=== PATIENT | male | born 1960 | race Caucasian/White ===

== ENCOUNTER 2021-03-31 16:22 | Emergency (ER) | payer BC ==
[2021-03-31 16:35] VITALS: RESP 18
[2021-03-31 16:47] LABS: Glucose,Whole Blood 98 mg/dL (75-99)
--- NOTE | 2021-03-31 16:57 | ED ---
General Adult HPI - General Chief complaint: Dizziness Stated complaint: syncope Time Seen by Provider: 03/31/21 16:55 Source: patient, EMS Mode of arrival: EMS Limitations: no limitations - History of Present Illness Initial comments: Patient presents to the ED by ambulance for evaluation with his and friend at bedside. Patient states that he became lightheaded and felt like he was going to pass out while sitting down just prior to calling for an ambulance today. Patient states that he has been outside in the heat all day today. Patient also states that he smoked marijuana just prior to the onset of his symptoms today. Patient states that his symptoms have now completely resolved. Patient denies alcohol use or any other illicit drug use. Patient denies having any pain, fever or chills, headache, focal numbness/weakness/neuro deficit, visual changes, speech difficulty, chest pain or pressure, dyspnea, cough or cold symptoms, palpitations, syncope, abdominal pain, nausea/vomiting/diarrhea, bloody or melanotic stool, dysuria or urinary symptoms, or any other symptoms or complaints. - Related Data Home Medications Medication Instructions Recorded Confirmed Aspirin 81 mg PO DAILY 10/06/14 03/31/21 Diltiazem Cd [Cardizem Cd] 180 mg PO DAILY 10/06/14 03/31/21 Losartan [Cozaar] 50 mg PO DAILY 10/06/14 03/31/21 Tiotropium 18 Mcg/Puff [Spiriva] 1 cap INHALATION RT-DAILY 10/06/14 03/31/21 hydroCHLOROthiazide 25 mg PO DAILY 10/06/14 03/31/21 Atorvastatin Calcium [Lipitor] 40 mg PO DAILY 03/31/21 03/31/21 Allergies Allergy/AdvReac Type Severity Reaction Status Date / Time No Known Allergies Allergy Verified 03/31/21 17:16 Review of Systems ROS Statement: Those systems with pertinent positive or pertinent negative responses have been documented in the HPI. ROS Other: All systems not noted in ROS Statement are negative. Past Medical History Past Medical History: Atrial Fibrillation, COPD, Hypertension History of Any Multi-Drug Resistant Organisms: None Reported Additional Past Surgical History / Comment(s): REPAIR TENDON OF LEFT HAND (CHILDHOOD), sinus surgery Past Anesthesia/Blood Transfusion Reactions: No Reported Reaction Past Psychological History: No Psychological Hx Reported Smoking Status: Current every day smoker Past Alcohol Use History: Occasional Past Drug Use History: Marijuana General Exam Limitations: no limitations General appearance: alert, in no apparent distress Head exam: Present: atraumatic, normocephalic Eye exam: Present: normal appearance, PERRL, EOMI ENT exam: Present: mucous membranes moist Neck exam: Present: other (Trachea is in midline) Respiratory exam: Present: normal lung sounds bilaterally. Absent: respiratory distress, wheezes, rales, rhonchi, stridor Cardiovascular Exam: Present: regular rate, normal rhythm, normal heart sounds, other (Normal radial pulses bilaterally) GI/Abdominal exam: Present: soft. Absent: distended, tenderness, guarding Extremities exam: Absent: tenderness, pedal edema, calf tenderness Neurological exam: Present: alert, oriented X3, CN II-XII intact. Absent: motor sensory deficit Psychiatric exam: Present: normal affect, normal mood Skin exam: Present: warm, dry, intact, normal color Course Vital Signs 03/31/21 03/31/21 03/31/21 16:28 17:19 18:54 Temperature 99.7 F H 97.0 F L Pulse Rate 65 60 58 L Respiratory 18 18 18 Rate Blood Pressure 107/73 115/78 128/85 O2 Sat by Pulse 97 97 98 Oximetry - Reevaluation(s) Reevaluation #1: 03/31/21 19:06 Patient continues to deny having any lightheadedness or symptoms while in the ED. Patient's vital signs remain reassuring. Patient remains alert and breathing comfortably with a normal room air oxygen saturation. Patient and /friend are aware of the patient's test results, and they all feel comfortable with the patient going home at this time. Patient was counseled a bout lightheadedness and cannabis abuse. Patient was clearly explained return and follow-up instructions, and he feels comfortable with this plan. Patient was instructed to follow up closely with his primary care provider. Patient was also instructed to have a low threshold for return to the ED should his symptoms worsen. EKG Findings - EKG Comments: EKG Findings:: Normal sinus rhythm, ventricular rate of 68 bpm, normal MA and QRS intervals, normal QT interval, normal axis, no ST or T-wave abnormality Medical Decision Making - Medical Decision Making I suspect that the patient's lightheadedness episode likely stemmed from his marijuana abuse and being out in the heat today. Patient's EKG and labs are fairly unremarkable. Patient's vital signs are reassuring. Patient and family are aware patient's test results, and patient wishes to go home with his family at this time. Will discharge patient home with his family at this time. - Lab Data Result diagrams: 03/31/21 17:12 03/31/21 17:12 Lab Results 03/31/21 03/31/21 03/31/21 Range/Units 16:45 17:12 17:12 WBC 10.0 (3.8-10.6) k/uL RBC 4.76 (4.30-5.90) m/uL Hgb 14.0 (13.0-17.5) gm/dL Hct 42.9 (39.0-53.0) % MCV 90.3 (80.0-100.0) fL MCH 29.4 (25.0-35.0) pg MCHC 32.5 (31.0-37.0) g/dL RDW 13.8 (11.5-15.5) % Plt Count 233 (150-450) k/uL MPV 7.4 Neutrophils % 52 % Lymphocytes % 33 % Monocytes % 8 % Eosinophils % 3 % Basophils % 1 % Neutrophils # 5.2 (1.3-7.7) k/uL Lymphocytes # 3.3 (1.0-4.8) k/uL Monocytes # 0.8 (0-1.0) k/uL Eosinophils # 0.3 (0-0.7) k/uL Basophils # 0.1 (0-0.2) k/uL Sodium 137 (137-145) mmol/L Potassium 3.8 (3.5-5.1) mmol/L Chloride 106 (98-107) mmol/L Carbon Dioxide 22 (22-30) mmol/L Anion Gap 9 mmol/L BUN 18 (9-20) mg/dL Creatinine 0.86 (0.66-1.25) mg/dL Est GFR (CKD-EPI)AfAm >90 (>60 ml/min/1.73 sqM) Est GFR (CKD-EPI)NonAf >90 (>60 ml/min/1.73 sqM) Glucose 98 (74-99) mg/dL POC Glucose (mg/dL) 98 (75-99) mg/dL POC Glu [employer] Controller ID Esparza, Austen Calcium 8.9 (8.4-10.2) mg/dL Total Bilirubin 0.3 (0.2-1.3) mg/dL AST 25 (17-59) U/L ALT 26 (4-49) U/L Alkaline Phosphatase 72 (38-126) U/L Troponin I (0.000-0.034) ng/mL Total Protein 6.0 L (6.3-8.2) g/dL Albumin 3.5 (3.5-5.0) g/dL 03/31/21 Range/Units 17:12 WBC (3.8-10.6) k/uL RBC (4.30-5.90) m/uL Hgb (13.0-17.5) gm/dL Hct (39.0-53.0) % MCV (80.0-100.0) fL MCH (25.0-35.0) pg MCHC (31.0-37.0) g/dL RDW (11.5-15.5) % Plt Count (150-450) k/uL MPV Neutrophils % % Lymphocytes % % Monocytes % % Eosinophils % % Basophils % % Neutrophils # (1.3-7.7) k/uL Lymphocytes # (1.0-4.8) k/uL Monocytes # (0-1.0) k/uL Eosinophils # (0-0.7) k/uL Basophils # (0-0.2) k/uL Sodium (137-145) mmol/L Potassium (3.5-5.1) mmol/L Chloride (98-107) mmol/L Carbon Dioxide (22-30) mmol/L Anion Gap mmol/L BUN (9-20) mg/dL Creatinine (0.66-1.25) mg/dL Est GFR (CKD-EPI)AfAm (>60 ml/min/1.73 sqM) Est GFR (CKD-EPI)NonAf (>60 ml/min/1.73 sqM) Glucose (74-99) mg/dL POC Glucose (mg/dL) (75-99) mg/dL POC Glu Casino Controller ID Calcium (8.4-10.2) mg/dL Total Bilirubin (0.2-1.3) mg/dL AST (17-59) U/L ALT (4-49) U/L Alkaline Phosphatase (38-126) U/L Troponin I <0.012 (0.000-0.034) ng/mL Total Protein (6.3-8.2) g/dL Albumin (3.5-5.0) g/dL Disposition Clinical Impression: Lightheadedness, Marijuana abuse Disposition: HOME SELF-CARE Condition: Stable Instructions (If sedation given, give patient instructions): Cannabis Abuse (ED), Lightheadedness (ED) Additional Instructions: Return to the ER immediately should you develop new or worsening dizziness, fainting, any significant pain, a fever, chest pain, shortness of breath, or new or worsening symptoms. Follow up closely with your primary care provider. Is patient prescribed a controlled substance at d/c from ED?: No Referrals: Sabrina Clinton DO [Primary Care Provider] - 1-2 days Time of Disposition: 19:08
[2021-03-31] MEDS: SODIUM CHLORIDE 0.9% 1,000 ML IV STA (17:19)
[2021-03-31 17:21] VITALS: TEMP 97
[2021-03-31 17:23] LABS: Basophils # (A) 0.1 k/uL (0-0.2); Basophils % (A) 1 %; Eosinophils # (A) 0.3 k/uL (0-0.7); Eosinophils % (A) 3 %; HCT 42.9 % (39.0-53.0); Lymphocytes # (A) 3.3 k/uL (1.0-4.8); Lymphocytes % (A) 33 %; MCH 29.4 pg (25.0-35.0); MCHC 32.5 g/dL (31.0-37.0); MCV 90.3 fL (80.0-100.0); Mean Platelet Volume 7.4; Monocytes # (A) 0.8 k/uL (0-1.0); Monocytes % (A) 8 %; Neutrophils # (A) 5.2 k/uL (1.3-7.7); Neutrophils % (A) 52 %; Platelet Count 233 k/uL (150-450); RBC 4.76 m/uL (4.30-5.90); RDW 13.8 % (11.5-15.5)
[2021-03-31 17:30] LABS: ALT 26 U/L (4-49); AST 25 U/L (17-59); African American GFR (CKD) >90 (>60 ml/min/1.73 sqM); Albumin 3.5 g/dL (3.5-5.0); Alkaline Phosphatase 72 U/L (38-126); Anion Gap 9 mmol/L; Blood Urea Nitrogen 18 mg/dL (9-20); Calcium 8.9 mg/dL (8.4-10.2); Carbon Dioxide 22 mmol/L (22-30); Chloride 106 mmol/L (98-107); Glucose 98 mg/dL (74-99); Non-African American GFR(CKD) >90 (>60 ml/min/1.73 sqM); Potassium 3.8 mmol/L (3.5-5.1); Sodium 137 mmol/L (137-145); Total Bilirubin 0.3 mg/dL (0.2-1.3)
[2021-03-31 18:55] VITALS: BP 128/85; PULSE 58
== END 2021-03-31 19:20 | disposition home or self-care (01) ==
LOC: EC 16:22
DX: F12.10 Cannabis abuse, uncomplicated (principal); R42 Dizziness and giddiness; R55 Syncope and collapse; J44.9 Chronic obstructive pulmonary disease, unspecified; I10 Essential (primary) hypertension; I48.91 Unspecified atrial fibrillation; F17.200 Nicotine dependence, unspecified, uncomplicated; Z79.51 Long term (current) use of inhaled steroids; Z79.82 Long term (current) use of aspirin; Z79.899 Other long term (current) drug therapy
CPT/HCPCS: 36415; 80053; 84484; 85025; 93005; 96360; 99284

== ENCOUNTER 2021-10-23 07:44 | Day surgery (SDC) | payer BC ==
[2021-10-18 16:36] VITALS: BMI 28.1
[~2021-10-23 07:44] MED LIST: LACTATED RINGERS 1,000 ML IV SCH
[2021-10-23 08:09] VITALS: TEMP 97.8
[2021-10-23] MEDS ORDERED: PROPOFOL 10 MG/ML 20 ML VIAL IV ONE (08:58)
[2021-10-23] MEDS ORDERED: LIDOCAINE 1% INJ 10MG/ML (20 ML MDV) ONE (08:58)
--- NOTE | 2021-10-23 09:21 | P.PCN ---
Date of Procedure: 10/23/21 Procedure(s) Performed: BRIEF HISTORY: Patient is a 61-year-old pleasant male scheduled for an elective colonoscopy as a part of evaluation of prior history of colon polyps. Last colonoscopy was 5 years ago. PROCEDURE PERFORMED: Colonoscopy with snare polypectomy. PREOPERATIVE DIAGNOSIS: History of colon polyps. IV sedation per Anesthesia. PROCEDURE: After informed consent was obtained, the patient, was brought into the endoscopy unit. IV sedation was administered by Anesthesia under continuous monitoring. Digital rectal examination was normal. Initially the Olympus CF-160 flexible video colonoscope was then inserted in the rectum, gradually advanced into the cecum without any difficulty. Careful examination was performed as the scope was gradually being withdrawn. Ileocecal valve and the appendiceal orifice were visualized and appeared normal. Prep was excellent. Mucosa of the cecum, we normal. In the ascending colon there were 5 polyps measuring between 3 mm to 7 mm in size all of which were removed by snare polypectomy. In the hepatic flexure there were 2 polyps measuring 7 mm to 1 cm both of which were broad- based removed by snare polypectomy. In the proximal transverse colon just distal to the hepatic flexure there was a 2 cm broad-based polyp that was removed by piecemeal snare polypectomy and complete polypectomy accomplished. Rest of the ascending colon, transverse colon, descending colon, sigmoid colon, and rectum appeared normal. Retroflexion was performed in the rectum and no lesions were seen. In the proximal rectum there was a 5 mm polyp removed by snare polypectomy The patient tolerated the procedure well. IMPRESSION: 5 small polyps in the ascending colon measuring between 2 mm to 7 mm in size status post polypectomy 7 mm and 1 cm hepatic flexure polyps status post polypectomy 2 cm polyp broad-based proximal transverse colon polyp status post polypectomy 5 mm rectal polyp status post polypectomy RECOMMENDATIONS: Findings of this examination were discussed with the patient as well as his family. He was advised to follow with the biopsy results. If the biopsy results adenoma he can have a repeat colonoscopy in 3 years..
[2021-10-23] MEDS ORDERED: IV FLUID CONTINUATION 500 ML IV ONE (09:23)
[2021-10-23 09:25] VITALS: RESP 16
[2021-10-23 09:44] VITALS: BP 114/72; PULSE 56
== END 2021-10-23 10:05 | disposition home or self-care (01) ==
LOC: ORWHC2ENDO 07:44
PROVIDERS: ATTEND Internal Medicine Gastroenterology
DX: Z12.11 Encounter for screening for malignant neoplasm of colon (principal); D12.2 Benign neoplasm of ascending colon; D12.3 Benign neoplasm of transverse colon; D12.8 Benign neoplasm of rectum; Z86.010 Personal history of colon polyps; Z79.82 Long term (current) use of aspirin; Z79.899 Other long term (current) drug therapy; I48.91 Unspecified atrial fibrillation; I10 Essential (primary) hypertension; E78.5 Hyperlipidemia, unspecified; J44.9 Chronic obstructive pulmonary disease, unspecified; F17.200 Nicotine dependence, unspecified, uncomplicated; Z97.2 Presence of dental prosthetic device (complete) (partial); Z88.8 Allergy status to other drugs, medicaments and biological substances
CPT/HCPCS: 88305; 45385; J2001; J2704

== ENCOUNTER 2023-12-29 08:30 | Inpatient (IN) | payer BC ==
[2023-12-29] MEDS: SODIUM CHLORIDE 0.9% 500 ML 500 ML IV STA (09:08)
[2023-12-29] MEDS: methylPREDNISolone SOD SUCCI 125 MG/2 ML VIAL IV STA (09:10)
--- NOTE | 2023-12-29 09:24 | ED ---
General Adult HPI - General Chief complaint: Shortness of Breath Stated complaint: COPD Time Seen by Provider: 12/29/23 08:42 Source: patient, RN notes reviewed Mode of arrival: ambulatory Limitations: no limitations - History of Present Illness Initial comments: 63-year-old male presents emergency department chief complaint shortness of breath. Patient states that he has COPD states has been having issues on and off since September when he had pneumonia. 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 He states that he used to smoke almost 2 packs a day states is down to 5 cigarettes a day. He states he has been doing his breathing treatments and inhaler with minimal relief. Patient reports no fever. Patient states he has mild swelling in his feet, mild productive cough. Patient states that movement makes his symptoms much worse. - Related Data Home Medications Medication Instructions Recorded Confirmed Diltiazem Cd [Cardizem Cd] 180 mg PO DAILY 10/06/14 12/29/23 Aspirin 325 mg PO DAILY 10/18/21 12/29/23 Multivitamins, Thera [Multivitamin 1 tab PO DAILY 10/23/21 12/29/23 (formulary)] Albuterol Inhaler [Ventolin Hfa 2 puff INHALATION RT-QID PRN 12/29/23 12/29/23 Inhaler] Albuterol Nebulized [Ventolin 2.5 mg INHALATION RT-QID PRN 12/29/23 12/29/23 Nebulized] Fluticasone/Umeclidin/Vilanter 1 puff INHALATION RT-DAILY 12/29/23 12/29/23 [Trelegy Ellipta 100-62.5-25] Ibuprofen [Motrin] 800 mg PO Q8H PRN 12/29/23 12/29/23 Losartan Potassium [Cozaar] 100 mg PO DAILY 12/29/23 12/29/23 Allergies Allergy/AdvReac Type Severity Reaction Status Date / Time lisinopril AdvReac CAUSED Verified 12/29/23 11:02 FATIGUE Review of Systems ROS Statement: Those systems with pertinent positive or pertinent negative responses have been documented in the HPI. ROS Other: All systems not noted in ROS Statement are negative. Past Medical History Past Medical History: Atrial Fibrillation, COPD, Hyperlipidemia, Hypertension History of Any Multi-Drug Resistant Organisms: None Reported Additional Past Surgical History / Comment(s): REPAIR TENDON OF LEFT HAND (CHILDHOOD), sinus surgery , COLONOSCOPY Past Anesthesia/Blood Transfusion Reactions: No Reported Reaction Past Psychological History: No Psychological Hx Reported Smoking Status: Current every day smoker - Past Family History Mother Family Medical History: Cancer General Exam Limitations: no limitations General appearance: alert, in no apparent distress Head exam: Present: atraumatic, normocephalic, normal inspection Eye exam: Present: normal appearance, PERRL, EOMI. Absent: scleral icterus, conjunctival injection, periorbital swelling ENT exam: Present: normal exam, mucous membranes moist Neck exam: Present: normal inspection. Absent: tenderness, meningismus, lymphadenopathy Respiratory exam: Present: wheezes, rhonchi. Absent: normal lung sounds bilaterally, respiratory distress, rales, stridor Cardiovascular Exam: Present: regular rate, normal rhythm, normal heart sounds. Absent: systolic murmur, diastolic murmur, rubs, gallop, clicks GI/Abdominal exam: Present: soft, normal bowel sounds. Absent: distended, tenderness, guarding, rebound, rigid Course Vital Signs 12/29/23 12/29/23 12/29/23 08:33 09:08 09:25 Temperature 97.7 F Pulse Rate 100 71 79 Respiratory 24 23 Rate Blood Pressure 138/87 139/84 O2 Sat by Pulse 94 L 93 L Oximetry 12/29/23 12/29/23 12/29/23 09:30 09:41 10:00 Temperature Pulse Rate 79 85 95 Respiratory 18 19 Rate Blood Pressure 138/89 146/109 O2 Sat by Pulse 100 98 Oximetry 12/29/23 12/29/23 12/29/23 10:30 11:00 11:30 Temperature Pulse Rate 80 94 88 Respiratory 19 20 20 Rate Blood Pressure 141/96 146/98 144/108 O2 Sat by Pulse 99 98 98 Oximetry 12/29/23 12/29/23 12/29/23 12:00 12:30 12:43 Temperature 97.9 F Pulse Rate 96 101 H 89 Respiratory 21 22 Rate Blood Pressure 141/105 136/94 O2 Sat by Pulse 97 96 Oximetry 12/29/23 12/29/23 12/29/23 12:54 15:05 15:14 Temperature Pulse Rate 86 112 H 112 H Respiratory Rate Blood Pressure O2 Sat by Pulse Oximetry 12/29/23 16:00 Temperature Pulse Rate 103 H Respiratory 17 Rate Blood Pressure 141/104 O2 Sat by Pulse 96 Oximetry EKG Findings - EKG Comments: EKG Findings:: EKG performed at 8: 54 A-fib with a rate of 69 QRS 98 QT/QTc 396/416 - EKG Results: EKG: interpreted by HEATHER Medical Decision Making - Medical Decision Making Was pt. sent in by a medical professional or institution (, PA, LOADER MACHINE, urgent care, hospital, or longterm...) When possible be specific @ -No Did you speak to anyone other than the patient for history (EMS, parent, family, police, friend...)? What history was obtained from this source @ -No Did you review nursing and triage notes (agree or disagree)? Why? @ -I reviewed and agree with nursing and triage notes Were old charts reviewed (outside hosp., previous admission, EMS record, old EKG, old radiological studies, urgent care reports/EKG's, longterm records)? Report findings @ -No old charts were reviewed Differential Diagnosis (chest pain, altered mental status, abdominal pain women, abdominal pain men, vaginal bleeding, weakness, fever, dyspnea, syncope, headache, dizziness, GI bleed, back pain, seizure, CVA, palpatations, mental health, musculoskeletal)? @ -Differential Dyspnea: Coronary syndrome, arrhythmia, tamponade, asthma, COPD, pulmonary embolism, pneumonia, pneumothorax, pulmonary effusion, anaphylaxis, diabetic ketoacidosis, flailed chest, pulmonary contusion, diaphragmatic rupture, anemia, neuromuscular, this is not meant to be an all-inclusive list. EKG interpreted by me (3pts min.). @ -As above X-rays interpreted by me (1pt min.). @ -Chest x-ray shows COPD changes CT interpreted by me (1pt min.). @ -None done U/S interpreted by me (1pt. min.). @ -None done What testing was considered but not performed or refused? (CT, X-rays, U/S, labs)? Why? @ -None What meds were considered but not given or refused? Why? @ -None Did you discuss the management of the patient with other professionals (professionals i.e. , PA, LOADER MACHINE, lab, RT, psych nurse, medical social consultant, research & insights executive, teacher, chief media officer, casework manager)? Give summary @ - Sheet for admission secondary to COPD exacerbation and failure of outpatient treatment will require steroids, breathing treatments and pulmonology evaluation Was smoking cessation discussed for >3mins.? @ -No Was critical care preformed (if so, how long)? @ -No Were there social determinants of health that impacted care today? How? (Homelessness, low income, unemployed, alcoholism, drug addiction, transportation, low edu. Level, literacy, decrease access to med. care, correction, rehab)? @ -No Was there de-escalation of care discussed even if they declined (Discuss DNR or withdrawal of care, Hospice)? DNR status @ -No What co-morbidities impacted this encounter? (DM, HTN, Smoking, COPD, CAD, Cancer, CVA, ARF, Chemo, Hep., AIDS, mental health diagnosis, sleep apnea, morbid obesity)? @ -COPD Was patient admitted / discharged? Hospital course, mention meds given and route, prescriptions, significant lab abnormalities, going to OR and other pert inent info. @ -Admitted patient has COPD exacerbation patient had minimal improvement after multiple breathing treatments, steroids. Patient continue on steroids, pulmonology evaluation patient was started on doxycycline. Undiagnosed new problem with uncertain prognosis? @ -No Drug Therapy requiring intensive monitoring for toxicity (Heparin, Nitro, Insulin, Cardizem)? @ -No Were any procedures done? @ -No Diagnosis/symptom? @ -COPD exacerbation Acute, or Chronic, or Acute on Chronic? @ -Acute Uncomplicated (without systemic symptoms) or Complicated (systemic symptoms)? @ -Complicated Side effects of treatment? @ -No Exacerbation, Progression, or Severe Exacerbation? @ -Exacerbation Poses a threat to life or bodily function? How? (Chest pain, [place], [place], pneumonia, PE, COPD, DKA, ARF, appy, cholecystitis, CVA, Diverticulitis, Homicidal, Suicidal, threat to staff... and all critical care pts) @ -[Yes possible respiratory failure from COPD - Lab Data Result diagrams: 12/29/23 09:10 12/29/23 09:59 Lab Results 12/29/23 12/29/23 12/29/23 Range/Units 09:10 09:59 09:59 WBC 8.7 (3.8-10.6) k/uL RBC 5.25 (4.30-5.90) m/uL Hgb 14.8 (13.0-17.5) gm/dL Hct 46.3 (39.0-53.0) % MCV 88.2 (80.0-100.0) fL MCH 28.1 (25.0-35.0) pg MCHC 31.9 (31.0-37.0) g/dL RDW 15.6 H (11.5-15.5) % Plt Count 260 (150-450) k/uL MPV 7.5 Neutrophils % 77 % Lymphocytes % 13 % Monocytes % 6 % Eosinophils % 1 % Basophils % 0 % Neutrophils # 6.7 (1.3-7.7) k/uL Lymphocytes # 1.1 (1.0-4.8) k/uL Monocytes # 0.6 (0-1.0) k/uL Eosinophils # 0.1 (0-0.7) k/uL Basophils # 0.0 (0-0.2) k/uL PT 11.2 (10.0-12.5) sec INR 1.0 (<1.2) APTT 23.6 (22.0-30.0) sec Sodium (137-145) mmol/L Potassium (3.5-5.1) mmol/L Chloride (98-107) mmol/L Carbon Dioxide (22-30) mmol/L Anion Gap mmol/L BUN (9-20) mg/dL Creatinine (0.66-1.25) mg/dL Est GFR (CKD-EPI)AfAm (>60 ml/min/1.73 sqM) Est GFR (CKD-EPI)NonAf (>60 ml/min/1.73 sqM) Glucose (74-99) mg/dL Plasma Lactic Acid Dickson 1.3 (0.7-2.0) mmol/L Calcium (8.4-10.2) mg/dL Total Bilirubin (0.2-1.3) mg/dL AST (17-59) U/L ALT (4-49) U/L Alkaline Phosphatase (38-126) U/L Troponin I (0.000-0.034) ng/mL NT-Pro-B Natriuret Pep pg/mL Total Protein (6.3-8.2) g/dL Albumin (3.5-5.0) g/dL Influenza Type A (PCR) (Not Detectd) Influenza Type B (PCR) (Not Detectd) RSV (PCR) (Not Detectd) SARS-CoV-2 (PCR) (Not Detectd) 12/29/23 12/29/23 12/29/23 Range/Units 09:59 09:59 10:44 WBC (3.8-10.6) k/uL RBC (4.30-5.90) m/uL Hgb (13.0-17.5) gm/dL Hct (39.0-53.0) % MCV (80.0-100.0) fL MCH (25.0-35.0) pg MCHC (31.0-37.0) g/dL RDW (11.5-15.5) % Plt Count (150-450) k/uL MPV Neutrophils % % Lymphocytes % % Monocytes % % Eosinophils % % Basophils % % Neutrophils # (1.3-7.7) k/uL Lymphocytes # (1.0-4.8) k/uL Monocytes # (0-1.0) k/uL Eosinophils # (0-0.7) k/uL Basophils # (0-0.2) k/uL PT (10.0-12.5) sec INR (<1.2) APTT (22.0-30.0) sec Sodium 138 (137-145) mmol/L Potassium 3.6 (3.5-5.1) mmol/L Chloride 107 (98-107) mmol/L Carbon Dioxide 24 (22-30) mmol/L Anion Gap 7 mmol/L BUN 19 (9-20) mg/dL Creatinine 0.60 L (0.66-1.25) mg/dL Est GFR (CKD-EPI)AfAm >90 (>60 ml/min/1.73 sqM) Est GFR (CKD-EPI)NonAf >90 (>60 ml/min/1.73 sqM) Glucose 94 (74-99) mg/dL Plasma Lactic Acid Dickson (0.7-2.0) mmol/L Calcium 8.5 (8.4-10.2) mg/dL Total Bilirubin 0.8 (0.2-1.3) mg/dL AST 37 (17-59) U/L ALT 40 (4-49) U/L Alkaline Phosphatase 96 (38-126) U/L Troponin I <0.012 (0.000-0.034) ng/mL NT-Pro-B Natriuret Pep 1940 pg/mL Total Protein 6.4 (6.3-8.2) g/dL Albumin 3.5 (3.5-5.0) g/dL Influenza Type A (PCR) Not Detected (Not Detectd) Influenza Type B (PCR) Not Detected (Not Detectd) RSV (PCR) Not Detected (Not Detectd) SARS-CoV-2 (PCR) Not Detected (Not Detectd) Disposition Clinical Impression: COPD exacerbation Disposition: ADMITTED IP TO THIS HOSP Condition: Fair Time of Disposition: 11:44
[2023-12-29] MEDS: IPRATROPIUM-ALBUTEROL 3 ML NEB INHALATION STA (09:25)
[2023-12-29 09:29] LABS: Basophils % (A) 0 %; Eosinophils # (A) 0.1 k/uL (0-0.7); Eosinophils % (A) 1 %; HCT 46.3 % (39.0-53.0); HGB 14.8 gm/dL (13.0-17.5); Lymphocytes # (A) 1.1 k/uL (1.0-4.8); Lymphocytes % (A) 13 %; MCH 28.1 pg (25.0-35.0); MCHC 31.9 g/dL (31.0-37.0); MCV 88.2 fL (80.0-100.0); Mean Platelet Volume 7.5; Monocytes # (A) 0.6 k/uL (0-1.0); Monocytes % (A) 6 %; Neutrophils # (A) 6.7 k/uL (1.3-7.7); Neutrophils % (A) 77 %; Platelet Count 260 k/uL (150-450); RBC 5.25 m/uL (4.30-5.90); RDW 15.6 % (11.5-15.5); WBC 8.7 k/uL (3.8-10.6)
--- NOTE | 2023-12-29 09:46 | XR ---
EXAMINATION TYPE: XR chest 2V DATE OF EXAM: 12/29/2023 COMPARISON: 06/04/2010 HISTORY: Shortness of breath TECHNIQUE: Frontal and lateral views of the chest are obtained. FINDINGS: Scattered senescent parenchymal changes noted. Hyperinflation compatible with COPD. Basilar parenchym al scarring and/or atelectasis. Pleural thickening versus small effusions. No evidence for infiltrate. No evidence for atelectasis. Heart size is stable. Mediastinal structures are stable and grossly unremarkable. No evidence for hilar prominence. Degenerative changes dorsal spine. IMPRESSION: 1. Hyperinflation compatible with COPD. Basilar parenchymal scarring and/or atelectasis. Pleural thic kening versus small effusions.
[2023-12-29 10:30] LABS: Partial Thromboplastin Time 23.6 sec (22.0-30.0); Prothrombin Time 11.2 sec (10.0-12.5)
[2023-12-29 10:31] LABS: ALT 40 U/L (4-49); AST 37 U/L (17-59); African American GFR (CKD) >90 (>60 ml/min/1.73 sqM); Albumin 3.5 g/dL (3.5-5.0); Alkaline Phosphatase 96 U/L (38-126); Anion Gap 7 mmol/L; Blood Urea Nitrogen 19 mg/dL (9-20); Calcium 8.5 mg/dL (8.4-10.2); Carbon Dioxide 24 mmol/L (22-30); Chloride 107 mmol/L (98-107); Glucose 94 mg/dL (74-99); Non-African American GFR(CKD) >90 (>60 ml/min/1.73 sqM); Potassium 3.6 mmol/L (3.5-5.1); Sodium 138 mmol/L (137-145); Total Bilirubin 0.8 mg/dL (0.2-1.3); Total Protein 6.4 g/dL (6.3-8.2)
[2023-12-29 10:37] LABS: NT-Pro-B-Type Natriuretic Pept 1940 pg/mL
[2023-12-29] MEDS ORDERED: IPRATROPIUM-ALBUTEROL 3 ML NEB INHALATION PRN (11:43)
[2023-12-29] MEDS ORDERED: ACETAMINOPHEN TAB 325 MG TAB PO PRN (11:43)
[2023-12-29] MEDS ORDERED: NALOXONE 0.4 MG/ML 1 ML VIAL IVP PRN (11:43)
[2023-12-29] MEDS: IPRATROPIUM-ALBUTEROL 3 ML NEB INHALATION SCH (12:40)
[2023-12-29] MEDS ORDERED: IBUPROFEN 800 MG TAB PO PRN (12:47)
[2023-12-29] MEDS: DOXYCYCLINE 100 MG CAP PO SCH (12:57)
[2023-12-29] MEDS ORDERED: DEXTROSE 50% SYRINGE 50 ML IVP PRN ×2 (13:14)
--- NOTE | 2023-12-29 13:15 | P.HPIM ---
History of Present Illness This is a pleasant 63 years old male with past medical history of COPD, nicotine dependence, atrial fibrillation not on anticoagulation, hypertension and hyperlipidemia Presents because of slowly gradual dyspnea over several weeks associated with coughing and little phlegm but no chest pain No change in urine or bowel habits. No fever. Patient is a smoker but cut down from 1.5 down to 5 to 6 cigarettes/day he was counseled to quit but he declines and he denies also alcohol or illicit drugs. He is not on oxygen at home. He is hemodynamically stable He has unremarkable labs including CBC, BMP, liver enzymes, INR Troponin is negative. proBNP 1940. Chest x-ray showing COPD changes with no acute process EKG showing atrial fibrillation with rate controlled at [address]-T changes Influenza A and type B, RSV, SARS (coronavirus) are and detected\\patient started on IV Solu-Medrol Review of Systems Review of systems CONSTITUTIONAL: No fever, no malaise, no fatigue. HEENT: No recent visual problems or hearing problems. Denied any sore throat. CARDIOVASCULAR: No orthopnea, PND, no palpitations, no syncope. -PULMONARY: No s chest wall tenderness, no hemoptysis. GASTROINTESTINAL: No diarrhea, no nausea, no vomiting, no abdominal pain. Normoactive bowel sounds. NEUROLOGICAL: No headaches, no weakness, no numbness. HEMATOLOGICAL: Denies any bleeding or petechiae. GENITOURINARY: Denies any burning micturition, frequency, or urgency. MUSCULOSKELETAL/RHEUMATOLOGICAL: Denies any joint pain, swelling, or any muscle pain. ENDOCRINE: Denies any polyuria or polydipsia. Past Medical History Past Medical History: Atrial Fibrillation, COPD, Hyperlipidemia, Hypertension History of Any Multi-Drug Resistant Organisms: None Reported Additional Past Surgical History / Comment(s): REPAIR TENDON OF LEFT HAND (CHILDHOOD), sinus surgery , COLONOSCOPY Past Anesthesia/Blood Transfusion Reactions: No Reported Reaction Past Psychological History: No Psychological Hx Reported Smoking Status: Current every day smoker - Past Family History Mother Family Medical History: Cancer Medications and Allergies Home Medications Medication Instructions Recorded Confirmed Type Diltiazem Cd [Cardizem Cd] 180 mg PO DAILY 10/06/14 12/29/23 History Aspirin 325 mg PO DAILY 10/18/21 12/29/23 History Multivitamins, Thera [Multivitamin 1 tab PO DAILY 10/23/21 12/29/23 History (formulary)] Albuterol Inhaler [Ventolin Hfa 2 puff INHALATION RT-QID PRN 12/29/23 12/29/23 History Inhaler] Albuterol Nebulized [Ventolin 2.5 mg INHALATION RT-QID PRN 12/29/23 12/29/23 History Nebulized] Fluticasone/Umeclidin/Vilanter 1 puff INHALATION RT-DAILY 12/29/23 12/29/23 History [Trelegy Ellipta 100-62.5-25] Ibuprofen [Motrin] 800 mg PO Q8H PRN 12/29/23 12/29/23 History Losartan Potassium [Cozaar] 100 mg PO DAILY 12/29/23 12/29/23 History Allergies Allergy/AdvReac Type Severity Reaction Status Date / Time lisinopril AdvReac CAUSED Verified 12/29/23 11:02 FATIGUE Physical Exam Vitals: Vital Signs Temp Pulse Resp BP Pulse Ox 12/29/23 12:54 86 12/29/23 12:43 89 12/29/23 12:00 96 21 141/105 97 12/29/23 11:30 88 20 144/108 98 12/29/23 11:00 94 20 146/98 98 12/29/23 10:30 80 19 141/96 99 12/29/23 10:00 95 19 146/109 98 12/29/23 09:41 85 12/29/23 09:30 79 18 138/89 100 12/29/23 09:25 79 12/29/23 09:08 71 23 139/84 93 L 12/29/23 08:33 97.7 F 100 24 138/87 94 L Intake and Output 12/28/23 12/29/23 12/29/23 22:59 06:59 14:59 Other: Weight 99.79 kg GENERAL: The patient is alert and oriented x3, not in any acute distress. Well developed, well nourished. HEENT: Pupils are round and equally reacting to light. EOMI. No scleral icterus. No conjunctival pallor. Normocephalic, atraumatic. No pharyngeal erythema. No thyromegaly. CARDIOVASCULAR: S1 and S2 present. No murmurs, rubs, or gallops. -PULMONARY: Chest is clear to auscultation, no wheezing bilateral scattered wheezing no crepitation ABDOMEN: Soft, nontender, nondistended, normoactive bowel sounds. No palpable organomegaly. MUSCULOSKELETAL: No joint swelling or deformity. EXTREMITIES: No cyanosis, clubbing, or pedal edema. NEUROLOGICAL: Gross neurological examination did not reveal any focal deficits. SKIN: No rashes. no petechiae. Results CBC & Chem 7: 12/29/23 09:10 12/29/23 09:59 Labs: Abnormal Lab Results - Last 24 Hours (Table) 12/29/23 12/29/23 Range/Units 09:10 09:59 RDW 15.6 H (11.5-15.5) % Creatinine 0.60 L (0.66-1.25) mg/dL Assessment and Plan Assessment: Acute COPD exacerbation Mild acute hypoxic respiratory failure Chronic atrial fibrillation, rate controlled on aspirin at home Hypertension Hyperlipidemia Nicotine dependence Plan: Continue with IV Solu-Medrol Pulmonary consult Labs and medication were reviewed.. Continue same treatment. Continue with symptomatic treatment. Resume home medication. Monitor labs and vitals. DVT and GI prophylaxis. Further recommendations as per clinical course of the patient DVT prophylaxis: Subcutaneous heparin GI Prophylaxis: Pepcid Prognosis is guarded
[2023-12-29 16:59] LABS: Glucose,Whole Blood 131 mg/dL (70-110)
[2023-12-29] MEDS: INSULIN ASPART (NovoLOG) 100 UNIT/ML VIAL SQ SCH (17:01)
[2023-12-29] MEDS: methylPREDNISolone SOD SUCCI 125 MG/2 ML VIAL IV SCH (17:10)
[2023-12-29 20:30] LABS: Glucose,Whole Blood 219 mg/dL (70-110)
[2023-12-29] MEDS: HEPARIN SODIUM,PORCINE 5,000 UNIT/ML 1 ML VIAL SQ SCH (22:08)
[2023-12-29] MEDS: FAMOTIDINE 20 MG/2 ML VIAL IV SCH (22:09)
--- NOTE | 2023-12-30 02:53 | P.CNPUL ---
History of Present Illness Consult date: 12/30/23 Reason for consult: COPD Chief complaint: Shortness of breath, cough History of present illness: I am seeing this patient in consultation today 12/30/2023 for suspected acute COPD exacerbation. Patient is a 63-year-old white male with past medical history significant for COPD, chronic ongoing tobacco dependence, atrial fibrillation, hyperlipidemia, hypertension. Patient's COPD is managed by his primary care provider, Dr. Clinton. Patient has recently been switched to Trelegy Ellipta inhaler, DuoNebs twice a day, and albuterol rescue inhaler. Patient continues to smoke, he has previously smoked 2 packs/day for most of his life, currently down to 5 cigarettes/day. 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 Patient presents to the emergency room yesterday morning complaining of acute on chronic shortness of breath. This has been more severe over the last couple weeks. He did go see a nurse practitioner at his primary care provider's office, and received a steroid injection. He has not felt any better since this office visit, so he came to the emergency room yesterday morning. He has a mostly nonproductive cough and chest congestion. Sometimes produces clear sputum. Denies any fevers or chest pain. Denies any heart palpitations, lightheadedness, or syncopal events. Not maintained on any anticoagulation, for unknown reason. He does take a daily aspirin. He also uses Cardizem for rate control. He has followed with a bridge contractor in the past, however, could not afford his co-pays so has since stopped seeing his bridge contractor. Patient is currently sitting up at the edge of the bed, on room air, in no acute distress. Chest x-ray on arrival shows hyperinflation consistent with COPD. There is bibasilar parenchymal scarring versus atelectasis. There is pleural thickening versus small pleural effusion. No obvious focal infiltrates or evidence of pneumonia. Negative for influenza, RSV, COVID. Currently afebrile. Patient was empirically placed on doxycycline. CBC on arrival unremarkable. No leukocytosis. BMP also unremarkable. Troponins less than 0.012. NT proBNP 1900. EKG on arrival showed atrial fibrillation with controlled ventricular rate, however, he is currently tachycardic heart rate ranging in the 120s beats per minute. Overall, vital signs are stable. Review of Systems REVIEW OF SYSTEMS: CONSTITUTIONAL: Denies any recent significant weight loss or weight gain. EYES: Denies change in vision. EARS, NOSE, MOUTH, THROAT: Denies headaches, denies sore throat. CARDIOVASCULAR: See HPI. RESPIRATORY: See HPI GASTROINTESTINAL: Denies change in appetite, abdominal pain, nausea and vomiting, or diarrhea GENITOURINARY: Denies hematuria, denies infections. MUSKULOSKELETAL: Denies pain, denies swelling. INTEGUMENTARY: Denies rash, denies eczema. NEUROLOGICAL: Denies recent memory loss, no recent seizure activity. PSYCHIATRIC: Denies anxiety, denies depression. HEMATOLOGIC/LYMPHATIC: Denies anemia, denies enlarged lymph node Past Medical History Past Medical History: Atrial Fibrillation, COPD, Hyperlipidemia, Hypertension Additional Past Medical History / Comment(s): COVID 08/21 History of Any Multi-Drug Resistant Organisms: None Reported Additional Past Surgical History / Comment(s): REPAIR TENDON OF LEFT HAND (CHILDHOOD), sinus surgery , COLONOSCOPY Past Anesthesia/Blood Transfusion Reactions: No Reported Reaction Past Psychological History: No Psychological Hx Reported Smoking Status: Current every day smoker - Past Family History Mother Family Medical History: Cancer Medications and Allergies Home Medications Medication Instructions Recorded Confirmed Type Diltiazem Cd [Cardizem Cd] 180 mg PO DAILY 10/06/14 12/29/23 History Aspirin 325 mg PO DAILY 10/18/21 12/29/23 History Multivitamins, Thera [Multivitamin 1 tab PO DAILY 10/23/21 12/29/23 History (formulary)] Albuterol Inhaler [Ventolin Hfa 2 puff INHALATION RT-QID PRN 12/29/23 12/29/23 History Inhaler] Albuterol Nebulized [Ventolin 2.5 mg INHALATION RT-QID PRN 12/29/23 12/29/23 History Nebulized] Fluticasone/Umeclidin/Vilanter 1 puff INHALATION RT-DAILY 12/29/23 12/29/23 History [Trelegy Ellipta 100-62.5-25] Ibuprofen [Motrin] 800 mg PO Q8H PRN 12/29/23 12/29/23 History Losartan Potassium [Cozaar] 100 mg PO DAILY 12/29/23 12/29/23 History Allergies Allergy/AdvReac Type Severity Reaction Status Date / Time lisinopril AdvReac CAUSED Verified 12/29/23 11:02 FATIGUE Physical Exam Vitals: Vital Signs Temp Pulse Pulse Resp BP BP Pulse Ox 12/29/23 21:03 98.5 F 110 H 16 149/97 90 L 12/29/23 20:02 98.4 F 120 H 18 145/101 95 12/29/23 19:36 114 H 12/29/23 17:00 115 H 17 135/100 97 12/29/23 16:00 103 H 17 141/104 96 12/29/23 15:30 108 H 22 137/102 97 12/29/23 15:14 112 H 12/29/23 15:05 112 H 12/29/23 12:54 86 12/29/23 12:43 89 12/29/23 12:30 97.9 F 101 H 22 136/94 96 12/29/23 12:00 96 21 141/105 97 12/29/23 11:30 88 20 144/108 98 12/29/23 11:00 94 20 146/98 98 12/29/23 10:30 80 19 141/96 99 12/29/23 10:00 95 19 146/109 98 12/29/23 09:41 85 12/29/23 09:30 79 18 138/89 100 12/29/23 09:25 79 12/29/23 09:08 71 23 139/84 93 L 12/29/23 08:33 97.7 F 100 24 138/87 94 L Intake and Output 12/29/23 12/29/23 12/30/23 14:59 22:59 06:59 Other: # Voids 1 Weight 99.79 kg GENERAL EXAM: Alert, 63-year-old white male, appearing stated age, comfortable in no apparent distress. HEAD: Normocephalic and atraumatic EYES: Normal reaction of pupils, equal size. NOSE: Clear with pink turbinates. THROAT: No erythema or exudates. NECK: No masses, no JVD. CHEST: No chest wall deformity. LUNGS: Equal air entry with mild expiratory wheezes. On room air. No conversational dyspnea or accessory muscle use.. CVS: S1 and S2 normal with soft systolic murmur, irregular rhythm. Heart rate 120 bpm. No other extra heart sounds ABDOMEN: No hepatosplenomegaly, active bowel sounds, no guarding or rigidity. SPINE: No scoliosis or deformity SKIN: No rashes CENTRAL NERVOUS SYSTEM: No focal deficits, tone is normal in all 4 extremities. EXTREMITIES: There is mild nonpitting pedal edema bilaterally. No clubbing, or cyanosis. Peripheral pulses are intact. Results - Laboratory Findings CBC and BMP: 12/29/23 09:10 12/29/23 09:59 PT/INR, D-dimer PT 11.2 sec (10.0-12.5) 12/29/23 09:59 INR 1.0 (<1.2) 12/29/23 09:59 Abnormal lab findings: Abnormal Labs 12/29/23 12/29/23 12/29/23 09:10 09:59 16:58 RDW 15.6 H Creatinine 0.60 L POC Glucose (mg/dL) 131 H 12/29/23 20:27 RDW Creatinine POC Glucose (mg/dL) 219 H - Diagnostic Findings Chest x-ray: image reviewed Assessment and Plan Assessment: Acute COPD exacerbation, chest x-ray on arrival does not show any evidence of focal infiltrates or pneumonia. There is likely bibasilar parenchymal scarring versus atelectasis. There is pleural thickening or small pleural effusion. Negative for influenza, RSV, COVID. Atrial fibrillation with rapid ventricular rate Acute on chronic shortness of breath, likely multifactorial, secondary to a combination of above History of hyperlipidemia History of hypertension Chronic ongoing tobacco dependence, currently down to 5 cigarettes/day. Plan: Patient's medications, labs, chest x-ray reviewed Currently on room air Continue combination of bronchodilators, Symbicort inhaler, and IV Solu-Medrol May continue empiric doxycycline Smoking cessation counseling performed. Patient refused nicotine replacement Consult cardiology for management of patient's atrial fibrillation with rapid ventricular rate. P.o. Cardizem and other cardiac medications have already been resumed. Patient is not on any anticoagulation, for unknown reason. We will also continue to follow I have personally seen and examined the patient, performed the documentation and the assessment and plan as written. Number of minutes spent on the visit:20 Time with Patient: Greater than 30
[2023-12-30 06:20] LABS: Glucose,Whole Blood 129 mg/dL (70-110)
[2023-12-30] MEDS ORDERED: SYMBICORT 80-4.5 MCG INHALER INHALATION SCH (08:00)
[2023-12-30] MEDS ORDERED: ASPIRIN 325 MG TAB PO SCH (09:00)
[2023-12-30] MEDS: SYMBICORT 160-4.5 MCG INHALER INHALATION SCH (09:31)
[2023-12-30] MEDS: ASPIRIN 81 MG PO SCH (09:49)
[2023-12-30] MEDS: LOSARTAN 50 MG TAB PO SCH (09:49)
[2023-12-30] MEDS: DILTIAZEM CD 180 MG CAP.ER.24H PO SCH (09:49)
[2023-12-30] MEDS: DILTIAZEM ORAL 60 MG TAB PO STA (11:10)
[2023-12-30 11:42] LABS: Glucose,Whole Blood 150 mg/dL (70-110)
--- NOTE | 2023-12-30 13:02 | P.PN ---
Subjective This is a pleasant 63 years old male with past medical history of COPD, nicotine dependence, atrial fibrillation not on anticoagulation, hypertension and hyperlipidemia Presents because of slowly gradual dyspnea over several weeks associated with c oughing and little phlegm but no chest pain No change in urine or bowel habits. No fever. Patient is a smoker but cut down from 1.5 down to 5 to 6 cigarettes/day he was counseled to quit but he declines and he denies also alcohol or illicit drugs. He is not on oxygen at home. He is hemodynamically stable He has unremarkable labs including CBC, BMP, liver enzymes, INR Troponin is negative. proBNP 1940. Chest x-ray showing COPD changes with no acute process EKG showing atrial fibrillation with rate controlled at [address]-T changes Influenza A and type B, RSV, SARS (coronavirus) are and detected\\patient started on IV Solu-Medrol Patient dyspnea is improving slowly and gradually, not quite back to normal yet No chest pain no coughing Remains on IV Solu-Medrol 60 mg Cardiology consult and echocardiogram requested for his chronic atrial fibrillation because he is not on anticoagulation at home, he takes only aspirin 325 mg Possible discharge 24 to 48 hours if he keeps improving Objective - Vital Signs Vital signs: Vital Signs Temp 98.5 F 12/30/23 07:00 Pulse 76 12/30/23 09:48 Resp 19 12/30/23 07:00 BP 134/92 12/30/23 07:00 Pulse Ox 94 L 12/30/23 07:00 FiO2 Intake & Output 12/29/23 12/30/23 12/30/23 18:59 06:59 18:59 Weight 99.79 kg Other: # Voids 1 - Exam GENERAL: The patient is alert and oriented x3, not in any acute distress. Well developed, well nourished. HEENT: Pupils are round and equally reacting to light. EOMI. No scleral icterus. No conjunctival pallor. Normocephalic, atraumatic. No pharyngeal erythema. No thyromegaly. CARDIOVASCULAR: S1 and S2 present. No murmurs, rubs, or gallops. -PULMONARY: Chest is clear to auscultation, bilateral scattered wheezing , no crackles. ABDOMEN: Soft, nontender, nondistended, normoactive bowel sounds. No palpable organomegaly. MUSCULOSKELETAL: No joint swelling or deformity. EXTREMITIES: No cyanosis, clubbing, or pedal edema. NEUROLOGICAL: Gross neurological examination did not reveal any focal deficits. SKIN: No rashes. no petechiae. - Labs CBC & Chem 7: 12/29/23 09:10 12/29/23 09:59 Labs: Abnormal Lab Results - Last 24 Hours (Table) 12/29/23 12/29/23 12/30/23 Range/Units 16:58 20:27 06:19 POC Glucose (mg/dL) 131 H 219 H 129 H (70-110) mg/dL 12/30/23 Range/Units 11:40 POC Glucose (mg/dL) 150 H (70-110) mg/dL Assessment and Plan Assessment: Acute COPD exacerbation Mild acute hypoxic respiratory failure Chronic atrial fibrillation, rate controlled on aspirin at home Hypertension Hyperlipidemia Nicotine dependence Plan: Continue with IV Solu-Medrol Pulmonary consult Cardiology consult and echocardiogram Labs and medication were reviewed.. Continue same treatment. Continue with symptomatic treatment. Resume home medication. Monitor labs and vitals. DVT and GI prophylaxis. Further recommendations as per clinical course of the patient DVT prophylaxis: Subcutaneous heparin GI Prophylaxis: Pepcid Prognosis is guarded
--- NOTE | 2023-12-30 13:20 | P.CRDCN ---
History of Present Illness Consult date: 12/30/23 Consult reason: atrial fibrillation (With RVR) History of present illness: History of present illness: This is a 63-year-old male with past medical history of hypertension, hyperlipidemia, paroxysmal atrial fibrillation, tobacco use and dependence. We have been asked to evaluate the patient for A-fib with RVR. Patient initially presented to the hospital due to increasing shortness of breath with clear sputum production. He has been admitted to the hospital due to COPD exacerbation and during the night there was concern for A-fib with RVR. Patient gives history that he developed trouble breathing since he had pneumonia at [place] time he also had COVID at [facility] and has had worsening of his breathing function ever since. He complains of chills and cough without fever. He has some tightness and pressure in the middle of his chest. Patient denies any palpitations, no syncopal episodes, no lightheadedness or dizziness. He often develops shortness of breath and chest pain while he is at work. 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 Regarding smoking. He is a tobacco smoker and has been trying to cut back currently at 5 to 6 cigarettes/day. He states he quit drinking alcohol 1 year ago. He denies any family history of coronary artery disease. Discussed with patient that anticoagulation would be recommended per CHADS-VASC score once he turns 64 in 2 weeks. EKG atrial fibrillation with ventricular rate of 69 bpm. Telemetry is currently running at about 101 bpm, peak rate 129. Chest x-ray: COPD. Basilar parenchymal s scarring and/or atelectasis. Pleural thickening versus small effusions. CBC unremarkable. INR 1. Electrolytes normal. Creatinine 0.6. Blood sugar 219. Lactic acid 1.3. Liver function test normal. Troponin negative x 1. proBNP 1940. Albumin 3.5. Influenza A, influenza B, RSV, COVID-19 not detected. Home cardiac medications: Aspirin 81 mg daily, Cardizem CD 180 mg daily, losartan 100 mg daily. Echocardiogram in 2012 with normal EF Stress test in 2009 normal EF normal test Review Of Systems: At the time of my exam: CONSTITUTIONAL: Denies fever or chills. HEENT: Denies blurred vision, vision changes, or eye pain. Denies hemoptysis CARDIOVASCULAR: Reports minimal chest pain. Denies orthopnea. Denies PND. Denies palpitations RESPIRATORY: Denies shortness of breath. Reports dyspnea on exertion GASTROINTESTINAL: Denies abdominal pain. Denies nausea or vomiting. HEMATOLOGIC: Denies bleeding disorders. GENITOURINARY: Denies any blood in urine. SKIN: Denies pruitis. Denies rash. Physical examination: Gen: This is a 63-year-old male in no acute distress. VS: reviewed blood pressure 134/92, heart rate 60, pulse ox 94% on room air, afebrile. HEENT: Head is atraumatic, normocephalic. Pupils equal, round. Sclerae is anicteric. NECK: Supple. No JVD. LUNGS: Bilateral air entry. No intercostal retractions. HEART: Irregular rate and rhythm. No murmur. ABDOMEN: Soft No tenderness. EXTREMITIES: No pedal edema. No calf tenderness. NEUROLOGICAL: Patient is awake, alert and oriented x3. Assessment: Atrial fibrillation with RVR COPD exacerbation Dyspnea on exertion, rule out coronary artery disease Hypertension Hyperlipidemia Tobacco use and dependence Plan: Resume patient's home cardiac medications Increase Cardizem to 240 mg daily change aspirin to 81 mg daily Obtain 2-D echocardiogram and Doppler study to assess cardiac structure and function Smoking cessation Further recommendations to follow based upon clinical course Thank you kindly for this consultation. Nurse practitioner note has been reviewed, I agree with documented findings and plan of care. Patient was seen and examined. Past Medical History Past Medical History: Atrial Fibrillation, COPD, Hyperlipidemia, Hypertension Additional Past Medical History / Comment(s): COVID 08/21 History of Any Multi-Drug Resistant Organisms: None Reported Additional Past Surgical History / Comment(s): REPAIR TENDON OF LEFT HAND (CHILDHOOD), sinus surgery , COLONOSCOPY Past Anesthesia/Blood Transfusion Reactions: No Reported Reaction Past Psychological History: No Psychological Hx Reported Smoking Status: Current every day smoker - Past Family History Mother Family Medical History: Cancer Medications and Allergies Home Medications Medication Instructions Recorded Confirmed Type Diltiazem Cd [Cardizem Cd] 180 mg PO DAILY 10/06/14 12/29/23 History Aspirin 325 mg PO DAILY 10/18/21 12/29/23 History Multivitamins, Thera [Multivitamin 1 tab PO DAILY 10/23/21 12/29/23 History (formulary)] Albuterol Inhaler [Ventolin Hfa 2 puff INHALATION RT-QID PRN 12/29/23 12/29/23 History Inhaler] Albuterol Nebulized [Ventolin 2.5 mg INHALATION RT-QID PRN 12/29/23 12/29/23 History Nebulized] Fluticasone/Umeclidin/Vilanter 1 puff INHALATION RT-DAILY 12/29/23 12/29/23 History [Trelegy Ellipta 100-62.5-25] Ibuprofen [Motrin] 800 mg PO Q8H PRN 12/29/23 12/29/23 History Losartan Potassium [Cozaar] 100 mg PO DAILY 12/29/23 12/29/23 History Allergies Allergy/AdvReac Type Severity Reaction Status Date / Time lisinopril AdvReac CAUSED Verified 12/29/23 11:02 FATIGUE Physical Exam Vitals: Vital Signs Temp Pulse Pulse Resp BP BP Pulse Ox 12/30/23 07:00 98.5 F 60 19 134/92 94 L 12/30/23 02:00 110 H 12/30/23 01:29 98.3 F 108 H 16 143/81 97 12/29/23 21:03 98.5 F 110 H 16 149/97 90 L 12/29/23 20:02 98.4 F 120 H 18 145/101 95 12/29/23 19:36 114 H 12/29/23 17:00 115 H 17 135/100 97 12/29/23 16:00 103 H 17 141/104 96 12/29/23 15:30 108 H 22 137/102 97 12/29/23 15:14 112 H 12/29/23 15:05 112 H 12/29/23 12:54 86 12/29/23 12:43 89 12/29/23 12:30 97.9 F 101 H 22 136/94 96 12/29/23 12:00 96 21 141/105 97 12/29/23 11:30 88 20 144/108 98 12/29/23 11:00 94 20 146/98 98 12/29/23 10:30 80 19 141/96 99 12/29/23 10:00 95 19 146/109 98 12/29/23 09:41 85 12/29/23 09:30 79 18 138/89 100 12/29/23 09:25 79 12/29/23 09:08 71 23 139/84 93 L 12/29/23 08:33 97.7 F 100 24 138/87 94 L Intake and Output 12/29/23 12/30/23 12/30/23 22:59 06:59 14:59 Other: # Voids 1 1 Results 12/29/23 09:10 12/29/23 09:59 Cardiac Enzymes 12/29/23 12/29/23 Range/Units 09:59 09:59 AST 37 (17-59) U/L Troponin I <0.012 (0.000-0.034) ng/mL Coagulation 12/29/23 Range/Units 09:59 PT 11.2 (10.0-12.5) sec APTT 23.6 (22.0-30.0) sec CBC 12/29/23 Range/Units 09:10 WBC 8.7 (3.8-10.6) k/uL RBC 5.25 (4.30-5.90) m/uL Hgb 14.8 (13.0-17.5) gm/dL Hct 46.3 (39.0-53.0) % Plt Count 260 (150-450) k/uL Comprehensive Metabolic Panel 12/29/23 Range/Units 09:59 Sodium 138 (137-145) mmol/L Potassium 3.6 (3.5-5.1) mmol/L Chloride 107 (98-107) mmol/L Carbon Dioxide 24 (22-30) mmol/L BUN 19 (9-20) mg/dL Creatinine 0.60 L (0.66-1.25) mg/dL Glucose 94 (74-99) mg/dL Calcium 8.5 (8.4-10.2) mg/dL AST 37 (17-59) U/L ALT 40 (4-49) U/L Alkaline Phosphatase 96 (38-126) U/L Total Protein 6.4 (6.3-8.2) g/dL Albumin 3.5 (3.5-5.0) g/dL Current Medications Generic Name Dose Route Start Last Admin Trade Name Freq PRN Reason Stop Dose Admin Acetaminophen 650 mg 12/29/23 11:43 Acetaminophen Tab 325 Mg Tab PO Q4HR PRN Mild Pain or Fever > 100.5 Albuterol/Ipratropium 3 ml 12/29/23 11:43 Ipratropium-Albuterol 3 Ml Neb INHALATION RT-Q2H PRN Shortness Of Breath Or Wheezing Albuterol/Ipratropium 3 ml 12/29/23 12:00 12/29/23 19:36 Ipratropium-Albuterol 3 Ml Neb INHALATION 3 ml RT-QID SERJIO Administration Aspirin 325 mg 12/30/23 09:00 Aspirin 325 Mg Tab PO DAILY [facility] Budesonide/Formoterol Fumarate 2 puff 12/30/23 08:00 Symbicort 160-4.5 Mcg Inhaler INHALATION RT-BID SERJIO Dextrose/Water 25 ml 12/29/23 13:14 Dextrose 50% Syringe 50 Ml IVP PER PROTOCOL PRN Hypoglycemia Protocol Dextrose/Water 50 ml 12/29/23 13:14 Dextrose 50% Syringe 50 Ml IVP PER PROTOCOL PRN Hypoglycemia Protocol Diltiazem HCl 180 mg 12/30/23 09:00 Diltiazem Cd 180 Mg Cap.Er.24h PO DAILY [facility] Doxycycline Monohydrate 100 mg 12/29/23 11:45 12/29/23 22:31 Doxycycline 100 Mg Cap PO 01/02/24 21:01 100 mg BID SERJIO Administration Protocol Famotidine 20 mg 12/29/23 21:00 12/29/23 22:09 Famotidine 20 Mg/2 Ml Vial IV 20 mg Q12HR SERJIO Administration Heparin Sodium (Porcine) 5,000 unit 12/29/23 21:00 12/29/23 22:08 Heparin Sodium,Porcine 5,000 Unit/Ml 1 Ml Vial SQ 5,000 unit Q12HR SERJIO Administration Ibuprofen 800 mg 12/29/23 12:47 Ibuprofen 800 Mg Tab PO Q8H PRN Pain or Fever > 100.5 Insulin Aspart 0 unit 12/29/23 17:30 12/30/23 06:23 Insulin Aspart (Novolog) 100 Unit/Ml Vial SQ Not Given ACHS [facility] Protocol Losartan Potassium 100 mg 12/30/23 09:00 Losartan 50 Mg Tab PO DAILY [facility] Methylprednisolone Sodium Succinate 60 mg 12/29/23 18:00 12/30/23 06:58 Methylprednisolone Sod Succi 125 Mg/2 Ml Vial IV 60 mg Q6HR SERJIO Administration Naloxone HCl 0.2 mg 12/29/23 11:43 Naloxone 0.4 Mg/Ml 1 Ml Vial IVP Q2M PRN Opioid Reversal Intake and Output 12/29/23 12/30/23 12/30/23 22:59 06:59 14:59 Other: # Voids 1 1 12/29/23 09:10 12/29/23 09:59
[2023-12-30 17:26] LABS: Glucose,Whole Blood 157 mg/dL (70-110)
[2023-12-30 20:23] LABS: Glucose,Whole Blood 172 mg/dL (70-110)
[2023-12-31 05:56] LABS: Glucose,Whole Blood 129 mg/dL (70-110)
[2023-12-31 08:34] VITALS: BP 165/71; RESP 18; TEMP 97.9
[2023-12-31] MEDS ORDERED: DILTIAZEM CD 240 MG CAP.ER.24H PO SCH (09:00)
[2023-12-31] MEDS: APIXABAN 5 MG TAB PO SCH (09:18)
--- NOTE | 2023-12-31 09:25 | CA ---
Transthoracic Echo Report Name: Mirian Torres Age: 63 Gender: M : 1960 Exam Date: 12/30/2023 11:49 Exam Location: [facility] Ht (in): 78 Wt (lb): 220 Ordering Physician: Wendy Anderson Attending/Referring Phys: [id number], Justin Sales Representative [facility] Stephanie Lozano RDCS Procedure CPT: Indications: LVF Cardiac Hx: Technical Quality: Fair Contrast 1: Total Dose (mL): Contrast 2: Total Dose (mL): MEASUREMENTS (Male / Female) Normal Values 2D ECHO LV Diastolic Diameter PLAX 4.6 cm 4.2 - 5.9 / 3.9 - 5.3 cm LV Systolic Diameter PLAX 3.5 cm IVS Diastolic Thickness 1.3 cm 0.6 - 1.0 / 0.6 - 0.9 cm LVPW Diastolic Thickness 1.5 cm 0.6 - 1.0 / 0.6 - 0.9 cm LV Relative Wall Thickness 0.6 RV Internal Dim ED PLAX 3.3 cm LVOT Diameter 1.9 cm LA Volume 105.9 cm??? 18 - 58 / 22 - 52 cm??? LA Volume Index 45.1 cm???/m??? 16 - 28 cm???/m??? M-MODE Aortic Root Diameter MM 3.0 cm LA Systolic Diameter MM 5.0 cm LA Ao Ratio MM 1.7 AV Cusp Separation MM 2.1 cm DOPPLER AV Peak Velocity 148.1 cm/s AV Peak Gradient 8.8 mmHg AV Mean Velocity 106.2 cm/s AV Mean Gradient 4.9 mmHg AV Velocity Time Integral 25.9 cm LVOT Peak Velocity 108.4 cm/s LVOT Peak Gradient 4.7 mmHg LVOT Velocity Time Integral 19.3 cm LVOT Stroke Volume 52.7 cm??? LVOT Stroke Volume Index 22.4 ml/m??? LVOT Cardiac Index 2067.2 cm???/min???m??? AV Area Cont Eq vti 2.0 cm??? AV Area Cont Eq pk 2.0 cm??? MV E' Velocity 11.5 cm/s FINDINGS Left Ventricle Mild concentric left ventricular hypertrophy. No obvious regional wall motion abnormalities. Left ventricular ejection fraction is estimated at 50-55 %. Right Ventricle Normal right ventricular size and function. Right ventricular systolic pressure within normal limits. Right Atrium Normal right atrial size. Left Atrium Severely increased left atrial volume. Mildly increased left atrial area. Mitral Valve Structurally normal mitral valve. Mild mitral annular calcification. Mild mitral regurgitation. Aortic Valve Trileaflet aortic valve. No aortic stenosis. No aortic regurgitation. Aortic valve sclerosis. Tricuspid Valve Structurally normal tricuspid valve. Mild tricuspid regurgitation. Pulmonic Valve Structurally normal pulmonic valve. Trace pulmonic regurgitation. Pericardium Loculated pericardial effusion. Pericardial effusion located near the right atrium. Aorta Normal size aortic root and proximal ascending aorta. CONCLUSIONS Mild increased left ventriculography thickness Left ventricular ejection fraction 50-55% Moderately dilated left atrium Mild mitral regurgitation Mild tricuspid regurgitation Previewed by: Dr. Mark Melgoza DO (Electronically Signed) Final Date: 31 December 2023 09:24
--- NOTE | 2023-12-31 09:36 | P.PN ---
Subjective Progress Note Date: 12/31/23 Consult reason: atrial fibrillation (With RVR) History of present illness: History of present illness: This is a 63-year-old male with past medical history of hypertension, hyperlipidemia, paroxysmal atrial fibrillation, tobacco use and dependence. We have been asked to evaluate the patient for A-fib with RVR. Patient initially presented to the hospital due to increasing shortness of breath with clear sputum production. He has been admitted to the hospital due to COPD exacerbation and during the night there was concern for A-fib with RVR. Patient gives history that he developed trouble breathing since he had pneumonia at [place] time he also had COVID at [facility] and has had worsening of his breathing function ever since. He complains of chills and cough without fever. He has some tightness and pressure in the middle of his chest. Patient denies any palpitations, no syncopal episodes, no lightheadedness or dizziness. He often develops shortness of breath and chest pain while he is at work. 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 Regarding smoking. He is a tobacco smoker and has been trying to cut back currently at 5 to 6 cigarettes/day. He states he quit drinking alcohol 1 year ago. He denies any family history of coronary artery disease. Discussed with patient that anticoagulation would be recommended per CHADS-VASC score once he turns 64 in 2 weeks. EKG atrial fibrillation with ventricular rate of 69 bpm. Telemetry is currently running at about 101 bpm, peak rate 129. Chest x-ray: COPD. Basilar parenchymal s scarring and/or atelectasis. Pleural thickening versus small effusions. CBC unremarkable. INR 1. Electrolytes normal. Creatinine 0.6. Blood sugar 219. Lactic acid 1.3. Liver function test normal. Troponin negative x 1. proBNP 1940. Albumin 3.5. Influenza A, influenza B, RSV, COVID-19 not detected. Home cardiac medications: Aspirin 81 mg daily, Cardizem CD 180 mg daily, losartan 100 mg daily. Echocardiogram in 2012 with normal EF Stress test in 2009 normal EF normal test 4/3 Patient states breathing is slowly getting better. Patient denies having any c hest pain. He has had sensation of a racing heart when he received steroids. Heart rate is running 80s to 90s mostly occasionally 100. Blood pressure is elevated 165/71. Pulse ox 100% on room air. Echocardiogram reveals EF of 50 to 55%. Moderately dilated left atrium. Mild mitral regurgitation. Mild tricuspid regurgitation. Results of echocardiogram reviewed with the patient. Physical examination: Gen: This is a 63-year-old male in no acute distress. VS: reviewed blood pressure 134/92, heart rate 60, pulse ox 94% on room air, afebrile. HEENT: Head is atraumatic, normocephalic. Pupils equal, round. Sclerae is anicteric. NECK: Supple. No JVD. LUNGS: Bilateral air entry. No intercostal retractions. HEART: Irregular rate and rhythm. No murmur. ABDOMEN: Soft No tenderness. EXTREMITIES: No pedal edema. No calf tenderness. NEUROLOGICAL: Patient is awake, alert and oriented x3. Assessment: Atrial fibrillation with RVR COPD exacerbation Dyspnea on exertion, rule out coronary artery disease Hypertension Hyperlipidemia Tobacco use and dependence Plan: Continue current cardiac medications Increase Cardizem to 300 mg daily Smoking cessation No further cardiac workup at this time. Patient may follow-up in the office with Dr. Melgoza in 1 to 2 weeks. Nurse practitioner note has been reviewed, I agree with documented findings and plan of care. Patient was seen and examined. Objective - Vital Signs Vital signs: Vital Signs Temp 97.9 F 12/31/23 07:00 Pulse 86 12/31/23 07:00 Resp 18 12/31/23 07:00 BP 165/71 12/31/23 07:00 Pulse Ox 98 12/31/23 07:00 FiO2 Intake & Output 12/30/23 12/31/23 12/31/23 18:59 06:59 18:59 Intake Total 1020 Balance 1020 Intake: Oral 1020 Other: # Voids 1 2 - Labs CBC & Chem 7: 12/29/23 09:10 12/29/23 09:59 Labs: Abnormal Lab Results - Last 24 Hours (Table) 12/30/23 12/30/23 12/30/23 Range/Units 11:40 17:10 20:21 POC Glucose (mg/dL) 150 H 157 H 172 H (70-110) mg/dL 12/31/23 Range/Units 05:55 POC Glucose (mg/dL) 129 H (70-110) mg/dL
[2023-12-31] MEDS: DILTIAZEM CD 300 MG CAP.ER.24H PO SCH (09:38)
[2023-12-31 11:17] LABS: Glucose,Whole Blood 150 mg/dL (70-110)
--- NOTE | 2023-12-31 11:23 | P.PN ---
Subjective Progress Note Date: 12/31/23 I am seeing this patient in consultation today 12/30/2023 for suspected acute COPD exacerbation. Patient is a 63-year-old white male with past medical history significant for COPD, chronic ongoing tobacco dependence, atrial fibrillation, hyperlipidemia, hypertension. Patient's COPD is managed by his primary care provider, Dr. Clinton. Patient has recently been switched to Trelegy Ellipta inhaler, DuoNebs twice a day, and albuterol rescue inhaler. Patient continues to smoke, he has previously smoked 2 packs/day for most of his life, currently down to 5 cigarettes/day. 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 Patient presents to the emergency room yesterday morning complaining of acute on chronic shortness of breath. This has been more severe over the last couple weeks. He did go see a nurse practitioner at his primary care provider's office, and received a steroid injection. He has not felt any better since this office visit, so he came to the emergency room yesterday morning. He has a mostly nonproductive cough and chest congestion. Sometimes produces clear sputum. Denies any fevers or chest pain. Denies any heart palpitations, lightheadedness, or syncopal events. Not maintained on any anticoagulation, for unknown reason. He does take a daily aspirin. He also uses Cardizem for rate control. He has followed with a metal filer in the past, however, could not afford his co-pays so has since stopped seeing his metal filer. Patient is currently sitting up at the edge of the bed, on room air, in no acute distress. Chest x-ray on arrival shows hyperinflation consistent with COPD. There is bibasilar parenchymal scarring versus atelectasis. There is pleural thickening versus small pleural effusion. No obvious focal infiltrates or evidence of pneumonia. Negative for influenza, RSV, COVID. Currently afebrile. Patient was empirically placed on doxycycline. CBC on arrival unremarkable. No leukocytosis. BMP also unremarkable. Troponins less than 0.012. NT proBNP 1900. EKG on arrival showed atrial fibrillation with controlled ventricular rate, however, he is currently tachycardic heart rate ranging in the 120s beats per minute. Overall, vital signs are stable. The patient is seen today December 31, 2023 in follow-up on the regular medical floor. He is currently resting comfortably in bed. Awake and alert in no acute distress. He is maintaining good O2 saturations in the 90s on room air. No IV fluids. Less bronchospastic and wheezing. Feeling quite a bit better. His procalcitonin was 0.05. He is currently on doxycycline, steroids, anticoagu lated with Eliquis. Glucose 150. Objective - Vital Signs Vital signs: Vital Signs Temp 97.9 F 12/31/23 07:00 Pulse 101 H 12/31/23 09:06 Resp 18 12/31/23 07:00 BP 165/71 12/31/23 07:00 Pulse Ox 100 12/31/23 08:52 FiO2 Intake & Output 12/30/23 12/31/23 12/31/23 18:59 06:59 18:59 Intake Total 1020 180 Balance 1020 180 Intake: Oral 1020 180 Other: # Voids 1 2 - Exam GENERAL EXAM: Alert, pleasant 63-year-old male, on room air, comfortable in no apparent distress. HEAD: Normocephalic. EYES: Normal reaction of pupils, equal size. NOSE: Clear with pink turbinates. THROAT: No erythema or exudates. NECK: No masses, no JVD. CHEST: No chest wall deformity. LUNGS: Equal air entry with faint end expiratory wheeze. CVS: S1 and S2 normal with no audible murmur, regular rhythm. ABDOMEN: No hepatosplenomegaly, normal bowel sounds, no guarding or rigidity. SPINE: No scoliosis or deformity SKIN: No rashes CENTRAL NERVOUS SYSTEM: No focal deficits, tone is normal in all 4 extremities. EXTREMITIES: Changes of chronic venous stasis of the lower extremities, there is no peripheral edema. Peripheral pulses are intact. - Labs CBC & Chem 7: 12/29/23 09:10 12/29/23 09:59 Labs: Abnormal Lab Results - Last 24 Hours (Table) 12/30/23 12/30/23 12/30/23 Range/Units 11:40 17:10 20:21 POC Glucose (mg/dL) 150 H 157 H 172 H (70-110) mg/dL 12/31/23 Range/Units 05:55 POC Glucose (mg/dL) 129 H (70-110) mg/dL Assessment and Plan Assessment: Acute COPD exacerbation, chest x-ray on arrival does not show any evidence of focal infiltrates or pneumonia. There is likely bibasilar parenchymal scarring versus atelectasis. There is pleural thickening or small pleural effusion. Negative for influenza, RSV, COVID. Procalcitonin 0.05 Atrial fibrillation with rapid ventricular rate improved, anticoagulated with Eliquis Acute on chronic shortness of breath, likely multifactorial, secondary to a combination of above History of hyperlipidemia History of hypertension Chronic ongoing tobacco dependence, currently down to 5 cigarettes/day. Plan: The patient was seen and evaluated Labs and medications reviewed Cleared for discharge from the pulmonary standpoint Stable and on room air Procalcitonin 0.05. Discontinue doxycycline Continue Symbicort and albuterol HFA Complete a prednisone taper Encouraged regarding complete smoking cessation Follow-up in our office in 1 week This patient was seen independently by the pulmonary nurse practitioner addressing pulmonary issues I have personally seen and examined the patient, performed the documentation and the assessment and plan as written. Number of minutes spent on the visit: 24.
[2023-12-31 12:35] VITALS: PULSE 97
--- NOTE | 2023-12-31 23:51 | P.DS ---
Providers Date of admission: 12/30/23 13:00 Attending physician: Fredrick Pavon MD Consults: 12/29/23 11:43 Consult Physician Routine Consulting Provider: Marty Rooney Consult Reason/Comments: COPD exacerbation Do you want consulting provider notified?: Yes 12/30/23 02:31 Consult Physician Routine Consulting Provider: Mikey Rodriguez Consult Reason/Comments: Atrial fibrillation with RVR Do you want consulting provider notified?: Yes Primary care physician: Sabrina Crews Hospital Course: Diagnoses: Acute COPD exacerbation, improved Mild acute hypoxic respiratory failure, improved Chronic atrial fibrillation, rate controlled on aspirin at home switch to Eliquis upon discharge. Hypertension Hyperlipidemia Nicotine dependence Hospital course: This is a pleasant 63 years old male with past medical history of COPD, nicotine dependence, atrial fibrillation not on anticoagulation, hypertension and hyperlipidemia Presents because of slowly gradual dyspnea over several weeks associated with c oughing and little phlegm but no chest pain Patient was started on steroids, he showed interval improvement with pulmonary team following closely. Patient switched to tapered steroids upon discharge. Patient remains on room air and he does not qualify for home oxygen Patient agreeable for discharge Patient was cleared for discharge by pulmonary service Also patient with chronic atrial fibrillation on aspirin because he was not on a blood thinner cardiology consult was obtained. Patient was placed on Eliquis by rotary shear worker helper recommendations. I checked with the pharmacy his co-pay is about $20 a month, patient informed he agrees, he still wants a coupon of 1 month free Eliquis, I discussed with the bedside nurse Eunice to provide surgical plan to him. Risks of this medication including but not limited to risk of bleeding explained to the patient and he verbalized understanding and acceptance Problems and management plan were discussed with the patient and he verbalized understanding and acceptance Patient was found stable and can be discharged home in guarded prognosis however he needs follow-up as an outpatient. Patient was instructed to follow up with PCP Dr. Crews within one week and patient agrees Patient was instructed to follow-up with Dr. Saldaña access analyst in 2 weeks Patient was instructed to follow-up with rotary shear worker helper Dr. Rodriguez/Dr. Melgoza in 1 week after discharge and he agrees to call and make his own appointment Son at bedside as well Physical exam Gen: patient is a AAOx3, no distress CVS: S1-S2, RRR, no murmur Lungs: B/L CTA, no wheezing Abdomen: soft, no distention, no tenderness, positive bowel sounds Extremity: no leg edema or induration Time spent more than 35 minutes Patient Condition at Discharge: Fair Plan - Discharge Summary Discharge Rx Participant: No New Discharge Prescriptions: New Apixaban [Eliquis] 5 mg PO BID 30 Days #60 tab Diltiazem Cd [Cardizem CD] 300 mg PO DAILY #30 cap predniSONE 10 mg PO DIRECTED #40 tab Acetaminophen Tab [Tylenol] 650 mg PO Q4HR PRN tab PRN Reason: Mild Pain Or Fever > 100.5 Continue Fluticasone/Umeclidin/Vilanter [Trelegy Ellipta 100-62.5-25] 1 puff INHALATION RT-DAILY Albuterol Nebulized [Ventolin Nebulized] 2.5 mg INHALATION RT-QID PRN PRN Reason: Shortness Of Breath Albuterol Inhaler [Ventolin Hfa Inhaler] 2 puff INHALATION RT-QID PRN #1 each PRN Reason: Shortness Of Breath Multivitamins, Thera [Multivitamin (formulary)] 1 tab PO DAILY Losartan Potassium [Cozaar] 100 mg PO DAILY Discontinued Diltiazem Cd [Cardizem Cd] 180 mg PO DAILY Aspirin 325 mg PO DAILY Ibuprofen [Motrin] 800 mg PO Q8H PRN PRN Reason: Pain Or Fever > 100.5 Discharge Medication List Multivitamins, Thera [Multivitamin (formulary)] 1 tab PO DAILY 10/23/21 [History] Albuterol Nebulized [Ventolin Nebulized] 2.5 mg INHALATION RT-QID PRN 12/29/23 [History] Fluticasone/Umeclidin/Vilanter [Trelegy Ellipta 100-62.5-25] 1 puff INHALATION RT-DAILY 12/29/23 [History] Losartan Potassium [Cozaar] 100 mg PO DAILY 12/29/23 [History] Acetaminophen Tab [Tylenol] 650 mg PO Q4HR PRN tab 12/31/23 [Rx] Albuterol Inhaler [Ventolin Hfa Inhaler] 2 puff INHALATION RT-QID PRN #1 each 12/31/23 [Rx] Apixaban [Eliquis] 5 mg PO BID 30 Days #60 tab 12/31/23 [Rx] Diltiazem Cd [Cardizem CD] 300 mg PO DAILY #30 cap 12/31/23 [Rx] predniSONE 10 mg PO DIRECTED #40 tab 12/31/23 [Rx] Follow up Appointment(s)/Referral(s): Mark Melgoza DO [STAFF PHYSICIAN] - 1 Week (Office will call with appointment time and date.) Sabrina Crews DO [Primary Care Provider] - 1-2 days Marty Rooney DO [Doctor of Osteopathic Medicine] - 1 Week Patient Instructions/Handouts: COPD (Chronic Obstructive Pulmonary Disease) (DC) Activity/Diet/Wound Care/Special Instructions: your copay is $20.00 per day heart healthy diet Activity is restricted till your see your doctor Discharge Disposition: HOME SELF-CARE
== END 2023-12-31 14:46 | disposition home or self-care (01) | DRG 190 ==
LOC: EC 08:30 → 6NMEDSUR 11:33 → OBSVTOIN 12-30 13:00
PROVIDERS: ADMIT Internal Medicine; ATTEND Internal Medicine
DX: J44.1 Chronic obstructive pulmonary disease with (acute) exacerbation (principal); J96.01 Acute respiratory failure with hypoxia; I08.1 Rheumatic disorders of both mitral and tricuspid valves; I10 Essential (primary) hypertension; I48.0 Paroxysmal atrial fibrillation; E78.5 Hyperlipidemia, unspecified; Z79.01 Long term (current) use of anticoagulants; Z79.82 Long term (current) use of aspirin; Z79.899 Other long term (current) drug therapy; Z71.6 Tobacco abuse counseling; F17.210 Nicotine dependence, cigarettes, uncomplicated
CPT/HCPCS: 36415; 71046; 80053; 83605; 83880; 84145; 84484; 85025; 85610; 85730; 87636; 93005; 93306; 94640; 94760; 96361; 96374; 96376; 99285

== ENCOUNTER 2024-02-08 16:12 | Inpatient (IN) | payer BC ==
--- NOTE | 2024-02-08 16:57 | ED ---
General Adult HPI - General Chief complaint: Chest Pain Stated complaint: Chest pain, SOB Time Seen by Provider: 02/08/24 16:45 Source: patient Mode of arrival: wheelchair Limitations: no limitations - History of Present Illness Initial comments: Patient is a 64-year-old man with history of atrial fibrillation who presents with worsening of dyspnea and some intermittent chest pains that been going on since he had a stress test on January 21. The patient notes that he seems to be having more shortness of breath especially with any activity. The patient describes the pain as brief sharp pains that can occur all across the anterior chest. He does not have any associated symptoms. -: week(s) (2) Location: chest Radiation: non-radiation Quality: sharp Consistency: intermittent, now resolved Improves with: none Worsens with: none Associated Symptoms: shortness of breath Treatments Prior to Arrival: none - Related Data Home Medications Medication Instructions Recorded Confirmed Multivitamins, Thera [Multivitamin 1 tab PO DAILY 10/23/21 02/08/24 (formulary)] Albuterol Nebulized [Ventolin 2.5 mg INHALATION RT-QID PRN 12/29/23 02/08/24 Nebulized] Fluticasone/Umeclidin/Vilanter 1 puff INHALATION RT-DAILY 12/29/23 02/08/24 [Trelegy Ellipta 100-62.5-25] Losartan Potassium [Cozaar] 100 mg PO DAILY 12/29/23 02/08/24 Aspirin EC [Ecotrin Low Dose] 81 mg PO DAILY 02/08/24 02/08/24 Previous Rx's Medication Instructions Recorded Albuterol Inhaler [Ventolin Hfa 2 puff INHALATION RT-QID PRN #1 12/31/23 Inhaler] each Diltiazem Cd [Cardizem CD] 300 mg PO DAILY #30 cap 12/31/23 Apixaban [Eliquis] 5 mg PO BID #60 tab 02/11/24 Furosemide [Lasix] 40 mg PO BID@0900,1600 #60 tab 02/11/24 Isosorbide Mononitrate ER [Imdur] 30 mg PO DAILY #30 tab 02/11/24 Metoprolol Tartrate [Lopressor] 50 mg PO TID #90 tab 02/11/24 Nitroglycerin Sl Tabs [Nitrostat] 0.4 mg SUBLINGUAL Q5M PRN #20 tab 02/11/24 predniSONE 10 mg PO DIRECTED #18 tab 02/11/24 Allergies Allergy/AdvReac Type Severity Reaction Status Date / Time lisinopril AdvReac CAUSED Verified 02/08/24 16:53 FATIGUE Review of Systems ROS Statement: Those systems with pertinent positive or pertinent negative responses have been documented in the HPI. ROS Other: All systems not noted in ROS Statement are negative. Constitutional: Denies: fever, chills, weakness Respiratory: Reports: as per HPI, dyspnea. Denies: cough, wheezes, hemoptysis Cardiovascular: Reports: as per HPI, chest pain, palpitations, dyspnea on exertion. Denies: orthopnea, edema, syncope Gastrointestinal: Denies: abdominal pain, nausea, vomiting, diarrhea, melena, hematochezia Genitourinary: Denies: dysuria, hematuria Musculoskeletal: Denies: back pain Skin: Denies: rash Neurological: Denies: headache, weakness Past Medical History Past Medical History: Atrial Fibrillation, COPD, Hyperlipidemia, Hypertension Additional Past Medical History / Comment(s): COVID 08/21 History of Any Multi-Drug Resistant Organisms: None Reported Additional Past Surgical History / Comment(s): REPAIR TENDON OF LEFT HAND (CHILDHOOD), sinus surgery , COLONOSCOPY Past Anesthesia/Blood Transfusion Reactions: No Reported Reaction Past Psychological History: No Psychological Hx Reported Smoking Status: Current every day smoker Past Alcohol Use History: None Reported Past Drug Use History: None Reported - Past Family History Mother Family Medical History: Cancer General Exam Limitations: no limitations General appearance: alert, in no apparent distress Head exam: Present: atraumatic, normocephalic Eye exam: Present: normal appearance. Absent: scleral icterus, conjunctival injection ENT exam: Present: normal oropharynx Neck exam: Present: normal inspection Respiratory exam: Absent: respiratory distress, wheezes, rales, rhonchi, stridor, accessory muscle use Cardiovascular Exam: Present: irregular rhythm, normal heart sounds. Absent: systolic murmur, diastolic murmur, rubs, gallop GI/Abdominal exam: Present: soft. Absent: distended, tenderness, guarding, rebound, rigid, mass Extremities exam: Present: normal inspection, normal capillary refill. Absent: pedal edema, calf tenderness Back exam: Present: normal inspection. Absent: CVA tenderness (R), CVA tenderness (L) Neurological exam: Present: alert Skin exam: Present: warm, dry, intact, normal color. Absent: rash Course Vital Signs 02/08/24 02/08/24 02/08/24 16:19 17:00 17:05 Temperature 97.8 F Pulse Rate 105 H Respiratory 22 Rate Blood Pressure 122/81 O2 Sat by Pulse 92 L 89 L 96 Oximetry 02/08/24 02/08/24 02/08/24 17:52 19:08 20:29 Temperature Pulse Rate 108 H 102 H 103 H Respiratory 18 22 18 Rate Blood Pressure 127/95 127/89 135/94 O2 Sat by Pulse 92 L 96 92 L Oximetry 02/08/24 02/08/24 02/08/24 21:43 21:57 22:02 Temperature Pulse Rate 105 H 85 87 Respiratory 18 Rate Blood Pressure 125/101 O2 Sat by Pulse 92 L Oximetry 02/09/24 02/09/24 02/09/24 04:00 06:25 07:30 Temperature Pulse Rate 92 107 H 112 H Respiratory 18 18 18 Rate Blood Pressure 127/86 115/95 128/91 O2 Sat by Pulse 92 L 92 L 93 L Oximetry 02/09/24 02/09/24 02/09/24 08:08 08:13 08:18 Temperature Pulse Rate 105 H 108 H Respiratory 16 16 Rate Blood Pressure O2 Sat by Pulse 95 Oximetry 02/09/24 02/09/24 02/09/24 11:56 12:04 12:05 Temperature 98.2 F Pulse Rate 101 H 92 89 Respiratory 16 18 16 Rate Blood Pressure 104/81 O2 Sat by Pulse 93 L Oximetry 02/09/24 15:07 Temperature 97.8 F Pulse Rate 104 H Respiratory 18 Rate Blood Pressure 120/93 O2 Sat by Pulse 93 L Oximetry EKG Findings - EKG Comments: EKG Findings:: Possible old anterior infarction - EKG Results: EKG shows: atrial fibrillation (With rate 89 bpm) - Blocks, [place], Hypertrophy, ST Abn: QRS axis and voltage: right axis deviation (+90 to +180) (Borderline) Medical Decision Making - Medical Decision Making The patient had chest x-ray that I interpreted as negative for acute infiltrate, pneumothorax, congestive heart failure. There is right pleural effusion The patient had CT scan of the chest that I interpreted as negative for acute pulmonary embolism. There are bilateral effusions right greater than left Was pt. sent in by a medical professional or institution (MONICA Arevalo, IRRIGATION FOREMAN, urgent care, hospital, or skilled nursing...) When possible be specific @ -[No] Did you speak to anyone other than the patient for history (EMS, parent, family, police, friend...)? What history was obtained from this source @ -[No] Did you review nursing and triage notes (agree or disagree)? Why? @ -[I reviewed and agree with nursing and triage notes] Were old charts reviewed (outside hosp., previous admission, EMS record, old EKG, old radiological studies, urgent care reports/EKG's, skilled nursing records)? Report findings @ -[Yes, old charts were reviewed] Differential Diagnosis (chest pain, altered mental status, abdominal pain women, abdominal pain men, vaginal bleeding, weakness, fever, dyspnea, syncope, headache, dizziness, GI bleed, back pain, seizure, CVA, palpatations, mental health, musculoskeletal)? @ -[Differential Dyspnea: Coronary syndrome, arrhythmia, tamponade, asthma, COPD, pulmonary embolism, pneumonia, pneumothorax, pulmonary effusion, anaphylaxis, diabetic ketoacidosis, flailed chest, pulmonary contusion, diaphragmatic rupture, anemia, neuromuscular, this is not meant to be an all-inclusive list. EKG interpreted by me (3pts min.). @ -[I interpreted as above as above] X-rays interpreted by me (1pt min.). @ -[I interpreted as above CT interpreted by me (1pt min.). @ -[I interpreted as above U/S interpreted by me (1pt. min.). @ -[None done] What testing was considered but not performed or refused? (CT, X-rays, U/S, labs)? Why? @ -[None] What meds were considered but not given or refused? Why? @ -[None] Did you discuss the management of the patient with other professionals (professionals i.e. MONICA Arevalo, IRRIGATION FOREMAN, lab, RT, psych nurse, transition social worker, hogshead head matcher, teacher, chief analytics officer, family service caseworker)? Give summary @ -Case discussed with admitting physician and treatment recommendations incorporated Was smoking cessation discussed for >3mins.? @ -[No] Was critical care preformed (if so, how long)? @ -[No] Were there social determinants of health that impacted care today? How? (Homelessness, low income, unemployed, alcoholism, drug addiction, transportation, low edu. Level, literacy, decrease access to med. care, longterm, rehab)? @ -[No] Was there de-escalation of care discussed even if they declined (Discuss DNR or withdrawal of care, Hospice)? DNR status @ -[No] What co-morbidities impacted this encounter? (DM, HTN, Smoking, COPD, CAD, Cancer, CVA, ARF, Chemo, Hep., AIDS, mental health diagnosis, sleep apnea, morbid obesity)? @ -[COPD, hypertension, atrial fibrillation Was patient admitted / discharged? Hospital course, mention meds given and route, prescriptions, significant lab abnormalities, going to OR and other pertinent info. @ -[Patient is 64-year-old man with history of COPD who was admitted with worsening of his underlying dyspnea. The patient does appear to have moderate- sized right pleural effusion and smaller left pleural effusion. Given these findings we will admit patient for further symptom management as well as pulmonology evaluation Undiagnosed new problem with uncertain prognosis? @ -[No] Drug Therapy requiring intensive monitoring for toxicity (Heparin, Nitro, Insulin, Cardizem)? @ -[No] Were any procedures done? @ -[No] Diagnosis/symptom? @ -[Acute on chronic dyspnea Acute right pleural effusion COPD exacerbation Acute, or Chronic, or Acute on Chronic? @ -[Acute on chronic Uncomplicated (without systemic symptoms) or Complicated (systemic symptoms)? @ -[Complicated by dyspnea Side effects of treatment? @ -[No] Exacerbation, Progression, or Severe Exacerbation? @ -[No] Poses a threat to life or bodily function? How? (Chest pain, [place], [place], pneumonia, PE, COPD, DKA, ARF, appy, cholecystitis, CVA, Diverticulitis, Homicidal, Suicidal, threat to staff... and all critical care pts) @ -[Yes, COPD may progress to respiratory failure - Lab Data Result diagrams: 02/11/24 09:56 02/11/24 09:56 Lab Results 02/08/24 02/08/24 02/08/24 Range/Units 16:56 16:56 16:56 WBC 11.6 H (3.8-10.6) k/uL RBC 5.00 (4.30-5.90) m/uL Hgb 14.2 (13.0-17.5) gm/dL Hct 43.8 (39.0-53.0) % MCV 87.6 (80.0-100.0) fL MCH 28.4 (25.0-35.0) pg MCHC 32.4 (31.0-37.0) g/dL RDW 15.9 H (11.5-15.5) % Plt Count 353 (150-450) k/uL MPV 7.7 Neutrophils % 77 % Lymphocytes % 11 % Monocytes % 8 % Eosinophils % 0 % Basophils % 1 % Neutrophils # 8.9 H (1.3-7.7) k/uL Lymphocytes # 1.3 (1.0-4.8) k/uL Monocytes # 1.0 (0-1.0) k/uL Eosinophils # 0.1 (0-0.7) k/uL Basophils # 0.1 (0-0.2) k/uL PT 11.3 (10.0-12.5) sec INR 1.0 (<1.2) APTT 25.0 (22.0-30.0) sec D-Dimer 1.59 H (<0.60) mg/L FEU Sodium 136 L (137-145) mmol/L Potassium 4.1 (3.5-5.1) mmol/L Chloride 105 (98-107) mmol/L Carbon Dioxide 22 (22-30) mmol/L Anion Gap 9 mmol/L BUN 22 H (9-20) mg/dL Creatinine 0.72 (0.66-1.25) mg/dL Est GFR (CKD-EPI)AfAm >90 (>60 ml/min/1.73 sqM) Est GFR (CKD-EPI)NonAf >90 (>60 ml/min/1.73 sqM) Glucose 114 H (74-99) mg/dL Calcium 8.6 (8.4-10.2) mg/dL Magnesium 2.0 (1.6-2.3) mg/dL Total Bilirubin 1.1 (0.2-1.3) mg/dL AST 27 (17-59) U/L ALT 21 (4-49) U/L Alkaline Phosphatase 100 (38-126) U/L Troponin I (0.000-0.034) ng/mL NT-Pro-B Natriuret Pep 2230 pg/mL Total Protein 6.7 (6.3-8.2) g/dL Albumin 3.8 (3.5-5.0) g/dL Procalcitonin (0.02-0.09) ng/mL Influenza Type A (PCR) (Not Detectd) Influenza Type B (PCR) (Not Detectd) RSV (PCR) (Not Detectd) SARS-CoV-2 (PCR) (Not Detectd) 02/08/24 02/08/24 02/09/24 Range/Units 16:56 16:58 09:36 WBC (3.8-10.6) k/uL RBC (4.30-5.90) m/uL Hgb (13.0-17.5) gm/dL Hct (39.0-53.0) % MCV (80.0-100.0) fL MCH (25.0-35.0) pg MCHC (31.0-37.0) g/dL RDW (11.5-15.5) % Plt Count (150-450) k/uL MPV Neutrophils % % Lymphocytes % % Monocytes % % Eosinophils % % Basophils % % Neutrophils # (1.3-7.7) k/uL Lymphocytes # (1.0-4.8) k/uL Monocytes # (0-1.0) k/uL Eosinophils # (0-0.7) k/uL Basophils # (0-0.2) k/uL PT (10.0-12.5) sec INR (<1.2) APTT (22.0-30.0) sec D-Dimer (<0.60) mg/L FEU Sodium (137-145) mmol/L Potassium (3.5-5.1) mmol/L Chloride (98-107) mmol/L Carbon Dioxide (22-30) mmol/L Anion Gap mmol/L BUN (9-20) mg/dL Creatinine (0.66-1.25) mg/dL Est GFR (CKD-EPI)AfAm (>60 ml/min/1.73 sqM) Est GFR (CKD-EPI)NonAf (>60 ml/min/1.73 sqM) Glucose (74-99) mg/dL Calcium (8.4-10.2) mg/dL Magnesium (1.6-2.3) mg/dL Total Bilirubin (0.2-1.3) mg/dL AST (17-59) U/L ALT (4-49) U/L Alkaline Phosphatase (38-126) U/L Troponin I <0.012 (0.000-0.034) ng/mL NT-Pro-B Natriuret Pep pg/mL Total Protein (6.3-8.2) g/dL Albumin (3.5-5.0) g/dL Procalcitonin 0.05 (0.02-0.09) ng/mL Influenza Type A (PCR) Not Detected (Not Detectd) Influenza Type B (PCR) Not Detected (Not Detectd) RSV (PCR) Not Detected (Not Detectd) SARS-CoV-2 (PCR) Not Detected (Not Detectd) 02/09/24 02/09/24 Range/Units 09:36 09:36 WBC 9.2 (3.8-10.6) k/uL RBC 5.45 (4.30-5.90) m/uL Hgb 15.8 (13.0-17.5) gm/dL Hct 48.3 (39.0-53.0) % MCV 88.7 (80.0-100.0) fL MCH 29.1 (25.0-35.0) pg MCHC 32.8 (31.0-37.0) g/dL RDW 15.9 H (11.5-15.5) % Plt Count 351 (150-450) k/uL MPV 7.9 Neutrophils % 86 % Lymphocytes % 8 % Monocytes % 3 % Eosinophils % 1 % Basophils % 1 % Neutrophils # 7.9 H (1.3-7.7) k/uL Lymphocytes # 0.7 L (1.0-4.8) k/uL Monocytes # 0.3 (0-1.0) k/uL Eosinophils # 0.0 (0-0.7) k/uL Basophils # 0.1 (0-0.2) k/uL PT 12.0 (10.0-12.5) sec INR 1.1 (<1.2) APTT 26.3 (22.0-30.0) sec D-Dimer (<0.60) mg/L FEU Sodium (137-145) mmol/L Potassium (3.5-5.1) mmol/L Chloride (98-107) mmol/L Carbon Dioxide (22-30) mmol/L Anion Gap mmol/L BUN (9-20) mg/dL Creatinine (0.66-1.25) mg/dL Est GFR (CKD-EPI)AfAm (>60 ml/min/1.73 sqM) Est GFR (CKD-EPI)NonAf (>60 ml/min/1.73 sqM) Glucose (74-99) mg/dL Calcium (8.4-10.2) mg/dL Magnesium (1.6-2.3) mg/dL Total Bilirubin (0.2-1.3) mg/dL AST (17-59) U/L ALT (4-49) U/L Alkaline Phosphatase (38-126) U/L Troponin I (0.000-0.034) ng/mL NT-Pro-B Natriuret Pep pg/mL Total Protein (6.3-8.2) g/dL Albumin (3.5-5.0) g/dL Procalcitonin (0.02-0.09) ng/mL Influenza Type A (PCR) (Not Detectd) Influenza Type B (PCR) (Not Detectd) RSV (PCR) (Not Detectd) SARS-CoV-2 (PCR) (Not Detectd) Disposition Clinical Impression: Dyspnea, Pleural effusion, CHF exacerbation Disposition: ADMITTED IP TO THIS HOSP Condition: Fair Is patient prescribed a controlled substance at d/c from ED?: No
[2024-02-08 17:21] LABS: Basophils # (A) 0.1 k/uL (0-0.2); Basophils % (A) 1 %; Eosinophils # (A) 0.1 k/uL (0-0.7); Eosinophils % (A) 0 %; HCT 43.8 % (39.0-53.0); HGB 14.2 gm/dL (13.0-17.5); Lymphocytes # (A) 1.3 k/uL (1.0-4.8); Lymphocytes % (A) 11 %; MCH 28.4 pg (25.0-35.0); MCHC 32.4 g/dL (31.0-37.0); MCV 87.6 fL (80.0-100.0); Mean Platelet Volume 7.7; Monocytes % (A) 8 %; Neutrophils # (A) 8.9 k/uL (1.3-7.7); Neutrophils % (A) 77 %; Platelet Count 353 k/uL (150-450); RDW 15.9 % (11.5-15.5); WBC 11.6 k/uL (3.8-10.6)
--- NOTE | 2024-02-08 17:30 | XR ---
EXAMINATION TYPE: XR chest 2V DATE OF EXAM: 02/08/2024 5:21 PM CLINICAL INDICATION:Male, 64 years old with history of Chest Pain; COMPARISON: Chest radiographs from 12/29/2023 TECHNIQUE: XR chest 2V Frontal and lateral views of the chest. FINDINGS: Lungs/Pleura: Prominent interstitial lung markings are seen scattered throughout the lungs with saturnino ening of the diaphragm and increased lucency of the lung apices. No evidence of focal consolidation, pneumothorax or pleural effusion. Pulmonary vascularity: Increased interstitial lung markings most pronounced inferiorly Heart/mediastinum: Cardiomediastinal silhouette is enlarged and stable. Musculoskeletal: No acute osseous pathology. IMPRESSION: 1. Basilar streaky lung markings similar 12/29/2023. Correlate for underlying pleural effusion and/or interstitial lung disease. Correlate with serum BNP. 2. COPD changes.
[2024-02-08 17:38] LABS: ALT 21 U/L (4-49); AST 27 U/L (17-59); African American GFR (CKD) >90 (>60 ml/min/1.73 sqM); Albumin 3.8 g/dL (3.5-5.0); Alkaline Phosphatase 100 U/L (38-126); Anion Gap 9 mmol/L; Blood Urea Nitrogen 22 mg/dL (9-20); Calcium 8.6 mg/dL (8.4-10.2); Carbon Dioxide 22 mmol/L (22-30); Chloride 105 mmol/L (98-107); Glucose 114 mg/dL (74-99); Non-African American GFR(CKD) >90 (>60 ml/min/1.73 sqM); Potassium 4.1 mmol/L (3.5-5.1); Sodium 136 mmol/L (137-145); Total Bilirubin 1.1 mg/dL (0.2-1.3); Total Protein 6.7 g/dL (6.3-8.2)
[2024-02-08 17:42] LABS: Prothrombin Time 11.3 sec (10.0-12.5)
[2024-02-08 17:44] LABS: NT-Pro-B-Type Natriuretic Pept 2230 pg/mL
--- NOTE | 2024-02-08 18:50 | CT ---
EXAMINATION TYPE: CT chest angio for PE CT DLP: 503.9 mGycm, Automated exposure control for dose reduction was used. DATE OF EXAM: 02/08/2024 6:31 PM COMPARISON: Chest radiograph from same day. CLINICAL INDICATION:Male, 64 years old with history of dyspnea, possible PE; pe TECHNIQUE/CONTRAST: CTA scan of the thorax is performed with IV Contrast, patient injected with 100 mL of Isovue 370, MIP images are created and reviewed these are created on a separate workstation.. FINDINGS: Pulmonary Artery: There is no evidence for a filling defect within the pulmonary vasculature to sugge st acute pulmonary embolism. The pulmonary artery is of normal size. Lungs/Pleura: Trace left and small right pleural effusion. Pleural fluid does extend throughout the m ajor fissure on the left. There is intralobular septal thickening. Less opacities in the left lung. S uspected atelectasis of the right middle lung. Centrilobular and paraseptal emphysema changes. Airway: Large airways are patent. Heart: Heart is enlarged for size. Vasculature: No evidence of aortic aneurysm. Mediastinum: No gross evidence of adenopathy. Scattered prominent lymph nodes including AP window 11 mm in short axis lymph nodes. Musculoskeletal: Mild degenerative disc disease changes are present throughout the thoracolumbar spin e. Soft Tissues/lymph nodes: Unremarkable. Lower neck: No significant findings. Upper Abdomen: Prominent no enlarged lymph node near the left adrenal gland 3 9 mm in short axis. IMPRESSION: 1. No evidence of pulmonary embolism. 2. Cardiomegaly with bilateral pleural effusions and pulmonary vascular congestion correlate for usha estive heart failure. Groundglass opacities possibly relating to pulmonary vascular congestion attent ion on short-term follow-up imaging and clinical correlation. 3. Prominent mediastinal lymph nodes likely secondary to underlying congestive heart failure.
[2024-02-08] MEDS ORDERED: ALBUTEROL NEBULIZED 2.5 MG/3 ML INHALATION PRN (19:56)
[2024-02-08] MEDS: FUROSEMIDE 10 MG/ML 4 ML VIAL IV STA (20:27)
[2024-02-08] MEDS ORDERED: HEPARIN SODIUM,PORCINE 5,000 UNIT/ML 1 ML VIAL SQ SCH (21:00)
[2024-02-08] MEDS: FUROSEMIDE 10 MG/ML 4 ML VIAL IV SCH (21:39)
[2024-02-08] MEDS: APIXABAN 5 MG TAB PO SCH (21:39)
[2024-02-08] MEDS: IPRATROPIUM 0.5 MG/2.5 ML NEBU INHALATION SCH (21:57)
--- NOTE | 2024-02-09 02:19 | P.CNPUL ---
History of Present Illness Consult date: 02/09/24 Requesting physician: Kendrick Fuentes Reason for consult: COPD, pleural effusion Chief complaint: Shortness of breath History of present illness: Patient is a 64-year-old white male with past medical history significant for COPD, chronic ongoing tobacco dependence, atrial fibrillation, hyperlipidemia, hypertension. Patient's primary care provider is Dr. Clinton. Patient had a recent hospitalization about a month ago for acute COPD exacerbation. Since then, the patient has seen multiple specialties outpatient. He was followed in the pulmonary office by Dr. Rooney. He did have a pulmonary function test, consistent with moderate chronic obstructive pulmonary disease. FEV1/FVC ratio 65%, FEV1 66% of predicted, DLCO 51% of predicted not corrected for hemoglobin. Findings consistent with moderate emphysema. 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 Patient states pending when he was discharged from the hospital last month, he was feeling well. Since then, he has been intermittently short of breath. Progressively worse over the last 3 weeks. Denies any change in his chronic cough. Occasional yellow sputum production, but not significantly different from normal. Denies sick contacts. No fevers. Reports occasional wheezing. He is also noted some intermittent chest pressure versus tightness. encompassing the entire chest. Nonradiating. Not associated with activity or rest. Lasting minutes to occasionally all day. Denies heart palpitations, lightheadedness, or syncopal events. He had increased lower extremity swelling. He has previously stopped his hydrochlorothiazide without guidance. Echocardiogram done on previous admission estimated a preserved left ventricular ejection fraction of 50 to 55% and mild valvular abnormalities. Chest x-ray done on admission demonstrates cardiomegaly, prominent interstitial markings, a probable right-sided effusion with associated streaky atelectasis. No obvious acute focal consolidations or pneumothorax. NT proBNP was elevated at 2230. Patient did have a mildly elevated D-dimer, and a follow-up chest CTA did not show any filling defects consistent with pulmonary emboli. It did redemonstrated the above-mentioned findings. There was cardiomegaly with bilateral pleural effusions greater on the right, pulmonary vascular congestion, and scattered groundglass opacities. There is some prominent mediastinal lymph nodes, possibly secondary to above. CBC on admission: WBC count 11.6, hemoglobin 14.2, hematocrit 43.8, platelets 353. BMP on admission: Sodium 136, potassium 4.1, chloride 105, serum bicarbonate 22, BUN 22, creatinine 0.72, glucose 114. LFTs not elevated. Troponins less than 0.012. EKG done on arrival shows atrial fibrillation with controlled ventricular rate of 89 bpm. Nondiagnostic for acute ischemia. Negative for influenza, RSV, COVID. Afebrile. Patient is currently in the emergency department, room 1. He is sitting on the edge of the stretcher, on room air, in no acute distress. Vital signs are stable. Heart rhythm appears atrial fibrillation with controlled ventricular response on bedside monitor. Patient's Eliquis has already been restarted. He is also been started on Lasix 40 mg twice daily. He has been voiding often. Denies ever having a previous thoracentesis. Review of Systems REVIEW OF SYSTEMS: CONSTITUTIONAL: Unsure of weight gain. Admits generalized fatigue. Denies fevers or chills. EYES: Denies change in vision. EARS, NOSE, MOUTH, THROAT: Denies headaches, denies sore throat. CARDIOVASCULAR: See HPI RESPIRATORY: See HPI GASTROINTESTINAL: Denies change in appetite, abdominal pain, or diarrhea. admits isolated episode of nausea and vomiting. No hematemesis. Otherwise, oral intake has been adequate. GENITOURINARY: Denies hematuria, denies infections. MUSKULOSKELETAL: Denies pain, denies swelling. INTEGUMENTARY: Denies rash, denies eczema. NEUROLOGICAL: Denies recent memory loss, no recent seizure activity. PSYCHIATRIC: Denies anxiety, denies depression. HEMATOLOGIC/LYMPHATIC: Denies anemia, denies enlarged lymph node Past Medical History Past Medical History: Atrial Fibrillation, COPD, Hyperlipidemia, Hypertension Additional Past Medical History / Comment(s): COVID 08/21 History of Any Multi-Drug Resistant Organisms: None Reported Additional Past Surgical History / Comment(s): REPAIR TENDON OF LEFT HAND (CHILDHOOD), sinus surgery , COLONOSCOPY Past Anesthesia/Blood Transfusion Reactions: No Reported Reaction Past Psychological History: No Psychological Hx Reported Smoking Status: Current every day smoker Past Alcohol Use History: None Reported Past Drug Use History: None Reported - Past Family History Mother Family Medical History: Cancer Medications and Allergies Home Medications Medication Instructions Recorded Confirmed Type Multivitamins, Thera [Multivitamin 1 tab PO DAILY 10/23/21 02/08/24 History (formulary)] Albuterol Nebulized [Ventolin 2.5 mg INHALATION RT-QID PRN 12/29/23 02/08/24 History Nebulized] Fluticasone/Umeclidin/Vilanter 1 puff INHALATION RT-DAILY 12/29/23 02/08/24 History [Trelegy Ellipta 100-62.5-25] Losartan Potassium [Cozaar] 100 mg PO DAILY 12/29/23 02/08/24 History Albuterol Inhaler [Ventolin Hfa 2 puff INHALATION RT-QID PRN #1 12/31/23 02/08/24 Rx Inhaler] each Apixaban [Eliquis] 5 mg PO BID 30 Days #60 tab 12/31/23 02/08/24 Rx Diltiazem Cd [Cardizem CD] 300 mg PO DAILY #30 cap 12/31/23 02/08/24 Rx Aspirin EC [Ecotrin Low Dose] 81 mg PO DAILY 02/08/24 02/08/24 History Metoprolol Succinate (ER) [Toprol 25 mg PO DAILY 02/08/24 02/08/24 History Xl] Allergies Allergy/AdvReac Type Severity Reaction Status Date / Time lisinopril AdvReac CAUSED Verified 02/08/24 16:53 FATIGUE Physical Exam Vitals: Vital Signs Temp Pulse Resp BP Pulse Ox 02/08/24 22:02 87 02/08/24 21:57 85 02/08/24 21:43 105 H 18 125/101 92 L 02/08/24 20:29 103 H 18 135/94 92 L 02/08/24 19:08 102 H 22 127/89 96 02/08/24 17:52 108 H 18 127/95 92 L 02/08/24 17:05 96 02/08/24 17:00 89 L 02/08/24 16:19 97.8 F 105 H 22 122/81 92 L Intake and Output 02/08/24 02/08/24 02/09/24 14:59 22:59 06:59 Other: Weight 99.79 kg GENERAL EXAM: Alert, 64-year-old white male, appearing stated age, comfortable in no apparent distress. HEAD: Normocephalic and atraumatic EYES: Normal reaction of pupils, equal size. NOSE: Clear with pink turbinates. THROAT: No erythema or exudates. NECK: No masses, no JVD. CHEST: No chest wall deformity. LUNGS: Equal air entry with diminished right basilar lung sounds. No crackles, wheeze, rhonchi. On room air. No conversational dyspnea or accessory muscle use while at rest CVS: S1 and S2 normal with no audible murmur, irregular rhythm. No extra heart sounds ABDOMEN: No hepatosplenomegaly, active bowel sounds, no guarding or rigidity. SPINE: No scoliosis or deformity SKIN: No rashes CENTRAL NERVOUS SYSTEM: No focal deficits, tone is normal in all 4 extremities. EXTREMITIES: There bilateral lower extremity edema, pitting 1-2+. No clubbing, or cyanosis. Peripheral pulses are intact. Results - Laboratory Findings CBC and BMP: 02/08/24 16:56 02/08/24 16:56 PT/INR, D-dimer PT 11.3 sec (10.0-12.5) 02/08/24 16:56 INR 1.0 (<1.2) 02/08/24 16:56 D-Dimer 1.59 mg/L FEU (<0.60) H 02/08/24 16:56 Abnormal lab findings: Abnormal Labs 02/08/24 02/08/24 02/08/24 16:56 16:56 16:56 WBC 11.6 H RDW 15.9 H Neutrophils # 8.9 H D-Dimer 1.59 H Sodium 136 L BUN 22 H Glucose 114 H - Diagnostic Findings Chest x-ray: image reviewed CT scan - chest: image reviewed Assessment and Plan Assessment: Acute dyspnea, likely secondary to acute diastolic CHF exacerbation and possible mild acute COPD exacerbation. Chest x-ray done on admission demonstrates cardiomegaly, prominent interstitial markings, a probable right-sided effusion with associated streaky atelectasis. No obvious acute focal consolidations or pneumothorax. NT proBNP was elevated at 2230. Bilateral pleural effusions, right greater than left, suspect transudative, no prior thoracentesis Bilateral lower extremity edema Moderate chronic obstructive pulmonary disease/emphysema, maintained on a combination of albuterol nebs, albuterol rescue inhaler, and Trelegy inhaler outpatient Chronic ongoing tobacco dependence, significantly is cut down over the last month, down to 1 cigarette every week or so. Chronic atrial fibrillation, normally anticoagulated on Eliquis Hyperlipidemia Hypertension Plan: Patient's medications, labs, imaging reviewed As far as the patient's COPD, will start this patient on a combination of bronchodilators, Symbicort inhailer, and IV Solu-Medrol. Patient may bring in his Trelegy inhaler from home and substitute for Symbicort if available. Pulmonary function test results discussed with patient, consistent with moderate chronic obstructive pulmonary disease/emphysema Smoking cessation again encouraged, refuses nicotine replacement Patient has bilateral pleural effusions, right greater than left. Agree, with starting the patient on Lasix 40 mg twice daily. Will likely hold off on any thoracentesis at this point, however, this will be discussed with Dr. Rooney this morning. If patient eventually requires thoracentesis, Eliquis will have to be held. Patient reportedly has a heart catheterization scheduled next week. Cardiology has been consulted to follow-up on this patient We will continue to follow, and additional recommendations are forthcoming. I have personally seen and examined the patient, performed the documentation and the assessment and plan as written. Number of minutes spent on the visit:20 Time with Patient: Greater than 30
[2024-02-09] MEDS: methylPREDNISolone SOD SUCCI 125 MG/2 ML VIAL IV SCH (06:31)
[2024-02-09] MEDS ORDERED: SYMBICORT 80-4.5 MCG INHALER INHALATION SCH (08:00)
[2024-02-09] MEDS: IPRATROPIUM-ALBUTEROL 3 ML NEB INHALATION SCH (08:07)
[2024-02-09] MEDS: SYMBICORT 160-4.5 MCG INHALER INHALATION SCH (08:07)
[2024-02-09] MEDS: METOPROLOL SUCCINATE (ER) 25 MG TAB.ER.24H PO SCH (09:03)
[2024-02-09] MEDS: ASPIRIN 81 MG PO SCH (09:11)
[2024-02-09] MEDS: LOSARTAN 50 MG TAB PO SCH (09:11)
[2024-02-09] MEDS: METOPROLOL TARTRATE 50 MG TAB PO SCH (09:11)
[2024-02-09] MEDS: DILTIAZEM CD 300 MG CAP.ER.24H PO SCH (09:11)
[2024-02-09] MEDS: SODIUM CHLORIDE 0.9% 1,000 ML IV SCH (09:16)
[2024-02-09] MEDS: HEPARIN SOD,PORK IN 0.45% NACL 25,000 UNIT in 0.45% NACL 1 250ML.BAG IV SCH (09:16)
[2024-02-09 10:13] LABS: INR 1.1 (<1.2); Partial Thromboplastin Time 26.3 sec (22.0-30.0)
[2024-02-09 10:16] LABS: Basophils # (A) 0.1 k/uL (0-0.2); Basophils % (A) 1 %; Eosinophils % (A) 1 %; HCT 48.3 % (39.0-53.0); HGB 15.8 gm/dL (13.0-17.5); Lymphocytes # (A) 0.7 k/uL (1.0-4.8); Lymphocytes % (A) 8 %; MCH 29.1 pg (25.0-35.0); MCHC 32.8 g/dL (31.0-37.0); MCV 88.7 fL (80.0-100.0); Mean Platelet Volume 7.9; Monocytes # (A) 0.3 k/uL (0-1.0); Monocytes % (A) 3 %; Neutrophils # (A) 7.9 k/uL (1.3-7.7); Neutrophils % (A) 86 %; Platelet Count 351 k/uL (150-450); RBC 5.45 m/uL (4.30-5.90); RDW 15.9 % (11.5-15.5); WBC 9.2 k/uL (3.8-10.6)
--- NOTE | 2024-02-09 10:24 | P.CRDCN ---
History of Present Illness History of present illness: HISTORY OF PRESENT ILLNESS: This is a 64-year-old male with a past medical history significant for hypertension, hyperlipidemia, persistent atrial fibrillation, COPD, and nicotine dependence. Patient follows in the office with Dr. Melgoza. We have been asked to see the patient in consultation for CHF exacerbation. Patient examined at the bedside in the emergency room. Patient presented to the hospital with a chief complaint of shortness of breath and mild chest discomfort. It is noted that the patient had a stress test last month revealing inducible inferior ischemia and polymorphic ventricular tachycardia. The patient is scheduled to undergo cardiac catheterization on 02/16/[address] Melgoza. At the time of examination, patient is in atrial fibrillation with heart range between [id number]. DIAGNOSTICS: - EKG reveals atrial fibrillation with controlled ventricular rate. - Chest xray basilar streaky lung markings similar to 12/29/2023. Correlate for underlying pleural effusion and/or interstitial lung disease. COPD changes. -Chest CTA: Negative for pulmonary embolism, cardiomegaly with bilateral pleural effusions and pulmonary vascular congestion, groundglass opacities possibly related to pulmonary vascular congestion, prominent mediastinal lymph nodes likely secondary to underlying CHF - Laboratory data: WBC 11.6. Hemoglobin 14.2. Platelet count 353. D-dimer 1.59. Sodium 136. Potassium 4.1. BUN 22. Creatinine 0.72. Magnesium 2.0. Troponin negative x 1. proBNP 2230. - Current home cardiac medications include Eliquis 5 mg twice a day, aspirin 81 mg daily, Cardizem 300 mg daily, losartan 100 mg daily, metoprolol succinate 25 mg daily. - Most recent echocardiogram obtained in December 2023 revealed ejection fraction 50 to 55%, mild MR, mild TR, and loculated pericardial effusion near right atrium REVIEW OF SYSTEMS: At the time of my exam: CONSTITUTIONAL: Denies fever or chills. HEENT: Denies blurred vision, vision changes, or eye pain. Denies hemoptysis CARDIOVASCULAR: Denies chest pain. Denies orthopnea. Denies PND. Denies palpitations RESPIRATORY: Denies shortness of breath. GASTROINTESTINAL: Denies abdominal pain. Denies nausea or vomiting. HEMATOLOGIC: Denies bleeding disorders. GENITOURINARY: Denies any blood in urine. SKIN: Denies pruitis. Denies rash. PHYSICAL EXAM: VITAL SIGNS: Reviewed. GENERAL: Well-developed in no acute distress. HEENT: Head is normocephalic. Pupils are equal, round. Sclerae anicteric. Mucous membranes of the mouth are moist. Neck supple. No JVD or thyromegaly LUNGS: Respirations even and unlabored. Lungs essentially clear to auscultation bilaterally. HEART: Irregular rate and rhythm. S1 and S2 heard. ABDOMEN: Soft. Nondistended. Nontender. EXTREMITIES: Normal range of motion. No clubbing or cyanosis. Peripheral pulses intact. No lower extremity edema NEUROLOGIC: Awake and alert. Oriented x 3. ASSESSMENT: Shortness of breath Possible mild COPD exacerbation Persistent atrial fibrillation Unstable angina Recent abnormal stress test with inducible inferior ischemia and inducible po lymorphic ventricular tachycardia Bilateral pleural effusions Hypertension Hyperlipidemia Nicotine dependence PLAN: 2D echo has been ordered. Await results. Hold Eliquis. Begin IV heparin. Resume home cardiac medications Continue IV Lasix per pulmonary for pleural effusions Discontinue metoprolol succinate. Begin metoprolol tartrate 50 mg twice a day for optimal heart rate control Will speak to Dr. Melgoza regarding cardiac catheterization to likely be performed on Friday or Friday Further recommendations pending patient course Nurse practitioner note has been reviewed by physician. Signing provider agrees with the documented findings, assessment, and plan of care documented by COMPUTING TUTOR as a scribe. Past Medical History Past Medical History: Atrial Fibrillation, COPD, Hyperlipidemia, Hypertension Additional Past Medical History / Comment(s): COVID 08/21 History of Any Multi-Drug Resistant Organisms: None Reported Additional Past Surgical History / Comment(s): REPAIR TENDON OF LEFT HAND (CHILDHOOD), sinus surgery , COLONOSCOPY Past Anesthesia/Blood Transfusion Reactions: No Reported Reaction Past Psychological History: No Psychological Hx Reported Smoking Status: Current every day smoker Past Alcohol Use History: None Reported Past Drug Use History: None Reported - Past Family History Mother Family Medical History: Cancer Medications and Allergies Home Medications Medication Instructions Recorded Confirmed Type Multivitamins, Thera [Multivitamin 1 tab PO DAILY 10/23/21 02/08/24 History (formulary)] Albuterol Nebulized [Ventolin 2.5 mg INHALATION RT-QID PRN 12/29/23 02/08/24 History Nebulized] Fluticasone/Umeclidin/Vilanter 1 puff INHALATION RT-DAILY 12/29/23 02/08/24 History [Trelegy Ellipta 100-62.5-25] Losartan Potassium [Cozaar] 100 mg PO DAILY 12/29/23 02/08/24 History Albuterol Inhaler [Ventolin Hfa 2 puff INHALATION RT-QID PRN #1 12/31/23 02/08/24 Rx Inhaler] each Apixaban [Eliquis] 5 mg PO BID 30 Days #60 tab 12/31/23 02/08/24 Rx Diltiazem Cd [Cardizem CD] 300 mg PO DAILY #30 cap 12/31/23 02/08/24 Rx Aspirin EC [Ecotrin Low Dose] 81 mg PO DAILY 02/08/24 02/08/24 History Metoprolol Succinate (ER) [Toprol 25 mg PO DAILY 02/08/24 02/08/24 History Xl] Allergies Allergy/AdvReac Type Severity Reaction Status Date / Time lisinopril AdvReac CAUSED Verified 02/08/24 16:53 FATIGUE Physical Exam Vitals: Vital Signs Temp Pulse Resp BP Pulse Ox 02/09/24 08:18 108 H 16 02/09/24 08:13 95 02/09/24 08:08 105 H 16 02/09/24 07:30 112 H 18 128/91 93 L 02/09/24 06:25 107 H 18 115/95 92 L 02/09/24 04:00 92 18 127/86 92 L 02/08/24 22:02 87 02/08/24 21:57 85 02/08/24 21:43 105 H 18 125/101 92 L 02/08/24 20:29 103 H 18 135/94 92 L 02/08/24 19:08 102 H 22 127/89 96 02/08/24 17:52 108 H 18 127/95 92 L 02/08/24 17:05 96 02/08/24 17:00 89 L 02/08/24 16:19 97.8 F 105 H 22 122/81 92 L Intake and Output 02/08/24 02/09/24 02/09/24 22:59 06:59 14:59 Other: Weight 99.79 kg Results 02/09/24 09:36 02/08/24 16:56 Cardiac Enzymes 02/08/24 02/08/24 Range/Units 16:56 16:56 AST 27 (17-59) U/L Troponin I <0.012 (0.000-0.034) ng/mL Coagulation 02/08/24 Range/Units 16:56 PT 11.3 (10.0-12.5) sec APTT 25.0 (22.0-30.0) sec CBC 02/08/24 Range/Units 16:56 WBC 11.6 H (3.8-10.6) k/uL RBC 5.00 (4.30-5.90) m/uL Hgb 14.2 (13.0-17.5) gm/dL Hct 43.8 (39.0-53.0) % Plt Count 353 (150-450) k/uL Comprehensive Metabolic Panel 02/08/24 Range/Units 16:56 Sodium 136 L (137-145) mmol/L Potassium 4.1 (3.5-5.1) mmol/L Chloride 105 (98-107) mmol/L Carbon Dioxide 22 (22-30) mmol/L BUN 22 H (9-20) mg/dL Creatinine 0.72 (0.66-1.25) mg/dL Glucose 114 H (74-99) mg/dL Calcium 8.6 (8.4-10.2) mg/dL AST 27 (17-59) U/L ALT 21 (4-49) U/L Alkaline Phosphatase 100 (38-126) U/L Total Protein 6.7 (6.3-8.2) g/dL Albumin 3.8 (3.5-5.0) g/dL Current Medications Generic Name Dose Route Start Last Admin Trade Name Freq PRN Reason Stop Dose Admin Albuterol Sulfate 2.5 mg 02/08/24 19:56 Albuterol Nebulized 2.5 Mg/3 Ml INHALATION RT-QID PRN Shortness Of Breath Albuterol/Ipratropium 3 ml 02/09/24 08:00 02/09/24 08:07 Ipratropium-Albuterol 3 Ml Neb INHALATION 3 ml RT-QID [facility] Administration Apixaban 5 mg 02/08/24 21:00 02/08/24 21:39 Apixaban 5 Mg Tab PO 5 mg BID [facility] Administration Protocol Aspirin 81 mg 02/09/24 09:00 Aspirin 81 Mg PO DAILY [facility] Budesonide/Formoterol Fumarate 2 puff 02/09/24 08:00 02/09/24 08:07 Symbicort 160-4.5 Mcg Inhaler INHALATION 2 puff RT-BID [facility] Administration Diltiazem HCl 300 mg 02/09/24 09:00 Diltiazem Cd 300 Mg Cap.Er.24h PO DAILY [facility] Furosemide 40 mg 02/08/24 20:00 02/08/24 21:39 Furosemide 10 Mg/Ml 4 Ml Vial IV 40 mg Q12H [facility] Administration Losartan Potassium 100 mg 02/09/24 09:00 Losartan 50 Mg Tab PO DAILY [facility] Methylprednisolone Sodium Succinate 60 mg 02/09/24 06:00 02/09/24 06:31 Methylprednisolone Sod Succi 125 Mg/2 Ml Vial IV 60 mg Q6HR [facility] Administration Metoprolol Succinate 25 mg 02/09/24 09:00 Metoprolol Succinate (Er) 25 Mg Tab.Er.24h PO DAILY [facility] Sodium Chloride 10 ml 02/08/24 21:00 02/08/24 21:40 Sodium Chloride 0.9% Flush 10 Ml Syringe IV 10 ml BID [facility] Administration Intake and Output 02/08/24 02/09/24 02/09/24 22:59 06:59 14:59 Other: Weight 99.79 kg 02/08/24 16:56 02/08/24 16:56
--- NOTE | 2024-02-09 12:43 | CA ---
Transthoracic Echo Report Name: Mirian Torres Age: 64 Gender: M : 1960 Exam Date: 02/09/2024 08:27 Exam Location: [facility] Ht (in): 78 Wt (lb): 220 Ordering Physician: Kendrick Fuentes MD Attending/Referring Phys: Sweet Pickled Fruit Maker Michelle Centeno RDCS Procedure CPT: Indications: Heart failure Cardiac Hx: Technical Quality: Fair Contrast 1: Total Dose (mL): Contrast 2: Total Dose (mL): MEASUREMENTS (Male / Female) Normal Values 2D ECHO LV Diastolic Diameter PLAX 4.7 cm 4.2 - 5.9 / 3.9 - 5.3 cm LV Systolic Diameter PLAX 3.0 cm IVS Diastolic Thickness 1.3 cm 0.6 - 1.0 / 0.6 - 0.9 cm LVPW Diastolic Thickness 1.3 cm 0.6 - 1.0 / 0.6 - 0.9 cm LV Relative Wall Thickness 0.5 RV Internal Dim ED PLAX 3.5 cm LA Systolic Diameter LX 3.8 cm 3.0 - 4.0 / 2.7 - 3.8 cm LV Diastolic Volume MOD 4C 113.6 cm??? LV Systolic Volume MOD 4C 59.3 cm??? LV Ejection Fraction MOD 4C 47.8 % LV Cardiac Index MOD 4C 2312.6 cm???/min???m??? LV Diastolic Length 4C 7.9 cm LV Systolic Length 4C 7.3 cm LV Diastolic Volume MOD 2C 149.9 cm??? LV Systolic Volume MOD 2C 81.1 cm??? LV Ejection Fraction MOD 2C 45.9 % LV Cardiac Index MOD 2C 2933.7 cm???/min???m??? LV Diastolic Length 2C 9.3 cm LV Systolic Length 2C 7.5 cm LA Volume 88.3 cm??? 18 - 58 / 22 - 52 cm??? LA Volume Index 37.6 cm???/m??? 16 - 28 cm???/m??? M-MODE Aortic Root Diameter MM 3.6 cm AV Cusp Separation MM 2.7 cm DOPPLER AV Peak Velocity 128.6 cm/s AV Peak Gradient 6.6 mmHg MV Area PHT 4.3 cm??? MV Deceleration Time 226.3 ms TR Peak Velocity 275.9 cm/s TR Peak Gradient 30.4 mmHg Right Ventricular Systolic Press 35.4 mmHg FINDINGS Left Ventricle Left ventricular ejection fraction is estimated at 50-55 %. Left ventricular systolic function borderline normal. Left ventricular cavity size normal. Mildly increased left ventricular wall thickness. Right Ventricle Mild right ventricular dilatation. Mild pulmonary hypertension. Right Atrium Normal right atrial size. Left Atrium Moderately increased left atrial volume. Mildly increased left atrial area. Mitral Valve Structurally normal mitral valve. No mitral stenosis, or prolapse.mild mitral regurgitation. Mitral valve thickened. Aortic Valve Trileaflet aortic valve. Thickened aortic valve without stenosis.aortic valve sclerosis. Tricuspid Valve Structurally normal tricuspid valve. Mild tricuspid regurgitation. Pulmonic Valve Structurally normal pulmonic valve. Trace pulmonic regurgitation. Pericardium No pericardial effusion. Aorta Normal size aortic root and proximal ascending aorta. CONCLUSIONS 1. Normal left ventricular size with borderline left ventricular systolic function 2. Mild mitral and tricuspid regurgitation with mild pulmonary hypertension Previewed by: Dr. Mikey Rodriguez MD (Electronically Signed) Final Date: 09 Feb 2024 12:42
[2024-02-09] MEDS ORDERED: NITROGLYCERIN SL TABS 0.4 MG TAB SUBLINGUAL PRN (14:16)
[2024-02-09] MEDS ORDERED: ALPRAZolam 0.25 MG TAB PO PRN (14:16)
[2024-02-09] MEDS ORDERED: ALPRAZolam 0.5 MG TAB PO PRN (14:16)
[2024-02-09] MEDS: HEPARIN SODIUM 1,000 UN/ML (10ML VL) IV PRN (23:44)
--- NOTE | 2024-02-10 00:15 | HP ---
HISTORY AND PHYSICAL CHIEF COMPLAINT: Chest pain, shortness of breath. HISTORY OF PRESENT ILLNESS: A 64-year-old gentleman with a past medical history of atrial fibrillation, was complaining of shortness of breath and intermittent chest pain. The patient had a stress test on January 21 and the patient also had history of COPD, also the patient is followed by Dr. Clinton in the outpatient setting. The evaluation showed possible CHF. No evidence of pulmonary embolism, bilateral pleural effusion, vascular congestion, and ground-glass opacities also. PAST MEDICAL HISTORY: Atrial fibrillation, COPD, rest of the history in the chart was reviewed. HOME MEDICATIONS: Reviewed and include multivitamin, dose and rest of medications reviewed. FAMILY HISTORY: History of cancer in the family. SOCIAL HISTORY: Continued smoking. REVIEW OF SYSTEMS: Fourteen-point review is negative as mentioned. PHYSICAL EXAMINATION: VITAL SIGNS: Pulse 89, blood pressure n, respirations 16. HEENT: Conjunctivae normal. NECK: No jugular venous distention. CARDIOVASCULAR: S1, S2. RESPIRATIONS: Few scattered rhonchi and crackles. SKIN: No rashes. JOINTS: No active deforming arthropathy. LABORATORY DATA: WBC n labs are noted. D-dimer is 1.59. COVID-19 is negative. ASSESSMENT: 1. Congestive heart failure acute exacerbation. Ejection fraction, unknown. 2. Chronic obstructive pulmonary disease. 3. Atrial fibrillation, chronic. 4. Elevated D-dimer with no evidence of any pulmonary embolism. 5. History of COVID, 08/21. 6. Hypertension. 7. Hyperlipidemia. RECOMMENDATIONS AND DISCUSSION: This 64-year-old gentleman presented with multiple complex medical issues. At this time, I recommend to continue current bronchodilators, IV steroids, and also closely follow with Cardiology. Guarded prognosis because of the multiple complex medical issues. See orders for details. Pulmonary and Cardiology has been consulted. A 2D echo will be ordered. The patient has bullous emphysema. MMODL / IJN: [id number] / MTDD
[2024-02-10] MEDS: SODIUM CHLORIDE 0.9% 1,000 ML in EMPTY BAG 1 BAG IV SCH (01:00)
[2024-02-10] MEDS: ASPIRIN 325 MG TAB PO ONE (05:13)
[2024-02-10] MEDS: ATORVASTATIN 80 MG TAB PO ONE (05:13)
[2024-02-10] MEDS ORDERED: VERAPAMIL 2.5 MG/ML 2 ML AMP ONE (06:50)
[2024-02-10] MEDS ORDERED: LIDOCAINE 1% INJ 10MG/ML (20 ML MDV) ONE (06:50)
[2024-02-10] MEDS ORDERED: HEPARIN SODIUM 1,000 UN/ML (10ML VL) ONE (06:50)
[2024-02-10] MEDS ORDERED: fentaNYL (PF) 50 MCG/ML 2 ML AMP ONE (06:50)
[2024-02-10] MEDS ORDERED: HEPARIN SODIUM,PORCINE (1 ML) 2,500 UNIT in SODIUM CHLORIDE 0.9% 250 ML IRRIGATION PRN (07:00)
[2024-02-10] MEDS ORDERED: HEPARIN SODIUM,PORCINE 10,000 UNIT in SODIUM CHLORIDE 0.9% 1,000 ML IRRIGATION PRN (07:00)
[2024-02-10] MEDS: SODIUM CHLORIDE 0.9% 1,000 ML IV ONE (07:05)
[2024-02-10] MEDS: MIDAZOLAM 2 MG/2 ML VIAL IVP ONE (07:05)
[2024-02-10] MEDS: IV FLUID CONTINUATION 1,000 ML IV ONE (07:05)
[2024-02-10] MEDS: fentaNYL (PF) 50 MCG/ML 2 ML AMP IVP ONE (07:06)
[2024-02-10] MEDS: LIDOCAINE 1% INJ 10MG/ML (20 ML MDV) SQ ONE (07:08)
[2024-02-10] MEDS: VERAPAMIL SYRINGE (5 MG/10 ML) INTRAARTER ONE (07:09)
[2024-02-10] MEDS: HEPARIN SODIUM 1,000 UN/ML (10ML VL) IV ONE (07:13)
[2024-02-10] MEDS: IOPAMIDOL-370 100ML BTL INJ ONE (07:25)
[2024-02-10] MEDS: ADENOSINE 90 MG in SODIUM CHLORIDE 0.9% 60 ML IVP ONE ×2 (07:36→07:49)
[2024-02-10 11:12] LABS: HCT 47.2 % (39.0-53.0); HGB 14.4 gm/dL (13.0-17.5); Hypochromasia Slight; MCH 27.8 pg (25.0-35.0); MCHC 30.4 g/dL (31.0-37.0); MCV 91.6 fL (80.0-100.0); Mean Platelet Volume 7.5; Platelet Count 381 k/uL (150-450); RBC 5.16 m/uL (4.30-5.90); RDW 15.6 % (11.5-15.5); WBC 13.7 k/uL (3.8-10.6)
--- NOTE | 2024-02-10 11:20 | P.PN ---
Subjective Progress Note Date: 02/10/24 Principal diagnosis: Shortness of breath, chest pain. Patient is a 64-year-old white male with past medical history significant for COPD, chronic ongoing tobacco dependence, atrial fibrillation, hyperlipidemia, hypertension. Patient's primary care provider is Dr. Clinton. Patient had a recent hospitalization about a month ago for acute COPD exacerbation. Since then, the patient has seen multiple specialties outpatient. He was followed in the pulmonary office by Dr. Rooney. He did have a pulmonary function test, consistent with moderate chronic obstructive pulmonary disease. FEV1/FVC ratio 65%, FEV1 66% of predicted, DLCO 51% of predicted not corrected for hemoglobin. Findings consistent with moderate emphysema. Patient is also followed up with senior quality analyst outpatient, he reportedly had a stress test, and reportedly has a follow heart catheterization scheduled for next week. Patient states pending when he was discharged from the hospital last month, he was feeling well. Since then, he has been intermittently short of breath. Progressively worse over the last 3 weeks. Denies any change in his chronic cough. Occasional yellow sputum production, but not significantly different from normal. Denies sick contacts. No fevers. Reports occasional wheezing. He is also noted some intermittent chest pressure versus tightness. encompassing the entire chest. Nonradiating. Not associated with activity or rest. Lasting minutes to occasionally all day. Denies heart palpitations, lightheadedness, or syncopal events. He had increased lower extremity swelling. He has previously stopped his hydrochlorothiazide without guidance. Echocardiogram done on previous admission estimated a preserved left ventricular ejection fraction of 50 to 55% and mild valvular abnormalities. Chest x-ray done on admission demonstrates cardiomegaly, prominent interstitial markings, a probable right-sided effusion with associated streaky atelectasis. No obvious acute focal consolidations or pneumothorax. NT proBNP was elevated at 2230. Patient did have a mildly elev ated D-dimer, and a follow-up chest CTA did not show any filling defects consistent with pulmonary emboli. It did redemonstrated the above-mentioned findings. There was cardiomegaly with bilateral pleural effusions greater on the right, pulmonary vascular congestion, and scattered groundglass opacities. There is some prominent mediastinal lymph nodes, possibly secondary to above. CBC on admission: WBC count 11.6, hemoglobin 14.2, hematocrit 43.8, platelets 353. BMP on admission: Sodium 136, potassium 4.1, chloride 105, serum bicarbonate 22, BUN 22, creatinine 0.72, glucose 114. LFTs not elevated. Troponins less than 0.012. EKG done on arrival shows atrial fibrillation with controlled ventricular rate of 89 bpm. Nondiagnostic for acute ischemia. Negative for influenza, RSV, COVID. Afebrile. Patient is currently in the emergency department, room 1. He is sitting on the edge of the stretcher, on room air, in no acute distress. Vital signs are stable. Heart rhythm appears atrial fibrillation with controlled ventricular response on bedside monitor. Patient's Eliquis has already been restarted. He is also been started on Lasix 40 mg twice daily. He has been voiding often. Denies ever having a previous thoracentesis. Progress note dated February 10, 2024. The patient was seen yesterday in consultation. He was admitted with a diagnosis of shortness of breath and chest pain. He does have a history of COPD, ongoing tobacco dependence, atrial fibrillation, hyperlipidemia, and hypertension. The patient underwent cardiac catheterization today, the operative report is not currently in the chart but the patient was told that his coronary arteries were essentially clean. The patient is getting saline at 75 cc an hour. He is on O2 at 2 L/min, by nasal cannula. No new labs today as yet. Labs from February 07 and February 08 have been reviewed. The patient is feeling well, without any complaints. Objective - Vital Signs Vital signs: Vital Signs Temp 97.5 F L 02/10/24 08:00 Pulse 91 02/10/24 08:00 Resp 20 02/10/24 08:00 BP 122/86 02/10/24 08:00 Pulse Ox 93 L 02/10/24 08:00 FiO2 Intake & Output 02/09/24 02/10/24 02/10/24 18:59 06:59 18:59 Intake Total 175.333 406.035 513.1 Output Total 300 1100 450 Balance -124.667 -693.965 63.1 Weight 99.79 kg 94.2 kg Intake: IV 273.1 Intake, IV Titration 65.333 166.035 Amount Heparin Sod,Pork in 0.45% 65.333 166.035 NaCl 25,000 unit In 0.45 % NaCl 1 250ml.bag @ 10. 021 UNITS/KG/HR 10 mls/hr IV .Q24H [facility] Rx#: [id number] Oral 110 240 240 Output: Urine 300 1100 450 Other: Voiding Method Toilet Toilet Urinal Urinal # Voids 1 - Exam No acute distress, oriented 3. No respiratory distress. Currently on 2 L by nasal cannula. No conversational dyspnea. HEENT examination is grossly unremarkable. Mucous membranes are moist. No oral lesions. Neck supple. Full range of motion. No adenopathy thyromegaly or neck vein distention. Cardiovascular examination reveals regular rhythm rate. S1-S2 normal. No S3 or S4. No discernible murmur noted. Heart rate 91 bpm. Lungs reveal mostly clear breath sounds. Minimal crackles. No wheezes or rhonchi. Breath sounds are equal bilaterally. 2 L saturation is 93%. Abdomen soft with bowel sounds. No masses or tenderness. Extremities are intact. No cyanosis clubbing or edema. Skin is without rash or lesion. Neurologic examination is brief but nonfocal. - Labs CBC & Chem 7: 02/09/24 09:36 02/08/24 16:56 Labs: Abnormal Lab Results - Last 24 Hours (Table) 02/09/24 Range/Units 22:26 APTT 34.6 H (22.0-30.0) sec Assessment and Plan Assessment: Acute dyspnea, likely secondary to acute diastolic CHF exacerbation and possible mild acute COPD exacerbation. Bilateral pleural effusions, right greater than left, suspect transudative, no prior thoracentesis. Bilateral lower extremity edema. Moderate chronic obstructive pulmonary disease/emphysema. Chronic ongoing tobacco dependence. Chronic atrial fibrillation, normally anticoagulated on Eliquis. Hyperlipidemia. Hypertension. Plan: Plan dated February 10, 2024. The patient underwent cardiac catheterization today. The official operative report is not yet back on the chart. The patient was told that his coronary arteries for the most part were in normal range. The patient is currently on 2 L. The patient is getting saline at 75 cc an hour. Labs, x-rays, medications are reviewed. The patient is overall prognosis is guarded. We will continue to follow the patient, make recommendations along the way. Currently, the patient is on Solu-Medrol 60 mg every 6 hours. That will be discontinued in favor of prednisone 30 mg a day. Other medications include albuterol sulfate, ip ratropium bromide, and Symbicort. Time with Patient: Less than 30
[2024-02-10 11:33] LABS: INR 1.1 (<1.2)
[2024-02-10 11:37] LABS: African American GFR (CKD) >90 (>60 ml/min/1.73 sqM); Anion Gap 10 mmol/L; Blood Urea Nitrogen 27 mg/dL (9-20); Calcium 8.5 mg/dL (8.4-10.2); Carbon Dioxide 22 mmol/L (22-30); Chloride 106 mmol/L (98-107); Glucose 163 mg/dL (74-99); Non-African American GFR(CKD) >90 (>60 ml/min/1.73 sqM); Sodium 138 mmol/L (137-145)
[2024-02-10 13:25] LABS: Lymphocytes # (M) 0.82 k/uL (1.0-4.8); Monocytes # (M) 0.27 k/uL (0-1.0); Neutrophils % (M) 92 %; Nucleated Red Blood Cells 0 /100 WBC (0-0); Total Cells Counted 100
[2024-02-10 13:59] VITALS: BMI 24.0
--- NOTE | 2024-02-10 14:38 | P.PN ---
Subjective HISTORY OF PRESENT ILLNESS: This is a 64-year-old male with a past medical history significant for hypertension, hyperlipidemia, persistent atrial fibrillation, COPD, and nicotine dependence. Patient follows in the office with Dr. Melgoza. We have been asked to see the patient in consultation for CHF exacerbation. Patient examined at the bedside in the emergency room. Patient presented to the hospital with a chief complaint of shortness of breath and mild chest discomfort. It is noted that the patient had a stress test last month revealing inducible inferior ischemia and polymorphic ventricular tachycardia. The patient is scheduled to undergo cardiac catheterization on 02/16/[address] Melgoza. At the time of examination, patient is in atrial fibrillation with heart range between [id number]. DIAGNOSTICS: - EKG reveals atrial fibrillation with controlled ventricular rate. - Chest xray basilar streaky lung markings similar to 12/29/2023. Correlate for underlying pleural effusion and/or interstitial lung disease. COPD changes. -Chest CTA: Negative for pulmonary embolism, cardiomegaly with bilateral pleural effusions and pulmonary vascular congestion, groundglass opacities possibly related to pulmonary vascular congestion, prominent mediastinal lymph nodes likely secondary to underlying CHF - Laboratory data: WBC 11.6. Hemoglobin 14.2. Platelet count 353. D-dimer 1.59. Sodium 136. Potassium 4.1. BUN 22. Creatinine 0.72. Magnesium 2.0. Troponin negative x 1. proBNP 2230. - Current home cardiac medications include Eliquis 5 mg twice a day, aspirin 81 mg daily, Cardizem 300 mg daily, losartan 100 mg daily, metoprolol succinate 25 mg daily. - Most recent echocardiogram obtained in December 2023 revealed ejection fraction 50 to 55%, mild MR, mild TR, and loculated pericardial effusion near right atrium 02/10/2024 Patient examined this afternoon at bedside. Patient underwent cardiac catheterization this morning with Dr. Melgoza. Official report is currently pending. However the patient did not require any intervention. Patient's vital signs are stable. He remains in atrial fibrillation with controlled ventricular rate. Echocardiogram completed revealing ejection fraction 50 to 55%, mild pulmonary hypertension, mild mitral regurgitation, mild tricuspid regurgitation, and mild pulmonary hypertension PHYSICAL EXAM: VITAL SIGNS: Reviewed. GENERAL: Well-developed in no acute distress. HEENT: Head is normocephalic. Pupils are equal, round. Sclerae anicteric. Mucous membranes of the mouth are moist. Neck supple. No JVD or thyromegaly LUNGS: Respirations even and unlabored. Lungs essentially clear to auscultation bilaterally. HEART: Irregular rate and rhythm. S1 and S2 heard. ABDOMEN: Soft. Nondistended. Nontender. EXTREMITIES: Normal range of motion. No clubbing or cyanosis. Peripheral pulses intact. No lower extremity edema NEUROLOGIC: Awake and alert. Oriented x 3. ASSESSMENT: Shortness of breath Possible mild COPD exacerbation Persistent atrial fibrillation Unstable angina Recent abnormal stress test with inducible inferior ischemia and inducible polymorphic ventricular tachycardia Bilateral pleural effusions Hypertension Hyperlipidemia Nicotine dependence PLAN: Continue current cardiac medications Resume Eliquis booker Patient will require EP evaluation with Dr. Wang secondary to inducible polymorphic ventricular tachycardia. This may be completed on an outpatient basis. Continue to monitor patient for additional 24 hours anticipate discharge home tomorrow Nurse practitioner note has been reviewed by physician. Signing provider agrees with the documented findings, assessment, and plan of care documented by [employer] as a scribe. Objective - Vital Signs Vital signs: Vital Signs Temp 97.5 F L 02/10/24 08:00 Pulse 86 02/10/24 11:59 Resp 18 02/10/24 11:59 BP 113/77 02/10/24 11:59 Pulse Ox 97 02/10/24 11:59 FiO2 Intake & Output 02/09/24 02/10/24 02/10/24 18:59 06:59 18:59 Intake Total 175.333 406.035 753.1 Output Total 300 1100 925 Balance -124.667 -693.965 -171.9 Weight 99.79 kg 94.2 kg 94.2 kg Intake: IV 273.1 Intake, IV Titration 65.333 166.035 Amount Heparin Sod,Pork in 0.45% 65.333 166.035 NaCl 25,000 unit In 0.45 % NaCl 1 250ml.bag @ 10. 021 UNITS/KG/HR 10 mls/hr IV .Q24H [facility] Rx#: [id number] Oral 110 240 480 Output: Urine 300 1100 925 Other: Voiding Method Toilet Toilet Urinal Urinal # Voids 1 - Labs CBC & Chem 7: 02/10/24 10:18 02/10/24 10:18 Labs: Abnormal Lab Results - Last 24 Hours (Table) 02/09/24 02/10/24 02/10/24 Range/Units 22:26 10:18 10:18 WBC 13.7 H (3.8-10.6) k/uL MCHC 30.4 L (31.0-37.0) g/dL RDW 15.6 H (11.5-15.5) % Neutrophils # (Manual) 12.60 H (1.3-7.7) k/uL Lymphocytes # (Manual) 0.82 L (1.0-4.8) k/uL APTT 34.6 H (22.0-30.0) sec BUN 27 H (9-20) mg/dL Glucose 163 H (74-99) mg/dL
--- NOTE | 2024-02-10 15:46 | XR ---
EXAMINATION TYPE: XR chest 1V portable DATE OF EXAM: 02/10/2024 HISTORY: Shortness of breath. COMPARISON: 512 4 TECHNIQUE: Single view of the chest is submitted. FINDINGS: Demonstrated are scattered senescent parenchymal change. Hyperinflation compatible COPD. Basilar increased density noted right greater than left. Suspect small effusions with underlying atel ectasis, infiltrate and/or parenchymal scarring. Correlate clinically. The heart is stable. Hilar and mediastinal structures are within normal limits. Degenerative changes are seen of the dorsal spine. IMPRESSION: 1. Basilar increased density noted right greater than left. Suspect small effusions with underlying atelectasis, infiltrate and/or parenchymal scarring. Correlate clinically.
[2024-02-10] MEDS: APIXABAN 5 MG TAB PO SCH (19:51)
--- NOTE | 2024-02-11 01:07 | PN ---
PROGRESS NOTE DATE OF SERVICE: 02/10/2024 SUBJECTIVE: This 64-year-old gentleman admitted with CHF acute exacerbation, is being closely monitored at this time. The chest x-ray showed some right pleural effusion. The patient had a cardiac apparently, transudative pleural effusion has been suspected by Dr. Rooney. A 2D echocardiogram which I reviewed personally showed normal ejection fraction. White count is mildly elevated at 13.7, procalcitonin 0.05. PAST MEDICAL HISTORY: A 14-point review is negative except as mentioned earlier. CURRENT MEDICATIONS: Reviewed. PHYSICAL EXAMINATION: VITAL SIGNS: Pulse is 86, blood pressure 130/76, respirations 18. HEENT: Conjunctivae normal. NECK: No jugular venous distention. CARDIOVASCULAR: S1, S2. RESPIRATIONS: Diminished at the bases, few scattered rhonchi. ABDOMEN: Soft. NERVOUS SYSTEM: Nonfocal. LEGS: No edema. LABS: D-dimer is 1.59. Otherwise, rest of the labs noted. Also labs are reviewed. CTA, no evidence of pulmonary embolism. ASSESSMENT: 1. Possible CHF acute exacerbation, acute on chronic diastolic dysfunction. 2. Bilateral pleural effusion, right more than left, possibly transudative. 3. Chronic obstructive pulmonary disease acute exacerbation. 4. Atrial fibrillation, chronic. 5. Elevated D-dimer with no evidence of pulmonary embolism. 6. History of COVID 07/2023. 7. Hypertension. 8. Hyperlipidemia. 9. Multiple complex medical issues. RECOMMENDATIONS AND DISCUSSION: Recommended to continue current management, continue symptomatic treatment. I would recommend to continue the diuretics. Continue to follow with Cardiology, otherwise pulmonology, p.o. prednisone. Repeat labs in the morning. Increase ambulation. Guarded prognosis because of multiple complex medical issues. Further recommendations to follow. See orders for details. MMODL / IJN: [id number] / MTDD
--- NOTE | 2024-02-11 08:26 | P.CARDCATH ---
Date of Procedure: 02/10/24 Description of Procedure: PROCEDURES PERFORMED: Left heart catheterization, bilateral coronary angiography, ultrasound guided arterial access, iFR (RFR), IMR LAD INDICATION: Chest pain, abnormal stress test CONSENT:I have discussed the risks, benefits and alternative therapies for the above-mentioned procedure and for both sedation/analgesia as well as necessary blood product administration, if indicated, as they pertain to this patient. The patient has indicated understanding and acceptance of the risks and procedures discussed. PROCEDURE: After the risks, benefits and alternatives of the above mentioned procedure explained in detail with the patient, informed consent was obtained. Patient was taken to the catheterization lab and prepped and draped in usual fashion. Ultrasound guidance was used to assess for arterial access. 1% lidocaine was used to anesthetize the right radial artery. A 6-Occitan sheath was placed in the right radial artery using modified Seldinger technique and ultrasound guidance. Left coronary angiography was performed with a 6-Occitan JL 4.5 catheter and right coronary angiography was performed with a 5-Occitan FR5 catheter in various views. A 5-Occitan FR5 catheter was inserted into the left ventricle and pressure measurements were obtained. there was HARSHA 2 flow noted in the LAD and circumflex and therefore the decision was made to perform iFR/IMR of the LAD. Heparin was given. A 0.014 pressure wire was advanced through the FL4.5 catheterand normalized in the left main. 3 mL of saline were performed at rest. The wire was then advanced to the mid LAD and hyperemia was achieved with adenosine infusion. 3 more injections of saline were performed to facilitate IMR reading. The wire was pulled. The right radial sheath was removed and a TR band was placed with hemostasis achieved. The patient tolerated the procedure well. Patient was transported back to the post catheterization holding area in stable condition. Conscious Sedation: Patient was monitored under the direct supervision of myself for conscious sedation using Versed and fentanyl for a total duration of 46 minutes HEMODYNAMICS: Aorta: 110/72 LV: 112/4, LVEDP 18 FFR: 0.96 Pd/Pa: 0.98 CFR: 2.6 IMR: 35 IMR smiley: 36 SELECTIVE CORONARY ARTERIOGRAPHY: LEFT MAIN: The left main is a large caliber vessel which bifurcates into the LAD and circumflex. There is no significant stenosis. LEFT ANTERIOR DESCENDING CORONARY ARTERY: LAD is a large caliber vessel which wraps around to the apex. There is no significant stenosis. LEFT CIRCUMFLEX CORONARY ARTERY: Left circumflex is a moderate caliber vessel without significant stenosis. RIGHT CORONARY ARTERY: The right coronary artery is a large caliber vessel which gives off a PDA and PLV branch and is the dominant vessel. There is no significant stenosis. FINAL IMPRESSION: 1. Normal coronary arteries as described above. 2. Mildly elevated left sided filling pressures 3. Normal FFR 4. Abnormal IMR consistent with microvascular dysfunction PLAN: 1. Aggressive risk factor modification per most recent ACC/AHA guidelines. 2. Trial of antianginals for microvascular dysfunction
[2024-02-11] MEDS: predniSONE 10 MG TAB PO SCH (08:49)
[2024-02-11 08:58] VITALS: TEMP 97.8
--- NOTE | 2024-02-11 11:13 | P.PN ---
Subjective HISTORY OF PRESENT ILLNESS: This is a 64-year-old male with a past medical history significant for hypertension, hyperlipidemia, persistent atrial fibrillation, COPD, and nicotine dependence. Patient follows in the office with Dr. Melgoza. We have been asked to see the patient in consultation for CHF exacerbation. Patient examined at the bedside in the emergency room. Patient presented to the hospital with a chief complaint of shortness of breath and mild chest discomfort. It is noted that the patient had a stress test last month revealing inducible inferior ischemia and polymorphic ventricular tachycardia. The patient is scheduled to undergo cardiac catheterization on 02/16/[address] Melgoza. At the time of examination, patient is in atrial fibrillation with heart range between [id number]. DIAGNOSTICS: - EKG reveals atrial fibrillation with controlled ventricular rate. - Chest xray basilar streaky lung markings similar to 12/29/2023. Correlate for underlying pleural effusion and/or interstitial lung disease. COPD changes. -Chest CTA: Negative for pulmonary embolism, cardiomegaly with bilateral pleural effusions and pulmonary vascular congestion, groundglass opacities possibly related to pulmonary vascular congestion, prominent mediastinal lymph nodes likely secondary to underlying CHF - Laboratory data: WBC 11.6. Hemoglobin 14.2. Platelet count 353. D-dimer 1.59. Sodium 136. Potassium 4.1. BUN 22. Creatinine 0.72. Magnesium 2.0. Troponin negative x 1. proBNP 2230. - Current home cardiac medications include Eliquis 5 mg twice a day, aspirin 81 mg daily, Cardizem 300 mg daily, losartan 100 mg daily, metoprolol succinate 25 mg daily. - Most recent echocardiogram obtained in December 2023 revealed ejection fraction 50 to 55%, mild MR, mild TR, and loculated pericardial effusion near right atrium 02/10/2024 Patient examined this afternoon at bedside. Patient underwent cardiac catheterization this morning with Dr. Melgoza. Official report is currently pending. However the patient did not require any intervention. Patient's vital signs are stable. He remains in atrial fibrillation with controlled ventricular rate. Echocardiogram completed revealing ejection fraction 50 to 55%, mild pulmonary hypertension, mild mitral regurgitation, mild tricuspid regurgitation, and mild pulmonary hypertension 02/11/2024 Patient examined this morning the bedside. Patient denies chest pain or pressure. He denies shortness of breath. Telemetry reveals atrial fibrillation with a heart rate in the 90s. Patient is currently on 2 L nasal cannula with oxygen saturations greater than 92%. PHYSICAL EXAM: VITAL SIGNS: Reviewed. GENERAL: Well-developed in no acute distress. HEENT: Head is normocephalic. Pupils are equal, round. Sclerae anicteric. Mucous membranes of the mouth are moist. Neck supple. No JVD or thyromegaly LUNGS: Respirations even and unlabored. Lungs essentially clear to auscultation bilaterally. HEART: Irregular rate and rhythm. S1 and S2 heard. ABDOMEN: Soft. Nondistended. Nontender. EXTREMITIES: Normal range of motion. No clubbing or cyanosis. Peripheral pulses intact. No lower extremity edema NEUROLOGIC: Awake and alert. Oriented x 3. ASSESSMENT: Shortness of breath Possible mild COPD exacerbation Persistent atrial fibrillation Unstable angina, status post cardiac catheterization revealing normal coronary arteries, normal FFR, and abnormal IMR consistent with microvascular dysfunction Recent abnormal stress test with inducible inferior ischemia and inducible po lymorphic ventricular tachycardia Bilateral pleural effusions Hypertension Hyperlipidemia Nicotine dependence PLAN: Patient has been resumed on Eliquis Discontinue IV Lasix. Begin oral Lasix 40 mg twice a day Increase metoprolol to tartrate to 50 mg 3 times a day Add Imdur 30mg daily Wean oxygen as tolerated to maintain oxygen saturations greater than 92% Patient will require EP evaluation with Dr. Wang secondary to inducible polymorphic ventricular tachycardia. This may be completed on an outpatient basis. Patient may be discharged home today from a cardiac standpoint Patient to follow-up postdischarge in the office Nurse practitioner note has been reviewed by physician. Signing provider agrees with the documented findings, assessment, and plan of care documented by [employer] as a scribe. Objective - Vital Signs Vital signs: Vital Signs Temp 97.6 F 02/11/24 04:00 Pulse 90 02/11/24 04:00 Resp 19 02/11/24 04:00 BP 117/79 02/11/24 04:00 Pulse Ox 93 L 02/11/24 04:00 FiO2 Intake & Output 02/10/24 02/11/24 02/11/24 18:59 06:59 18:59 Intake Total 993.1 180 Output Total 925 2800 Balance 68.1 -2800 180 Weight 94.2 kg 94.9 kg Intake: IV 273.1 Oral 720 180 Output: Urine 925 2800 Other: Voiding Method Toilet Toilet Urinal Urinal # Voids 1 1 - Labs CBC & Chem 7: 02/10/24 10:18 02/10/24 10:18 Labs: Abnormal Lab Results - Last 24 Hours (Table) 02/10/24 02/10/24 Range/Units 10:18 10:18 WBC 13.7 H (3.8-10.6) k/uL MCHC 30.4 L (31.0-37.0) g/dL RDW 15.6 H (11.5-15.5) % Neutrophils # (Manual) 12.60 H (1.3-7.7) k/uL Lymphocytes # (Manual) 0.82 L (1.0-4.8) k/uL BUN 27 H (9-20) mg/dL Glucose 163 H (74-99) mg/dL
--- NOTE | 2024-02-11 11:20 | P.PN ---
Subjective Progress Note Date: 02/11/24 Principal diagnosis: Shortness of breath, chest pain. Patient is a 64-year-old white male with past medical history significant for COPD, chronic ongoing tobacco dependence, atrial fibrillation, hyperlipidemia, hypertension. Patient's primary care provider is Dr. Clinton. Patient had a recent hospitalization about a month ago for acute COPD exacerbation. Since then, the patient has seen multiple specialties outpatient. He was followed in the pulmonary office by Dr. Rooney. He did have a pulmonary function test, consistent with moderate chronic obstructive pulmonary disease. FEV1/FVC ratio 65%, FEV1 66% of predicted, DLCO 51% of predicted not corrected for hemoglobin. Findings consistent with moderate emphysema. Patient is also followed up with shorer outpatient, he reportedly had a stress test, and reportedly has a follow heart catheterization scheduled for next week. Patient states pending when he was discharged from the hospital last month, he was feeling well. Since then, he has been intermittently short of breath. Progressively worse over the last 3 weeks. Denies any change in his chronic cough. Occasional yellow sputum production, but not significantly different from normal. Denies sick contacts. No fevers. Reports occasional wheezing. He is also noted some intermittent chest pressure versus tightness. encompassing the entire chest. Nonradiating. Not associated with activity or rest. Lasting minutes to occasionally all day. Denies heart palpitations, lightheadedness, or syncopal events. He had increased lower extremity swelling. He has previously stopped his hydrochlorothiazide without guidance. Echocardiogram done on previous admission estimated a preserved left ventricular ejection fraction of 50 to 55% and mild valvular abnormalities. Chest x-ray done on admission demonstrates cardiomegaly, prominent interstitial markings, a probable right-sided effusion with associated streaky atelectasis. No obvious acute focal consolidations or pneumothorax. NT proBNP was elevated at 2230. Patient did have a mildly elev ated D-dimer, and a follow-up chest CTA did not show any filling defects consistent with pulmonary emboli. It did redemonstrated the above-mentioned findings. There was cardiomegaly with bilateral pleural effusions greater on the right, pulmonary vascular congestion, and scattered groundglass opacities. There is some prominent mediastinal lymph nodes, possibly secondary to above. CBC on admission: WBC count 11.6, hemoglobin 14.2, hematocrit 43.8, platelets 353. BMP on admission: Sodium 136, potassium 4.1, chloride 105, serum bicarbonate 22, BUN 22, creatinine 0.72, glucose 114. LFTs not elevated. Troponins less than 0.012. EKG done on arrival shows atrial fibrillation with controlled ventricular rate of 89 bpm. Nondiagnostic for acute ischemia. Negative for influenza, RSV, COVID. Afebrile. Patient is currently in the emergency department, room 1. He is sitting on the edge of the stretcher, on room air, in no acute distress. Vital signs are stable. Heart rhythm appears atrial fibrillation with controlled ventricular response on bedside monitor. Patient's Eliquis has already been restarted. He is also been started on Lasix 40 mg twice daily. He has been voiding often. Denies ever having a previous thoracentesis. Progress note dated February 10, 2024. The patient was seen yesterday in consultation. He was admitted with a diagnosis of shortness of breath and chest pain. He does have a history of COPD, ongoing tobacco dependence, atrial fibrillation, hyperlipidemia, and hypertension. The patient underwent cardiac catheterization today, the operative report is not currently in the chart but the patient was told that his coronary arteries were essentially clean. The patient is getting saline at 75 cc an hour. He is on O2 at 2 L/min, by nasal cannula. No new labs today as yet. Labs from February 07 and February 08 have been reviewed. The patient is feeling well, without any complaints. Progress note dated February 11, 2024. The patient is seen today in room 352. The patient is currently on 2 L of oxygen. Saturations are 93%. The patient is not receiving any IV fluids. The patient had a cardiac catheterization, and was told that his coronaries were clean. He does have a history of COPD, ongoing tobacco dependence, atrial fibrillation, hyperlipidemia, and hypertension. No new labs today. Dr. Melgoza to the heart catheterization, and his final impression was that the patient had normal coronary arteries, mildly elevated left-sided filling pressures, and microvascular dysfunction. Objective - Vital Signs Vital signs: Vital Signs Temp 97.8 F 02/11/24 08:47 Pulse 93 02/11/24 09:07 Resp 16 02/11/24 08:47 BP 118/75 02/11/24 08:47 Pulse Ox 92 L 02/11/24 08:47 FiO2 Intake & Output 02/10/24 02/11/24 02/11/24 18:59 06:59 18:59 Intake Total 993.1 910 Output Total 925 2800 1000 Balance 68.1 -2800 -90 Weight 94.2 kg 94.9 kg Intake: IV 273.1 10 Invasive Line 1 10 Oral 720 900 Output: Urine 925 2800 1000 Other: Voiding Method Toilet Toilet Toilet Urinal Urinal Urinal # Voids 1 1 - Exam No acute distress, oriented 3. No respiratory distress. Currently on 2 L by nasal cannula. No conversational dyspnea. HEENT examination is grossly unremarkable. Mucous membranes are moist. No oral lesions. Neck supple. Full range of motion. No adenopathy thyromegaly or neck vein distention. Cardiovascular examination reveals regular rhythm rate. S1-S2 normal. No S3 or S4. No discernible murmur noted. Heart rate 89 bpm. Lungs reveal mostly clear breath sounds. Minimal crackles. No wheezes or rhonchi. Breath sounds are equal bilaterally. 2 L saturation is 94 %. Abdomen soft with bowel sounds. No masses or tenderness. Extremities are intact. No cyanosis clubbing or edema. Skin is without rash or lesion. Neurologic examination is brief but nonfocal. - Labs CBC & Chem 7: 02/10/24 10:18 02/10/24 10:18 Labs: Abnormal Lab Results - Last 24 Hours (Table) 02/10/24 02/10/24 Range/Units 10:18 10:18 WBC 13.7 H (3.8-10.6) k/uL MCHC 30.4 L (31.0-37.0) g/dL RDW 15.6 H (11.5-15.5) % Neutrophils # (Manual) 12.60 H (1.3-7.7) k/uL Lymphocytes # (Manual) 0.82 L (1.0-4.8) k/uL BUN 27 H (9-20) mg/dL Glucose 163 H (74-99) mg/dL Assessment and Plan Assessment: Acute dyspnea, likely secondary to acute diastolic CHF exacerbation and possible mild acute COPD exacerbation. Normal coronaries on cardiac catheterization. Bilateral pleural effusions, right greater than left, suspect transudative, no prior thoracentesis. Bilateral lower extremity edema. Moderate chronic obstructive pulmonary disease/emphysema. Chronic ongoing tobacco dependence. Chronic atrial fibrillation, normally anticoagulated on Eliquis. Hyperlipidemia. Hypertension. Plan: Plan dated February 10, 2024. The patient underwent cardiac catheterization today. The official operative report is not yet back on the chart. The patient was told that his coronary arteries for the most part were in normal range. The patient is currently on 2 L. The patient is getting saline at 75 cc an hour. Labs, x-rays, medications are reviewed. The patient is overall prognosis is guarded. We will continue to follow the patient, make recommendations along the way. Currently, the patient is on Solu-Medrol 60 mg every 6 hours. That will be discontinued in favor of prednisone 30 mg a day. Other medications include albuterol sulfate, ipratropium bromide, and Symbicort. Plan dated February 11, 2024. The patient is on 2 L. His cardiac catheterization revealed normal coronaries. The patient will likely be discharged home soon. I have asked him to follow-up with me in the office. He will continue on Symbicort, and updrafts with albuterol sulfate and ipratropium bromide. Additional recommendations and suggestions are forthcoming. We will continue to follow. Labs, x-rays, and all medications have been reviewed. The patient can be discharged on prednisone 30 mg a day, reducing the dose by 10 mg, every fourth day. Time with Patient: Less than 30
[2024-02-11 11:24] LABS: Basophils % (A) 0 %; Eosinophils % (A) 0 %; HCT 46.2 % (39.0-53.0); HGB 14.2 gm/dL (13.0-17.5); Lymphocytes # (A) 1.4 k/uL (1.0-4.8); Lymphocytes % (A) 7 %; MCH 27.6 pg (25.0-35.0); MCHC 30.7 g/dL (31.0-37.0); MCV 89.9 fL (80.0-100.0); Mean Platelet Volume 7.9; Monocytes # (A) 1.3 k/uL (0-1.0); Monocytes % (A) 7 %; Neutrophils # (A) 15.9 k/uL (1.3-7.7); Neutrophils % (A) 84 %; Platelet Count 406 k/uL (150-450); RBC 5.14 m/uL (4.30-5.90); RDW 15.8 % (11.5-15.5); WBC 18.9 k/uL (3.8-10.6)
[2024-02-11 11:44] LABS: African American GFR (CKD) >90 (>60 ml/min/1.73 sqM); Anion Gap 6 mmol/L; Blood Urea Nitrogen 34 mg/dL (9-20); Calcium 8.8 mg/dL (8.4-10.2); Carbon Dioxide 32 mmol/L (22-30); Chloride 102 mmol/L (98-107); Glucose 79 mg/dL (74-99); Non-African American GFR(CKD) >90 (>60 ml/min/1.73 sqM); Potassium 4.5 mmol/L (3.5-5.1); Sodium 140 mmol/L (137-145)
[2024-02-11] MEDS: ISOSORBIDE MONONITRATE ER 30 MG TAB.ER.24H PO SCH (12:06)
[2024-02-11 12:44] VITALS: BP 127/88; PULSE 75; RESP 18
[2024-02-11] MEDS ORDERED: FUROSEMIDE 40 MG TAB PO SCH (16:00)
[2024-02-11] MEDS ORDERED: METOPROLOL TARTRATE 50 MG TAB PO SCH (16:00)
--- NOTE | 2024-02-16 06:39 | P.DS ---
Providers Date of admission: 02/09/24 11:58 Expected date of discharge: 02/11/24 Attending physician: Raúl Rhodes Consults: 02/08/24 19:53 Consult Physician Routine Consulting Provider: Marty Rooney Consult Reason/Comments: Your patient. COPD/Pleural effusion Do you want consulting provider notified?: Yes Consult Physician Routine Consulting Provider: Jose Barger Consult Reason/Comments: CHF exacerbation Do you want consulting provider notified?: Yes Primary care physician: Sabrina Crews Hospital Course: Final diagnosis Shortness of breath, multifactorial likely secondary to COPD as well as CHF exacerbation Acute hypoxic respiratory failure secondary to above Acute on chronic congestive heart failure exacerbation with diastolic dysfunction Bilateral pleural effusion right more than left Chronic obstructive pulmonary disease, acute exacerbation Atrial fibrillation, chronic Elevated D-dimer with no evidence of hypertension Hyperlipidemia GI prophylaxis DVT prophylaxis Full code Discharge disposition Patient is being discharged in a stable condition with guarded prognosis to home. Patient will follow-up with Dr. Crews in the outpatient setting upon d ischarge. Patient is to continue with prednisone taper and close outpatient follow-up with cardiology as well as pulmonary as scheduled. Total time taken is greater than 35 minutes. Hospital course This is a 64-year-old male who was recently admitted with increased shortness of breath with concerns of CHF and COPD exacerbation. Pulmonary cardiology following patient underwent cardiac catheterization recommending maximizing medical management. Patient also continued on breathing inhalational treatments along with supplemental oxygen of 2 L patient has weaned off and will continue a prednisone taper along with breathing treatments. Patient reports to feeling improved and would like to go home. Patient has been patient also hydrated. Currently no reports of chest pain, shortness of breath, or palpitations. Patient is afebrile. No reports of nausea or vomiting and patient is tolerating diet. Patient will be discharged home today. Physical exam: Gen: This is a 64-year-old male who is awake, alert and oriented x 3, well- developed, well-nourished, elderly appearing HEENT: Head is atraumatic, normocephalic. Pupils equal, round. Sclerae is anicteric. NECK: Supple. No JVD. No lymphadenopathy. No thyromegaly. LUNGS: Diminished breath sounds bilaterally otherwise clear to auscultation. No wheezes or rhonchi. No intercostal retractions. HEART: S1, S2 are muffled. ABDOMEN: Soft. Bowel sounds are present. No masses. No tenderness. EXTREMITIES: No pedal edema. No calf tenderness. NEUROLOGICAL: Patient is awake, alert and oriented x3. Cranial nerves 2 through 12 are grossly intact. Please refer to medication reconciliation sheet for a list of medications. The impression and plan of care has been dictated by Yolie Art, Nurse Practitioner as directed. Dr. Carmelo MD I have performed a history and examination and MDM of this patient, discussed the same with the dictator, and agree with the dictator's assessment and plan as written ,documented as a scribe. Based on total visit time, I have performed more than 50% of the visit. Patient Condition at Discharge: Fair Plan - Discharge Summary Discharge Rx Participant: No New Discharge Prescriptions: New Apixaban [Eliquis] 5 mg PO BID #60 tab predniSONE 10 mg PO DIRECTED #18 tab Isosorbide Mononitrate ER [Imdur] 30 mg PO DAILY #30 tab Furosemide [Lasix] 40 mg PO BID@0900,1600 #60 tab Metoprolol Tartrate [Lopressor] 50 mg PO TID #90 tab Nitroglycerin Sl Tabs [Nitrostat] 0.4 mg SUBLINGUAL Q5M PRN #20 tab PRN Reason: Chest Pain Continue Fluticasone/Umeclidin/Vilanter [Trelegy Ellipta 100-62.5-25] 1 puff INHALATION RT-DAILY Albuterol Nebulized [Ventolin Nebulized] 2.5 mg INHALATION RT-QID PRN PRN Reason: Shortness Of Breath Albuterol Inhaler [Ventolin Hfa Inhaler] 2 puff INHALATION RT-QID PRN #1 each PRN Reason: Shortness Of Breath Multivitamins, Thera [Multivitamin (formulary)] 1 tab PO DAILY Losartan Potassium [Cozaar] 100 mg PO DAILY Diltiazem Cd [Cardizem CD] 300 mg PO DAILY #30 cap Aspirin EC [Ecotrin Low Dose] 81 mg PO DAILY Discontinued Apixaban [Eliquis] 5 mg PO BID 30 Days #60 tab Metoprolol Succinate (ER) [Toprol Xl] 25 mg PO DAILY Discharge Medication List Multivitamins, Thera [Multivitamin (formulary)] 1 tab PO DAILY 10/23/21 [History] Albuterol Nebulized [Ventolin Nebulized] 2.5 mg INHALATION RT-QID PRN 12/29/23 [History] Fluticasone/Umeclidin/Vilanter [Trelegy Ellipta 100-62.5-25] 1 puff INHALATION RT-DAILY 12/29/23 [History] Losartan Potassium [Cozaar] 100 mg PO DAILY 12/29/23 [History] Albuterol Inhaler [Ventolin Hfa Inhaler] 2 puff INHALATION RT-QID PRN #1 each 12/31/23 [Rx] Diltiazem Cd [Cardizem CD] 300 mg PO DAILY #30 cap 12/31/23 [Rx] Aspirin EC [Ecotrin Low Dose] 81 mg PO DAILY 02/08/24 [History] Apixaban [Eliquis] 5 mg PO BID #60 tab 02/11/24 [Rx] Furosemide [Lasix] 40 mg PO BID@0900,1600 #60 tab 02/11/24 [Rx] Isosorbide Mononitrate ER [Imdur] 30 mg PO DAILY #30 tab 02/11/24 [Rx] Metoprolol Tartrate [Lopressor] 50 mg PO TID #90 tab 02/11/24 [Rx] Nitroglycerin Sl Tabs [Nitrostat] 0.4 mg SUBLINGUAL Q5M PRN #20 tab 02/11/24 [Rx] predniSONE 10 mg PO DIRECTED #18 tab 02/11/24 [Rx] Follow up Appointment(s)/Referral(s): Merlin Wang MD [STAFF PHYSICIAN] - 1 Week (Office will call you to schedule follow up appoitment for EP evaluation) Mark Melgoza DO [STAFF PHYSICIAN] - 02/18/24 10:45 am Sabrina Crews DO [Primary Care Provider] - 02/17/24 4:40 pm (Follow up at [place] location) Marty Rooney DO [Doctor of Osteopathic Medicine] - 02/25/24 10:00 am Patient Instructions/Handouts: *Surgery [facility] - After Heart Catheterization - [employer] Dispatcher Instructions, Heart Healthy Diet (GEN) Activity/Diet/Wound Care/Special Instructions: Activity as tolerated until follow-up Follow-up with primary care provider on discharge Follow-up with pulmonary outpatient Follow-up with cardiology outpatient Continue taking medications as prescribed Discharge Disposition: HOME SELF-CARE
== END 2024-02-11 14:38 | disposition home or self-care (01) | DRG 286 ==
LOC: EC 16:12 → 3SCARD 19:53 → OBSVTOIN 02-09 11:58 → 3SCARD 02-09 14:11
PROVIDERS: ADMIT Hospitalist; ATTEND Hospitalist
PROC: 4A023N7 Measurement of Cardiac Sampling and Pressure, Left Heart, Percutaneous Approach (ICD-10-PCS; principal; 2024-02-09)
PROC: B2111ZZ Fluoroscopy of Multiple Coronary Arteries using Low Osmolar Contrast (ICD-10-PCS; 2024-02-09)
PROC: 4A033BC Measurement of Arterial Pressure, Coronary, Percutaneous Approach (ICD-10-PCS; 2024-02-09)
PROC: 4A133B1 Monitoring of Arterial Pressure, Peripheral, Percutaneous Approach (ICD-10-PCS; 2024-02-09)
PROC: 4A133J1 Monitoring of Arterial Pulse, Peripheral, Percutaneous Approach (ICD-10-PCS; 2024-02-09)
PROC: 4A133B3 Monitoring of Arterial Pressure, Pulmonary, Percutaneous Approach (ICD-10-PCS; 2024-02-09)
DX: I11.0 Hypertensive heart disease with heart failure (principal); I50.33 Acute on chronic diastolic (congestive) heart failure; J96.01 Acute respiratory failure with hypoxia; I48.19 Other persistent atrial fibrillation; J44.1 Chronic obstructive pulmonary disease with (acute) exacerbation; J98.11 Atelectasis; I47.29 Other ventricular tachycardia; I08.1 Rheumatic disorders of both mitral and tricuspid valves; I25.110 Atherosclerotic heart disease of native coronary artery with unstable angina pectoris; E78.5 Hyperlipidemia, unspecified; J43.9 Emphysema, unspecified; Z79.01 Long term (current) use of anticoagulants; Z79.899 Other long term (current) drug therapy; Z86.16 Personal history of COVID-19; Z79.82 Long term (current) use of aspirin
CPT/HCPCS: 36415; 71045; 71046; 71275; 76937; 80048; 80053; 83735; 83880; 84145; 84484; 85025; 85379; 85610; 85730; 87636; 93005; 93306; 93458; 93571; 94640; 96365; 96366; 96375; 96376; 99285

== ENCOUNTER 2024-04-28 09:18 | Inpatient (IN) | payer BC, MEDICARE ==
[2024-04-28] MEDS: ASPIRIN 81 MG PO STA (09:56)
[2024-04-28 10:07] LABS: Basophils # (A) 0.1 k/uL (0-0.2); Basophils % (A) 1 %; Eosinophils # (A) 0.2 k/uL (0-0.7); Eosinophils % (A) 2 %; HCT 41.7 % (39.0-53.0); HGB 13.7 gm/dL (13.0-17.5); Lymphocytes # (A) 1.1 k/uL (1.0-4.8); Lymphocytes % (A) 12 %; MCH 28.7 pg (25.0-35.0); MCHC 32.8 g/dL (31.0-37.0); MCV 87.6 fL (80.0-100.0); Mean Platelet Volume 6.9; Monocytes # (A) 0.6 k/uL (0-1.0); Monocytes % (A) 6 %; Neutrophils # (A) 6.7 k/uL (1.3-7.7); Neutrophils % (A) 77 %; Platelet Count 328 k/uL (150-450); RBC 4.76 m/uL (4.30-5.90); RDW 15.8 % (11.5-15.5); WBC 8.7 k/uL (3.8-10.6)
--- NOTE | 2024-04-28 10:08 | ED ---
General Adult HPI - General Chief complaint: Shortness of Breath Stated complaint: SOB Time Seen by Provider: 04/28/24 09:35 Source: patient, RN notes reviewed, old records reviewed Mode of arrival: ambulatory Limitations: no limitations - History of Present Illness Initial comments: Patient is a 64-year-old male who presents emergency department for shortness of breath. Has been progressive but worse over the last few days. Has a history of COPD and CHF on 3 L nasal cannula at home. Also history of atrial fibrillation, hypertension, hyperlipidemia on blood thinners. Also has a history of a right-sided pleural effusion per patient. At home he has been more short of breath with oxygen levels in the upper 80 presents. This has been a little bit more progressive, worse over the last few weeks. Presents for further evaluation at this time. Denies any significant cough. Denies any significant chest pain at this time but states he occasionally will get some chest discomfort. Denies any abdominal pain, nausea, vomiting, lightheadedness. States shortness of breath is worse with lying down flat as well as with exertion. Has noticed also increased lower extremity pitting edema. Presents for further evaluation at this time. - Related Data Home Medications Medication Instructions Recorded Confirmed Multivitamins, Thera [Multivitamin 1 tab PO DAILY 10/23/21 04/28/24 (formulary)] Albuterol Nebulized [Ventolin 2.5 mg INHALATION RT-QID PRN 12/29/23 04/28/24 Nebulized] Aspirin EC [Ecotrin Low Dose] 81 mg PO DAILY 02/08/24 04/28/24 Fluticasone/Umeclidin/Vilanter 1 puff INHALATION RT-DAILY 04/28/24 04/28/24 [Trelegy Ellipta 200-62.5-25] Furosemide [Lasix] 80 mg PO BID@0900,1600 04/28/24 04/28/24 Previous Rx's Medication Instructions Recorded Albuterol Inhaler [Ventolin Hfa 2 puff INHALATION RT-QID PRN #1 12/31/23 Inhaler] each Diltiazem Cd [Cardizem CD] 300 mg PO DAILY #30 cap 12/31/23 Apixaban [Eliquis] 5 mg PO BID #60 tab 02/11/24 Isosorbide Mononitrate ER [Imdur] 30 mg PO DAILY #30 tab 02/11/24 Metoprolol Tartrate [Lopressor] 50 mg PO TID #90 tab 02/11/24 Nitroglycerin Sl Tabs [Nitrostat] 0.4 mg SUBLINGUAL Q5M PRN #20 tab 02/11/24 Allergies Allergy/AdvReac Type Severity Reaction Status Date / Time lisinopril AdvReac CAUSED Verified 04/28/24 09:32 FATIGUE Review of Systems ROS Statement: Those systems with pertinent positive or pertinent negative responses have been documented in the HPI. Review of Systems: CONST: Denies fever EYES: Denies blurry vision ENT: Denies nasal congestion C/V: Denies Chest pain RESP: Endorses shortness of breath GI: Denies abdominal pain : Denies dysuria SKIN: Denies rash. MSK: Denies joint pain. NEURO: Denies headache ROS Other: All systems not noted in ROS Statement are negative. (Review of Systems:) Past Medical History Past Medical History: Atrial Fibrillation, COPD, Hyperlipidemia, Hypertension Additional Past Medical History / Comment(s): COVID 08/21 History of Any Multi-Drug Resistant Organisms: None Reported Additional Past Surgical History / Comment(s): REPAIR TENDON OF LEFT HAND (CHILDHOOD), sinus surgery , COLONOSCOPY Past Anesthesia/Blood Transfusion Reactions: No Reported Reaction Past Psychological History: No Psychological Hx Reported Smoking Status: Former smoker Past Alcohol Use History: None Reported Past Drug Use History: None Reported - Past Family History Mother Family Medical History: Cancer General Exam - General Exam Comments Initial Comments: General: Appears in no acute distress. HEAD: Normal with no signs of head trauma. EYES: PERRLA, EOMI, conjunctiva normal, no discharge. ENT: Hearing grossly intact, normal oropharynx. RESPIRATORY: Very mild end expiratory wheezing with reduced breath sounds over the right inferior lobe, concerning for pleural effusion. C/V: Irregular rate and rhythm. S1 and S2 auscultated. Significant symmetrical bilateral lower extremity pitting edema. Peripheral pulses intact throughout. ABD: Abd is soft, nontender, nondistended EXT: Normal range of motion, no obvious deformity SKIN: No rashes or lesions observed on exposed skin. NEURO: Alert and oriented x 4. Limitations: no limitations Course Vital Signs 04/28/24 04/28/24 04/28/24 09:29 09:35 10:26 Temperature Pulse Rate 68 67 Respiratory 18 20 Rate Blood Pressure 97/64 O2 Sat by Pulse 87 L 93 L Oximetry 04/28/24 04/28/24 04/28/24 10:28 10:34 10:50 Temperature 97.4 F L Pulse Rate 71 70 66 Respiratory 20 Rate Blood Pressure 100/77 120/78 O2 Sat by Pulse 97 Oximetry 04/28/24 04/28/24 04/28/24 12:05 12:55 13:04 Temperature Pulse Rate 77 86 90 Respiratory 18 Rate Blood Pressure 108/73 O2 Sat by Pulse 92 L Oximetry 04/28/24 14:10 Temperature 97.6 F Pulse Rate 82 Respiratory 20 Rate Blood Pressure 108/72 O2 Sat by Pulse 94 L Oximetry Medical Decision Making - Medical Decision Making Was pt. sent in by a medical professional or institution (, PA, COMPUTER AIDED DESIGN DESIGNER, urgent care, hospital, or half-way...) When possible be specific @ -No Did you speak to anyone other than the patient for history (EMS, parent, family, police, friend...)? What history was obtained from this source @ -No Did you review nursing and triage notes (agree or disagree)? Why? @ -I reviewed and agree with nursing and triage notes Were old charts reviewed (outside hosp., previous admission, EMS record, old EKG, old radiological studies, urgent care reports/EKG's, half-way records)? Report findings @ -Old charts in EMR records reviewed from our hospital including chest x-ray from January 2024 which does show the right-sided pleural effusion. Differential Diagnosis (chest pain, altered mental status, abdominal pain women, abdominal pain men, vaginal bleeding, weakness, fever, dyspnea, syncope, headache, dizziness, GI bleed, back pain, seizure, CVA, palpatations, mental health, musculoskeletal)? @ -Differential Dyspnea: Coronary syndrome, arrhythmia, tamponade, asthma, COPD, pulmonary embolism, pneumonia, pneumothorax, pulmonary effusion, anaphylaxis, diabetic ketoacidosis, flailed chest, pulmonary contusion, diaphragmatic rupture, anemia, neuromu scular, this is not meant to be an all-inclusive list. EKG interpreted by me (3pts min.). @ -As above X-rays interpreted by me (1pt min.). @ -X-ray reveals bilateral pleural effusions with findings consistent with congestive heart failure. Radiology concern for possible pneumonia however clinically, patient does not fit pneumonia at this time with no productive cough, and symptoms being progressive in nature. CT interpreted by me (1pt min.). @ -None done U/S interpreted by me (1pt. min.). @ -None done What testing was considered but not performed or refused? (CT, X-rays, U/S, labs)? Why? @ -None What meds were considered but not given or refused? Why? @ -None Did you discuss the management of the patient with other professionals (professionals i.e. , PA, COMPUTER AIDED DESIGN DESIGNER, lab, RT, psych nurse, social welfare research worker, freight flagman, teacher, sales officer, case packer)? Give summary @ -Discussed with Dr. Ordonez of [facility] who accepted the admission. Was smoking cessation discussed for >3mins.? @ -No Was critical care preformed (if so, how long)? @ -yes, 32 minutes Were there social determinants of health that impacted care today? How? (Homelessness, low income, unemployed, alcoholism, drug addiction, transportation, low edu. Level, literacy, decrease access to med. care, alf, rehab)? @ -No Was there de-escalation of care discussed even if they declined (Discuss DNR or withdrawal of care, Hospice)? DNR status @ -No What co-morbidities impacted this encounter? (DM, HTN, Smoking, COPD, CAD, Ca ncer, CVA, ARF, Chemo, Hep., AIDS, mental health diagnosis, sleep apnea, morbid obesity)? @ -Chronic hypoxic respiratory failure, atrial fibrillation on blood thinners, CHF, COPD Was patient admitted / discharged? Hospital course, mention meds given and route, prescriptions, significant lab abnormalities, going to OR and other pertinent info. @ -Patient presents emergency department with what I suspect to be mostly CHF exacerbation as well as a pleural effusion with possible mild COPD in the s etting of chronic hypoxic respiratory failure. Will obtain cardiopulmonary workup. Patient in agreement this plan. Vital signs within acceptable limits. He will be given aspirin as well as a DuoNeb breathing treatment initially. Patient typically on 3 L nasal cannula oxygen but I did increase it to 4 to 5 L nasal cannula for comfort to maintain oxygen saturations between 90 and 94%. EKG shows known atrial fibrillation.X-ray reveals bilateral pleural effusions with pulmonary vascular congestion. Radiology concern for possible pneumonia however clinically, patient presents more volume overload. Not concern for pneumonia at this time. Laboratory studies remarkable for hypokalemia 3.1 which was replenished. Patient's BNP is also elevated at 2400. Remainder the labs unremarkable. I discussed results with patient. Vital signs are improved. Patient is requiring 5 L nasal cannula at this time to maintain adequate saturations. I would like to admit him to the hospital at this time as he is acute on chronic hypoxic respiratory failure, requiring more oxygen than typically at home with very obvious exertional dyspnea. He was in agreement this plan. Pulmonology will be consulted as well cardiology. I spoke with the admitting team, Dr. Ordonez of [facility] who accepted the admission. Patient will be initiated on IV Lasix every 8 hours. Home medications ordered. Undiagnosed new problem with uncertain prognosis? @ -No Drug Therapy requiring intensive monitoring for toxicity (Heparin, Nitro, Insulin, Cardizem)? @ -No Were any procedures done? @ -No Diagnosis/symptom? @ -Acute on chronic hypoxic respiratory failure, CHF, pleural effusions Acute, or Chronic, or Acute on Chronic? @ -Acute Uncomplicated (without systemic symptoms) or Complicated (systemic symptoms)? @ -Complicated Side effects of treatment? @ -None Exacerbation, Progression, or Severe Exacerbation] @ -No Poses a threat to life or bodily function? @ -Yes - Lab Data Result diagrams: 04/28/24 09:50 04/28/24 09:59 Lab Results 04/28/24 04/28/24 04/28/24 Range/Units 09:50 09:50 09:50 WBC 8.7 (3.8-10.6) k/uL RBC 4.76 (4.30-5.90) m/uL Hgb 13.7 (13.0-17.5) gm/dL Hct 41.7 (39.0-53.0) % MCV 87.6 (80.0-100.0) fL MCH 28.7 (25.0-35.0) pg MCHC 32.8 (31.0-37.0) g/dL RDW 15.8 H (11.5-15.5) % Plt Count 328 (150-450) k/uL MPV 6.9 Neutrophils % 77 % Lymphocytes % 12 % Monocytes % 6 % Eosinophils % 2 % Basophils % 1 % Neutrophils # 6.7 (1.3-7.7) k/uL Lymphocytes # 1.1 (1.0-4.8) k/uL Monocytes # 0.6 (0-1.0) k/uL Eosinophils # 0.2 (0-0.7) k/uL Basophils # 0.1 (0-0.2) k/uL PT 11.9 (10.0-12.5) sec INR 1.1 (<1.2) APTT 27.0 (22.0-30.0) sec Sodium (137-145) mmol/L Potassium (3.5-5.1) mmol/L Chloride (98-107) mmol/L Carbon Dioxide (22-30) mmol/L Anion Gap mmol/L BUN (9-20) mg/dL Creatinine (0.66-1.25) mg/dL Est GFR (CKD-EPI)AfAm (>60 ml/min/1.73 sqM) Est GFR (CKD-EPI)NonAf (>60 ml/min/1.73 sqM) Glucose (74-99) mg/dL Calcium (8.4-10.2) mg/dL Magnesium (1.6-2.3) mg/dL Total Bilirubin (0.2-1.3) mg/dL AST (17-59) U/L ALT (4-49) U/L Alkaline Phosphatase (38-126) U/L Troponin I (0.000-0.034) ng/mL NT-Pro-B Natriuret Pep pg/mL Total Protein (6.3-8.2) g/dL Albumin (3.5-5.0) g/dL Urine Color Colorless Urine Appearance Clear (Clear) Urine pH 6.0 (5.0-8.0) Ur Specific [place] 1.010 (1.001-1.035) Urine Protein Negative (Negative) Urine Glucose (UA) Negative (Negative) Urine Ketones Negative (Negative) Urine Blood Negative (Negative) Urine Nitrite Negative (Negative) Urine Bilirubin Negative (Negative) Urine Urobilinogen <2.0 (<2.0) mg/dL Ur Leukocyte Esterase Negative (Negative) Influenza Type A (PCR) (Not Detectd) Influenza Type B (PCR) (Not Detectd) RSV (PCR) (Not Detectd) SARS-CoV-2 (PCR) (Not Detectd) 04/28/24 04/28/24 04/28/24 Range/Units 09:50 09:50 09:59 WBC (3.8-10.6) k/uL RBC (4.30-5.90) m/uL Hgb (13.0-17.5) gm/dL Hct (39.0-53.0) % MCV (80.0-100.0) fL MCH (25.0-35.0) pg MCHC (31.0-37.0) g/dL RDW (11.5-15.5) % Plt Count (150-450) k/uL MPV Neutrophils % % Lymphocytes % % Monocytes % % Eosinophils % % Basophils % % Neutrophils # (1.3-7.7) k/uL Lymphocytes # (1.0-4.8) k/uL Monocytes # (0-1.0) k/uL Eosinophils # (0-0.7) k/uL Basophils # (0-0.2) k/uL PT (10.0-12.5) sec INR (<1.2) APTT (22.0-30.0) sec Sodium 138 (137-145) mmol/L Potassium 3.1 L (3.5-5.1) mmol/L Chloride 103 (98-107) mmol/L Carbon Dioxide 25 (22-30) mmol/L Anion Gap 10 mmol/L BUN 29 H (9-20) mg/dL Creatinine 1.01 (0.66-1.25) mg/dL Est GFR (CKD-EPI)AfAm >90 (>60 ml/min/1.73 sqM) Est GFR (CKD-EPI)NonAf 78 (>60 ml/min/1.73 sqM) Glucose 100 H (74-99) mg/dL Calcium 8.9 (8.4-10.2) mg/dL Magnesium 1.9 (1.6-2.3) mg/dL Total Bilirubin 0.9 (0.2-1.3) mg/dL AST 29 (17-59) U/L ALT 18 (4-49) U/L Alkaline Phosphatase 93 (38-126) U/L Troponin I <0.012 (0.000-0.034) ng/mL NT-Pro-B Natriuret Pep 2440 pg/mL Total Protein 6.4 (6.3-8.2) g/dL Albumin 3.7 (3.5-5.0) g/dL Urine Color Urine Appearance (Clear) Urine pH (5.0-8.0) Ur Specific [place] (1.001-1.035) Urine Protein (Negative) Urine Glucose (UA) (Negative) Urine Ketones (Negative) Urine Blood (Negative) Urine Nitrite (Negative) Urine Bilirubin (Negative) Urine Urobilinogen (<2.0) mg/dL Ur Leukocyte Esterase (Negative) Influenza Type A (PCR) Not Detected (Not Detectd) Influenza Type B (PCR) Not Detected (Not Detectd) RSV (PCR) Not Detected (Not Detectd) SARS-CoV-2 (PCR) Not Detected (Not Detectd) - EKG Data -: EKG Interpreted by Me EKG Comments: 12-lead Electrocardiogram Interpretation Note EKG was reviewed and interpreted by myself. 12-lead ECG performed at 0942 is interpreted by me as revealing atrial fibrillation with incomplete right bundle branch block at a rate of 71 beats per minute. [place] is rightward deviated. QRS duration is 96 ms, QTc is 387 ms.. There were no ST or T wave abnormalities to suggest myocardial ischemia or injury. R wave progression across the precordium was satisfactory. By my interpretation this EKG is non-diagnostic for acute ischemia. Critical Care Time Critical Care Time: Yes Total Critical Care Time: 32 Disposition Clinical Impression: Acute on chronic hypoxic respiratory failure, Congestive heart failure, Pleural effusion Disposition: ADMITTED IP TO THIS HOSP Condition: Serious Time of Disposition: 11:05
[2024-04-28 10:17] LABS: INR 1.1 (<1.2); Prothrombin Time 11.9 sec (10.0-12.5)
[2024-04-28] MEDS: IPRATROPIUM-ALBUTEROL 3 ML NEB INHALATION STA (10:25)
[2024-04-28 10:28] LABS: Appearance,Urine Clear (Clear); Bilirubin,Urine Negative (Negative); Blood,Urine Negative (Negative); Color,Urine Colorless; Glucose,Urine (UA) Negative (Negative); Ketones,Urine Negative (Negative); Leukocyte Esterase,Urine Negative (Negative); Nitrite,Urine Negative (Negative); Protein,Urine Negative (Negative); Urobilinogen,Urine <2.0 mg/dL (<2.0)
--- NOTE | 2024-04-28 10:30 | XR ---
EXAMINATION TYPE: XR chest 2V DATE OF EXAM: 04/28/2024 10:25 AM COMPARISON: Chest radiographs from 02/10/2024 TECHNIQUE: XR chest 2V Frontal and lateral views of the chest. CLINICAL INDICATION:Male, 64 years old with history of difficulty breathing; FINDINGS: Lungs/Pleura: Moderate right and small left pleural effusions with bibasilar airspace opacities. No p neumothorax. Pulmonary vascularity: Unremarkable. Heart/mediastinum: Cardiomediastinal silhouette is stable. Musculoskeletal: No acute osseous pathology. IMPRESSION: Moderate right and small left pleural effusions with bibasilar airspace opacities which may represent atelectasis versus pneumonia in the appropriate clinical setting.
[2024-04-28] MEDS: FUROSEMIDE 10 MG/ML 4 ML VIAL IV STA (10:48)
[2024-04-28 10:50] LABS: ALT 18 U/L (4-49); AST 29 U/L (17-59); African American GFR (CKD) >90 (>60 ml/min/1.73 sqM); Albumin 3.7 g/dL (3.5-5.0); Alkaline Phosphatase 93 U/L (38-126); Anion Gap 10 mmol/L; Blood Urea Nitrogen 29 mg/dL (9-20); Calcium 8.9 mg/dL (8.4-10.2); Carbon Dioxide 25 mmol/L (22-30); Chloride 103 mmol/L (98-107); Glucose 100 mg/dL (74-99); Magnesium 1.9 mg/dL (1.6-2.3); Non-African American GFR(CKD) 78 (>60 ml/min/1.73 sqM); Potassium 3.1 mmol/L (3.5-5.1); Sodium 138 mmol/L (137-145); Total Bilirubin 0.9 mg/dL (0.2-1.3); Total Protein 6.4 g/dL (6.3-8.2)
[2024-04-28 10:58] LABS: NT-Pro-B-Type Natriuretic Pept 2440 pg/mL
[2024-04-28] MEDS: POTASSIUM CHLORIDE ER 20 MEQ TAB.ER PO STA ×2 (11:03→15:38)
[2024-04-28] MEDS ORDERED: NALOXONE 0.4 MG/ML 1 ML VIAL IV PRN (11:03)
[2024-04-28] MEDS ORDERED: ONDANSETRON 4 MG/2 ML VIAL IVP PRN (11:03)
[2024-04-28] MEDS ORDERED: ALBUTEROL NEBULIZED 2.5 MG/3 ML INHALATION PRN ×2 (11:04)
[2024-04-28] MEDS: IPRATROPIUM 0.5 MG/2.5 ML NEBU INHALATION SCH (12:54)
--- NOTE | 2024-04-28 15:16 | US ---
EXAMINATION TYPE: US chest DATE OF EXAM: 04/28/2024 COMPARISON: Radiographs 04/28/2024 CLINICAL INDICATION: Male, 64 years old with history of Bilateral pleural effusions; Pleural effusion s. TECHNIQUE: Targeted ultrasound of the posterior lower bilateral hemithoraces EXAM MEASUREMENTS: Right Pleural Effusion pocket size: 14.8 cm. Mobile internal echoes seen within fluid. Right skin surface to fluid distance: 3.4 cm Left Pleural Effusion pocket size: 0 cm. No fluid seen. Right side marked for possible thoracentesis outside the dept. Internal echoes seen within the fluid. Left side NOT marked for possible thoracentesis outside the dept. Pulmonologists are able to review the images in the patient?s EMR. IMPRESSIONS: Moderate right pleural effusion. No significant effusion on the left.
[2024-04-28] MEDS: FUROSEMIDE 10 MG/ML 4 ML VIAL IV SCH (15:38)
[2024-04-28] MEDS: METOPROLOL TARTRATE 50 MG TAB PO SCH (15:39)
--- NOTE | 2024-04-28 16:45 | P.CNPUL ---
History of Present Illness Consult date: 04/28/24 Requesting physician: Esme Ordonez Reason for consult: dyspnea, COPD, pleural effusion Chief complaint: Shortness of breath, wheezing History of present illness: This is a pleasant 64-year-old male patient with a known history of severe oxygen dependent chronic obstructive pulmonary disease, 50+ years of chronic tobacco dependence, diastolic congestive heart failure, atrial fibrillation a nticoagulated with Eliquis pending ablation, hypertension, hyperlipidemia. Normal coronary arteries in January 2024. He presented here to the emergency room today with complaints of increasing shortness of breath, chest tightness and wheezing over the past 2 days. He also had lower extremity swelling. Chest x- ray reveals moderate right and small left pleural effusions with bibasilar airspace opacities. White count 8.7. Hemoglobin 13.7. Platelets 328. Sodium 138. Potassium 3.1. Bicarb 25. BUN 29. Creatinine 1.01. Glucose 100. Urinalysis clean. Viral screen negative. proBNP 2440. Troponin negative x 1. He is seen in the emergency department. Sitting up on a stretcher. Awake and alert in no acute distress. He is dyspneic with conversation. Dyspneic with minimal exertion. Maintaining O2 saturations in the 90s on 5 L/min per nasal cannula. He is on Lasix 40 mg IV every 8 hours with good urine output thus far. Review of Systems REVIEW OF SYSTEMS: CONSTITUTIONAL: Denies any recent significant weight loss or weight gain. EYES: Denies change in vision. EARS, NOSE, MOUTH, THROAT: Denies headaches, denies sore throat. CARDIOVASCULAR: Denies chest pain, palpitations or syncopal episodes. RESPIRATORY: Positive for shortness of breath, cough, congestion no hemoptysis. GASTROINTESTINAL: Denies change in appetite, denies abdominal pain GENITOURINARY: Denies hematuria, denies infections. MUSKULOSKELETAL: Positive for lower extremity swelling. INTEGUMENTARY: Denies rash, denies eczema. NEUROLOGICAL: Denies recent memory loss, no recent seizure activity. PSYCHIATRIC: Denies anxiety, denies depression. HEMATOLOGIC/LYMPHATIC: Denies anemia, denies enlarged lymph nodes. Past Medical History Past Medical History: Atrial Fibrillation, COPD, Hyperlipidemia, Hypertension Additional Past Medical History / Comment(s): COVID 08/21 History of Any Multi-Drug Resistant Organisms: None Reported Additional Past Surgical History / Comment(s): REPAIR TENDON OF LEFT HAND (CHILDHOOD), sinus surgery , COLONOSCOPY Past Anesthesia/Blood Transfusion Reactions: No Reported Reaction Past Psychological History: No Psychological Hx Reported Smoking Status: Former smoker Past Alcohol Use History: None Reported Past Drug Use History: None Reported - Past Family History Mother Family Medical History: Cancer Medications and Allergies Home Medications Medication Instructions Recorded Confirmed Type Multivitamins, Thera [Multivitamin 1 tab PO DAILY 10/23/21 04/28/24 History (formulary)] Albuterol Nebulized [Ventolin 2.5 mg INHALATION RT-QID PRN 12/29/23 04/28/24 History Nebulized] Albuterol Inhaler [Ventolin Hfa 2 puff INHALATION RT-QID PRN #1 12/31/23 04/28/24 Rx Inhaler] each Diltiazem Cd [Cardizem CD] 300 mg PO DAILY #30 cap 12/31/23 04/28/24 Rx Aspirin EC [Ecotrin Low Dose] 81 mg PO DAILY 02/08/24 04/28/24 History Apixaban [Eliquis] 5 mg PO BID #60 tab 02/11/24 04/28/24 Rx Isosorbide Mononitrate ER [Imdur] 30 mg PO DAILY #30 tab 02/11/24 04/28/24 Rx Metoprolol Tartrate [Lopressor] 50 mg PO TID #90 tab 02/11/24 04/28/24 Rx Nitroglycerin Sl Tabs [Nitrostat] 0.4 mg SUBLINGUAL Q5M PRN #20 tab 02/11/24 04/28/24 Rx Fluticasone/Umeclidin/Vilanter 1 puff INHALATION RT-DAILY 04/28/24 04/28/24 History [Trelegy Ellipta 200-62.5-25] Furosemide [Lasix] 80 mg PO BID@0900,1600 04/28/24 04/28/24 History Allergies Allergy/AdvReac Type Severity Reaction Status Date / Time lisinopril AdvReac CAUSED Verified 04/28/24 09:32 FATIGUE Physical Exam Vitals: Vital Signs Temp Pulse Resp BP Pulse Ox 04/28/24 15:50 80 04/28/24 15:41 86 04/28/24 15:00 97.6 F 84 19 106/69 94 L 04/28/24 14:10 97.6 F 82 20 108/72 94 L 04/28/24 13:04 90 04/28/24 12:55 86 04/28/24 12:05 77 18 108/73 92 L 04/28/24 10:50 66 120/78 04/28/24 10:34 70 04/28/24 10:28 97.4 F L 71 20 100/77 97 04/28/24 10:26 67 04/28/24 09:35 20 93 L 04/28/24 09:29 68 18 97/64 87 L Intake and Output 04/28/24 04/28/24 04/28/24 06:59 14:59 22:59 Other: Weight 95.254 kg GENERAL EXAM: Alert, pleasant 64-year-old male, sitting up in a stretcher, on 5 L nasal cannula, fairly comfortable in no apparent distress. HEAD: Normocephalic. EYES: Normal reaction of pupils, equal size. NOSE: Clear with pink turbinates. THROAT: No erythema or exudates. NECK: No masses, no JVD. CHEST: No chest wall deformity. LUNGS: Equal air entry with bilateral wheezing, diminished in the lung bases right greater than left. CVS: S1 and S2 normal with no audible murmur, regular rhythm. ABDOMEN: No hepatosplenomegaly, normal bowel sounds, no guarding or rigidity. SPINE: No scoliosis or deformity SKIN: No rashes CENTRAL NERVOUS SYSTEM: No focal deficits, tone is normal in all 4 extremities. EXTREMITIES: There is 1-2+ peripheral edema. No clubbing, no cyanosis. Peripheral pulses are intact. Results - Laboratory Findings CBC and BMP: 04/28/24 09:50 04/28/24 09:59 PT/INR, D-dimer PT 11.9 sec (10.0-12.5) 04/28/24 09:50 INR 1.1 (<1.2) 04/28/24 09:50 Abnormal lab findings: Abnormal Labs 04/28/24 04/28/24 09:50 09:59 RDW 15.8 H Potassium 3.1 L BUN 29 H Glucose 100 H - Diagnostic Findings Chest x-ray: image reviewed Assessment and Plan Assessment: Acute on chronic hypoxemic respiratory failure secondary to an acute exacerbation of diastolic congestive heart failure Oxygen dependent chronic obstructive pulmonary disease Heavy tobacco dependence of 50 years, states quit 3 months ago Chronic atrial fibrillation, anticoagulated with Eliquis, pending ablation History of diastolic congestive heart failure Hypertension Plan: The patient was seen and evaluated Chest x-ray, labs and medications reviewed Obtain an ultrasound of the pleural effusions May require thoracentesis Currently on Eliquis Continue Lasix 40 mg IV every 8 hours Continue Symbicort, albuterol Follow-up chest x-ray in a.m. We will continue to follow and make further recommendations based on his clinical status I have personally seen and examined the patient, performed the documentation and the assessment and plan as written. Number of minutes spent on the visit: 20.
[2024-04-28] MEDS: APIXABAN 5 MG TAB PO SCH (20:12)
--- NOTE | 2024-04-29 01:56 | P.HPIM ---
History of Present Illness H&P Date: 04/28/24 Chief Complaint: Shortness of breath Patient is a 64-year-old male with a past medical history of COPD on home O2 3 L via nasal cannula, atrial fibrillation on on anticoagulation with Eliquis and supposed to follow-up for ablation, hypertension, hyperlipidemia and prior hist ory of smoking, chronic HFpEF presents to the hospital with worsening complaints of chest tightness and shortness of breath and wheezing for the past 2 days. Patient also has worsening leg swelling. Denies any fever or chills. Cough without any sputum production. Patient was hypoxic with oxygen saturations at an upper 80s on admission. Denies any nausea vomiting abdominal pain. No diarrhea. No headache or lightheadedness. Chest x-ray on admission showed moderate right and small left pleural effusions with bibasilar airspace opacities which may represent atelectasis versus pneumonia in the appropriate clinical setting. EKG showed atrial fibrillation with heart rate 71 Laboratory data showed WBC 8.7 hemoglobin 13.7 platelets 328 sodium 138 potassium 3.1 chloride 103 bicarb is 25 BUN 29 and creatinine 1.01 blood sugar 100 liver enzymes are not elevated. proBNP 2440 and troponin 0.012 and urinalysis negative for infection Influenza A B RSV and COVID-19 PCR not detected. Patient had cardiac catheterization on 02/10/2024 showed normal coronaries. 2D echocardiogram 02/09/2024 showed normal left ventricular size with borderline left ventricular systolic function. Mild mitral and tricuspid regurgitation with mild pulmonary hypertension. Review of Systems Constitutional: Patient denies any fever or chills . No generalized weakness or weight loss. Abdomen: Patient denied nausea vomiting and diarrhea and abdominal pain. Cardiovascular: Patient does complain of chest tightness, shortness of breath and leg swelling. No palpitations.. Respiratory: Does have cough without sputum production and shortness of breath. Neurologic: Patient denied any numbness or tingling. no headache. Musculoskeletal: Patient denies any complaints of joint swelling or deformity. Skin: Negative Psychiatric: Negative Endocrine: No heat or cold intolerance. No recent weight gain. Genitourinary: No dysuria or hematuria. All other 14 point ROS negative except the above Past Medical History Past Medical History: Atrial Fibrillation, COPD, Hyperlipidemia, Hypertension Additional Past Medical History / Comment(s): COVID 08/21 History of Any Multi-Drug Resistant Organisms: None Reported Additional Past Surgical History / Comment(s): REPAIR TENDON OF LEFT HAND (CHILDHOOD), sinus surgery , COLONOSCOPY Past Anesthesia/Blood Transfusion Reactions: No Reported Reaction Past Psychological History: No Psychological Hx Reported Smoking Status: Former smoker Past Alcohol Use History: None Reported Past Drug Use History: None Reported - Past Family History Mother Family Medical History: Cancer Father Family Medical History: Congestive Heart Failure (CHF), COPD Additional Family Medical History / Comment(s): Passed from heart/lung disease Medications and Allergies Home Medications Medication Instructions Recorded Confirmed Type Multivitamins, Thera [Multivitamin 1 tab PO DAILY 10/23/21 04/28/24 History (formulary)] Albuterol Nebulized [Ventolin 2.5 mg INHALATION RT-QID PRN 12/29/23 04/28/24 History Nebulized] Albuterol Inhaler [Ventolin Hfa 2 puff INHALATION RT-QID PRN #1 12/31/23 04/28/24 Rx Inhaler] each Diltiazem Cd [Cardizem CD] 300 mg PO DAILY #30 cap 12/31/23 04/28/24 Rx Aspirin EC [Ecotrin Low Dose] 81 mg PO DAILY 02/08/24 04/28/24 History Apixaban [Eliquis] 5 mg PO BID #60 tab 02/11/24 04/28/24 Rx Isosorbide Mononitrate ER [Imdur] 30 mg PO DAILY #30 tab 02/11/24 04/28/24 Rx Metoprolol Tartrate [Lopressor] 50 mg PO TID #90 tab 02/11/24 04/28/24 Rx Nitroglycerin Sl Tabs [Nitrostat] 0.4 mg SUBLINGUAL Q5M PRN #20 tab 02/11/24 04/28/24 Rx Fluticasone/Umeclidin/Vilanter 1 puff INHALATION RT-DAILY 04/28/24 04/28/24 History [Trelegy Ellipta 200-62.5-25] Furosemide [Lasix] 80 mg PO BID@0900,1600 04/28/24 04/28/24 History Allergies Allergy/AdvReac Type Severity Reaction Status Date / Time lisinopril AdvReac CAUSED Verified 04/28/24 09:32 FATIGUE Physical Exam Vitals: Vital Signs Temp Pulse Resp BP Pulse Ox 04/28/24 14:10 97.6 F 82 20 108/72 94 L 04/28/24 13:04 90 04/28/24 12:55 86 04/28/24 12:05 77 18 108/73 92 L 04/28/24 10:50 66 120/78 04/28/24 10:34 70 04/28/24 10:28 97.4 F L 71 20 100/77 97 04/28/24 10:26 67 04/28/24 09:35 20 93 L 04/28/24 09:29 68 18 97/64 87 L Intake and Output 04/28/24 04/28/24 04/28/24 06:59 14:59 22:59 Other: Weight 95.254 kg PHYSICAL EXAMINATION: Patient is lying in the bed comfortably, mild acute distress, awake alert and oriented.. HEENT: Normocephalic. Neck is supple. Pupils reactive. Nostrils clear. Oral cavity is moist. Neck reveals no JVD, carotid bruits, or thyromegaly. CHEST EXAMINATION: Trachea is central. Symmetrical expansion. Bibasilar diminished sounds and scattered rhonchi.. CARDIAC: Normal S1, S2 with no gallops. No murmurs ABDOMEN: Soft. Bowel sounds normal. No organomegaly. No abdominal bruits. Extremities: Lower extremity bilateral l 2+ edema. No clubbing or cyanosis Neurologically awake, alert, oriented x3 with well-coordinated movements. No focal deficits noted Skin: No rash or skin lesions. Psychiatric: Coperative. Nonsuicidal Musculoskeletal: No joint swelling or deformity. Normal range of motion. Results CBC & Chem 7: 04/29/24 08:29 04/28/24 09:59 Labs: Abnormal Lab Results - Last 24 Hours (Table) 04/28/24 04/28/24 Range/Units 09:50 09:59 RDW 15.8 H (11.5-15.5) % Potassium 3.1 L (3.5-5.1) mmol/L BUN 29 H (9-20) mg/dL Glucose 100 H (74-99) mg/dL Thrombosis Risk Factor Assmnt - DVT/VTE Prophylaxis DVT/VTE Prophylaxis: Pharmacologic Prophylaxis ordered Assessment and Plan Assessment: Acute on chronic hypoxemic respiratory failure secondary to acute on chronic diastolic heart failure. Acute on chronic HFpEF Mild pulmonary hypertension COPD on home oxygen at 3 L via nasal cannula History of smoking Chronic atrial fibrillation on anticoagulation with Eliquis and is pending abl ation Hypertension DVT prophylaxis patient is already on Eliquis Plan: Patient will be continued on telemonitoring. Continue with IV Lasix 40 mg every 8 hourly. Chest ultrasound was done for possible thoracentesis. Pulmonary is on board. Patient does have prior history of thoracentesis. Continue DuoNebs and Symbicort and anticoagulation Eliquis and follow-up closely. Time with Patient: Greater than 30
[2024-04-29] MEDS: SYMBICORT 160-4.5 MCG INHALER INHALATION SCH (08:11)
[2024-04-29] MEDS: ASPIRIN 81 MG PO SCH (08:35)
[2024-04-29] MEDS: ISOSORBIDE MONONITRATE ER 30 MG TAB.ER.24H PO SCH (08:35)
[2024-04-29] MEDS: DILTIAZEM CD 300 MG CAP.ER.24H PO SCH (08:35)
[2024-04-29 10:01] LABS: Anisocytosis Slight; Basophils # (A) 0.1 k/uL (0-0.2); Basophils % (A) 1 %; Eosinophils # (A) 0.3 k/uL (0-0.7); Eosinophils % (A) 3 %; HGB 14.3 gm/dL (13.0-17.5); Hypochromasia Moderate; Lymphocytes # (A) 1.1 k/uL (1.0-4.8); Lymphocytes % (A) 12 %; MCH 28.5 pg (25.0-35.0); MCHC 31.8 g/dL (31.0-37.0); MCV 89.8 fL (80.0-100.0); Mean Platelet Volume 7.4; Monocytes # (A) 0.8 k/uL (0-1.0); Monocytes % (A) 9 %; Neutrophils # (A) 6.8 k/uL (1.3-7.7); Neutrophils % (A) 73 %; Platelet Count 345 k/uL (150-450); RBC 5.01 m/uL (4.30-5.90); RDW 16.1 % (11.5-15.5); WBC 9.3 k/uL (3.8-10.6)
[2024-04-29 10:09] LABS: ALT 18 U/L (4-49); AST 26 U/L (17-59); African American GFR (CKD) >90 (>60 ml/min/1.73 sqM); Albumin 3.8 g/dL (3.5-5.0); Alkaline Phosphatase 90 U/L (38-126); Anion Gap 9 mmol/L; Blood Urea Nitrogen 23 mg/dL (9-20); Calcium 8.9 mg/dL (8.4-10.2); Carbon Dioxide 29 mmol/L (22-30); Chloride 104 mmol/L (98-107); Glucose 87 mg/dL (74-99); Non-African American GFR(CKD) >90 (>60 ml/min/1.73 sqM); Potassium 3.4 mmol/L (3.5-5.1); Sodium 142 mmol/L (137-145); Total Bilirubin 1.1 mg/dL (0.2-1.3); Total Protein 6.5 g/dL (6.3-8.2)
--- NOTE | 2024-04-29 11:12 | XR ---
EXAMINATION TYPE: XR chest 1V portable DATE OF EXAM: 04/29/2024 COMPARISON: 04/28/2024 HISTORY: Shortness of breath TECHNIQUE: Single frontal view of the chest is obtained. FINDINGS: There is been no significant interval change in the right pleural effusion and right lower lobe opacity consistent with pneumonia or atelectasis. There is no change in the partially consolida tive opacity in the left mid and lower lung zone with probable small left pleural effusion. No pneumothorax. Heart size is normal pulmonary vasculature does not appear congested. The osseous structures are intact IMPRESSION: Bilateral acute cardiopulmonary disease unchanged compared to previous as described shlomo gupta
--- NOTE | 2024-04-29 12:42 | OP ---
OPERATIVE REPORT DATE OF SERVICE : PROCEDURE PERFORMED: Right-sided thoracentesis. PREOPERATIVE DIAGNOSIS: Large right-sided pleural effusion. POSTOPERATIVE DIAGNOSIS: Large right-sided pleural effusion. ANESTHESIA USED: 2 mL of 1% lidocaine. DESCRIPTION OF PROCEDURE: The patient was placed in a sitting upright position, the fluid was localized earlier by ultrasound. The marking was placed at the level of the 8th intercostal space, and posterior axillary line. Hence, the area below the left clavicle was prepared in a sterile fashion, drapes were applied, and the area at that marking was locally anesthetized with lidocaine. Then, a 26-gauge needle was inserted at the same site, advanced into the pleural space until the fluid was localized with the needle. Then a small tiny incision was made at the same site, and a standard thoracentesis catheter and needle were used, advanced into the pleural space. Fluid was obtained, catheter was advanced over the needle and the needle was pulled out of the pleural space. Freely flowing fluid which looked luis enrique in color, and total 2.6 L of fluid removed from the right pleural space. The procedure was well tolerated, no complications, chest x- ray showed no evidence of residual pleural effusion and no evidence of pneumothorax. MMODL / IJN: [id number] /
--- NOTE | 2024-04-29 14:49 | P.PN ---
Subjective Progress Note Date: 04/29/24 Principal diagnosis: Acute on chronic diastolic congestive heart failure pleural effusions This is a pleasant 64-year-old male patient with a known history of severe oxygen dependent chronic obstructive pulmonary disease, 50+ years of chronic tobacco dependence, diastolic congestive heart failure, atrial fibrillation anticoagulated with Eliquis pending ablation, hypertension, hyperlipidemia. Normal coronary arteries in January 2024. He presented here to the emergency room today with complaints of increasing shortness of breath, chest tightness and wheezing over the past 2 days. He also had lower extremity swelling. Chest x- ray reveals moderate right and small left pleural effusions with bibasilar airspace opacities. White count 8.7. Hemoglobin 13.7. Platelets 328. Sodium 138. Potassium 3.1. Bicarb 25. BUN 29. Creatinine 1.01. Glucose 100. Urinalysis clean. Viral screen negative. proBNP 2440. Troponin negative x 1. He is seen in the emergency department. Sitting up on a stretcher. Awake and alert in no acute distress. He is dyspneic with conversation. Dyspneic with minimal exertion. Maintaining O2 saturations in the 90s on 5 L/min per nasal c annula. He is on Lasix 40 mg IV every 8 hours with good urine output thus far. Patient was seen today on 04/29/2024, patient is still complaining of shortness of breath, still tachypneic, hence I went ahead and reviewed his ultrasound of the chest, there is a fairly large right-sided pleural effusion, and I went ahead and performed a right-sided thoracentesis and 2.6 of fluid was drained from the right pleural space patient felt much better after the procedure, fluid was sent for different diagnostic studies. In the meantime the patient remains on medications for his congestive heart failure and his for COPD. Significant improvement noted clinically after the thoracentesis. WBC count today is 9.3 hemoglobin 14.3 electrolytes are normal except for low potassium of 3.4, renal profile is normal patient remains on Lasix 40 mg IV push 3 times daily he is also on Aldactone 25 mg daily Objective - Vital Signs Vital signs: Vital Signs Temp 97.6 F 04/29/24 08:31 Pulse 90 04/29/24 11:38 Resp 22 04/29/24 10:44 BP 101/63 04/29/24 10:44 Pulse Ox 93 L 04/29/24 10:44 FiO2 Intake & Output 04/28/24 04/29/24 04/29/24 18:59 06:59 18:59 Intake Total 360 Output Total 950 600 Balance -950 -240 Weight 95.254 kg 94.3 kg Intake: Oral 360 Output: Urine 950 600 Other: Voiding Method Urinal Urinal # Voids 1 - Exam GENERAL EXAM: Alert, pleasant 64-year-old male, sitting up in a stretcher, on 3 L L nasal cannula HEAD: Normocephalic. EYES: Normal reaction of pupils, equal size. NOSE: Clear with pink turbinates. THROAT: No erythema or exudates. NECK: No masses, no JVD. CHEST: No chest wall deformity. LUNGS: Diminished breath sound on dullness at the right base CVS: S1 and S2 normal with no audible murmur, regular rhythm. ABDOMEN: No hepatosplenomegaly, normal bowel sounds, no guarding or rigidity. SKIN: No rashes CENTRAL NERVOUS SYSTEM: No focal deficits, tone is normal in all 4 extremities. EXTREMITIES: There is 1-2+ peripheral edema. No clubbing, no cyanosis. Peripheral pulses are intact. - Labs CBC & Chem 7: 04/29/24 08:29 04/29/24 08:29 Labs: Abnormal Lab Results - Last 24 Hours (Table) 04/29/24 04/29/24 04/29/24 Range/Units 08:29 08: 12:11 RDW 16.1 H (11.5-15.5) % Potassium 3.4 L (3.5-5.1) mmol/L BUN 23 H (9-20) mg/dL Lactate Dehydrogenase 291 H (120-246) U/L Assessment and Plan Assessment: Impression: Acute on chronic hypoxemic respiratory failure secondary to an acute exacerbation of diastolic congestive heart failure Oxygen dependent chronic obstructive pulmonary disease Heavy tobacco dependence of 50 years, states quit 3 months ago Chronic atrial fibrillation, anticoagulated with Eliquis, pending ablation History of diastolic congestive heart failure Hypertension Status post right-sided thoracentesis, 2.6 L of fluid removed from the right pleural space Recommendation: Continue present treatment plan Patient to go back on Eliquis Continue bronchodilators Continue diuretics including Lasix and Aldactone Will continue to follow Time with Patient: Less than 30
--- NOTE | 2024-04-29 15:53 | P.CRDCN ---
History of Present Illness Consult date: 04/29/24 History of present illness: Dr. Hart's addendum I personally examined the patient with the resident. I performed all a comprehensive history physical and examination. The resident tells me. This document. I agree with the patient's assessment and plan. on exam Mild elevated JVD 1+ pitting edema in bilateral lower extremity, irregularly irregular pulse with no significant murmurs Mild crackles audible in bilateral lung pitts Plan Maintain IV Lasix 40 mg every 8 hours. Monitor I's and O's. Monitor electrolytes. Monitor renal function. Tomorrow consider Bumex PO 1 mg twice daily due to patient reporting increased resistance to current Lasix with good compliance. Add Aldactone 25 mg daily tomorrow. Add Farxiga 10 mg daily tomorrow. Agree with right-sided thoracentesis; follow-up with fluid analysis. Discontinue Imdur. Continue Cardizem 300 mg. Monitor blood pressure. Consider losartan 12.5 mg tomorrow. Reschedule schedule A-fib ablation - possibly outpatient. HPI Patient is a 64-year-old male with past medical history of CHF, A-fib - maintained on Cardizem and Eliquis, hypertension, hyperlipidemia, and COPD. He presented to the ED yesterday due to shortness of breath that has been progressively worsening over the last few days. He denies any chest pain. Shortness of breath worsens with exertion and lying flat. He is currently maintained on 3 L nasal cannula which is his home oxygen requirement. Chest x-ray revealed moderate right and small left pleural effusions - planned for thoracentesis today. He states that he was scheduled for A-fib ablation today but is undergoing thoracentesis instead. Echocardiogram performed on 02/08/2024 revealed ejection fraction of 50 to 55%, moderate left atrial dilatation, mild pulmonary hypertension, mild right ventricular dilatation. Cardiac catheterization performed 02/11/2024 revealed no significant stenosis of the coronary arteries. Review of Systems Negative except for what is mentioned in HPI. Past Medical History Past Medical History: Atrial Fibrillation, COPD, Hyperlipidemia, Hypertension Additional Past Medical History / Comment(s): COVID 08/21 History of Any Multi-Drug Resistant Organisms: None Reported Additional Past Surgical History / Comment(s): REPAIR TENDON OF LEFT HAND (CHILDHOOD), sinus surgery , COLONOSCOPY Past Anesthesia/Blood Transfusion Reactions: No Reported Reaction Past Psychological History: No Psychological Hx Reported Smoking Status: Former smoker Past Alcohol Use History: None Reported Past Drug Use History: None Reported - Past Family History Mother Family Medical History: Cancer Additional Family Medical History / Comment(s): Passed from dementia Father Family Medical History: Congestive Heart Failure (CHF), COPD Additional Family Medical History / Comment(s): Passed from heart/lung disease Medications and Allergies Home Medications Medication Instructions Recorded Confirmed Type Multivitamins, Thera [Multivitamin 1 tab PO DAILY 10/23/21 04/28/24 History (formulary)] Albuterol Nebulized [Ventolin 2.5 mg INHALATION RT-QID PRN 12/29/23 04/28/24 History Nebulized] Albuterol Inhaler [Ventolin Hfa 2 puff INHALATION RT-QID PRN #1 12/31/23 04/28/24 Rx Inhaler] each Diltiazem Cd [Cardizem CD] 300 mg PO DAILY #30 cap 12/31/23 04/28/24 Rx Aspirin EC [Ecotrin Low Dose] 81 mg PO DAILY 02/08/24 04/28/24 History Apixaban [Eliquis] 5 mg PO BID #60 tab 02/11/24 04/28/24 Rx Isosorbide Mononitrate ER [Imdur] 30 mg PO DAILY #30 tab 02/11/24 04/28/24 Rx Metoprolol Tartrate [Lopressor] 50 mg PO TID #90 tab 02/11/24 04/28/24 Rx Nitroglycerin Sl Tabs [Nitrostat] 0.4 mg SUBLINGUAL Q5M PRN #20 tab 02/11/24 04/28/24 Rx Fluticasone/Umeclidin/Vilanter 1 puff INHALATION RT-DAILY 04/28/24 04/28/24 History [Trelegy Ellipta 200-62.5-25] Furosemide [Lasix] 80 mg PO BID@0900,1600 04/28/24 04/28/24 History Allergies Allergy/AdvReac Type Severity Reaction Status Date / Time lisinopril AdvReac CAUSED Verified 04/28/24 09:32 FATIGUE Physical Exam Vitals: Vital Signs Temp Pulse Pulse Resp BP BP BP 04/29/24 11:38 90 04/29/24 11:27 86 04/29/24 10:44 80 22 101/63 04/29/24 08:31 97.6 F 119 H 22 112/81 04/29/24 08:21 88 04/29/24 08:15 04/29/24 08:11 94 04/29/24 04:23 88 20 119/81 04/28/24 23:54 94 22 99/65 04/28/24 20:07 98.3 F 84 24 117/75 04/28/24 18:37 77 04/28/24 18:11 97.9 F 77 24 116/76 04/28/24 17:13 97.6 F 86 19 101/40 04/28/24 16:41 77 18 115/80 04/28/24 15:50 80 04/28/24 15:41 86 04/28/24 15:00 97.6 F 84 19 106/69 Pulse Ox 04/29/24 11:38 04/29/24 11:27 04/29/24 10:44 93 L 04/29/24 08:31 94 L 04/29/24 08:21 04/29/24 08:15 95 04/29/24 08:11 04/29/24 04:23 94 L 04/28/24 23:54 94 L 04/28/24 20:07 93 L 04/28/24 18:37 04/28/24 18:11 94 L 04/28/24 17:13 94 L 04/28/24 16:41 91 L 04/28/24 15:50 04/28/24 15:41 04/28/24 15:00 94 L Intake and Output 04/28/24 04/29/24 04/29/24 22:59 06:59 14:59 Intake Total 360 Output Total 400 550 600 Balance -400 -550 -240 Intake: Oral 360 Output: Urine 400 550 600 Other: Voiding Method Urinal Urinal # Voids 1 Weight 95.254 kg 94.3 kg Vital signs are stable. General: No acute distress. HEENT: Head exam is unremarkable. Lungs: Bilateral breath sounds present; no rhonchi, wheezes, or rales. Heart: Rate and rhythm are regular. Abdomen: Nontender. Extremities: 1+ edema present bilaterally. Results 04/29/24 08:29 04/29/24 08:29 Cardiac Enzymes 04/29/24 04/29/24 Range/Units 08:29 12:11 AST 26 (17-59) U/L Lactate Dehydrogenase 291 H (120-246) U/L CBC 04/29/24 Range/Units 08:29 WBC 9.3 (3.8-10.6) k/uL RBC 5.01 (4.30-5.90) m/uL Hgb 14.3 (13.0-17.5) gm/dL Hct 45.0 (39.0-53.0) % Plt Count 345 (150-450) k/uL Comprehensive Metabolic Panel 04/29/24 Range/Units 08:29 Sodium 142 (137-145) mmol/L Potassium 3.4 L (3.5-5.1) mmol/L Chloride 104 (98-107) mmol/L Carbon Dioxide 29 (22-30) mmol/L BUN 23 H (9-20) mg/dL Creatinine 0.79 (0.66-1.25) mg/dL Glucose 87 (74-99) mg/dL Calcium 8.9 (8.4-10.2) mg/dL AST 26 (17-59) U/L ALT 18 (4-49) U/L Alkaline Phosphatase 90 (38-126) U/L Total Protein 6.5 (6.3-8.2) g/dL Albumin 3.8 (3.5-5.0) g/dL Current Medications Generic Name Dose Route Start Last Admin Trade Name Freq PRN Reason Stop Dose Admin Albuterol Sulfate 2.5 mg 04/28/24 11:04 Albuterol Nebulized 2.5 Mg/3 Ml INHALATION RT-QID PRN Shortness Of Breath Albuterol Sulfate 2.5 mg 04/28/24 11:04 Albuterol Nebulized 2.5 Mg/3 Ml INHALATION RT-QID PRN Shortness Of Breath Aspirin 81 mg 04/29/24 09:00 04/29/24 08:35 Aspirin 81 Mg PO 81 mg DAILY SERJIO Administration Budesonide/Formoterol Fumarate 2 puff 04/29/24 08:00 04/29/24 08:11 Symbicort 160-4.5 Mcg Inhaler INHALATION 2 puff RT-BID SERJIO Administration Dapagliflozin 10 mg 04/30/24 09:00 Dapagliflozin Propanediol 10 Mg Tablet PO DAILY [facility] Diltiazem HCl 300 mg 04/29/24 09:00 04/29/24 08:35 Diltiazem Cd 300 Mg Cap.Er.24h PO 300 mg DAILY SERJIO Administration Furosemide 40 mg 04/28/24 16:00 04/29/24 08:35 Furosemide 10 Mg/Ml 4 Ml Vial IV 40 mg Q8HR SERJIO Administration Ipratropium [place] 0.5 mg 04/28/24 12:00 04/29/24 11:27 Ipratropium 0.5 Mg/2.5 Ml Nebu INHALATION 0.5 mg RT-QID SERJIO Administration Metoprolol Tartrate 50 mg 04/28/24 16:00 04/29/24 08:35 Metoprolol Tartrate 50 Mg Tab PO 50 mg TID SERJIO Administration Naloxone HCl 0.2 mg 04/28/24 11:03 Naloxone 0.4 Mg/Ml 1 Ml Vial IV Q2M PRN Opioid Reversal Ondansetron HCl 4 mg 04/28/24 11:03 Ondansetron 4 Mg/2 Ml Vial IVP Q8HR PRN Nausea And Vomiting Spironolactone 25 mg 04/30/24 09:00 Spironolactone 25 Mg Tab PO DAILY SERJIO Intake and Output 04/28/24 04/29/24 04/29/24 22:59 06:59 14:59 Intake Total 360 Output Total 400 550 600 Balance -400 -550 -240 Intake: Oral 360 Output: Urine 400 550 600 Other: Voiding Method Urinal Urinal # Voids 1 Weight 95.254 kg 94.3 kg 04/29/24 08:29 04/29/24 08:29 Assessment and Plan Assessment: 1. Acute on chronic HFpEF, possibly secondary to developing resistance to current dose of Lasix. Currently on Lasix 80 mg twice daily. 2. Persistent A-fib - rate controlled. Maintained on Cardizem and Eliquis for anticoagulation. 3. Moderate right sided and small left-sided pleural effusions with acute hypoxic respiratory failure. 4. Chronic COPD not in exacerbation. Plan: Maintain IV Lasix 40 mg every 8 hours. Monitor I's and O's. Monitor electrolytes. Monitor renal function. Tomorrow consider Bumex PO 1 mg twice daily due to patient reporting increased resistance to current Lasix with good compliance. Add Aldactone 25 mg daily tomorrow. Add Farxiga 10 mg daily tomorrow. Agree with right-sided thoracentesis; follow-up with fluid analysis. Discontinue Imdur. Continue Cardizem 300 mg. Monitor blood pressure. Consider losartan 12.5 mg tomorrow. Reschedule schedule A-fib ablation - possibly outpatient. Thank you for the consultation. We will continue to monitor him during his hospital stay.
[2024-04-29] MEDS ORDERED: Potassium Replacement Protocol 1 EACH MISC MISCELLANE PRN (16:19)
[2024-04-29] MEDS: POTASSIUM CHLORIDE ER 20 MEQ TAB.ER PO SCH (17:00)
[2024-04-29] MEDS: APIXABAN 5 MG TAB PO SCH (21:25)
[2024-04-29 22:48] LABS: Appearance,BF Clear (Clear)
[2024-04-29 23:51] LABS: Glucose, BF Source Pleural fluid; Glucose, Body Fluid 112 mg/dL; LDH, Body Fluid Source Pleural fluid; T. Protein, Body Fluid Source Pleural fluid; Total Protein, Body Fluid 1580 mg/dL
[2024-04-30 08:06] LABS: Basophils # (A) 0.1 k/uL (0-0.2); Basophils % (A) 1 %; Eosinophils # (A) 0.3 k/uL (0-0.7); Eosinophils % (A) 4 %; HCT 46.9 % (39.0-53.0); Hypochromasia Moderate; Lymphocytes # (A) 1.1 k/uL (1.0-4.8); Lymphocytes % (A) 14 %; MCH 28.6 pg (25.0-35.0); MCHC 31.9 g/dL (31.0-37.0); MCV 89.6 fL (80.0-100.0); Mean Platelet Volume 7.2; Monocytes # (A) 0.6 k/uL (0-1.0); Monocytes % (A) 7 %; Neutrophils # (A) 5.6 k/uL (1.3-7.7); Neutrophils % (A) 71 %; Platelet Count 354 k/uL (150-450); RBC 5.23 m/uL (4.30-5.90); WBC 7.9 k/uL (3.8-10.6)
[2024-04-30 08:28] LABS: African American GFR (CKD) >90 (>60 ml/min/1.73 sqM); Anion Gap 3 mmol/L; Blood Urea Nitrogen 22 mg/dL (9-20); Calcium 9.3 mg/dL (8.4-10.2); Carbon Dioxide 33 mmol/L (22-30); Chloride 103 mmol/L (98-107); Glucose 103 mg/dL (74-99); Magnesium 2.1 mg/dL (1.6-2.3); Non-African American GFR(CKD) 89 (>60 ml/min/1.73 sqM); Potassium 4.5 mmol/L (3.5-5.1); Sodium 139 mmol/L (137-145)
[2024-04-30] MEDS: LOSARTAN 25 MG TAB PO SCH (08:30)
[2024-04-30] MEDS: DAPAGLIFLOZIN PROPANEDIOL 10 MG TABLET PO SCH (08:30)
[2024-04-30] MEDS: BUMETANIDE 1 MG TAB PO SCH (08:30)
[2024-04-30] MEDS: SPIRONOLACTONE 25 MG TAB PO SCH (08:30)
--- NOTE | 2024-04-30 13:42 | P.PN ---
Subjective Progress Note Date: 04/30/24 Principal diagnosis: Acute on chronic diastolic congestive heart failure pleural effusions This is a pleasant 64-year-old male patient with a known history of severe oxygen dependent chronic obstructive pulmonary disease, 50+ years of chronic tobacco dependence, diastolic congestive heart failure, atrial fibrillation anticoagulated with Eliquis pending ablation, hypertension, hyperlipidemia. Normal coronary arteries in January 2024. He presented here to the emergency room today with complaints of increasing shortness of breath, chest tightness and wheezing over the past 2 days. He also had lower extremity swelling. Chest x- ray reveals moderate right and small left pleural effusions with bibasilar airspace opacities. White count 8.7. Hemoglobin 13.7. Platelets 328. Sodium 138. Potassium 3.1. Bicarb 25. BUN 29. Creatinine 1.01. Glucose 100. Urinalysis clean. Viral screen negative. proBNP 2440. Troponin negative x 1. He is seen in the emergency department. Sitting up on a stretcher. Awake and alert in no acute distress. He is dyspneic with conversation. Dyspneic with minimal exertion. Maintaining O2 saturations in the 90s on 5 L/min per nasal c annula. He is on Lasix 40 mg IV every 8 hours with good urine output thus far. Patient was seen today on 04/29/2024, patient is still complaining of shortness of breath, still tachypneic, hence I went ahead and reviewed his ultrasound of the chest, there is a fairly large right-sided pleural effusion, and I went ahead and performed a right-sided thoracentesis and 2.6 of fluid was drained from the right pleural space patient felt much better after the procedure, fluid was sent for different diagnostic studies. In the meantime the patient remains on medications for his congestive heart failure and his for COPD. Significant improvement noted clinically after the thoracentesis. WBC count today is 9.3 hemoglobin 14.3 electrolytes are normal except for low potassium of 3.4, renal profile is normal patient remains on Lasix 40 mg IV push 3 times daily he is also on Aldactone 25 mg daily Patient was seen today on 04/30/2024, feeling much better, breathing easier, yesterday I drained a significant amount of pleural effusion and the fluid initial findings seems to be transudative in nature clearly consistent with congestive heart failure. Patient is on diuretics, he was seen by cardiology, and the plan is to continue present course of treatment, patient could be discharged home eventually once he is cleared by cardiology Objective - Vital Signs Vital signs: Vital Signs Temp 97.6 F 04/30/24 11:20 Pulse 91 04/30/24 11:20 Resp 16 04/30/24 11:20 BP 106/70 04/30/24 11:20 Pulse Ox 96 04/30/24 11:20 FiO2 Intake & Output 04/29/24 04/30/24 04/30/24 18:59 06:59 18:59 Intake Total 540 10 768 Output Total 1000 550 Balance -460 -540 768 Weight 92 kg Intake: IV 10 10 0.9 10 Invasive Line 1 10 Oral 540 758 Output: Urine 1000 550 Other: Voiding Method Urinal Urinal # Voids 1 - Exam GENERAL EXAM: Alert, pleasant 64-year-old male, sitting up in a stretcher, on 3 L L nasal cannula HEAD: Normocephalic. EYES: Normal reaction of pupils, equal size. NOSE: Clear with pink turbinates. THROAT: No erythema or exudates. NECK: No masses, no JVD. CHEST: No chest wall deformity. LUNGS: Minimal crackles at the bases no rhonchi no wheeze CVS: S1 and S2 normal with no audible murmur, regular rhythm. ABDOMEN: No hepatosplenomegaly, normal bowel sounds, no guarding or rigidity. SKIN: No rashes CENTRAL NERVOUS SYSTEM: No focal deficits, tone is normal in all 4 extremities. EXTREMITIES: There is 1-2+ peripheral edema. No clubbing, no cyanosis. Peripheral pulses are intact. - Labs CBC & Chem 7: 04/30/24 07:25 04/30/24 07:25 Labs: Abnormal Lab Results - Last 24 Hours (Table) 04/30/24 04/30/24 Range/Units 07:25 07:25 RDW 16.0 H (11.5-15.5) % Carbon Dioxide 33 H (22-30) mmol/L BUN 22 H (9-20) mg/dL Glucose 103 H (74-99) mg/dL Microbiology - Last 24 Hours (Table) 04/29/24 10:37 Gram Stain - Preliminary Pleural Fluid Body Fluid Culture - Preliminary Assessment and Plan Assessment: Impression: Acute on chronic hypoxemic respiratory failure secondary to an acute exacerbation of diastolic congestive heart failure Oxygen dependent chronic obstructive pulmonary disease Heavy tobacco dependence of 50 years, states quit 3 months ago Chronic atrial fibrillation, anticoagulated with Eliquis, pending ablation History of diastolic congestive heart failure Hypertension Status post right-sided thoracentesis, 2.6 L of fluid removed from the right pleural space Recommendation: Continue present treatment plan/diuretics and bronchodilators Continue bronchodilators Consider discharge planning once he is cleared by cardiology to go home. And follow-up on outpatient Will continue to follow Time with Patient: Less than 30
--- NOTE | 2024-04-30 21:45 | P.PN ---
Subjective Progress Note Date: 04/30/24 Assessment: 1. Acute on chronic HFpEF, possibly secondary to developing resistance to current dose of Lasix. Currently on Lasix 80 mg twice daily. 2. Persistent A-fib - rate controlled. Maintained on Cardizem and Eliquis for anticoagulation. 3. Moderate right sided and small left-sided pleural effusions with acute hypoxic respiratory failure., Status post thoracentesis. Transudative fluid with low LDH levels. 4. Chronic COPD not in exacerbation. Plan: Discontinue IV Lasix. Start Bumex 1 mg p.o. twice daily. Continue Aldactone 25 mg daily Add Farxiga 10 mg daily Continue Cardizem 300 mg daily Losartan 12.5 mg daily Monitor renal function electrolytes and hemodynamics. Case discussed with Dr. Wang to schedule outpatient ablation procedure. Objective - Vital Signs Vital signs: Vital Signs Temp 98.1 F 04/30/24 20:51 Pulse 82 04/30/24 21:26 Resp 20 04/30/24 21:26 BP 104/59 04/30/24 21:30 Pulse Ox 96 04/30/24 20:51 FiO2 Intake & Output 04/30/24 04/30/24 05/01/24 06:59 18:59 06:59 Intake Total 10 1496 Output Total 550 2250 Balance -540 -754 Weight 92 kg Intake: IV 10 20 0.9 10 Invasive Line 1 20 Oral 1476 Output: Urine 550 2250 Other: Voiding Method Urinal Urinal Urinal # Voids 3 - Labs CBC & Chem 7: 04/30/24 07:25 04/30/24 07:25 Labs: Abnormal Lab Results - Last 24 Hours (Table) 04/30/24 04/30/24 Range/Units 07:25 07:25 RDW 16.0 H (11.5-15.5) % Carbon Dioxide 33 H (22-30) mmol/L BUN 22 H (9-20) mg/dL Glucose 103 H (74-99) mg/dL Microbiology - Last 24 Hours (Table) 04/29/24 10:37 Acid Fast Bacilli Smear - Preliminary Pleural Fluid 04/29/24 10:37 Gram Stain - Preliminary Pleural Fluid Body Fluid Culture - Preliminary
--- NOTE | 2024-05-01 02:39 | P.PN ---
Subjective Progress Note Date: 04/29/24 Patient is a 64-year-old male with a past medical history of COPD on home O2 3 L via nasal cannula, atrial fibrillation on on anticoagulation with Eliquis and supposed to follow-up for ablation, hypertension, hyperlipidemia and prior history of smoking, chronic HFpEF presents to the hospital with worsening complaints of chest tightness and shortness of breath and wheezing for the past 2 days. Patient also has worsening leg swelling. Denies any fever or chills. Cough without any sputum production. Patient was hypoxic with oxygen saturations at an upper 80s on admission. Denies any nausea vomiting abdominal pain. No diarrhea. No headache or lightheadedness. Chest x-ray on admission showed moderate right and small left pleural effusions with bibasilar airspace opacities which may represent atelectasis versus pneumonia in the appropriate clinical setting. EKG showed atrial fibrillation with heart rate 71 Laboratory data showed WBC 8.7 hemoglobin 13.7 platelets 328 sodium 138 potassium 3.1 chloride 103 bicarb is 25 BUN 29 and creatinine 1.01 blood sugar 100 liver enzymes are not elevated. proBNP 2440 and troponin 0.012 and urinalysis negative for infection Influenza A B RSV and COVID-19 PCR not detected. Patient had cardiac catheterization on 02/10/2024 showed normal coronaries. 2D echocardiogram 02/09/2024 showed normal left ventricular size with borderline left ventricular systolic function. Mild mitral and tricuspid regurgitation with mild pulmonary hypertension. 04/29/2024 Patient is currently sitting in the chair. Awake alert oriented. Still having significant shortness of breath and leg swelling. Patient is being continued on IV diuresis. Otherwise patient underwent right-sided thoracentesis today. No complaints of nausea vomiting abdominal pain. Tolerating oral diet. Laboratory showed WBC 9.3 hemoglobin 14.3 and platelets 345 sodium 142 potassium 3.4 chloride 104 bicarb is 29 BUN 23 creatinine 0.79 and blood sugar is 87. Current medications reviewed. Objective - Vital Signs Vital signs: Vital Signs Temp 97.6 F 04/29/24 08:31 Pulse 88 04/29/24 15:27 Resp 22 04/29/24 15:19 BP 100/60 04/29/24 15:19 Pulse Ox 93 L 04/29/24 15:19 FiO2 Intake & Output 04/29/24 04/29/24 04/30/24 06:59 18:59 06:59 Intake Total 540 Output Total 950 1000 Balance -950 -460 Weight 94.3 kg Intake: Oral 540 Output: Urine 950 1000 Other: Voiding Method Urinal # Voids 1 - Exam PHYSICAL EXAMINATION: Patient is lying in the bed comfortably, mild acute distress, awake alert and oriented.. HEENT: Normocephalic. Neck is supple. Pupils reactive. Nostrils clear. Oral cavity is moist. Neck reveals no JVD, carotid bruits, or thyromegaly. CHEST EXAMINATION: Trachea is central. Symmetrical expansion. Right basilar crackles and scattered rhonchi.. No wheezing. CARDIAC: Normal S1, S2 with no gallops. No murmurs ABDOMEN: Soft. Bowel sounds normal. No organomegaly. No abdominal bruits. Extremities: Lower extremity bilateral l 2+ edema. No clubbing or cyanosis Neurologically awake, alert, oriented x3 with well-coordinated movements. No focal deficits noted Skin: No rash or skin lesions. Psychiatric: Coperative. Nonsuicidal Musculoskeletal: No joint swelling or deformity. Normal range of motion. - Labs CBC & Chem 7: 04/30/24 07:25 04/30/24 07:25 Labs: Abnormal Lab Results - Last 24 Hours (Table) 04/29/24 04/29/24 04/29/24 Range/Units 08:29 08:29 12:11 RDW 16.1 H (11.5-15.5) % Potassium 3.4 L (3.5-5.1) mmol/L BUN 23 H (9-20) mg/dL Lactate Dehydrogenase 291 H (120-246) U/L Assessment and Plan Assessment: Acute on chronic hypoxemic respiratory failure secondary to acute on chronic diastolic heart failure and large right pleural effusion. moderate right pleural effusion status postthoracentesis on 04/29/2024. Acute on chronic HFpEF Mild pulmonary hypertension COPD on home oxygen at 3 L via nasal cannula History of smoking Chronic atrial fibrillation on anticoagulation with Eliquis and is pending ablation Hypertension DVT prophylaxis patient is already on Eliquis Plan: Patient will be continued on telemonitoring. Continue with IV Lasix 40 mg every 8 hourly. Patient is s/p right thoracentesis. Pulmonary and cardiology is board. Patient does have prior history of thoracentesis. Continue DuoNebs and Symbicort and anticoagulation Eliquis and follow-up closely. Time with Patient: Greater than 30
--- NOTE | 2024-05-01 02:44 | P.PN ---
Subjective Progress Note Date: 04/30/24 Patient is a 64-year-old male with a past medical history of COPD on home O2 3 L via nasal cannula, atrial fibrillation on on anticoagulation with Eliquis and supposed to follow-up for ablation, hypertension, hyperlipidemia and prior history of smoking, chronic HFpEF presents to the hospital with worsening complaints of chest tightness and shortness of breath and wheezing for the past 2 days. Patient also has worsening leg swelling. Denies any fever or chills. Cough without any sputum production. Patient was hypoxic with oxygen saturations at an upper 80s on admission. Denies any nausea vomiting abdominal pain. No diarrhea. No headache or lightheadedness. Chest x-ray on admission showed moderate right and small left pleural effusions with bibasilar airspace opacities which may represent atelectasis versus pneumonia in the appropriate clinical setting. EKG showed atrial fibrillation with heart rate 71 Laboratory data showed WBC 8.7 hemoglobin 13.7 platelets 328 sodium 138 potassium 3.1 chloride 103 bicarb is 25 BUN 29 and creatinine 1.01 blood sugar 100 liver enzymes are not elevated. proBNP 2440 and troponin 0.012 and urinalysis negative for infection Influenza A B RSV and COVID-19 PCR not detected. Patient had cardiac catheterization on 02/10/2024 showed normal coronaries. 2D echocardiogram 02/09/2024 showed normal left ventricular size with borderline left ventricular systolic function. Mild mitral and tricuspid regurgitation with mild pulmonary hypertension. 04/29/2024 Patient is currently sitting in the chair. Awake alert oriented. Still having significant shortness of breath and leg swelling. Patient is being continued on IV diuresis. Otherwise patient underwent right-sided thoracentesis today. No complaints of nausea vomiting abdominal pain. Tolerating oral diet. Laboratory showed WBC 9.3 hemoglobin 14.3 and platelets 345 sodium 142 potassium 3.4 chloride 104 bicarb is 29 BUN 23 creatinine 0.79 and blood sugar is 87. 04/30/2024 Patient is currently lying in the bed. Awake alert and oriented x 3. No complaints of chest pain or shortness of. Breathing status is better. Afebrile. Currently on oxygen via nasal cannula. Blood 3 L. Does have some co ugh but no sputum production. Afebrile IV Lasix changed to Bumex and spironolactone as per cardiology recommendations. Heart rate is controlled. Patient is on anticoagulation with Eliquis. Laboratory data showed WBC 7.9 hemoglobin 15.0 and platelets 354 sodium 139 potassium 4.5 chloride 103 bicarb is 33 BUN 2020 creatinine 0.9 and blood sugar 103. Current medications reviewed. Objective - Vital Signs Vital signs: Vital Signs Temp 98.1 F 04/30/24 20:51 Pulse 82 04/30/24 21:26 Resp 20 04/30/24 21:26 BP 104/59 04/30/24 21:30 Pulse Ox 96 04/30/24 20:51 FiO2 Intake & Output 04/30/24 04/30/24 05/01/24 06:59 18:59 06:59 Intake Total 10 1496 Output Total 550 2250 680 Balance -219 -008 -565 Weight 92 kg Intake: IV 10 20 0.9 10 Invasive Line 1 20 Oral 1476 Output: Urine 550 2250 680 Other: Voiding Method Urinal Urinal Urinal # Voids 3 - Exam PHYSICAL EXAMINATION: Patient is lying in the bed comfortably, mild acute distress, awake alert and oriented.. HEENT: Normocephalic. Neck is supple. Pupils reactive. Nostrils clear. Oral cavity is moist. Neck reveals no JVD, carotid bruits, or thyromegaly. CHEST EXAMINATION: Trachea is central. Symmetrical expansion. Right basilar crackles and scattered rhonchi.. No wheezing. CARDIAC: Normal S1, S2 with no gallops. No murmurs ABDOMEN: Soft. Bowel sounds normal. No organomegaly. No abdominal bruits. Extremities: Lower extremity bilateral l 2+ edema. No clubbing or cyanosis Neurologically awake, alert, oriented x3 with well-coordinated movements. No focal deficits noted Skin: No rash or skin lesions. Psychiatric: Coperative. Nonsuicidal Musculoskeletal: No joint swelling or deformity. Normal range of motion. - Labs CBC & Chem 7: 04/30/24 07:25 04/30/24 07:25 Labs: Abnormal Lab Results - Last 24 Hours (Table) 04/30/24 04/30/24 Range/Units 07:25 07:25 RDW 16.0 H (11.5-15.5) % Carbon Dioxide 33 H (22-30) mmol/L BUN 22 H (9-20) mg/dL Glucose 103 H (74-99) mg/dL Microbiology - Last 24 Hours (Table) 04/29/24 10:37 Acid Fast Bacilli Smear - Preliminary Pleural Fluid 04/29/24 10:37 Gram Stain - Preliminary Pleural Fluid Body Fluid Culture - Preliminary Assessment and Plan Assessment: Acute on chronic hypoxemic respiratory failure secondary to acute on chronic diastolic heart failure and moderate right pleural effusion. moderate right pleural effusion status postthoracentesis with 2.6 L fluid removal on 04/29/2024. Acute on chronic HFpEF Mild pulmonary hypertension COPD on home oxygen at 3 L via nasal cannula History of smoking Chronic atrial fibrillation on anticoagulation with Eliquis and is pending ablation Hypertension DVT prophylaxis patient is already on Eliquis Plan: Patient will be continued on telemonitoring. IV Lasix changed to Bumex and spironolactone today. Patient is s/p right thoracentesis. Continue with Cardizem, metoprolol and losartan. Heart rate is controlled. Anticoagulation with Eliquis. Pulmonary and cardiology is board. Patient does have prior history of thoracentesis. Continue DuoNebs and Symbicort and anticoagulation Eliquis and follow-up closely. Currently the DuoNebs. Patient is scheduled to get ablation as an outpatient. Anticipate discharge in next 24 hours with more clinical improvement. Time with Patient: Greater than 30
[2024-05-01 10:11] LABS: African American GFR (CKD) >90 (>60 ml/min/1.73 sqM); Anion Gap 4 mmol/L; Blood Urea Nitrogen 20 mg/dL (9-20); Calcium 9.1 mg/dL (8.4-10.2); Carbon Dioxide 32 mmol/L (22-30); Chloride 102 mmol/L (98-107); Glucose 51 mg/dL (74-99); Non-African American GFR(CKD) >90 (>60 ml/min/1.73 sqM); Potassium 4.1 mmol/L (3.5-5.1); Sodium 138 mmol/L (137-145)
[2024-05-01 10:32] LABS: Basophils # (A) 0.1 k/uL (0-0.2); Basophils % (A) 1 %; Eosinophils # (A) 0.3 k/uL (0-0.7); Eosinophils % (A) 4 %; HCT 45.9 % (39.0-53.0); HGB 14.6 gm/dL (13.0-17.5); Hypochromasia Moderate; Lymphocytes % (A) 12 %; MCH 28.6 pg (25.0-35.0); MCHC 31.8 g/dL (31.0-37.0); Mean Platelet Volume 7.1; Monocytes # (A) 0.6 k/uL (0-1.0); Monocytes % (A) 7 %; Neutrophils # (A) 6.2 k/uL (1.3-7.7); Neutrophils % (A) 74 %; Platelet Count 368 k/uL (150-450); RDW 15.5 % (11.5-15.5); WBC 8.3 k/uL (3.8-10.6)
[2024-05-01 11:35] VITALS: BP 110/75; RESP 18; TEMP 98
[2024-05-01 12:00] VITALS: PULSE 85
--- NOTE | 2024-05-01 12:07 | P.PN ---
Subjective Progress Note Date: 05/01/24 Principal diagnosis: Acute on chronic diastolic congestive heart failure pleural effusions This is a pleasant 64-year-old male patient with a known history of severe oxygen dependent chronic obstructive pulmonary disease, 50+ years of chronic tobacco dependence, diastolic congestive heart failure, atrial fibrillation anticoagulated with Eliquis pending ablation, hypertension, hyperlipidemia. Normal coronary arteries in January 2024. He presented here to the emergency room today with complaints of increasing shortness of breath, chest tightness and wheezing over the past 2 days. He also had lower extremity swelling. Chest x- ray reveals moderate right and small left pleural effusions with bibasilar airspace opacities. White count 8.7. Hemoglobin 13.7. Platelets 328. Sodium 138. Potassium 3.1. Bicarb 25. BUN 29. Creatinine 1.01. Glucose 100. Urinalysis clean. Viral screen negative. proBNP 2440. Troponin negative x 1. He is seen in the emergency department. Sitting up on a stretcher. Awake and alert in no acute distress. He is dyspneic with conversation. Dyspneic with minimal exertion. Maintaining O2 saturations in the 90s on 5 L/min per nasal c annula. He is on Lasix 40 mg IV every 8 hours with good urine output thus far. Patient was seen today on 04/29/2024, patient is still complaining of shortness of breath, still tachypneic, hence I went ahead and reviewed his ultrasound of the chest, there is a fairly large right-sided pleural effusion, and I went ahead and performed a right-sided thoracentesis and 2.6 of fluid was drained from the right pleural space patient felt much better after the procedure, fluid was sent for different diagnostic studies. In the meantime the patient remains on medications for his congestive heart failure and his for COPD. Significant improvement noted clinically after the thoracentesis. WBC count today is 9.3 hemoglobin 14.3 electrolytes are normal except for low potassium of 3.4, renal profile is normal patient remains on Lasix 40 mg IV push 3 times daily he is also on Aldactone 25 mg daily Patient was seen today on 04/30/2024, feeling much better, breathing easier, yesterday I drained a significant amount of pleural effusion and the fluid initial findings seems to be transudative in nature clearly consistent with congestive heart failure. Patient is on diuretics, he was seen by cardiology, and the plan is to continue present course of treatment, patient could be discharged home eventually once he is cleared by cardiology Patient was evaluated today on 05/01/2024, feeling better breathing easier, he was apparently cleared by cardiology for discharge, and I will clear him for discharge and the patient should have follow-up on outpatient basis with cardiology and with me for his underlying COPD. And follow-up on his pleural effusion. The meantime the patient should remain on diuretics as ordered by cardiology including Bumex and Aldactone Objective - Vital Signs Vital signs: Vital Signs Temp 98 F 05/01/24 11:34 Pulse 84 05/01/24 11:47 Resp 18 05/01/24 11:34 BP 110/75 05/01/24 11:34 Pulse Ox 97 05/01/24 11:34 FiO2 Intake & Output 04/30/24 05/01/24 05/01/24 18:59 06:59 18:59 Intake Total 1496 358 Output Total 2250 1380 Balance -754 -1380 358 Weight 92.1 kg Intake: IV 20 Invasive Line 1 20 Oral 1476 358 Output: Urine 2250 1380 Other: Voiding Method Urinal Urinal Urinal # Voids 3 - Exam GENERAL EXAM: 64-year-old in no distress on nasal cannula HEAD: Normocephalic. EYES: Normal reaction of pupils, equal size. NOSE: Clear with pink turbinates. THROAT: No erythema or exudates. NECK: No masses, no JVD. CHEST: No chest wall deformity. LUNGS: Clear bilaterally no rhonchi no wheeze CVS: S1 and S2 normal with no audible murmur, regular rhythm. ABDOMEN: No hepatosplenomegaly, normal bowel sounds, no guarding or rigidity. SKIN: No rashes CENTRAL NERVOUS SYSTEM: No focal deficits, tone is normal in all 4 extremities. EXTREMITIES: There is trace of bipedal edema - Labs CBC & Chem 7: 05/01/24 09:18 05/01/24 09:18 Labs: Abnormal Lab Results - Last 24 Hours (Table) 05/01/24 Range/Units 09:18 Carbon Dioxide 32 H (22-30) mmol/L Glucose 51 L (74-99) mg/dL Microbiology - Last 24 Hours (Table) 04/29/24 10:37 Gram Stain - Preliminary Pleural Fluid Body Fluid Culture - Preliminary 04/29/24 10:37 Acid Fast Bacilli Smear - Preliminary Pleural Fluid Assessment and Plan Assessment: Impression: Acute on chronic hypoxemic respiratory failure secondary to an acute exacerbation of diastolic congestive heart failure Oxygen dependent chronic obstructive pulmonary disease Heavy tobacco dependence of 50 years, states quit 3 months ago Chronic atrial fibrillation, anticoagulated with Eliquis, pending ablation History of diastolic congestive heart failure Hypertension Status post right-sided thoracentesis, 2.6 L of fluid removed from the right pleural space, fluid was transudative in nature Recommendation: Continue diuretics and bronchodilators Continue bronchodilators Will clear for discharge and follow-up on outpatient Will continue to follow Time with Patient: Less than 30
--- NOTE | 2024-05-01 16:50 | P.DS ---
Providers Date of admission: 04/28/24 11:03 Expected date of discharge: 05/01/24 Attending physician: Esme Ordonez Consults: 04/28/24 10:55 Consult Physician Routine Consulting Provider: [facility] Consult Reason/Comments: chf, afib Do you want consulting provider notified?: Yes Consult Physician Routine Consulting Provider: Josemanuel Kennedy Consult Reason/Comments: chf, copd, pleural effusion acute hypoxic resp failure. Do you want consulting provider notified?: Yes Primary care physician: Sabrina Clinton Hospital Course: Discharge diagnoses: Acute on chronic hypoxemic respiratory failure secondary to acute on chronic diastolic heart failure and moderate right pleural effusion. moderate right pleural effusion status postthoracentesis with 2.6 L fluid ismael saqib on 04/29/2024. Acute on chronic HFpEF Mild pulmonary hypertension COPD on home oxygen at 3 L via nasal cannula History of smoking Chronic atrial fibrillation on anticoagulation with Eliquis and is pending ablation Hypertension Patient's home medication resumed at discharge, Lasix switched to Bumex per cardiology recommendation. Continued on Cardizem, metoprolol, losartan, Eliquis. Added Aldactone, Farxiga. Outpatient follow-up with pulmonary and cardiology. Outpatient follow-up with PCP. Repeat BMP to be checked by PCP in 1 week. Hospital course: Patient is a 64-year-old male with a past medical history of COPD on home O2 3 L via nasal cannula, atrial fibrillation on on anticoagulation with Eliquis and supposed to follow-up for ablation, hypertension, hyperlipidemia and prior history of smoking, chronic HFpEF presents to the hospital with worsening complaints of chest tightness and shortness of breath and wheezing for the past 2 days. Patient also has worsening leg swelling. Denies any fever or chills. Cough without any sputum production. Patient was hypoxic with oxygen saturations at an upper 80s on admission. Denies any nausea vomiting abdominal pain. No diarrhea. No headache or lightheadedness. Chest x-ray on admission showed moderate right and small left pleural effusions with bibasilar airspace opacities which may represent atelectasis versus pneumonia in the appropriate clinical setting. EKG showed atrial fibrillation with heart rate 71 Laboratory data showed WBC 8.7 hemoglobin 13.7 platelets 328 sodium 138 potassium 3.1 chloride 103 bicarb is 25 BUN 29 and creatinine 1.01 blood sugar 100 liver enzymes are not elevated. proBNP 2440 and troponin 0.012 and urinalysis negative for infection Influenza A B RSV and COVID-19 PCR not detected. Patient had cardiac catheterization on 02/10/2024 showed normal coronaries. 2D echocardiogram 02/09/2024 showed normal left ventricular size with borderline left ventricular systolic function. Mild mitral and tricuspid regurgitation with mild pulmonary hypertension. 04/29/2024 Patient is currently sitting in the chair. Awake alert oriented. Still having significant shortness of breath and leg swelling. Patient is being continued on IV diuresis. Otherwise patient underwent right-sided thoracentesis today. No complaints of nausea vomiting abdominal pain. Tolerating oral diet. Laboratory showed WBC 9.3 hemoglobin 14.3 and platelets 345 sodium 142 potassium 3.4 chloride 104 bicarb is 29 BUN 23 creatinine 0.79 and blood sugar is 87. 04/30/2024 Patient is currently lying in the bed. Awake alert and oriented x 3. No complaints of chest pain or shortness of. Breathing status is better. Afebrile. Currently on oxygen via nasal cannula. Blood 3 L. Does have some cough but no sputum production. Afebrile IV Lasix changed to Bumex and spironolactone as per cardiology recommendations. Heart rate is controlled. Patient is on anticoagulation with Eliquis. Laboratory data showed WBC 7.9 hemoglobin 15.0 and platelets 354 sodium 139 potassium 4.5 chloride 103 bicarb is 33 BUN 2020 creatinine 0.9 and blood sugar 103. 05/01/2024 patient was seen and examined today, eager to be discharged home. Alert oriented x 4. Shortness of breath is improved. Afebrile. Reported improvement in productive cough. Appears euvolemic. Pleural fluid culture remain negative. Patient on baseline home oxygen. Patient Lasix switched to Bumex at discharge. Continued on Cardizem, metoprolol, losartan, added Aldactone, Farxiga. Continue Eliquis at discharge. Outpatient follow-up with PCP, pulmonary and cardiology. PHYSICAL EXAMINATION: GENERAL: The patient is A&O x3, NAD HEENT: EOMI, Sclerae anicteric, Moist Mucous membranes Neck: Supple, Non tender, No JVD PULMONARY: Equal breath souds B/L, No wheezing, No crackles. CARDIOVASCULAR: S1, S2 present. No murmurs, rubs, or gallops. ABDOMEN: Soft, nontender, nondistended, normoactive bowel sounds. No guarding or rebound tenderness. MUSCULOSKELETAL: No edema, No cyanosis. No clubbing. Normal ROM. Intact peripheral pulses. EXTREMITIES: No cyanosis, clubbing, or pedal edema. NEUROLOGICAL: CN 2-12 grossly intact. No FND SKIN: No rashes. Dictation was produced using [employer] dictation software. please excuse any grammatical, word or spelling errors. Patient Condition at Discharge: Fair Plan - Discharge Summary Discharge Rx Participant: No New Discharge Prescriptions: New Bumetanide [BUMEX] 1 mg PO BID@0900,1600 30 Days #60 tab Dapagliflozin Propanediol [Farxiga] 10 mg PO DAILY #30 tab Spironolactone [Aldactone] 25 mg PO DAILY #30 tab Losartan [Cozaar] 12.5 mg PO DAILY 30 Days #15 tab Continue Albuterol Nebulized [Ventolin Nebulized] 2.5 mg INHALATION RT-QID PRN PRN Reason: Shortness Of Breath Albuterol Inhaler [Ventolin Hfa Inhaler] 2 puff INHALATION RT-QID PRN #1 each PRN Reason: Shortness Of Breath Apixaban [Eliquis] 5 mg PO BID #60 tab Fluticasone/Umeclidin/Vilanter [Trelegy Ellipta 200-62.5-25] 1 puff INHALATION RT-DAILY Multivitamins, Thera [Multivitamin (formulary)] 1 tab PO DAILY Diltiazem Cd [Cardizem CD] 300 mg PO DAILY #30 cap Aspirin EC [Ecotrin Low Dose] 81 mg PO DAILY Isosorbide Mononitrate ER [Imdur] 30 mg PO DAILY #30 tab Metoprolol Tartrate [Lopressor] 50 mg PO TID #90 tab Nitroglycerin Sl Tabs [Nitrostat] 0.4 mg SUBLINGUAL Q5M PRN #20 tab PRN Reason: Chest Pain Discontinued Furosemide [Lasix] 80 mg PO BID@0900,1600 Discharge Medication List Multivitamins, Thera [Multivitamin (formulary)] 1 tab PO DAILY 10/23/21 [History] Albuterol Nebulized [Ventolin Nebulized] 2.5 mg INHALATION RT-QID PRN 12/29/23 [History] Albuterol Inhaler [Ventolin Hfa Inhaler] 2 puff INHALATION RT-QID PRN #1 each 12/31/23 [Rx] Diltiazem Cd [Cardizem CD] 300 mg PO DAILY #30 cap 12/31/23 [Rx] Aspirin EC [Ecotrin Low Dose] 81 mg PO DAILY 02/08/24 [History] Apixaban [Eliquis] 5 mg PO BID #60 tab 02/11/24 [Rx] Isosorbide Mononitrate ER [Imdur] 30 mg PO DAILY #30 tab 02/11/24 [Rx] Metoprolol Tartrate [Lopressor] 50 mg PO TID #90 tab 02/11/24 [Rx] Nitroglycerin Sl Tabs [Nitrostat] 0.4 mg SUBLINGUAL Q5M PRN #20 tab 02/11/24 [Rx] Fluticasone/Umeclidin/Vilanter [Trelegy Ellipta 200-62.5-25] 1 puff INHALATION RT-DAILY 04/28/24 [History] Bumetanide [BUMEX] 1 mg PO BID@0900,1600 30 Days #60 tab 05/01/24 [Rx] Dapagliflozin Propanediol [Farxiga] 10 mg PO DAILY #30 tab 05/01/24 [Rx] Losartan [Cozaar] 12.5 mg PO DAILY 30 Days #15 tab 05/01/24 [Rx] Spironolactone [Aldactone] 25 mg PO DAILY #30 tab 05/01/24 [Rx] Follow up Appointment(s)/Referral(s): Sabrina Clinton DO [Primary Care Provider] - 1-2 days Patient Instructions/Handouts: Heart Failure (DC), A-fib (Atrial Fibrillation) (DC) Activity/Diet/Wound Care/Special Instructions: Follow-up with cardiology in 1 to 2 weeks, get your lab work BMP checked by your family doctor in 1 week. Discharge Disposition: HOME SELF-CARE
--- NOTE | 2024-05-01 19:03 | P.PN ---
Subjective Progress Note Date: 05/01/24 Patient is doing well from cardiovascular standpoint. His lower extremity swelling has resolved, on cardiac examination he has a regular pulse, no significant murmurs, diminished breath sounds in bilateral bases but good air entry in bilateral upper and mid lungs, no significant crackles or rhonchi. Assessment: 1. Acute on chronic HFpEF, possibly secondary to developing resistance to current dose of Lasix. Currently on Lasix 80 mg twice daily. 2. Persistent A-fib - rate controlled. Maintained on Cardizem and Eliquis for anticoagulation. 3. Moderate right sided and small left-sided pleural effusions with acute hypoxic respiratory failure., Status post thoracentesis. Transudative fluid with low LDH levels. 4. Chronic COPD not in exacerbation. Plan: Discontinue IV Lasix. Start Bumex 1 mg p.o. twice daily. Continue Aldactone 25 mg daily Add Farxiga 10 mg daily Continue Cardizem 300 mg daily Losartan 12.5 mg daily Monitor renal function electrolytes and hemodynamics. Case discussed with Dr. Wang to schedule outpatient ablation procedure. Patient is cleared to be discharged from cardiovascular standpoint. Consider outpatient follow-up with Dr. Wang and Dr. Melgoza Patient was asked to repeat his blood work in next 1 week, this includes CBC, CMP, NT proBNP, magnesium level Objective - Vital Signs Vital signs: Vital Signs Temp 98 F 05/01/24 11:34 Pulse 85 05/01/24 11:59 Resp 18 05/01/24 11:34 BP 110/75 05/01/24 11:34 Pulse Ox 97 05/01/24 11:34 FiO2 Intake & Output 05/01/24 05/01/24 05/02/24 06:59 18:59 06:59 Intake Total 1298 Output Total 1380 500 Balance -1380 798 Weight 92.1 kg Intake: IV 600 0.9 600 Oral 698 Output: Urine 1380 500 Other: Voiding Method Urinal Urinal - Labs CBC & Chem 7: 05/01/24 09:18 05/01/24 09:18 Labs: Abnormal Lab Results - Last 24 Hours (Table) 05/01/24 Range/Units 09:18 Carbon Dioxide 32 H (22-30) mmol/L Glucose 51 L (74-99) mg/dL Microbiology - Last 24 Hours (Table) 04/29/24 10:37 Gram Stain - Preliminary Pleural Fluid Body Fluid Culture - Preliminary 04/29/24 10:37 Acid Fast Bacilli Smear - Preliminary Pleural Fluid
== END 2024-05-01 16:43 | disposition home or self-care (01) | DRG 291 ==
LOC: EC 09:18 → 3SCARD 11:03
PROVIDERS: ADMIT Internal Medicine; ATTEND Internal Medicine
PROC: 0W993ZX Drainage of Right Pleural Cavity, Percutaneous Approach, Diagnostic (ICD-10-PCS; principal; 2024-04-29)
DX: I11.0 Hypertensive heart disease with heart failure (principal); I50.33 Acute on chronic diastolic (congestive) heart failure; J96.21 Acute and chronic respiratory failure with hypoxia; I48.19 Other persistent atrial fibrillation; J90 Pleural effusion, not elsewhere classified; Z99.81 Dependence on supplemental oxygen; E78.5 Hyperlipidemia, unspecified; Z87.891 Personal history of nicotine dependence; J44.9 Chronic obstructive pulmonary disease, unspecified; Z79.01 Long term (current) use of anticoagulants; Z79.82 Long term (current) use of aspirin; Z79.899 Other long term (current) drug therapy; Z82.49 Family history of ischemic heart disease and other diseases of the circulatory system; Z11.52 Encounter for screening for COVID-19
CPT/HCPCS: 36415; 71045; 71046; 76604; 80048; 80053; 81003; 82945; 83615; 83735; 83880; 84145; 84157; 84484; 85025; 85610; 85730; 87070; 87116; 87205; 87206; 87636; 88108; 88305; 89050; 93005; 94640; 94760; 96374; 96376; 99291

== ENCOUNTER 2024-05-17 11:35 | Day surgery (SDC) | payer BC, MEDICARE ==
[~2024-05-17 11:35] MED LIST changes: +ALBUTEROL INHALER 60 PUFF/8 GM INHALER (MHU) INHALATION ONE; +CALCIUM CHLORIDE 100 MG/ML 10 ML SYRINGE ONE; +DEXAMETHASONE SOD PHOSPHATE 4 MG/ML 1 ML VIAL ONE; +FUROSEMIDE 10 MG/ML 2 ML VIAL ONE; +HEPARIN SODIUM,PORCINE 10,000 UNIT/ML 1 ML VIAL ONE; +HEPARIN SODIUM,PORCINE 5,000 UNIT/ML 1 ML VIAL ONE; -LACTATED RINGERS 1,000 ML IV SCH; +LIDOCAINE 1% INJ 10MG/ML (20 ML MDV) ONE; +ONDANSETRON 4 MG/2 ML VIAL ONE; +PHENYLEPHRINE 10 MG/ML VIAL ONE; +PROPOFOL 10 MG/ML 20 ML VIAL IV ONE; +ROCURONIUM 10 MG/ML (5 ML VIAL) IV ONE; +SODIUM CHLORIDE 0.9% 1,000 ML BAG ONE; +SUCCINYLCHOLINE CHLORIDE 200 MG/10 ML VIAL IV ONE; +VASOPRESSIN 20 UNIT/ML 1 ML VIAL ONE; +ePHEDrine 50 MG/ML 1 ML VIAL ONE; +fentaNYL (PF) 50 MCG/ML 2 ML AMP ONE
[2024-05-17] MEDS: IOPAMIDOL-370 100ML BTL INJ ONE (11:43)
[2024-05-17] MEDS ORDERED: IPRATROPIUM-ALBUTEROL 3 ML NEB ONE (11:52)
[2024-05-17] MEDS ORDERED: PHENYLEPHRINE-0.9% NACL SYG 1,000 MCG/10 ML SYRINGE ONE (12:34)
[2024-05-17] MEDS ORDERED: IPRATROPIUM 0.5 MG/2.5 ML NEBU INHALATION ONE (17:30)
[2024-05-17] MEDS ORDERED: BUDESONIDE 1 MG/2 ML NEBU INHALATION ONE (17:30)
[2024-05-17] MEDS ORDERED: BUMETANIDE 1 MG TAB ONE ×2 (18:02→20:34)
[2024-05-17] MEDS ORDERED: METOPROLOL TARTRATE 50 MG TAB ONE (20:34)
[2024-05-18] MEDS ORDERED: IPRATROPIUM 0.5 MG/2.5 ML NEBU INHALATION ONE (05:01)
[2024-05-18] MEDS ORDERED: DAPAGLIFLOZIN PROPANEDIOL 10 MG TABLET ONE (08:34)
[2024-05-18] MEDS ORDERED: SPIRONOLACTONE 25 MG TAB ONE (08:34)
[2024-05-18] MEDS ORDERED: LOSARTAN 25 MG TAB ONE (08:34)
[2024-05-18] MEDS ORDERED: ISOSORBIDE MONONITRATE ER 30 MG TAB.ER.24H PO ONE (08:34)
[2024-05-18] MEDS ORDERED: ASPIRIN 81 MG ONE (08:34)
[2024-05-18] MEDS ORDERED: APIXABAN 5 MG TAB ONE (08:35)
[2024-05-18] MEDS ORDERED: BUMETANIDE 1 MG TAB ONE (08:35)
--- NOTE | 2024-06-24 14:44 | HP ---
HISTORY AND PHYSICAL PRIMARY ATTENDING: Dr. Wang. HISTORY OF PRESENT ILLNESS: Mr. Torres is a patient of Dr. Melgoza and Dr. Clinton. He has had long-standing atrial fibrillation that was first documented between 2010 and 2012 and then subsequently became persistent. He was admitted to the hospital several months back with COPD exacerbation and was found to be in AFib with RVR. Subsequently, he has had multiple admissions for shortness of breath related to congestive heart failure, diastolic in nature with right- sided pleural effusion. He has had thoracentesis for this and was found to be a transudate consistent with heart failure. He was also admitted for the same reason to [facility] in the month of February and then subsequently here again in the hospital 2 to 3 weeks back. Despite high-dose beta blockers and AV camron and calcium channel blockers, atrial fibrillation rates are not well controlled even at rest. His coronary angiogram did not show any significant coronary artery disease, but showed an elevated LVEDP. He has past history of smoking and he stopped smoking just this year. PAST MEDICAL HISTORY: He had COPD, normal coronary arteries, but elevated LVEDP consistent with diastolic left ventricular failure. MEDICATION LIST: 1. Bumex 1 mg p.o. b.i.d. 2. Aspirin 81 mg daily. 3. Cardizem long-acting 300 mg daily. 4. Eliquis 5 mg twice daily. 5. Isosorbide 30 mg p.o. daily long-acting. 6. Losartan. 7. Low dose metoprolol 25 mg 3 times a day. 8. Losartan 12.5 mg daily. 9. Spironolactone 25 mg p.o. daily. CURRENT CONDITION AND REVIEW OF SYSTEMS: He still complains of shortness of breath, but he is able to lie flat in bed. PHYSICAL EXAMINATION: VITAL SIGNS: His blood pressure was in the normal range. Heart rate was about 110 beats per minute irregular during the resting state. GENERAL: He was able to lie flat in bed. I laid him flat for about 15-20 minutes to observe him for any worsening shortness of breath or orthopnea and he did not develop any and therefore we decided to proceed with the procedure. LUNGS: However on examination, there was dullness at the right base consistent with pleural effusion. Left side air entry is better. HEART: Sounds are irregular. No murmurs. NECK: No JVD. EXTREMITIES: No lower extremity edema. SKIN: Warm. IMPRESSION: Long-standing persistent atrial fibrillation that is triggering diastolic heart failure. He has had recurrent hospital admissions for pleural effusions predominantly right- sided and has undergone thoracentesis. His rates are not well controlled despite 2 AV camron blocking drugs in fairly large doses. His LV function is normal, coronary arteries are normal. PLAN: I had a detailed discussion with the patient and his family members regarding his atrial fibrillation ablation. Today once again, we will proceed with the atrial fibrillation ablation with PVI and linear ablation of the left atrial roof. A Platt catheter will be placed first, IV Lasix will be administered and Eliquis will be continued post procedure. MMODL / IJN: [id number] /
--- NOTE | 2024-06-24 14:44 | CE ---
CARDIAC ELECTROPHYSIOLOGY REPORT PROCEDURE PERFORMED: Atrial fibrillation ablation procedure performed on May 17, 2024. The patient was brought to the EP lab in a fasting state. Written informed consent was obtained prior to the procedure. General anesthesia was provided. Following that, the esophageal temperature probe and esophageal endoscope for deflection was placed. The right and left groins were then prepped and draped as per protocol, venous sheaths were placed in the right and left femoral veins. Intracardiac echo catheter, diagnostic catheters and mapping ablation catheters were placed. Intracardiac echo revealed preserved LV size systolic function, thickened pericardium. No pericardial effusion and no left atrial appendage thrombus and dilated left atrium as well as dilated right atrium. The cryoablation catheter was prepped per protocol and was placed in the right atrium. Transseptal catheterization was performed. Anticoagulation had already been started. Left atrium was accessed transseptally. A mid puncture was successfully performed under intracardiac echo guidance. Right atrial pressure 15/7/11 and left atrial pressures 16/5/10 mmHg. The patient was in atrial fibrillation at the start of the study. The coronary sinus electrograms revealed very disorganized rhythm. Later, once the patient was cardioverted following ablation, sinus cycle length was 794 milliseconds, PA interval was 153 milliseconds, QRS 78 milliseconds, and QT interval was 361 milliseconds. AH interval 80 milliseconds and HV interval 45 milliseconds. Atrial fibrillation ablation with cryoablation was successfully performed. The right- sided pulmonary veins were difficult to occlude because of the angle of entry of the right inferior pulmonary vein. Multiple attempts were made, but successful ablation after occlusion was performed. The right superior pulmonary vein was very large with 2 very large tributaries which were individually isolated and complete successful isolation was performed. This took multiple attempts since this required counter- clockwise torque for complete occlusion. Multiple short lesions were administered. The left-sided veins were successfully ablated with cryoablation at an antral level. The left atrial roof was ablated with serial, sequential ablation lesions which were overlapping. Following that, isolation of the pulmonary veins at an antral level was conformed with voltage mapping and complete isolation and ablation of the left atrial roof in the upper posterior wall was confirmed. Ablation of the left atrial septum was performed with the cryoballoon occluding the inferior branch of the superior vein and this was also confirmed with voltage mapping. However, the patient remained in atrial fibrillation and he underwent successful electrical cardioversion. Following that, the sheaths were removed, closure devices were applied. The patient was extubated. The patient received IV heparin, IV Lasix, and later IV calcium to reverse the effects of Cardizem. PLAN: 1. Continue Eliquis. 2. Continue all medications with the exception of Cardizem CD, which will be held, and he will follow up with Dr. Melgoza upon discharge. The patient tolerated the procedure well without any acute complications. Please note that this was a longer procedure than usual on account of difficulty with occlusion of the right-sided veins as well as difficulty with ablation of the mid left atrial roof, several overlapping lesions were applied from the right side as well as from the left side of the left atrial roof to achieve complete isolation and this was confirmed with voltage mapping. MMODL / IJN: [id number] /
== END 2024-05-18 10:25 | disposition home or self-care (01) ==
LOC: 6NMEDSUR 11:35 → CATHCVL 11:35 → UNDOADMOB 11:35 → CATHCVL 05-18 10:25 → UNDODISOB 05-18 10:30 → EDSTATUS 07-26 20:34
PROVIDERS: ATTEND Internal Medicine Clinical Cardiac Electrophysiology
DX: I48.11 Longstanding persistent atrial fibrillation (principal); I11.0 Hypertensive heart disease with heart failure; I50.30 Unspecified diastolic (congestive) heart failure; J44.9 Chronic obstructive pulmonary disease, unspecified; I27.20 Pulmonary hypertension, unspecified; Z79.82 Long term (current) use of aspirin; Z79.01 Long term (current) use of anticoagulants; Z79.899 Other long term (current) drug therapy; Z88.8 Allergy status to other drugs, medicaments and biological substances; Z87.891 Personal history of nicotine dependence
CPT/HCPCS: 93656; 86900; 86901; 86850; G0378 ×2; C1759; C1894 ×2; C1769 ×3; C1760 ×2; C1730 ×2; C1731; C1893; C1733; C1766; J0330; J1644 ×2; J1100; J1940; J2405; J2001; J3010; J2704; Q9967; J2371 ×2

== ENCOUNTER → 2024-07-06 | Outpatient (CLI) | payer BC ==
--- NOTE | 2024-07-06 13:11 | XR ---
EXAMINATION TYPE: XR chest 2V DATE OF EXAM: 07/06/2024 12:47 PM COMPARISON: Chest radiographs from 04/29/2024 TECHNIQUE: XR chest 2V Frontal and lateral views of the chest. CLINICAL INDICATION:Male, 64 years old with history of R06.02 SOB J90 Pleural effusion; FINDINGS: Lungs/Pleura: No pneumothorax. Similar bibasilar patchy opacities. Blunting of the right costophrenic angle. Pulmonary vascularity: Unremarkable. Heart/mediastinum: Cardiomediastinal silhouette is unremarkable. Musculoskeletal: No acute osseous pathology. IMPRESSION: Similar bibasilar patchy opacities with small right pleural effusion. Findings may relate to atelecta sis/scarring and/or pneumonia in the appropriate clinical setting. [facility], , 07/06/2024 1:09 PM
== END | disposition home or self-care (01) ==
LOC: RADXRMAIN 12:19
PROVIDERS: ATTEND Internal Medicine
DX: J90 Pleural effusion, not elsewhere classified (principal); J98.11 Atelectasis
CPT/HCPCS: 71046

== ENCOUNTER 2024-07-09 12:04 | Day surgery (SDC) | payer BC ==
[~2024-07-09 12:04] MED LIST changes: -ALBUTEROL INHALER 60 PUFF/8 GM INHALER (MHU) INHALATION ONE; -CALCIUM CHLORIDE 100 MG/ML 10 ML SYRINGE ONE; -DEXAMETHASONE SOD PHOSPHATE 4 MG/ML 1 ML VIAL ONE; -FUROSEMIDE 10 MG/ML 2 ML VIAL ONE; -HEPARIN SODIUM,PORCINE 10,000 UNIT/ML 1 ML VIAL ONE; -HEPARIN SODIUM,PORCINE 5,000 UNIT/ML 1 ML VIAL ONE; -LIDOCAINE 1% INJ 10MG/ML (20 ML MDV) ONE; -ONDANSETRON 4 MG/2 ML VIAL ONE; -PHENYLEPHRINE 10 MG/ML VIAL ONE; -PROPOFOL 10 MG/ML 20 ML VIAL IV ONE; -ROCURONIUM 10 MG/ML (5 ML VIAL) IV ONE; -SODIUM CHLORIDE 0.9% 1,000 ML BAG ONE; +SODIUM CHLORIDE 0.9% 1,000 ML IV SCH; -SUCCINYLCHOLINE CHLORIDE 200 MG/10 ML VIAL IV ONE; -VASOPRESSIN 20 UNIT/ML 1 ML VIAL ONE; -ePHEDrine 50 MG/ML 1 ML VIAL ONE; -fentaNYL (PF) 50 MCG/ML 2 ML AMP ONE
[2024-07-09] MEDS: IV FLUID CONTINUATION 500 ML IV ONE (12:46)
[2024-07-09] MEDS ORDERED: LIDOCAINE 1% INJ 10MG/ML (20 ML MDV) ONE (13:00)
[2024-07-09] MEDS ORDERED: PROPOFOL 10 MG/ML 20 ML VIAL IV ONE (13:00)
[2024-07-09 13:20] LABS: African American GFR (CKD) >90 (>60 ml/min/1.73 sqM); Anion Gap 7 mmol/L; Blood Urea Nitrogen 26 mg/dL (9-20); Calcium 9.2 mg/dL (8.4-10.2); Carbon Dioxide 23 mmol/L (22-30); Chloride 109 mmol/L (98-107); Glucose 100 mg/dL (74-99); Non-African American GFR(CKD) 80 (>60 ml/min/1.73 sqM); Potassium 4.1 mmol/L (3.5-5.1); Sodium 139 mmol/L (137-145)
[2024-07-09 14:07] VITALS: RESP 20
--- NOTE | 2024-07-09 14:24 | P.PCN ---
Description of Procedure: Procedure performed:Synchronized cardioversion Moderate conscious sedation: Moderate conscious sedation was supplied by anesthesia, see separate report. Complications: none Indications: Persistent Afib PROCEDURE: After the risks, benefits and alternatives of the above mentioned procedure was explained in detail with the patient, informed consent was obtained. Patient was brought to the lab in a fasting state. Patient was given sedation by anesthesia, see separate report. Patient had been on anticoagulation without interruption for > 30 days. Patient underwent synchronized cardioversion x 1 with 200J with resultant sinus rhythm. Patient tolerated the procedure well. Patient was transferred to the post procedure area in stable and satisfactory condition.
[2024-07-09 14:41] VITALS: BP 104/61; PULSE 71
== END 2024-07-09 14:49 | disposition home or self-care (01) ==
LOC: OR 12:04
PROVIDERS: ATTEND Internal Medicine
CPT/HCPCS: 80048; 92960

== ENCOUNTER 2024-07-10 13:38 | Inpatient (IN) | payer BC, MEDICARE ==
--- NOTE | 2024-07-10 13:57 | ED ---
General Adult HPI - General Chief complaint: Shortness of Breath Stated complaint: SOB Time Seen by Provider: 07/10/24 13:40 Source: patient, family, RN notes reviewed Mode of arrival: wheelchair Limitations: no limitations - History of Present Illness Initial comments: Patient is a 64-year-old male present to the emergency department with difficulty breathing. Patient does have chronic COPD with similar symptoms. Symptoms have been somewhat worse over the past couple weeks, worse the past 24 hours. Patient does have occasional cough with occasional givens sputum. Patient did have cardioversion done yesterday for chronic A-fib. Patient is on Eliquis. No leg pain or leg swelling. Patient occasionally uses oxygen at nighttime - Related Data Home Medications Medication Instructions Recorded Confirmed Multivitamins, Thera [Multivitamin 1 tab PO DAILY 10/23/21 07/09/24 (formulary)] Albuterol Nebulized [Ventolin 2.5 mg INHALATION RT-QID PRN 12/29/23 07/09/24 Nebulized] Aspirin EC [Ecotrin Low Dose] 81 mg PO DAILY 02/08/24 07/09/24 Fluticasone/Umeclidin/Vilanter 1 puff INHALATION RT-DAILY 04/28/24 07/09/24 [Trelegy Ellipta 200-62.5-25] Amiodarone [Cordarone] 400 mg PO BID 07/08/24 07/09/24 Previous Rx's Medication Instructions Recorded Albuterol Inhaler [Ventolin Hfa 2 puff INHALATION RT-QID PRN #1 12/31/23 Inhaler] each Diltiazem Cd [Cardizem CD] 300 mg PO DAILY #30 cap 12/31/23 Apixaban [Eliquis] 5 mg PO BID #60 tab 02/11/24 Isosorbide Mononitrate ER [Imdur] 30 mg PO DAILY #30 tab 02/11/24 Metoprolol Tartrate [Lopressor] 50 mg PO TID #90 tab 02/11/24 Nitroglycerin Sl Tabs [Nitrostat] 0.4 mg SUBLINGUAL Q5M PRN #20 tab 02/11/24 Bumetanide [BUMEX] 1 mg PO BID@0900,1600 30 Days #60 05/01/24 tab Dapagliflozin Propanediol [Farxiga] 10 mg PO DAILY #30 tab 05/01/24 Losartan [Cozaar] 12.5 mg PO DAILY 30 Days #15 tab 05/01/24 Spironolactone [Aldactone] 25 mg PO DAILY #30 tab 05/01/24 Allergies Allergy/AdvReac Type Severity Reaction Status Date / Time lisinopril AdvReac CAUSED Verified 07/09/24 12:19 FATIGUE Review of Systems ROS Statement: Those systems with pertinent positive or pertinent negative responses have been documented in the HPI. ROS Other: All systems not noted in ROS Statement are negative. Constitutional: Denies: fever Eyes: Denies: eye pain ENT: Denies: ear pain Respiratory: Reports: as per HPI, cough, dyspnea Cardiovascular: Denies: edema Endocrine: Reports: fatigue Gastrointestinal: Denies: abdominal pain Past Medical History Past Medical History: Atrial Fibrillation, Heart Failure, COPD, Hyperlipidemia, Hypertension Additional Past Medical History / Comment(s): COVID 08/21 History of Any Multi-Drug Resistant Organisms: None Reported Additional Past Surgical History / Comment(s): REPAIR TENDON OF LEFT HAND (CHILDHOOD), sinus surgery , COLONOSCOPY Past Anesthesia/Blood Transfusion Reactions: No Reported Reaction Past Psychological History: No Psychological Hx Reported Smoking Status: Former smoker - Past Family History Mother Family Medical History: Cancer Additional Family Medical History / Comment(s): Passed from dementia Father Family Medical History: Congestive Heart Failure (CHF), COPD Additional Family Medical History / Comment(s): Passed from heart/lung disease General Exam Limitations: no limitations General appearance: alert Head exam: Present: normocephalic Eye exam: Present: normal appearance Neck exam: Present: normal inspection Respiratory exam: Present: respiratory distress, accessory muscle use, decreased breath sounds Cardiovascular Exam: Present: regular rate, normal rhythm GI/Abdominal exam: Present: soft. Absent: tenderness Extremities exam: Present: normal inspection. Absent: pedal edema, calf tenderness Neurological exam: Present: alert Psychiatric exam: Present: normal affect, normal mood Skin exam: Present: normal color Course Vital Signs 07/10/24 07/10/24 07/10/24 13:42 13:53 13:58 Temperature 97.7 F Pulse Rate 71 68 Respiratory 32 H 30 H Rate Blood Pressure 107/65 O2 Sat by Pulse 85 L 97 Oximetry 07/10/24 14:08 Temperature Pulse Rate 67 Respiratory Rate Blood Pressure O2 Sat by Pulse Oximetry EKG Findings - EKG Results: EKG: interpreted by ERMD (Right axis. Nonspecific T waves.), sinus rhythm, normal QRS Medical Decision Making - Medical Decision Making Was pt. sent in by a medical professional or institution ([facility] Areval[facility], [employer], urgent care, hospital, or prison...) When possible be specific @ -No Did you speak to anyone other than the patient for history (EMS, parent, family, police, friend...)? What history was obtained from this source @ -Family is present and helps provide history of COPD as well as recent cardioversion Did you review nursing and triage notes (agree or disagree)? Why? @ -I reviewed and agree with nursing and triage notes Were old charts reviewed (outside hosp., previous admission, EMS record, old EKG, old radiological studies, urgent care reports/EKG's, prison records)? Report findings @ -Previous chest x-rays reviewed Differential Diagnosis (chest pain, altered mental status, abdominal pain women, abdominal pain men, vaginal bleeding, weakness, fever, dyspnea, syncope, headache, dizziness, GI bleed, back pain, seizure, CVA, palpatations, mental health, musculoskeletal)? @ -Differential Dyspnea: Coronary syndrome, arrhythmia, tamponade, asthma, COPD, pulmonary embolism, pneumonia, pneumothorax, pulmonary effusion, anaphylaxis, diabetic ketoacidosis, flailed chest, pulmonary contusion, diaphragmatic rupture, anemia, n euromuscular, this is not meant to be an all-inclusive list. EKG interpreted by me (3pts min.). @ -As above X-rays interpreted by me (1pt min.). @ -Chest x-ray does show COPD changes. Atelectasis versus bibasilar CT interpreted by me (1pt min.). @ -None done U/S interpreted by me (1pt. min.). @ -None done What testing was considered but not performed or refused? (CT, X-rays, U/S, labs)? Why? @ -None What meds were considered but not given or refused? Why? @ -None Did you discuss the management of the patient with other professionals (professionals i.e. MONICA Arevalo, [employer], lab, RT, psych nurse, social and human services assistant, residential direct support professional, teacher, production officer, director case)? Give summary @ -Case discussed with Dr. Pavon who will admit covering Dr. Crews Was smoking cessation discussed for >3mins.? @ -No Was critical care preformed (if so, how long)? @ -No Were there social determinants of health that impacted care today? How? (Homelessness, low income, unemployed, alcoholism, drug addiction, transp ortation, low edu. Level, literacy, decrease access to med. care, shelter, rehab)? @ -No Was there de-escalation of care discussed even if they declined (Discuss DNR or withdrawal of care, Hospice)? DNR status @ -No What co-morbidities impacted this encounter? (DM, HTN, Smoking, COPD, CAD, Cancer, CVA, ARF, Chemo, Hep., AIDS, mental health diagnosis, sleep apnea, morbid obesity)? @ -History of COPD and history of A-fib with recent cardioversion Was patient admitted / discharged? Hospital course, mention meds given and route, prescriptions, significant lab abnormalities, going to OR and other p ertinent info. @ -Patient presents with dyspnea consistent with previous COPD. Questionable infiltrate. Patient will be admitted. Admission orders written. Consults will be placed. Undiagnosed new problem with uncertain prognosis? @ -No Drug Therapy requiring intensive monitoring for toxicity (Heparin, Nitro, Insulin, Cardizem)? @ -No Were any procedures done? @ -No Diagnosis/symptom? @ -COPD Acute, or Chronic, or Acute on Chronic? @ -Acute Uncomplicated (without systemic symptoms) or Complicated (systemic symptoms)? @ -Default Side effects of treatment? @ -No Exacerbation, Progression, or Severe Exacerbation? @ -No Poses a threat to life or bodily function? How? (Chest pain, [place], [place], pneumonia, PE, COPD, DKA, ARF, appy, cholecystitis, CVA, Diverticulitis, Homicidal, Suicidal, threat to staff... and all critical care pts) @ -Pulmonary function - Lab Data Result diagrams: 07/10/24 14:12 07/10/24 14:12 Lab Results 07/10/24 07/10/24 07/10/24 Range/Units 14:12 14:12 14:12 WBC 9.2 (3.8-10.6) k/uL RBC 4.95 (4.30-5.90) m/uL Hgb 14.0 (13.0-17.5) gm/dL Hct 43.3 (39.0-53.0) % MCV 87.4 (80.0-100.0) fL MCH 28.3 (25.0-35.0) pg MCHC 32.4 (31.0-37.0) g/dL RDW 15.4 (11.5-15.5) % Plt Count 292 (150-450) k/uL MPV 7.0 Neutrophils % 81 % Lymphocytes % 9 % Monocytes % 6 % Eosinophils % 1 % Basophils % 0 % Neutrophils # 7.5 (1.3-7.7) k/uL Lymphocytes # 0.8 L (1.0-4.8) k/uL Monocytes # 0.6 (0-1.0) k/uL Eosinophils # 0.1 (0-0.7) k/uL Basophils # 0.0 (0-0.2) k/uL PT 11.5 (10.0-12.5) sec INR 1.1 (<1.2) APTT 25.2 (22.0-30.0) sec Sodium 139 (137-145) mmol/L Potassium 4.0 (3.5-5.1) mmol/L Chloride 106 (98-107) mmol/L Carbon Dioxide 24 (22-30) mmol/L Anion Gap 9 mmol/L BUN 32 H (9-20) mg/dL Creatinine 1.10 (0.66-1.25) mg/dL Est GFR (CKD-EPI)AfAm 81 (>60 ml/min/1.73 sqM) Est GFR (CKD-EPI)NonAf 70 (>60 ml/min/1.73 sqM) Glucose 119 H (74-99) mg/dL Plasma Lactic Acid Dickson (0.7-2.0) mmol/L Calcium 9.0 (8.4-10.2) mg/dL Magnesium 2.1 (1.6-2.3) mg/dL Total Bilirubin 0.8 (0.2-1.3) mg/dL AST 23 (17-59) U/L ALT 19 (4-49) U/L Alkaline Phosphatase 95 (38-126) U/L Troponin I (0.000-0.034) ng/mL NT-Pro-B Natriuret Pep 5100 pg/mL Total Protein 6.6 (6.3-8.2) g/dL Albumin 3.8 (3.5-5.0) g/dL 07/10/24 07/10/24 Range/Units 14:12 14:12 WBC (3.8-10.6) k/uL RBC (4.30-5.90) m/uL Hgb (13.0-17.5) gm/dL Hct (39.0-53.0) % MCV (80.0-100.0) fL MCH (25.0-35.0) pg MCHC (31.0-37.0) g/dL RDW (11.5-15.5) % Plt Count (150-450) k/uL MPV Neutrophils % % Lymphocytes % % Monocytes % % Eosinophils % % Basophils % % Neutrophils # (1.3-7.7) k/uL Lymphocytes # (1.0-4.8) k/uL Monocytes # (0-1.0) k/uL Eosinophils # (0-0.7) k/uL Basophils # (0-0.2) k/uL PT (10.0-12.5) sec INR (<1.2) APTT (22.0-30.0) sec Sodium (137-145) mmol/L Potassium (3.5-5.1) mmol/L Chloride (98-107) mmol/L Carbon Dioxide (22-30) mmol/L Anion Gap mmol/L BUN (9-20) mg/dL Creatinine (0.66-1.25) mg/dL Est GFR (CKD-EPI)AfAm (>60 ml/min/1.73 sqM) Est GFR (CKD-EPI)NonAf (>60 ml/min/1.73 sqM) Glucose (74-99) mg/dL Plasma Lactic Acid Dickson 1.4 (0.7-2.0) mmol/L Calcium (8.4-10.2) mg/dL Magnesium (1.6-2.3) mg/dL Total Bilirubin (0.2-1.3) mg/dL AST (17-59) U/L ALT (4-49) U/L Alkaline Phosphatase (38-126) U/L Troponin I <0.012 (0.000-0.034) ng/mL NT-Pro-B Natriuret Pep pg/mL Total Protein (6.3-8.2) g/dL Albumin (3.5-5.0) g/dL Disposition Clinical Impression: COPD exacerbation Disposition: ADMITTED IP TO THIS HOSP Is patient prescribed a controlled substance at d/c from ED?: No Referrals: Sabrina Crews DO [Primary Care Provider] - 1-2 days Time of Disposition: 15:02
[2024-07-10] MEDS: IPRATROPIUM-ALBUTEROL 3 ML NEB INHALATION STA (13:58)
[2024-07-10] MEDS: methylPREDNISolone SOD SUCCI 125 MG/2 ML VIAL IV STA (14:05)
[2024-07-10 14:17] LABS: Basophils % (A) 0 %; Eosinophils # (A) 0.1 k/uL (0-0.7); Eosinophils % (A) 1 %; HCT 43.3 % (39.0-53.0); Lymphocytes # (A) 0.8 k/uL (1.0-4.8); Lymphocytes % (A) 9 %; MCH 28.3 pg (25.0-35.0); MCHC 32.4 g/dL (31.0-37.0); MCV 87.4 fL (80.0-100.0); Monocytes # (A) 0.6 k/uL (0-1.0); Monocytes % (A) 6 %; Neutrophils # (A) 7.5 k/uL (1.3-7.7); Neutrophils % (A) 81 %; Platelet Count 292 k/uL (150-450); RBC 4.95 m/uL (4.30-5.90); RDW 15.4 % (11.5-15.5); WBC 9.2 k/uL (3.8-10.6)
--- NOTE | 2024-07-10 14:22 | XR ---
EXAMINATION TYPE: XR chest 2V DATE OF EXAM: 07/10/2024 COMPARISON: 07/06/2024 INDICATION: Difficulty breathing TECHNIQUE: Frontal and lateral views of the chest are obtained. FINDINGS: The heart size is normal. The pulmonary vasculature is normal. Left lower lobe infiltrate is present. Right lower lobe increased opacity is present. There may be so me elevation of the right diaphragm. Correlate for atelectasis and pneumonia. IMPRESSION: 1. Bibasilar infiltrates and opacities. Correlate for atelectasis and pneumonia. Findings appear taya lar to comparison [facility], Workstation: [email or web address], 07/10/2024 2:20 PM
[2024-07-10 14:26] LABS: INR 1.1 (<1.2); Partial Thromboplastin Time 25.2 sec (22.0-30.0); Prothrombin Time 11.5 sec (10.0-12.5)
[2024-07-10 14:28] LABS: ALT 19 U/L (4-49); AST 23 U/L (17-59); African American GFR (CKD) 81 (>60 ml/min/1.73 sqM); Albumin 3.8 g/dL (3.5-5.0); Alkaline Phosphatase 95 U/L (38-126); Anion Gap 9 mmol/L; Blood Urea Nitrogen 32 mg/dL (9-20); Carbon Dioxide 24 mmol/L (22-30); Chloride 106 mmol/L (98-107); Glucose 119 mg/dL (74-99); Magnesium 2.1 mg/dL (1.6-2.3); Non-African American GFR(CKD) 70 (>60 ml/min/1.73 sqM); Sodium 139 mmol/L (137-145); Total Bilirubin 0.8 mg/dL (0.2-1.3); Total Protein 6.6 g/dL (6.3-8.2)
[2024-07-10 14:36] LABS: NT-Pro-B-Type Natriuretic Pept 5100 pg/mL
[2024-07-10] MEDS ORDERED: IPRATROPIUM-ALBUTEROL 3 ML NEB INHALATION PRN (15:02)
[2024-07-10] MEDS ORDERED: ACETAMINOPHEN TAB 325 MG TAB PO PRN (15:02)
[2024-07-10] MEDS ORDERED: NALOXONE 0.4 MG/ML 1 ML VIAL IVP PRN (15:02)
[2024-07-10] MEDS: IPRATROPIUM-ALBUTEROL 3 ML NEB INHALATION SCH (15:16)
[2024-07-10] MEDS: AZITHROMYCIN 500 MG in SODIUM CHLORIDE 0.9% 250 ML IVPB SCH (15:45)
--- NOTE | 2024-07-10 17:05 | P.HPIM ---
History of Present Illness This is a pleasant 64-year-old male with past medical history of multiple medical problems including COPD and chronic hypoxic respiratory failure on 2 to 3 L of oxygen via nasal cannula, who quit smoking last January. Presents because of worsening dyspnea and coughing with little white-grayish phlegm for the last couple weeks getting worse over the last 2 to 3 days with no history of or chest pain Patient denies GI/ symptoms. 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 On admission he was tachypneic with heart rate around 30. He is afebrile. He has unremarkable CBC, BMP, liver enzymes, INR and troponin EKG showing sinus rhythm at [address]-T changes Chest x-ray showing bilateral basal opacities suspicious for atelectasis versus infiltrate however it is similar to previous chest x-ray comparison, I reviewed the last 2 chest x-ray and agree with these findings proBNP is mildly elevated at 5100 Influenza A and type B, RSV, SARS (coronavirus) are undetected Echo from 01/2024 showing ejection fraction of 50 to 55% Review of Systems Review of systems CONSTITUTIONAL: No fever, no malaise, no fatigue. HEENT: No recent visual problems or hearing problems. Denied any sore throat. CARDIOVASCULAR: No orthopnea, PND, no palpitations, no syncope. PULMONARY: No chest wall tenderness, no hemoptysis. GASTROINTESTINAL: No diarrhea, no nausea, no vomiting, no abdominal pain. Normoactive bowel sounds. NEUROLOGICAL: No headaches, no weakness, no numbness. HEMATOLOGICAL: Denies any bleeding or petechiae. GENITOURINARY: Denies any burning micturition, frequency, or urgency. MUSCULOSKELETAL/RHEUMATOLOGICAL: Denies any joint pain, swelling, or any muscle pain. ENDOCRINE: Denies any polyuria or polydipsia. Past Medical History Past Medical History: Atrial Fibrillation, Heart Failure, COPD, Hyperlipidemia, Hypertension Additional Past Medical History / Comment(s): COVID 08/21 History of Any Multi-Drug Resistant Organisms: None Reported Additional Past Surgical History / Comment(s): REPAIR TENDON OF LEFT HAND (CHILDHOOD), sinus surgery , COLONOSCOPY Past Anesthesia/Blood Transfusion Reactions: No Reported Reaction Past Psychological History: No Psychological Hx Reported Smoking Status: Former smoker - Past Family History Mother Family Medical History: Cancer Additional Family Medical History / Comment(s): Passed from dementia Father Family Medical History: Congestive Heart Failure (CHF), COPD Additional Family Medical History / Comment(s): Passed from heart/lung disease Medications and Allergies Home Medications Medication Instructions Recorded Confirmed Type Multivitamins, Thera [Multivitamin 1 tab PO DAILY 10/23/21 07/10/24 History (formulary)] Albuterol Nebulized [Ventolin 2.5 mg INHALATION RT-QID PRN 12/29/23 07/10/24 History Nebulized] Albuterol Inhaler [Ventolin Hfa 2 puff INHALATION RT-QID PRN #1 12/31/23 07/10/24 Rx Inhaler] each Diltiazem Cd [Cardizem CD] 300 mg PO DAILY #30 cap 12/31/23 07/10/24 Rx Aspirin EC [Ecotrin Low Dose] 81 mg PO DAILY 02/08/24 07/10/24 History Isosorbide Mononitrate ER [Imdur] 30 mg PO DAILY #30 tab 02/11/24 07/10/24 Rx Metoprolol Tartrate [Lopressor] 50 mg PO TID #90 tab 02/11/24 07/10/24 Rx Fluticasone/Umeclidin/Vilanter 1 puff INHALATION RT-DAILY 04/28/24 07/10/24 His tory [Trelegy Ellipta 200-62.5-25] Bumetanide [BUMEX] 1 mg PO BID@0900,1600 30 Days #60 05/01/24 07/10/24 Rx tab Dapagliflozin Propanediol [Farxiga] 10 mg PO DAILY #30 tab 05/01/24 07/10/24 Rx Losartan [Cozaar] 12.5 mg PO DAILY 30 Days #15 tab 05/01/24 07/10/24 Rx Spironolactone [Aldactone] 25 mg PO DAILY #30 tab 05/01/24 07/10/24 Rx Amiodarone [Cordarone] 400 mg PO BID@0900,1600 07/10/24 07/10/24 History Apixaban [Eliquis] 5 mg PO BID@0900,1600 07/10/24 07/10/24 History Nitroglycerin Sl Tabs [Nitrostat] 0.4 mg SL Q5M PRN 07/10/24 07/10/24 History Allergies Allergy/AdvReac Type Severity Reaction Status Date / Time lisinopril AdvReac CAUSED Verified 07/09/24 12:19 FATIGUE Physical Exam Vitals: Vital Signs Temp Pulse Pulse Resp BP BP Pulse Ox 07/10/24 15:58 97.7 F 85 17 123/77 91 L 07/10/24 15:45 97.9 F 78 18 105/67 99 07/10/24 15:26 76 07/10/24 15:16 74 07/10/24 15:02 71 23 103/73 95 07/10/24 14:08 67 07/10/24 13:58 68 07/10/24 13:53 30 H 97 07/10/24 13:42 97.7 F 71 32 H 107/65 85 L Intake and Output 07/10/24 07/10/24 07/10/24 06:59 14:59 22:59 Other: Weight 92.986 kg GENERAL: The patient is alert and oriented x3, not in any acute distress. Well developed, well nourished. HEENT: Pupils are round and equally reacting to light. EOMI. No scleral icterus. No conjunctival pallor. Normocephalic, atraumatic. No pharyngeal erythema. No thyromegaly. CARDIOVASCULAR: S1 and S2 present. No murmurs, rubs, or gallops. -PULMONARY: Chest is clear to auscultation, bilateral scattered wheezing wheezing , no crackles. Tachypnea ABDOMEN: Soft, nontender, nondistended, normoactive bowel sounds. No palpable organomegaly. MUSCULOSKELETAL: No joint swelling or deformity. EXTREMITIES: No cyanosis, clubbing, or pedal edema. NEUROLOGICAL: Gross neurological examination did not reveal any focal deficits. SKIN: No rashes. no petechiae. Results CBC & Chem 7: 07/10/24 14:12 07/10/24 14:12 Labs: Abnormal Lab Results - Last 24 Hours (Table) 07/10/24 07/10/24 Range/Units 14:12 14:12 Lymphocytes # 0.8 L (1.0-4.8) k/uL BUN 32 H (9-20) mg/dL Glucose 119 H (74-99) mg/dL Assessment and Plan Assessment: Acute COPD exacerbation Acute on chronic hypoxic respiratory failure Bilateral basal infiltrate mostly atelectasis. Cannot rule out pneumonia chronic atrial fibrillation on Eliquis Chronic heart failure, with preserved ejection fraction Hyperlipidemia Hypertension Ex-smoker Plan: Continue with IV Solu-Medrol Starting Zithromax Check procalcitonin Continue with Eliquis Continue with aspirin Cardiology and pulmonary consults Continue with the breathing treatment Labs and medication were reviewed.. Continue same treatment. Continue with symptomatic treatment. Resume home medication. Monitor labs and vitals. DVT and GI prophylaxis. Further recommendations as per clinical course of the patient DVT prophylaxis: Eliquis GI Prophylaxis: Pepcid Prognosis is guarded
[2024-07-10] MEDS: methylPREDNISolone SOD SUCCI 125 MG/2 ML VIAL IV SCH (17:56)
[2024-07-10] MEDS: AMIODARONE 200 MG TAB PO SCH (17:56)
[2024-07-10] MEDS: APIXABAN 5 MG TAB PO SCH (17:56)
[2024-07-10] MEDS: BUMETANIDE 1 MG TAB PO SCH (17:57)
[2024-07-10] MEDS: METOPROLOL TARTRATE 50 MG TAB PO SCH (17:58)
[2024-07-10] MEDS: SYMBICORT 160-4.5 MCG INHALER INHALATION SCH (20:26)
[2024-07-11] MEDS ORDERED: IPRATROPIUM 0.5 MG/2.5 ML NEBU INHALATION SCH (08:00)
[2024-07-11] MEDS: MULTIVITAMINS, THERA 1 EACH TAB PO SCH (08:52)
[2024-07-11] MEDS: DILTIAZEM CD 300 MG CAP.ER.24H PO SCH (08:52)
[2024-07-11] MEDS: LOSARTAN 25 MG TAB PO SCH (08:52)
[2024-07-11] MEDS: DAPAGLIFLOZIN PROPANEDIOL 10 MG TABLET PO SCH (08:52)
[2024-07-11] MEDS: ASPIRIN 81 MG PO SCH (08:53)
[2024-07-11] MEDS: SPIRONOLACTONE 25 MG TAB PO SCH (08:57)
[2024-07-11] MEDS: ISOSORBIDE MONONITRATE ER 30 MG TAB.ER.24H PO SCH (08:57)
[2024-07-11 10:22] LABS: Blood Urea Nitrogen 24.7 mg/dL (9.0-27.0); Calcium 8.9 mg/dL (8.7-10.3); Carbon Dioxide 21.7 mmol/L (21.6-31.8); Chloride 106 mmol/L (96-109); Glucose 154 mg/dL (70-110); Potassium 4.5 mmol/L (3.5-5.5); Sodium 140 mmol/L (135-145)
--- NOTE | 2024-07-11 10:26 | US ---
EXAMINATION TYPE: US chest DATE OF EXAM: 07/11/2024 COMPARISON: NONE CLINICAL INDICATION: Male, 64 years old with history of Right effusion; Right chest TECHNIQUE: Grayscale imaging of the chest. Targeted ultrasound of the posterior lower right hemithor ax FINDINGS: EXAM MEASUREMENTS: Right Pleural Effusion pocket size: 20.4 cm Right skin surface to fluid distance: 1.7 cm tissue visualized 7.1 cm in fluid pocket. Right side marked for possible thoracentesis outside the dept. Pulmonologists are able to review the images in the patient?s EMR. IMPRESSIONS: Large right pleural effusion as described above. [facility], , 07/11/2024 10:24 AM
--- NOTE | 2024-07-11 10:39 | P.CNPUL ---
History of Present Illness Consult date: 07/11/24 Requesting physician: Fredrick Pavon Reason for consult: dyspnea, COPD, pleural effusion, abnormal CXR/CT Chief complaint: Shortness of breath History of present illness: This is a pleasant 64-year-old male patient with a known history of chronic obstructive pulmonary disease, atrial fibrillation with recent cardioversion on 07/12/2024 remains on Eliquis, congestive heart failure, hypertension, hyperlipidemia, previous pleural effusion status post thoracentesis on April 29, 2024 with 2.6 L of fluid removed. Cytology was negative for malignancy. Send and here to the emergency room yesterday with complaints of increasing shortness of breath over the past 1-1/2 weeks. No significant cough or congestion. No fever or chills. No chest pain. He is maintaining O2 saturation in the 90s on 4 L/min per nasal cannula. Chest x-ray reveals bibasilar infiltrates and opacities. Right greater than left. White count 9.2. Hemoglobin 14.0. Platelets 292. Sodium 140. Potassium 4.5. Bicarb 22. BUN 25. Creatinine 1.0. Glucose 154. Procalcitonin negative at 0.04. Viral screen negative. proBNP 5100. Troponin negative x 1. He has been initiated on Symbicort, DuoNeb and elations, Solu-Medrol. On oral diuretics. No accurate intake and output. He is seen in consultation on the regular medical floor. He is currently sitting up at the bedside. Awake and alert in no acute distress. Maintaining O2 saturations in the 90s on 4 L/min per nasal cannula. Review of Systems REVIEW OF SYSTEMS: CONSTITUTIONAL: Denies any recent significant weight loss or weight gain. EYES: Denies change in vision. EARS, NOSE, MOUTH, THROAT: Denies headaches, denies sore throat. CARDIOVASCULAR: Denies chest pain, palpitations or syncopal episodes. RESPIRATORY: Positive for shortness of breath, cough, congestion no hemoptysis. GASTROINTESTINAL: Denies change in appetite, denies abdominal pain GENITOURINARY: Denies hematuria, denies infections. MUSKULOSKELETAL: Denies pain, denies swelling. INTEGUMENTARY: Denies rash, denies eczema. NEUROLOGICAL: Denies recent memory loss, no recent seizure activity. PSYCHIATRIC: Denies anxiety, denies depression. HEMATOLOGIC/LYMPHATIC: Denies anemia, denies enlarged lymph nodes. Past Medical History Past Medical History: Atrial Fibrillation, Heart Failure, COPD, Hyperlipidemia, Hypertension Additional Past Medical History / Comment(s): COVID 08/21 History of Any Multi-Drug Resistant Organisms: None Reported Additional Past Surgical History / Comment(s): REPAIR TENDON OF LEFT HAND (CHILDHOOD), sinus surgery , COLONOSCOPY Past Anesthesia/Blood Transfusion Reactions: No Reported Reaction Past Psychological History: No Psychological Hx Reported Smoking Status: Former smoker - Past Family History Mother Family Medical History: Cancer Additional Family Medical History / Comment(s): Passed from dementia Father Family Medical History: Congestive Heart Failure (CHF), COPD Additional Family Medical History / Comment(s): Passed from heart/lung disease Medications and Allergies Home Medications Medication Instructions Recorded Confirmed Type Multivitamins, Thera [Multivitamin 1 tab PO DAILY 10/23/21 07/10/24 History (formulary)] Albuterol Nebulized [Ventolin 2.5 mg INHALATION RT-QID PRN 12/29/23 07/10/24 History Nebulized] Albuterol Inhaler [Ventolin Hfa 2 puff INHALATION RT-QID PRN #1 12/31/23 07/10/24 Rx Inhaler] each Diltiazem Cd [Cardizem CD] 300 mg PO DAILY #30 cap 12/31/23 07/10/24 Rx Aspirin EC [Ecotrin Low Dose] 81 mg PO DAILY 02/08/24 07/10/24 History Isosorbide Mononitrate ER [Imdur] 30 mg PO DAILY #30 tab 02/11/24 07/10/24 Rx Metoprolol Tartrate [Lopressor] 50 mg PO TID #90 tab 02/11/24 07/10/24 Rx Fluticasone/Umeclidin/Vilanter 1 puff INHALATION RT-DAILY 04/28/24 07/10/24 History [Trelegy Ellipta 200-62.5-25] Bumetanide [BUMEX] 1 mg PO BID@0900,1600 30 Days #60 05/01/24 07/10/24 Rx tab Dapagliflozin Propanediol [Farxiga] 10 mg PO DAILY #30 tab 05/01/24 07/10/24 Rx Losartan [Cozaar] 12.5 mg PO DAILY 30 Days #15 tab 05/01/24 07/10/24 Rx Spironolactone [Aldactone] 25 mg PO DAILY #30 tab 05/01/24 07/10/24 Rx Amiodarone [Cordarone] 400 mg PO BID@0900,1600 07/10/24 07/10/24 History Apixaban [Eliquis] 5 mg PO BID@0900,1600 07/10/24 07/10/24 History Nitroglycerin Sl Tabs [Nitrostat] 0.4 mg SL Q5M PRN 07/10/24 07/10/24 History Allergies Allergy/AdvReac Type Severity Reaction Status Date / Time lisinopril AdvReac CAUSED Verified 07/09/24 12:19 FATIGUE Physical Exam Vitals: Vital Signs Temp Pulse Pulse Pulse Resp BP BP 07/11/24 09:01 70 07/11/24 08:49 72 07/11/24 07:36 97.7 F 85 18 111/75 07/11/24 00:53 97.6 F 77 17 102/65 07/10/24 22:00 97.8 F 87 20 107/68 07/10/24 20:36 67 07/10/24 20:27 68 07/10/24 15:58 97.7 F 85 17 123/77 07/10/24 15:45 97.9 F 78 18 105/67 07/10/24 15:26 76 07/10/24 15:16 74 07/10/24 15:02 71 23 103/73 07/10/24 14:08 67 07/10/24 13:58 68 07/10/24 13:53 30 H 07/10/24 13:42 97.7 F 71 32 H 107/65 Pulse Ox 07/11/24 09:01 07/11/24 08:49 07/11/24 07:36 93 L 07/11/24 00:53 95 07/10/24 22:00 91 L 07/10/24 20:36 07/10/24 20:27 07/10/24 15:58 91 L 07/10/24 15:45 99 07/10/24 15:26 07/10/24 15:16 07/10/24 15:02 95 07/10/24 14:08 07/10/24 13:58 07/10/24 13:53 97 07/10/24 13:42 85 L Intake and Output 07/10/24 07/11/24 07/11/24 22:59 06:59 14:59 Intake Total 240 Balance 240 Intake: Oral 240 Other: # Voids 1 2 Weight 92.986 kg 93.6 kg GENERAL EXAM: Alert, pleasant 64-year-old male, on 4 L nasal cannula, fairly comfortable in no apparent distress. HEAD: Normocephalic. EYES: Normal reaction of pupils, equal size. NOSE: Clear with pink turbinates. THROAT: No erythema or exudates. NECK: No masses, no JVD. CHEST: No chest wall deformity. LUNGS: Equal air entry with bibasilar crackles right greater than left. CVS: S1 and S2 normal with no audible murmur, regular rhythm. ABDOMEN: No hepatosplenomegaly, normal bowel sounds, no guarding or rigidity. SPINE: No scoliosis or deformity SKIN: No rashes CENTRAL NERVOUS SYSTEM: No focal deficits, tone is normal in all 4 extremities. EXTREMITIES: There is no peripheral edema. No clubbing, no cyanosis. Peripheral pulses are intact. Results - Laboratory Findings CBC and BMP: 07/10/24 14:12 07/11/24 03:49 PT/INR, D-dimer PT 11.5 sec (10.0-12.5) 07/10/24 14:12 INR 1.1 (<1.2) 07/10/24 14:12 Abnormal lab findings: Abnormal Labs 07/10/24 07/10/24 07/11/24 14:12 14:12 03:49 Lymphocytes # 0.8 L Anion Gap 12.30 H BUN 32 H BUN/Creatinine Ratio 24.70 H Glucose 119 H 154 H - Diagnostic Findings Chest x-ray: image reviewed Assessment and Plan Assessment: Acute hypoxemic respiratory failure secondary to an acute exacerbation of diastolic congestive heart failure with pleural effusions. Procalcitonin negative. Viral screen negative. Atrial fibrillation, anticoagulated with Eliquis, recent cardioversion on July 09, 2024, currently in sinus rhythm Right sided pleural effusion status post thoracentesis on April 29, 2024 with 2.6 L removed. Cytology negative for malignancy History of congestive heart failure Hypertension Hyperlipidemia Chronic obstructive pulmonary disease Former smoker graph plan: X-ray, labs and medications reviewed Will obtain an ultrasound of the chest May require repeat thoracentesis Patient is currently on Eliquis Continue diuretics Continue bronchodilators, steroids Procalcitonin negative Antibiotics discontinued Titrate down the FiO2 as tolerated We will continue to follow and make further recommendations based on his clinical status I have personally seen and examined the patient, performed the documentation and the assessment and plan as written. Number of minutes spent on the visit: 20 Dictation was produced using [employer] dictation software. Please excuse any grammatical, word or spelling errors
--- NOTE | 2024-07-11 13:43 | P.CRDCN ---
History of Present Illness Consult date: 07/11/24 History of present illness: HISTORY OF PRESENTING ILLNESS Patient is a 64-year-old male with past medical history of HFpEF, atrial fibrillation hypertension dyslipidemia and COPD. He is known to Dr. Melgoza. In April 2024 he had an ablation procedure for his atrial fibrillation. He had a relapse and 2 days ago he had a cardioversion procedure done with Dr. Davey rd. Over last 1 to 2 days patient reports that his shortness of breath has significantly worsened and therefore he presented to the hospital. On admission to the ER he was hypoxic and tachypneic. Chest x-ray showed moderate to large right-sided pleural effusion. Admission ECG showed sinus rhythm with PACs Sodium 141 potassium 4.5, BUN 24, creatinine 1, Pro-Sridhar 0.04, troponin negative, NT proBNP 5100, previously 1999's. REVIEW OF SYSTEMS 14 point review of system is negative except what is mentioned above in HPI. PHYSICAL EXAMINATION Vital signs reviewed. Head: Normocephalic. Eyes: Sclerae nonicteric. Neck: Brisk carotid upstroke, no jugular venous distention. Lungs: Clear to auscultation. Heart: Regular rate and rhythm, S1-S2, no S3, no murmur or rub. Abdomen: Soft nontender, positive bowel sounds. Extremities: No edema, intact distal pulses. Neuro: Alert, oritented, no focal deficits. Detailed neuro exam was not performed. ASSESSMENT Acute hypoxic respiratory failure Acute HFpEF exacerbation Moderate to large right-sided pleural effusion Paroxysmal atrial fibrillation. Failed A-fib ablation twice. Recently underwent cardioversion. Currently sinus rhythm with PACs COPD, not in exacerbation PLAN Hold anticoagulation for potential thoracentesis. Resume Eliquis 5 mg after Thoracentesis Patient has had recurrent right-sided pleural effusion with this being the second episode in the recent past. I would highly recommend that this patient gets evaluated for pleurodesis procedure Continue Aldactone 25 g daily, losartan 12.5 mg daily, amiodarone 400 mg twice daily Continue Farxiga 10 mg daily, Lasix 40 mg IV twice daily metoprolol 50 twice daily Clinton Hart MD, FACC, RPVI Thank you for allowing [facility] to participate in this patient's care. Feel free to reach out in case of any followup questions. Past Medical History Past Medical History: Atrial Fibrillation, Heart Failure, COPD, Hyperlipidemia, Hypertension Additional Past Medical History / Comment(s): COVID 08/21 History of Any Multi-Drug Resistant Organisms: None Reported Additional Past Surgical History / Comment(s): REPAIR TENDON OF LEFT HAND (CHILDHOOD), sinus surgery , COLONOSCOPY Past Anesthesia/Blood Transfusion Reactions: No Reported Reaction Past Psychological History: No Psychological Hx Reported Smoking Status: Former smoker - Past Family History Mother Family Medical History: Cancer Additional Family Medical History / Comment(s): Passed from dementia Father Family Medical History: Congestive Heart Failure (CHF), COPD Additional Family Medical History / Comment(s): Passed from heart/lung disease Medications and Allergies Home Medications Medication Instructions Recorded Confirmed Type Multivitamins, Thera [Multivitamin 1 tab PO DAILY 10/23/21 07/10/24 History (formulary)] Albuterol Nebulized [Ventolin 2.5 mg INHALATION RT-QID PRN 12/29/23 07/10/24 History Nebulized] Albuterol Inhaler [Ventolin Hfa 2 puff INHALATION RT-QID PRN #1 12/31/23 07/10/24 Rx Inhaler] each Diltiazem Cd [Cardizem CD] 300 mg PO DAILY #30 cap 12/31/23 07/10/24 Rx Aspirin EC [Ecotrin Low Dose] 81 mg PO DAILY 02/08/24 07/10/24 History Isosorbide Mononitrate ER [Imdur] 30 mg PO DAILY #30 tab 02/11/24 07/10/24 Rx Metoprolol Tartrate [Lopressor] 50 mg PO TID #90 tab 02/11/24 07/10/24 Rx Fluticasone/Umeclidin/Vilanter 1 puff INHALATION RT-DAILY 04/28/24 07/10/24 History [Trelegy Ellipta 200-62.5-25] Bumetanide [BUMEX] 1 mg PO BID@0900,1600 30 Days #60 05/01/24 07/10/24 Rx tab Dapagliflozin Propanediol [Farxiga] 10 mg PO DAILY #30 tab 05/01/24 07/10/24 Rx Losartan [Cozaar] 12.5 mg PO DAILY 30 Days #15 tab 05/01/24 07/10/24 Rx Spironolactone [Aldactone] 25 mg PO DAILY #30 tab 05/01/24 07/10/24 Rx Amiodarone [Cordarone] 400 mg PO BID@0900,1600 07/10/24 07/10/24 History Apixaban [Eliquis] 5 mg PO BID@0900,1600 07/10/24 07/10/24 History Nitroglycerin Sl Tabs [Nitrostat] 0.4 mg SL Q5M PRN 07/10/24 07/10/24 History Allergies Allergy/AdvReac Type Severity Reaction Status Date / Time lisinopril AdvReac CAUSED Verified 07/09/24 12:19 FATIGUE Physical Exam Vitals: Vital Signs Temp Pulse Pulse Pulse Resp BP BP 07/11/24 11:50 81 07/11/24 11:42 80 07/11/24 09:01 70 07/11/24 08:49 72 07/11/24 07:36 97.7 F 85 18 111/75 07/11/24 00:53 97.6 F 77 17 102/65 07/10/24 22:00 97.8 F 87 20 107/68 07/10/24 20:36 67 07/10/24 20:27 68 07/10/24 15:58 97.7 F 85 17 123/77 07/10/24 15:45 97.9 F 78 18 105/67 07/10/24 15:26 76 07/10/24 15:16 74 07/10/24 15:02 71 23 103/73 07/10/24 14:08 67 07/10/24 13:58 68 07/10/24 13:53 30 H Pulse Ox 07/11/24 11:50 07/11/24 11:42 07/11/24 09:01 07/11/24 08:49 07/11/24 07:36 93 L 07/11/24 00:53 95 07/10/24 22:00 91 L 07/10/24 20:36 07/10/24 20:27 07/10/24 15:58 91 L 07/10/24 15:45 99 07/10/24 15:26 07/10/24 15:16 07/10/24 15:02 95 07/10/24 14:08 07/10/24 13:58 07/10/24 13:53 97 Intake and Output 07/10/24 07/11/24 07/11/24 22:59 06:59 14:59 Intake Total 240 Balance 240 Intake: Oral 240 Other: Voiding Method Toilet Urinal # Voids 1 2 Weight 92.986 kg 93.6 kg Results 07/10/24 14:12 07/11/24 03:49 Cardiac Enzymes 07/10/24 07/10/24 Range/Units 14:12 14:12 AST 23 (17-59) U/L Troponin I <0.012 (0.000-0.034) ng/mL Coagulation 07/10/24 Range/Units 14:12 PT 11.5 (10.0-12.5) sec APTT 25.2 (22.0-30.0) sec CBC 07/10/24 Range/Units 14:12 WBC 9.2 (3.8-10.6) k/uL RBC 4.95 (4.30-5.90) m/uL Hgb 14.0 (13.0-17.5) gm/dL Hct 43.3 (39.0-53.0) % Plt Count 292 (150-450) k/uL Comprehensive Metabolic Panel 07/10/24 07/11/24 Range/Units 14:12 03:49 Sodium 139 140 (137-145) mmol/L Potassium 4.0 4.5 (3.5-5.1) mmol/L Chloride 106 106 (98-107) mmol/L Carbon Dioxide 24 21.7 (22-30) mmol/L BUN 32 H 24.7 (9-20) mg/dL Creatinine 1.10 1.0 (0.66-1.25) mg/dL Glucose 119 H 154 H (74-99) mg/dL Calcium 9.0 8.9 (8.4-10.2) mg/dL AST 23 (17-59) U/L ALT 19 (4-49) U/L Alkaline Phosphatase 95 (38-126) U/L Total Protein 6.6 (6.3-8.2) g/dL Albumin 3.8 (3.5-5.0) g/dL Current Medications Generic Name Dose Route Start Last Admin Trade Name Freq PRN Reason Stop Dose Admin Acetaminophen 650 mg 07/10/24 15:02 Acetaminophen Tab 325 Mg Tab PO Q4HR PRN Mild Pain or Fever > 100.5 Albuterol/Ipratropium 3 ml 07/10/24 16:00 07/11/24 11:40 Ipratropium-Albuterol 3 Ml Neb INHALATION 3 ml RT-QID SERJIO Administration Albuterol/Ipratropium 3 ml 07/10/24 15:02 Ipratropium-Albuterol 3 Ml Neb INHALATION RT-Q2H PRN Shortness Of Breath Or Wheezing Amiodarone HCl 400 mg 07/10/24 16:00 07/11/24 08:52 Amiodarone 200 Mg Tab PO 400 mg BID@0900,1600 SERJIO Administration Budesonide/Formoterol Fumarate 2 puff 07/10/24 20:00 07/11/24 08:49 Symbicort 160-4.5 Mcg Inhaler INHALATION 2 puff RT-BID SERJIO Administration Dapagliflozin 10 mg 07/11/24 09:00 07/11/24 08:52 Dapagliflozin Propanediol 10 Mg Tablet PO 10 mg DAILY SERJIO Administration Furosemide 40 mg 07/11/24 12:45 Furosemide 10 Mg/Ml 4 Ml Vial IV Q12HR [facility] Losartan Potassium 12.5 mg 07/11/24 09:00 07/11/24 08:52 Losartan 25 Mg Tab PO 12.5 mg DAILY SERJIO Administration Metoprolol Tartrate 50 mg 07/11/24 21:00 Metoprolol Tartrate 50 Mg Tab PO BID [facility] Multivitamins 1 each 07/11/24 09:00 07/11/24 08:52 Multivitamins, Thera 1 Each Tab PO 1 each DAILY SERJIO Administration Naloxone HCl 0.2 mg 07/10/24 15:02 Naloxone 0.4 Mg/Ml 1 Ml Vial IVP Q2M PRN Opioid Reversal Prednisone 40 mg 07/12/24 09:00 Prednisone 20 Mg Tab PO 07/17/24 08:59 DAILY [facility] Spironolactone 25 mg 07/11/24 09:00 07/11/24 08:57 Spironolactone 25 Mg Tab PO 25 mg DAILY SERJIO Administration Intake and Output 07/10/24 07/11/24 07/11/24 22:59 06:59 14:59 Intake Total 240 Balance 240 Intake: Oral 240 Other: Voiding Method Toilet Urinal # Voids 1 2 Weight 92.986 kg 93.6 kg 07/10/24 14:12 07/11/24 03:49
--- NOTE | 2024-07-11 16:48 | P.PN ---
Subjective This is a pleasant 64-year-old male with past medical history of multiple medical problems including COPD and chronic hypoxic respiratory failure on 2 to 3 L of oxygen via nasal cannula, who quit smoking last January. Presents because of worsening dyspnea and coughing with little white-grayish phlegm for the last couple weeks getting worse over the last 2 to 3 days with no history of or chest pain Patient denies GI/ symptoms. 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 Rooney He uses 2 to 3 L of oxygen mainly at night. On admission he was tachypneic with heart rate around 30. He is afebrile. He has unremarkable CBC, BMP, liver enzymes, INR and troponin EKG showing sinus rhythm at [address]-T changes Chest x-ray showing bilateral basal opacities suspicious for atelectasis versus infiltrate however it is similar to previous chest x-ray comparison, I reviewed the last 2 chest x-ray and agree with these findings proBNP is mildly elevated at 5100 Influenza A and type B, RSV, SARS (coronavirus) are undetected Echo from 01/2024 showing ejection fraction of 50 to 55% 07/11 Patient s/p right paracentesis today. 2.6 L taken out Breathing is better Started on prednisone 40 mg Resume Eliquis tomorrow Possible discharge in 24 to 48 hours if he keeps improvement Objective - Vital Signs Vital signs: Vital Signs Temp 97.7 F 07/11/24 07:36 Pulse 70 07/11/24 09:01 Resp 18 07/11/24 07:36 BP 111/75 07/11/24 07:36 Pulse Ox 93 L 07/11/24 07:36 FiO2 Intake & Output 07/10/24 07/11/24 07/11/24 18:59 06:59 18:59 Intake Total 240 Balance 240 Weight 92.986 kg 93.6 kg Intake: Oral 240 Other: # Voids 1 2 - Exam GENERAL: The patient is alert and oriented x3, not in any acute distress. Well developed, well nourished. HEENT: Pupils are round and equally reacting to light. EOMI. No scleral icterus. No conjunctival pallor. Normocephalic, atraumatic. No pharyngeal erythema. No thyromegaly. CARDIOVASCULAR: S1 and S2 present. No murmurs, rubs, or gallops. PULMONARY: Chest is clear to auscultation, no wheezing , no crackles. ABDOMEN: Soft, nontender, nondistended, normoactive bowel sounds. No palpable organomegaly. MUSCULOSKELETAL: No joint swelling or deformity. EXTREMITIES: No cyanosis, clubbing, or pedal edema. NEUROLOGICAL: Gross neurological examination did not reveal any focal deficits. SKIN: No rashes. no petechiae. - Labs CBC & Chem 7: 07/10/24 14:12 07/11/24 03:49 Labs: Abnormal Lab Results - Last 24 Hours (Table) 07/10/24 07/10/24 Range/Units 14:12 14:12 Lymphocytes # 0.8 L (1.0-4.8) k/uL BUN 32 H (9-20) mg/dL Glucose 119 H (74-99) mg/dL Assessment and Plan Assessment: Right recurrent pleural effusion s/p thoracocentesis on 07/11 Acute COPD exacerbation, improving Acute on chronic hypoxic respiratory failure Bilateral basal infiltrate mostly atelectasis. Less likely pneumonia right thoracocentesis, recurrent. S/p thoracocentesis on 07/11 chronic atrial fibrillation on Eliquis Chronic heart failure, with preserved ejection fraction Hyperlipidemia Hypertension Ex-smoker Plan: Continue continue with prednisone Starting Zithromax Continue with Eliquis Continue with aspirin Cardiology and pulmonary consults Continue with the breathing treatment Labs and medication were reviewed.. Continue same treatment. Continue with symptomatic treatment. Resume home medication. Monitor labs and vitals. DVT and GI prophylaxis. Further recommendations as per clinical course of the patient DVT prophylaxis: Eliquis GI Prophylaxis: Pepcid Prognosis is guarded
[2024-07-11] MEDS: FUROSEMIDE 10 MG/ML 4 ML VIAL IV SCH (16:50)
[2024-07-11] MEDS: METOPROLOL TARTRATE 50 MG TAB PO SCH (21:07)
[2024-07-12] MEDS ORDERED: APIXABAN 5 MG TAB PO SCH (08:00)
[2024-07-12] MEDS: predniSONE 20 MG TAB PO SCH (08:40)
--- NOTE | 2024-07-12 09:25 | P.PN ---
Subjective This is a pleasant 64-year-old male with past medical history of multiple medical problems including COPD and chronic hypoxic respiratory failure on 2 to 3 L of oxygen via nasal cannula, who quit smoking last January. Presents because of worsening dyspnea and coughing with little white-grayish phlegm for the last couple weeks getting worse over the last 2 to 3 days with no history of or chest pain Patient denies GI/ symptoms. 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 On admission he was tachypneic with heart rate around 30. He is afebrile. He has unremarkable CBC, BMP, liver enzymes, INR and troponin EKG showing sinus rhythm at [address]-T changes Chest x-ray showing bilateral basal opacities suspicious for atelectasis versus infiltrate however it is similar to previous chest x-ray comparison, I reviewed the last 2 chest x-ray and agree with these findings proBNP is mildly elevated at 5100 Influenza A and type B, RSV, SARS (coronavirus) are undetected Echo from 01/2024 showing ejection fraction of 50 to 55% 07/11 Patient s/p right paracentesis today. 2.6 L taken out Breathing is better Started on prednisone 40 mg Resume Eliquis tomorrow 07/12 Patient actually did not get paracentesis yesterday or during this admission. Patient pending thoracocentesis. Eliquis was placed on hold He still complains from some dyspnea Objective - Vital Signs Vital signs: Vital Signs Temp 98.0 F 07/12/24 08:00 Pulse 76 07/12/24 09:14 Resp 16 07/12/24 08:00 BP 112/72 07/12/24 08:00 Pulse Ox 90 L 07/12/24 09:14 FiO2 Intake & Output 07/11/24 07/12/24 07/12/24 18:59 06:59 18:59 Intake Total 800 Balance 800 Weight 93.5 kg Intake: Oral 800 Other: Voiding Method Toilet Toilet Urinal Urinal # Voids 7 3 - Exam GENERAL: The patient is alert and oriented x3, not in any acute distress. Well developed, well nourished. HEENT: Pupils are round and equally reacting to light. EOMI. No scleral icterus. No conjunctival pallor. Normocephalic, atraumatic. No pharyngeal erythema. No thyromegaly. CARDIOVASCULAR: S1 and S2 present. No murmurs, rubs, or gallops. PULMONARY: Chest is clear to auscultation, no wheezing , no crackles. ABDOMEN: Soft, nontender, nondistended, normoactive bowel sounds. No palpable organomegaly. MUSCULOSKELETAL: No joint swelling or deformity. EXTREMITIES: No cyanosis, clubbing, or pedal edema. NEUROLOGICAL: Gross neurological examination did not reveal any focal deficits. SKIN: No rashes. no petechiae. - Labs CBC & Chem 7: 07/10/24 14:12 07/11/24 03:49 Labs: Abnormal Lab Results - Last 24 Hours (Table) 07/11/24 Range/Units 03:49 Anion Gap 12.30 H (4.00-12.00) mmol/L BUN/Creatinine Ratio 24.70 H (12.00-20.00) Ratio Glucose 154 H (70-110) mg/dL Assessment and Plan Assessment: Right recurrent pleural effusion s/p thoracocentesis on 07/11 Acute COPD exacerbation, improving Acute on chronic hypoxic respiratory failure Bilateral basal infiltrate mostly atelectasis. Less likely pneumonia right thoracocentesis, recurrent. S/p thoracocentesis on 07/11 chronic atrial fibrillation on Eliquis Chronic heart failure, with preserved ejection fraction Hyperlipidemia Hypertension Ex-smoker Plan: Continue continue with prednisone, total 5 days Continue with Eliquis, currently on hold for thoracocentesis Continue with aspirin Cardiology and pulmonary consults Continue with the breathing treatment Labs and medication were reviewed.. Continue same treatment. Continue with symptomatic treatment. Resume home medication. Monitor labs and vitals. DVT and GI prophylaxis. Further recommendations as per clinical course of the patient DVT prophylaxis: Eliquis GI Prophylaxis: Pepcid Prognosis is guarded
--- NOTE | 2024-07-12 10:36 | P.PN ---
Subjective Progress Note Date: 07/12/24 HISTORY OF PRESENTING ILLNESS Patient is a 64-year-old male with past medical history of HFpEF, atrial fib rillation hypertension dyslipidemia and COPD. He is known to Dr. Melgoza. In April 2024 he had an ablation procedure for his atrial fibrillation. He had a relapse and 2 days ago he had a cardioversion procedure done with Dr. Melgoza. Over last 1 to 2 days patient reports that his shortness of breath has significantly worsened and therefore he presented to the hospital. On admission to the ER he was hypoxic and tachypneic. Chest x-ray showed moderate to large right-sided pleural effusion. Admission ECG showed sinus rhythm with PACs Sodium 141 potassium 4.5, BUN 24, creatinine 1, Pro-Sridhar 0.04, troponin negative, NT proBNP 5100, previously 1999's. 07/12 Patient seen and examined. Blood pressure 112/72, heart rate 76, pulse ox 95% on room air. Chest ultrasound revealed a right pleural effusion pocket 20.4 cm and marked for thoracentesis. Eliquis is on hold as pulmonary medicine is planning on thoracentesis. Patient is maintained on IV Lasix 40 mg twice daily. Patient feels his breathing is worse. He is eating and drinking well. It does not appear that I&O, weights are accurate. Discussed with patient recommendations for RHC to further deliniate source of effusion. Plan to repeat CT chest PHYSICAL EXAMINATION Vital signs reviewed. Head: Normocephalic. Eyes: Sclerae nonicteric. Neck: Brisk carotid upstroke, no jugular venous distention. Lungs: Clear to auscultation. Heart: Regular rate and rhythm, S1-S2, no S3, no murmur or rub. Abdomen: Soft nontender, positive bowel sounds. Extremities: No edema, intact distal pulses. Neuro: Alert, oritented, no focal deficits. Detailed neuro exam was not performed. ASSESSMENT Acute hypoxic respiratory failure Acute HFpEF exacerbation Moderate to large right-sided pleural effusion Paroxysmal atrial fibrillation. Failed A-fib ablation twice. Recently underwent cardioversion. Currently sinus rhythm with PACs COPD, not in exacerbation PLAN Hold anticoagulation for thoracentesis. Resume Eliquis 5 mg twice daily after Thoracentesis Patient has had recurrent right-sided pleural effusion with this being the second episode in the recent past. I would highly recommend that this patient gets evaluated for pleurodesis procedure Continue Aldactone 25 g daily, losartan 12.5 mg daily, decrease amiodarone 200 mg twice daily Continue Farxiga 10 mg daily, Lasix 40 mg IV twice daily, metoprolol 50 twice daily Obtain 2D echocardiogram RHC to further delineate source of effusion, timing to be determined. Plan to repeat CT chest at some point. Nurse practitioner note has been reviewed, I agree with documented findings and plan of care. Patient was seen and examined. Objective - Vital Signs Vital signs: Vital Signs Temp 98.0 F 07/12/24 08:00 Pulse 76 07/12/24 08:00 Resp 16 07/12/24 08:00 BP 112/72 07/12/24 08:00 Pulse Ox 95 07/12/24 08:00 FiO2 Intake & Output 07/11/24 07/12/24 07/12/24 18:59 06:59 18:59 Intake Total 800 Balance 800 Weight 93.5 kg Intake: Oral 800 Other: Voiding Method Toilet Toilet Urinal Urinal # Voids 7 3 - Labs CBC & Chem 7: 07/10/24 14:12 07/11/24 03:49 Labs: Abnormal Lab Results - Last 24 Hours (Table) 07/11/24 Range/Units 03:49 Anion Gap 12.30 H (4.00-12.00) mmol/L BUN/Creatinine Ratio 24.70 H (12.00-20.00) Ratio Glucose 154 H (70-110) mg/dL
--- NOTE | 2024-07-12 15:22 | CA ---
Transthoracic Echo Report Name: Mirian Torres Age: 64 Gender: M : 1960 Exam Date: 07/12/2024 13:44 Exam Location: [facility] Ht (in): 78 Wt (lb): 206 Ordering Physician: Wendy Anderson Attending/Referring Phys: [id number], Justin Roll Handler vYonne Salas RDCS Procedure CPT: Indications: LVF Cardiac Hx: Limited echo Technical Quality: Fair Contrast 1: Total Dose (mL): Contrast 2: Total Dose (mL): MEASUREMENTS (Male / Female) Normal Values 2D ECHO LV Diastolic Diameter PLAX 5.1 cm 4.2 - 5.9 / 3.9 - 5.3 cm LV Systolic Diameter PLAX 3.3 cm IVS Diastolic Thickness 0.6 cm 0.6 - 1.0 / 0.6 - 0.9 cm LVPW Diastolic Thickness 0.8 cm 0.6 - 1.0 / 0.6 - 0.9 cm LV Relative Wall Thickness 0.3 LVOT Diameter 2.5 cm LV Diastolic Volume MOD BP 112.9 cm??? 67 - 155 / 56 - 104 cm??? LV Systolic Volume MOD BP 45.2 cm??? 22 - 58 / 19 - 49 cm??? LV Ejection Fraction MOD BP 59.9 % >= 55 % LV Cardiac Index MOD BP 2449.0 cm???/min???m??? LV Diastolic Volume MOD 4C 103.4 cm??? LV Systolic Volume MOD 4C 44.1 cm??? LV Ejection Fraction MOD 4C 57.4 % LV Cardiac Index MOD 4C 2145.5 cm???/min???m??? LV Diastolic Length 4C 8.3 cm LV Systolic Length 4C 7.4 cm LV Diastolic Volume MOD 2C 119.5 cm??? LV Systolic Volume MOD 2C 46.3 cm??? LV Ejection Fraction MOD 2C 61.3 % LV Cardiac Index MOD 2C 2650.5 cm???/min???m??? LV Diastolic Length 2C 8.6 cm LV Systolic Length 2C 7.4 cm Ascending Aorta Diameter 3.4 cm DOPPLER AV Peak Velocity 146.4 cm/s AV Peak Gradient 8.6 mmHg AV Mean Velocity 99.1 cm/s AV Mean Gradient 4.5 mmHg AV Velocity Time Integral 26.4 cm LVOT Peak Velocity 100.8 cm/s LVOT Peak Gradient 4.1 mmHg LVOT Velocity Time Integral 18.0 cm LVOT Stroke Volume 91.3 cm??? LVOT Stroke Volume Index 39.9 ml/m??? LVOT Cardiac Index 3303.5 cm???/min???m??? AV Area Cont Eq vti 3.5 cm??? AV Area Cont Eq pk 3.5 cm??? TR Peak Velocity 327.7 cm/s TR Peak Gradient 43.0 mmHg PV Peak Velocity 65.0 cm/s PV Peak Gradient 1.7 mmHg FINDINGS Left Ventricle Left ventricular ejection fraction is estimated at 55-60 %. Left ventricular cavity size normal. D shaped left ventricle. Left ventricular wall thickness normal. No obvious regional wall motion abnormalities. Right Ventricle Severe right ventricular dilatation with normal function. Right Atrium Severe right atrial dilatation. Left Atrium Normal left atrial size. Mitral Valve Structurally normal mitral valve. Trace mitral regurgitation. Aortic Valve Trileaflet aortic valve. No aortic valve stenosis or regurgitation. Tricuspid Valve Structurally normal tricuspid valve. Mild tricuspid regurgitation. Pulmonic Valve Structurally normal pulmonic valve. No pulmonic stenosis. Trace pulmonic regurgitation. Pericardium No pericardial effusion. Aorta Normal size aortic root and proximal ascending aorta. CONCLUSIONS Left ventricular ejection fraction 55-60% D-shaped septum consistent with RV pressure overload Trace mitral regurgitation Mild tricuspid regurgitation RVSP 58 No pericardial effusion Previewed by: Dr. Mark Melgoza DO (Electronically Signed) Final Date: 12 July 2024 15:21
--- NOTE | 2024-07-12 16:36 | P.PCN ---
Date of Procedure: 07/12/24 Preoperative Diagnosis: right pleural effusion Postoperative Diagnosis: same Procedure(s) Performed: thoracentesis, right Anesthesia: local Surgeon: Elieser Meehan Estimated Blood Loss (ml): 0 Pathology: other Condition: stable Disposition: floor Operative Findings: A time out was performed and the chest x-ray was reviewed, the appropriate side was confirmed and marked. My hands were washed immediately prior to the procedure. I wore a surgical cap, mask with protective eyewear, sterile gown and sterile gloves throughout the procedure. The patient was prepped and draped in a sterile manner using chlorhexidine scrub after the appropriate level was percussed and confirmed by ultrasound. 1% lidocaine was used to anesthesize the skin, subcutaneous tissue, superior aspect of the rib periosteum and parietal pleura. A finder needle was then introduced over the superior aspect of the rib to locate the pleural fluid; 2colored fluid was aspirated at a depth of approximately 2 cm. A 10-blade scalpel was used to amy the skin at the insertion site. The [id number] needle was then introduced through the skin incision into the pleural space using negative aspiration pressure and the red colometric indicator to confirm appropriate positioning of the needle. The thoracentesis catheter was then threaded without difficulty. 2400 ml of turbid colored fluid was removed without difficulty. The catheter was then removed. No immediate complications were noted during the procedure. A post-procedure chest x-ray is pending at the time of this note. The fluid will be sent for studies. Estimated blood loss is 0cc
--- NOTE | 2024-07-12 16:39 | P.PN ---
Subjective Progress Note Date: 07/12/24 This is a pleasant 64-year-old male patient with a known history of chronic obstructive pulmonary disease, atrial fibrillation with recent cardioversion on 07/12/2024 remains on Eliquis, congestive heart failure, hypertension, hyperlipidemia, previous pleural effusion status post thoracentesis on April 29, 2024 with 2.6 L of fluid removed. Cytology was negative for malignancy. Send and here to the emergency room yesterday with complaints of increasing shortness of breath over the past 1-1/2 weeks. No significant cough or congestion. No fever or chills. No chest pain. He is maintaining O2 saturation in the 90s on 4 L/min per nasal cannula. Chest x-ray reveals bibasilar infiltrates and opaci ties. Right greater than left. White count 9.2. Hemoglobin 14.0. Platelets 292. Sodium 140. Potassium 4.5. Bicarb 22. BUN 25. Creatinine 1.0. Glucose 154. Procalcitonin negative at 0.04. Viral screen negative. proBNP 5100. Troponin negative x 1. He has been initiated on Symbicort, DuoNeb and elations, Solu-Medrol. On oral diuretics. No accurate intake and output. He is seen in consultation on the regular medical floor. He is currently sitting up at the bedside. Awake and alert in no acute distress. Maintaining O2 saturations in the 90s on 4 L/min per nasal cannula. 07/12/2024, the patient is being seen in a follow-up. His current cardiac rhythm is sinus. Anticoagulation is on hold. He has a large right-sided pleural effusion for which I performed a bedside thoracentesis and a total of 2.4 L of fluid was aspirated. The previous fluid analysis was a transudate. Awaiting follow-up chest x-ray. No angina. No palpitation. Reviewed the CAT scan of the chest and the patient had a right-sided pleural effusion in addition to chronic emphysematous changes bilaterally With upper lobe predominance. Blood work from today showed sodium of 140, potassium of 4.5, BUN 24 with a creatinine of 1.0. The patient is currently on 3 L of oxygen by nasal cannula with a pulse ox of 90%. Objective - Vital Signs Vital signs: Vital Signs Temp 98.0 F 07/12/24 08:00 Pulse 88 10/14/24 12:35 Resp 16 07/12/24 08:00 BP 112/72 07/12/24 08:00 Pulse Ox 90 L 07/12/24 09:14 FiO2 Intake & Output 07/11/24 07/12/24 07/12/24 18:59 06:59 18:59 Intake Total 800 Balance 800 Weight 93.5 kg Intake: Oral 800 Other: Voiding Method Toilet Toilet Urinal Urinal # Voids 7 3 - Exam GENERAL EXAM: Alert, pleasant 64-year-old male, on 4 L nasal cannula, fairly comfortable in no apparent distress. HEAD: Normocephalic. EYES: Normal reaction of pupils, equal size. NOSE: Clear with pink turbinates. THROAT: No erythema or exudates. NECK: No masses, no JVD. CHEST: No chest wall deformity. LUNGS: Equal air entry with bibasilar crackles right greater than left. CVS: S1 and S2 normal with no audible murmur, regular rhythm. ABDOMEN: No hepatosplenomegaly, normal bowel sounds, no guarding or rigidity. SPINE: No scoliosis or deformity SKIN: No rashes CENTRAL NERVOUS SYSTEM: No focal deficits, tone is normal in all 4 extremities. EXTREMITIES: There is no peripheral edema. No clubbing, no cyanosis. Peripheral pulses are intact. - Labs CBC & Chem 7: 07/10/24 14:12 07/11/24 03:49 Assessment and Plan Plan: Acute hypoxemic respiratory failure secondary to an acute exacerbation of diastolic congestive heart failure with pleural effusions. Procalcitonin negative. Viral screen negative. Atrial fibrillation, anticoagulated with Eliquis, recent cardioversion on July 09, 2024, currently in sinus rhythm Right sided pleural effusion status post thoracentesis on April 29, 2024 with 2.6 L removed. Cytology negative for malignancy History of congestive heart failure Hypertension Hyperlipidemia Chronic obstructive pulmonary disease Former smoker plan: Repeat thoracentesis was done today and a total of 2.4 L of fluid was aspirated Obtain a follow-up chest x-ray Reanalyze the pleural fluid Patient is currently on Eliquis Continue diuretics Continue bronchodilators, steroids Procalcitonin negative Antibiotics discontinued Titrate down the FiO2 as tolerated
[2024-07-12] MEDS: AMIODARONE 200 MG TAB PO SCH (17:10)
--- NOTE | 2024-07-12 21:29 | XR ---
EXAMINATION TYPE: XR chest 1V DATE OF EXAM: 07/12/2024 5:19 PM CLINICAL INDICATION:Male, 64 years old with history of post thoracentesis; [facility] COMPARISON: 07/10/2024 TECHNIQUE: XR chest 1V Portable AP radiograph of the chest.. FINDINGS: Increased visualization of the cardiac silhouette. Heart size is normal. There is relatively decreased pulmonary vascular congestion and perihilar opacities compared to previ ous. Left lower lobe infiltrate, atelectasis or scarring without significant change. Decreased right basilar pleural/parenchymal opacity with better visualization of the hemidiaphragm an d some residual amorphous opacities compared to prior. Right lung base appears better aerated. No pne umothorax is evident. Osseous structures appear unchanged. IMPRESSION: Decreased right basilar pleural/parenchymal opacity, status post thoracentesis. No pneumothorax evide nt. [facility], , 07/12/2024 9:26 PM
[2024-07-13 01:19] LABS: Protein, Total 6.5 g/dL (6.2-8.2)
[2024-07-13 02:59] LABS: Glucose, BF Source Pleural Fluid; Glucose, Body Fluid 151 mg/dL; LDH, Body Fluid Source Pleural Fluid; T. Protein, Body Fluid Source Pleural Fluid; Total Protein, Body Fluid 1420 mg/dL
[2024-07-13 04:47] LABS: Appearance,BF Hazy (Clear)
--- NOTE | 2024-07-13 10:14 | P.PN ---
Subjective This is a pleasant 64-year-old male with past medical history of multiple medical problems including COPD and chronic hypoxic respiratory failure on 2 to 3 L of oxygen via nasal cannula, who quit smoking last January. Presents because of worsening dyspnea and coughing with little white-grayish phlegm for the last couple weeks getting worse over the last 2 to 3 days with no history of or chest pain Patient denies GI/ symptoms. No headache dizziness weakness numbness He denies illicit drugs or alcohol use His senior health educator is Dr. Rooney He uses 2 to 3 L of oxygen mainly at night. On admission he was tachypneic with heart rate around 30. He is afebrile. He has unremarkable CBC, BMP, liver enzymes, INR and troponin EKG showing sinus rhythm at [address]-T changes Chest x-ray showing bilateral basal opacities suspicious for atelectasis versus infiltrate however it is similar to previous chest x-ray comparison, I reviewed the last 2 chest x-ray and agree with these findings proBNP is mildly elevated at 5100 Influenza A and type B, RSV, SARS (coronavirus) are undetected Echo from 01/2024 showing ejection fraction of 50 to 55% 07/11 Patient s/p right paracentesis today. 2.6 L taken out Breathing is better Started on prednisone 40 mg Resume Eliquis tomorrow 07/12 Patient actually did not get paracentesis yesterday or during this admission. Patient pending thoracocentesis. Eliquis was placed on hold He still complains from some dyspnea 07/13 Patient s/p thoracocentesis yesterday with 2.4 L taken out, fluid studies pending Breathing better but patient still mildly tachypneic, he still has some exertional dyspnea Patient evaluated by hydrogen treater also and he is currently on IV Lasix 40 mg twice daily, echocardiogram showing ejection fraction 55 to 60% Also he is on prednisone We will resume Eliquis if okay with pulmonary service Objective - Vital Signs Vital signs: Vital Signs Temp 98.2 F 07/13/24 07:31 Pulse 79 07/13/24 09:02 Resp 16 07/13/24 07:31 BP 102/66 07/13/24 07:31 Pulse Ox 94 L 07/13/24 09:04 FiO2 Intake & Output 07/12/24 07/13/24 07/13/24 18:59 06:59 18:59 Output Total 1900 Balance -1900 Weight 93.5 kg Output: Urine 1900 Other: # Voids 4 - Exam GENERAL: The patient is alert and oriented x3, not in any acute distress. Well developed, well nourished. HEENT: Pupils are round and equally reacting to light. EOMI. No scleral icterus. No conjunctival pallor. Normocephalic, atraumatic. No pharyngeal erythema. No thyromegaly. CARDIOVASCULAR: S1 and S2 present. No murmurs, rubs, or gallops. PULMONARY: Chest is clear to auscultation, no wheezing , no crackles. ABDOMEN: Soft, nontender, nondistended, normoactive bowel sounds. No palpable organomegaly. MUSCULOSKELETAL: No joint swelling or deformity. EXTREMITIES: No cyanosis, clubbing, or pedal edema. NEUROLOGICAL: Gross neurological examination did not reveal any focal deficits. SKIN: No rashes. no petechiae. - Labs CBC & Chem 7: 07/10/24 14:12 07/11/24 03:49 Labs: Abnormal Lab Results - Last 24 Hours (Table) 07/12/24 Range/Units 15:03 Fluid Appearance Hazy A (Clear) Microbiology - Last 24 Hours (Table) 07/10/24 15:15 Blood Culture - Preliminary Blood Assessment and Plan Assessment: Right recurrent pleural effusion s/p thoracocentesis on 07/13 Acute on chronic diastolic CHF Acute COPD exacerbation, improving. Acute on chronic hypoxic respiratory failure. Improved Bilateral basal infiltrate mostly atelectasis. Less likely pneumonia right thoracocentesis, recurrent. S/p thoracocentesis on 07/11 chronic atrial fibrillation on Eliquis Hyperlipidemia Hypertension Ex-smoker Plan: Continue continue with prednisone, total 5 days Continue with Eliquis, currently on hold for thoracocentesis Continue with IV Lasix Cardiology consult Continue with aspirin Cardiology and pulmonary consults Continue with the breathing treatment Labs and medication were reviewed.. Continue same treatment. Continue with symptomatic treatment. Resume home medication. Monitor labs and vitals. DVT and GI prophylaxis. Further recommendations as per clinical course of the patient DVT prophylaxis: Eliquis GI Prophylaxis: Pepcid Prognosis is guarded
[2024-07-13] MEDS ORDERED: ALPRAZolam 0.25 MG TAB PO PRN (13:50)
[2024-07-13] MEDS ORDERED: ALPRAZolam 0.5 MG TAB PO PRN (13:50)
[2024-07-13] MEDS ORDERED: NITROGLYCERIN SL TABS 0.4 MG TAB SUBLINGUAL PRN (13:50)
[2024-07-13 14:19] LABS: Free Lambda Lt Chain Qnt, Seru 1.14 mg/dL (0.57-2.63)
--- NOTE | 2024-07-13 14:44 | P.PN ---
Subjective Progress Note Date: 07/13/24 HISTORY OF PRESENTING ILLNESS Patient is a 64-year-old male with past medical history of HFpEF, atrial fib rillation hypertension dyslipidemia and COPD. He is known to Dr. Melgoza. In April 2024 he had an ablation procedure for his atrial fibrillation. He had a relapse and 2 days ago he had a cardioversion procedure done with Dr. Melgoza. Over last 1 to 2 days patient reports that his shortness of breath has significantly worsened and therefore he presented to the hospital. On admission to the ER he was hypoxic and tachypneic. Chest x-ray showed moderate to large right-sided pleural effusion. Admission ECG showed sinus rhythm with PACs Sodium 141 potassium 4.5, BUN 24, creatinine 1, Pro-Sridhar 0.04, troponin negative, NT proBNP 5100, previously 1999's. 07/12 Patient seen and examined. Blood pressure 112/72, heart rate 76, pulse ox 95% on room air. Chest ultrasound revealed a right pleural effusion pocket 20.4 cm and marked for thoracentesis. Eliquis is on hold as pulmonary medicine is planning on thoracentesis. Patient is maintained on IV Lasix 40 mg twice daily. Patient feels his breathing is worse. He is eating and drinking well. It does not appear that I&O, weights are accurate. Discussed with patient recommendations for RHC to further deliniate source of effusion. Plan to repeat CT chest 07/13 Patient is seen and examined. He states he underwent thoracentesis. Dr. Jose Manuel de jesus performed right sided thoracentesis with removal of 2400 mL. Patient still feels a rattle in his chest but he states his breathing is better. They attempted to take him off oxygen today but he became dizzy and pulse ox was in the high 80s. Echocardiogram limited revealed EF of 55 to 60%, D-shaped septum consistent with RV pressure overload, trace MR, mild TR, RVSP 58, no pericardial effusion. The results of the echocardiogram were reviewed with the patient and his at the bedside. Discussed need to rule out causes for the pulmonary hypertension. Patient is agreeable to move forward with a CTA of the chest and right heart catheterization. Blood pressure 94/61, heart rate 90, pulse ox 98% on 3 L nasal cannula. PHYSICAL EXAMINATION Vital signs reviewed. Head: Normocephalic. Eyes: Sclerae nonicteric. Neck: Brisk carotid upstroke, no jugular venous distention. Lungs: Diminished breath sounds. Heart: Regular rate and rhythm, S1-S2, no S3, no murmur or rub. Abdomen: Soft nontender, positive bowel sounds. Extremities: No edema, intact distal pulses. Neuro: Alert, oritented, no focal deficits. Detailed neuro exam was not performed. ASSESSMENT Acute hypoxic respiratory failure Acute HFpEF exacerbation Moderate to large right-sided pleural effusion status post thoracentesis Paroxysmal atrial fibrillation. Failed A-fib ablation twice. Recently underwent cardioversion. Currently sinus rhythm with PACs COPD, not in exacerbation PLAN Hold anticoagulation for right heart catheterization tomorrow. Resume Eliquis 5 mg twice daily Friday evening Continue Aldactone 25 g daily, losartan 12.5 mg daily, decrease amiodarone 200 mg twice daily Continue Farxiga 10 mg daily, Lasix 40 mg IV twice daily, metoprolol 50 twice daily Schedule patient for right heart catheterization tomorrow Order CT of the chest Further recommendations as patient progresses. Nurse practitioner note has been reviewed, I agree with documented findings and plan of care. Patient was seen and examined. Objective - Vital Signs Vital signs: Vital Signs Temp 98.0 F 07/13/24 13:36 Pulse 90 07/13/24 13:36 Resp 17 07/13/24 13:36 BP 94/61 07/13/24 13:36 Pulse Ox 90 L 07/13/24 13:36 FiO2 Intake & Output 07/12/24 07/13/24 07/13/24 18:59 06:59 18:59 Output Total 1900 Balance -1900 Weight 93.5 kg Output: Urine 1900 Other: Voiding Method Toilet Urinal # Voids 4 - Labs CBC & Chem 7: 07/10/24 14:12 07/11/24 03:49 Labs: Abnormal Lab Results - Last 24 Hours (Table) 07/12/24 Range/Units 15:03 Fluid Appearance Hazy A (Clear) Microbiology - Last 24 Hours (Table) 07/10/24 15:15 Blood Culture - Preliminary Blood
--- NOTE | 2024-07-13 15:07 | P.PN ---
Subjective Progress Note Date: 07/13/24 This is a pleasant 64-year-old male patient with a known history of chronic obstructive pulmonary disease, atrial fibrillation with recent cardioversion on 07/12/2024 remains on Eliquis, congestive heart failure, hypertension, hyperlipidemia, previous pleural effusion status post thoracentesis on April 29, 2024 with 2.6 L of fluid removed. Cytology was negative for malignancy. Send and here to the emergency room yesterday with complaints of increasing shortness of breath over the past 1-1/2 weeks. No significant cough or congestion. No fever or chills. No chest pain. He is maintaining O2 saturation in the 90s on 4 L/min per nasal cannula. Chest x-ray reveals bibasilar infiltrates and opaci ties. Right greater than left. White count 9.2. Hemoglobin 14.0. Platelets 292. Sodium 140. Potassium 4.5. Bicarb 22. BUN 25. Creatinine 1.0. Glucose 154. Procalcitonin negative at 0.04. Viral screen negative. proBNP 5100. Troponin negative x 1. He has been initiated on Symbicort, DuoNeb and elations, Solu-Medrol. On oral diuretics. No accurate intake and output. He is seen in consultation on the regular medical floor. He is currently sitting up at the bedside. Awake and alert in no acute distress. Maintaining O2 saturations in the 90s on 4 L/min per nasal cannula. 07/12/2024, the patient is being seen in a follow-up. His current cardiac rhythm is sinus. Anticoagulation is on hold. He has a large right-sided pleural effusion for which I performed a bedside thoracentesis and a total of 2.4 L of fluid was aspirated. The previous fluid analysis was a transudate. Awaiting follow-up chest x-ray. No angina. No palpitation. Reviewed the CAT scan of the chest and the patient had a right-sided pleural effusion in addition to chronic emphysematous changes bilaterally With upper lobe predominance. Blood work from today showed sodium of 140, potassium of 4.5, BUN 24 with a creatinine of 1.0. The patient is currently on 3 L of oxygen by nasal cannula with a pulse ox of 90%. On 07/13/2024, the patient is feeling better and less short of breath compared to yesterday. Noted the patient underwent a thoracentesis of the right lung and the pleural fluid analysis was essentially transudate. Based on the fluid chemistry, the cell count was 34, the protein 1.4 and LDH is at 74 and this is essentially consistent with a transudate. The patient's cardiac rhythm is sinus. The patient remains on IV Lasix. The patient is also on a prednisone burst taper starting with 40 mg and the patient is on DuoNeb nebulized treatments [id number]. On 3 L the pulse ox was 98% and on room air oxygen, the pulse ox is currently is at 90%. No other new complaints otherwise for now. Objective - Vital Signs Vital signs: Vital Signs Temp 98.2 F 07/13/24 07:31 Pulse 79 07/13/24 09:02 Resp 16 07/13/24 07:31 BP 102/66 07/13/24 07:31 Pulse Ox 94 L 07/13/24 09:04 FiO2 Intake & Output 07/12/24 07/13/24 07/13/24 18:59 06:59 18:59 Output Total 1900 Balance -1900 Weight 93.5 kg Output: Urine 1900 Other: # Voids 4 - Exam GENERAL EXAM: Alert, pleasant 64-year-old male, on 4 L nasal cannula, fairly comfortable in no apparent distress. HEAD: Normocephalic. EYES: Normal reaction of pupils, equal size. NOSE: Clear with pink turbinates. THROAT: No erythema or exudates. NECK: No masses, no JVD. CHEST: No chest wall deformity. LUNGS: Equal air entry with bibasilar crackles right greater than left. CVS: S1 and S2 normal with no audible murmur, regular rhythm. ABDOMEN: No hepatosplenomegaly, normal bowel sounds, no guarding or rigidity. SPINE: No scoliosis or deformity SKIN: No rashes CENTRAL NERVOUS SYSTEM: No focal deficits, tone is normal in all 4 extremities. EXTREMITIES: There is no peripheral edema. No clubbing, no cyanosis. Peripheral pulses are intact. - Labs CBC & Chem 7: 07/10/24 14:12 07/11/24 03:49 Labs: Abnormal Lab Results - Last 24 Hours (Table) 07/12/24 Range/Units 15:03 Fluid Appearance Hazy A (Clear) Microbiology - Last 24 Hours (Table) 07/10/24 15:15 Blood Culture - Preliminary Blood Assessment and Plan Plan: Acute hypoxemic respiratory failure secondary to an acute exacerbation of diastolic congestive heart failure with pleural effusions. Procalcitonin negative. Viral screen negative. The patient remains on 2 L of oxygen by nasal cannula. Pulse ox is 90% on room air oxygen. Hypoxemia improved following the thoracentesis. Atrial fibrillation, anticoagulated with Eliquis, recent cardioversion on July 09, 2024, currently in sinus rhythm Right sided pleural effusion status post thoracentesis on April 29, 2024 with 2.6 L removed. Cytology negative for malignancy and the pleural fluid is consistent with a transudate, likely related to CHF. History of congestive heart failure Hypertension Hyperlipidemia Chronic obstructive pulmonary disease Former smoker plan: R thoracentesis was completed yesterday with a total of 2.4 L of fluid was aspirated, clinically improved Obtain a follow-up chest x-ray shows improvement in aeration of the right lung base Reanalyze the pleural fluid is consistent with a transudate, consistent with CHF Patient is currently on Eliquis Continue diuretics Continue bronchodilators, steroids Procalcitonin negative Antibiotics discontinued Titrate down the FiO2 as tolerated, currently ranging between room air oxygen and 3 L
[2024-07-13] MEDS: PANTOPRAZOLE 40 MG TABLET PO SCH (15:19)
--- NOTE | 2024-07-13 16:03 | CT ---
EXAMINATION TYPE: CT angio chest CT DLP: 398.1 mGycm, Automated exposure control for dose reduction was used. DATE OF EXAM: 07/13/2024 3:38 PM COMPARISON: 02/08/2024, 07/12/2024 CLINICAL INDICATION: Male, 64 years old with history of Pulm htn r/o PE; Pulm htn r/o PE TECHNIQUE/CONTRAST: CTA scan of the thorax is performed with IV Contrast, patient injected with 80ml mL of Isovue 370, [place] P images are created and reviewed these are created on a separate workstation.. FINDINGS: Pulmonary Artery: Filling defect within the right middle lobe better appreciated on sagittal imaging series 403 image 87 with poor visualization of the pulmonary artery vasculature within the cerebral l obe. Patchy airspace opacities are seen possibly representing early infarct.. The pulmonary artery i s of normal size. Lungs/Pleura: Patchy airspace opacities as described above predominantly in the right middle lobe and right lower lung in the distribution of poor visualization of pulmonary arterial vasculature. Parase ptal and centrilobular emphysema changes. Trace right apical pneumothorax. Small right pleural effusi on. Trace left pleural effusion. Pulmonary interstitial lobular thickening. Airway: Large airways are patent. Heart: Heart is within normal limits for size. Vasculature: No evidence of aortic aneurysm. Mediastinum: No gross evidence of adenopathy., Prominent nonenlarged lymph nodes identified. Musculoskeletal: No acute osseous abnormalities Soft Tissues/lymph nodes: Unremarkable. Lower neck: No significant findings. Upper Abdomen: No significant findings. IMPRESSION: 1. Linear filling defect within the right middle lobe with poor visualization of the distal subsegmen luciano branches suggestive of pulmonary embolus. No evidence of right heart strain. 2. Airspace opacities scattered throughout the right middle lobe and lower lobe possibly representing pulmonary edema versus early pulmonary infarct. 3. Right hydropneumothorax, with Trace right apical pneumothorax with right small pleural effusion co mponent. 4r. Pulmonary vascular congestion correlate with serum BNP. Findings communicated to Dr. García [place] [facility] it operations manager. 07/13/2024 3:[address] Marty garcia. [facility], Workstation: [id number], 07/13/2024 4:00 PM
[2024-07-13] MEDS ORDERED: APIXABAN 5 MG TAB PO SCH (21:00)
[2024-07-14] MEDS ORDERED: HEPARIN SODIUM,PORCINE 10,000 UNIT in SODIUM CHLORIDE 0.9% 1,000 ML IRRIGATION PRN (07:00)
[2024-07-14] MEDS ORDERED: HEPARIN SODIUM,PORCINE (1 ML) 2,500 UNIT in SODIUM CHLORIDE 0.9% 250 ML IRRIGATION PRN (07:00)
[2024-07-14] MEDS: MIDAZOLAM 2 MG/2 ML VIAL IVP ONE ×2 (08:44→08:48)
[2024-07-14] MEDS: fentaNYL (PF) 50 MCG/1 ML VIAL IVP ONE ×2 (08:44→08:48)
[2024-07-14] MEDS: LIDOCAINE 1% INJ 10MG/ML (20 ML MDV) SQ ONE (08:44)
[2024-07-14] MEDS: SODIUM CHLORIDE 0.9% 500 ML 500 ML IV ONE (08:49)
[2024-07-14] MEDS: IOPAMIDOL-370 100ML BTL INJ ONE (09:16)
[2024-07-14 09:21] LABS: O2 Sat Blood Gas 68.8 %
[2024-07-14 09:22] LABS: O2 Sat Blood Gas 66.6 %
--- NOTE | 2024-07-14 18:01 | P.PN ---
Subjective Progress Note Date: 07/14/24 This is a pleasant 64-year-old male patient with a known history of chronic obstructive pulmonary disease, atrial fibrillation with recent cardioversion on 07/12/2024 remains on Eliquis, congestive heart failure, hypertension, hyperlipidemia, previous pleural effusion status post thoracentesis on April 29, 2024 with 2.6 L of fluid removed. Cytology was negative for malignancy. Send and here to the emergency room yesterday with complaints of increasing shortness of breath over the past 1-1/2 weeks. No significant cough or congestion. No fever or chills. No chest pain. He is maintaining O2 saturation in the 90s on 4 L/min per nasal cannula. Chest x-ray reveals bibasilar infiltrates and opaci ties. Right greater than left. White count 9.2. Hemoglobin 14.0. Platelets 292. Sodium 140. Potassium 4.5. Bicarb 22. BUN 25. Creatinine 1.0. Glucose 154. Procalcitonin negative at 0.04. Viral screen negative. proBNP 5100. Troponin negative x 1. He has been initiated on Symbicort, DuoNeb and elations, Solu-Medrol. On oral diuretics. No accurate intake and output. He is seen in consultation on the regular medical floor. He is currently sitting up at the bedside. Awake and alert in no acute distress. Maintaining O2 saturations in the 90s on 4 L/min per nasal cannula. 07/12/2024, the patient is being seen in a follow-up. His current cardiac rhythm is sinus. Anticoagulation is on hold. He has a large right-sided pleural effusion for which I performed a bedside thoracentesis and a total of 2.4 L of fluid was aspirated. The previous fluid analysis was a transudate. Awaiting follow-up chest x-ray. No angina. No palpitation. Reviewed the CAT scan of the chest and the patient had a right-sided pleural effusion in addition to chronic emphysematous changes bilaterally With upper lobe predominance. Blood work from today showed sodium of 140, potassium of 4.5, BUN 24 with a creatinine of 1.0. The patient is currently on 3 L of oxygen by nasal cannula with a pulse ox of 90%. On 07/13/2024, the patient is feeling better and less short of breath compared to yesterday. Noted the patient underwent a thoracentesis of the right lung and the pleural fluid analysis was essentially transudate. Based on the fluid chemistry, the cell count was 34, the protein 1.4 and LDH is at 74 and this is essentially consistent with a transudate. The patient's cardiac rhythm is sinus. The patient remains on IV Lasix. The patient is also on a prednisone burst taper starting with 40 mg and the patient is on DuoNeb nebulized treatments [id number]. On 3 L the pulse ox was 98% and on room air oxygen, the pulse ox is currently is at 90%. No other new complaints otherwise for now. 07/14/2024, the patient is feeling less short of breath. Reviewed the CAT scan of the chest and the patient has a small to moderate-sized right-sided pleural effusion with a tiny apical pneumothorax. Based on my review of the CTA, there is no convincing evidence of pulmonary embolism and the patient remains on anticoagulation with Eliquis. A right-sided cardiac cath was done today and the pulmonary artery pressures were not elevated and left-ventricular diastolic pressure was around 17. The patient was diuresed with IV Lasix. The patient remains in negative fluid balance of 2.6 L over the past 24 hours. Room air pulse ox is 94%. No significant JVD's. No significant swelling lower extremities. Cardiac rhythm remains sinus. Objective - Vital Signs Vital signs: Vital Signs Temp 97.8 F 07/14/24 11:24 Pulse 68 07/14/24 11:44 Resp 18 07/14/24 11:24 BP 105/70 07/14/24 11:24 Pulse Ox 100 07/14/24 11:24 FiO2 Intake & Output 07/13/24 07/14/24 07/14/24 18:59 06:59 18:59 Intake Total 60 Output Total 2650 Balance -2650 60 Weight 87.8 kg Intake: IV 60 Invasive Line 2 10 Output: Urine 2650 Other: Voiding Method Toilet Urinal - Exam GENERAL EXAM: Alert, pleasant 64-year-old male, on 4 L nasal cannula, fairly comfortable in no apparent distress. HEAD: Normocephalic. EYES: Normal reaction of pupils, equal size. NOSE: Clear with pink turbinates. THROAT: No erythema or exudates. NECK: No masses, no JVD. CHEST: No chest wall deformity. LUNGS: Equal air entry with bibasilar crackles right greater than left. CVS: S1 and S2 normal with no audible murmur, regular rhythm. ABDOMEN: No hepatosplenomegaly, normal bowel sounds, no guarding or rigidity. SPINE: No scoliosis or deformity SKIN: No rashes CENTRAL NERVOUS SYSTEM: No focal deficits, tone is normal in all 4 extremities. EXTREMITIES: There is no peripheral edema. No clubbing, no cyanosis. Peripheral pulses are intact. - Labs CBC & Chem 7: 07/10/24 14:12 07/11/24 03:49 Labs: Abnormal Lab Results - Last 24 Hours (Table) 07/10/24 Range/Units 14:12 Free Renovo LC, Quant 2.00 H (0.33-1.94) mg/dL Microbiology - Last 24 Hours (Table) 07/10/24 15:15 Blood Culture - Preliminary Blood Assessment and Plan Plan: Acute hypoxemic respiratory failure secondary to an acute exacerbation of diastolic congestive heart failure with pleural effusions. Procalcitonin negative. Viral screen negative. The patient remains on room air oxygen and the patient's oxygenation is improved. Atrial fibrillation, anticoagulated with Eliquis, recent cardioversion on July 09, 2024, currently in sinus rhythm Right sided pleural effusion status post thoracentesis on April 29, 2024 with 2.6 L removed. Cytology negative for malignancy and the pleural fluid is consistent with a transudate, likely related to CHF. There is some residual small to moderate-sized right-sided pleural effusion and this should respond essentially to diuretics and the patient remains in negative fluid balance Preserved LV function with a left ventricular ejection fraction and diastolic pressure of around 17 based on a right-sided cardiac cath. No significant pulmonary hypertension. Awaiting final report from cardiology regarding the right-sided cardiac cath. Hypertension Hyperlipidemia Chronic obstructive pulmonary disease Former smoker plan: Oxygenation has improved and the patient is on RA 02 thoracentesis was completed yesterday with a total of 2.4 L of fluid was aspirated, clinically improved Obtain a follow-up chest x-ray shows improvement in aeration of the right lung base Reanalyze the pleural fluid is consistent with a transudate, consistent with CHF Patient is currently on Eliquis Continue diuretics Continue bronchodilators, steroids Procalcitonin negative Antibiotics discontinued awaiting the final right heart cath report
[2024-07-14] MEDS: APIXABAN 5 MG TAB PO SCH (20:29)
--- NOTE | 2024-07-14 22:19 | P.PN ---
Subjective This is a pleasant 64-year-old male with past medical history of multiple medical problems including COPD and chronic hypoxic respiratory failure on 2 to 3 L of oxygen via nasal cannula, who quit smoking last January. Presents because of worsening dyspnea and coughing with little white-grayish phlegm for the last couple weeks getting worse over the last 2 to 3 days with no history of or chest pain Patient denies GI/ symptoms. 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 Rooney He uses 2 to 3 L of oxygen mainly at night. On admission he was tachypneic with heart rate around 30. He is afebrile. He has unremarkable CBC, BMP, liver enzymes, INR and troponin EKG showing sinus rhythm at [address]-T changes Chest x-ray showing bilateral basal opacities suspicious for atelectasis versus infiltrate however it is similar to previous chest x-ray comparison, I reviewed the last 2 chest x-ray and agree with these findings proBNP is mildly elevated at 5100 Influenza A and type B, RSV, SARS (coronavirus) are undetected Echo from 01/2024 showing ejection fraction of 50 to 55% 07/11 Patient s/p right paracentesis today. 2.6 L taken out Breathing is better Started on prednisone 40 mg Resume Eliquis tomorrow 07/12 Patient actually did not get paracentesis yesterday or during this admission. Patient pending thoracocentesis. Eliquis was placed on hold He still complains from some dyspnea 07/13 Patient s/p thoracocentesis yesterday with 2.4 L taken out, fluid studies pending Breathing better but patient still mildly tachypneic, he still has some exertional dyspnea Patient evaluated by senior director of strategy also and he is currently on IV Lasix 40 mg twice daily, echocardiogram showing ejection fraction 55 to 60% Also he is on prednisone We will resume Eliquis if okay with pulmonary service 07/14 Patient breathing improved after thoracocentesis which was thought secondary to CHF. Oxygenation is also improved However patient still mildly but significantly tachypneic which is bothering him. Cardiology team are planning for right heart cath tomorrow. Anticoagulation resumed tonight with Eliquis Objective - Vital Signs Vital signs: Vital Signs Temp 97.6 F 07/14/24 16:00 Pulse 76 07/14/24 16:08 Resp 17 07/14/24 16:00 BP 93/59 07/14/24 16:00 Pulse Ox 94 L 07/14/24 16:00 FiO2 Intake & Output 07/14/24 07/14/24 07/15/24 06:59 18:59 06:59 Intake Total 1030 Output Total 2650 3350 Balance -2650 -2320 Weight 87.8 kg Intake: IV 70 Invasive Line 2 20 Oral 960 Output: Urine 2650 3350 - Exam GENERAL: The patient is alert and oriented x3, not in any acute distress. Well developed, well nourished. HEENT: Pupils are round and equally reacting to light. EOMI. No scleral icterus. No conjunctival pallor. Normocephalic, atraumatic. No pharyngeal erythema. No thyromegaly. CARDIOVASCULAR: S1 and S2 present. No murmurs, rubs, or gallops. PULMONARY: Chest is clear to auscultation, no wheezing , no crackles. ABDOMEN: Soft, nontender, nondistended, normoactive bowel sounds. No palpable organomegaly. MUSCULOSKELETAL: No joint swelling or deformity. EXTREMITIES: No cyanosis, clubbing, or pedal edema. NEUROLOGICAL: Gross neurological examination did not reveal any focal deficits. SKIN: No rashes. no petechiae. - Labs CBC & Chem 7: 07/10/24 14:12 07/11/24 03:49 Labs: Microbiology - Last 24 Hours (Table) 07/10/24 15:15 Blood Culture - Preliminary Blood Assessment and Plan Assessment: Right recurrent pleural effusion s/p thoracocentesis on 07/13 Acute on chronic diastolic CHF Acute COPD exacerbation, improving. Acute on chronic hypoxic respiratory failure. Improved Bilateral basal infiltrate mostly atelectasis. Less likely pneumonia right thoracocentesis, recurrent. S/p thoracocentesis on 07/11 chronic atrial fibrillation on Eliquis Hyperlipidemia Hypertension Ex-smoker Plan: Continue continue with prednisone, total 5 days Continue with Eliquis, currently on hold for thoracocentesis Continue with IV Lasix Cardiology consult Continue with aspirin Cardiology and pulmonary consults Continue with the breathing treatment Labs and medication were reviewed.. Continue same treatment. Continue with symptomatic treatment. Resume home medication. Monitor labs and vitals. DVT and GI prophylaxis. Further recommendations as per clinical course of the patient DVT prophylaxis: Eliquis GI Prophylaxis: Pepcid Prognosis is guarded
[2024-07-15 07:25] LABS: African American GFR (CKD) 60 (>60 ml/min/1.73 sqM); Anion Gap 5 mmol/L; Blood Urea Nitrogen 44 mg/dL (9-20); Calcium 8.9 mg/dL (8.4-10.2); Carbon Dioxide 33 mmol/L (22-30); Chloride 98 mmol/L (98-107); Glucose 85 mg/dL (74-99); Non-African American GFR(CKD) 52 (>60 ml/min/1.73 sqM); Potassium 4.1 mmol/L (3.5-5.1); Sodium 136 mmol/L (137-145)
[2024-07-15] MEDS: BENZOCAINE/MENTHOL LOZENG 1 EACH LOZENGE MUCOUS MEM PRN (11:25)
--- NOTE | 2024-07-15 12:52 | P.PN ---
Subjective HISTORY OF PRESENT ILLNESS: Patient is a 64-year-old male with past medical history of HFpEF, atrial fibrillation hypertension dyslipidemia and COPD. He is known to Dr. Melgoza. In April 2024 he had an ablation procedure for his atrial fibrillation. He had a relapse and 2 days ago he had a cardioversion procedure done with Dr. Melgoaz. Over last 1 to 2 days patient reports that his shortness of breath has significantly worsened and therefore he presented to the hospital. On admission to the ER he was hypoxic and tachypneic. Chest x-ray showed moderate to large right-sided pleural effusion. Admission ECG showed sinus rhythm with PACs Sodium 141 potassium 4.5, BUN 24, creatinine 1, Pro-Sridhar 0.04, troponin negative, NT proBNP 5100, previously 1999's. 07/12 Patient seen and examined. Blood pressure 112/72, heart rate 76, pulse ox 95% on room air. Chest ultrasound revealed a right pleural effusion pocket 20.4 cm and marked for thoracentesis. Eliquis is on hold as pulmonary medicine is planning on thoracentesis. Patient is maintained on IV Lasix 40 mg twice daily. Patient feels his breathing is worse. He is eating and drinking well. It does not appear that I&O, weights are accurate. Discussed with patient recommendation s for RHC to further deliniate source of effusion. Plan to repeat CT chest 07/13 Patient is seen and examined. He states he underwent thoracentesis. Dr. Meehan performed right sided thoracentesis with removal of 2400 mL. Patient still feels a rattle in his chest but he states his breathing is better. They attempted to take him off oxygen today but he became dizzy and pulse ox was in the high 80s. Echocardiogram limited revealed EF of 55 to 60%, D-shaped septum consistent with RV pressure overload, trace MR, mild TR, RVSP 58, no pericardial effusion. The results of the echocardiogram were reviewed with the patient and his at the bedside. Discussed need to rule out causes for the pulmonary hypertension. Patient is agreeable to move forward with a CTA of the chest and right heart catheterization. Blood pressure 94/61, heart rate 90, pulse ox 98% on 3 L nasal cannula. 07/15/2024 Patient is status post right sided heart cath with Dr. Melgoza. Final report is currently not available in the computer. However, right heart cath was apparently unremarkable with normal pressures. Patient also underwent pulmonary angiogram with no evidence of pulmonary embolism. Patient remains anticoagulated with Eliquis. Patient developed acute kidney injury today with creatinine of 1.42. He is currently on IV Lasix. PHYSICAL EXAM: VITAL SIGNS: Reviewed. GENERAL: Well-developed in no acute distress. NECK: Supple. No JVD or thyromegaly LUNGS: Respirations even and unlabored. Lungs diminished bilaterally. HEART: Regular rate and rhythm. S1 and S2 heard. EXTREMITIES: Normal range of motion. No clubbing or cyanosis. Peripheral pulses intact. No lower extremity edema ASSESSMENT: Acute hypoxic respiratory failure Acute on chronic heart failure with preserved EF Moderate to large right-sided pleural effusion status post thoracentesis Paroxysmal atrial fibrillation. Failed A-fib ablation twice. Recently underwent cardioversion. Currently sinus rhythm with PACs History of COPD Pulmonary embolism, ruled out Status post right heart cath with no evidence of significantly elevated pressures PLAN: Discontinue IV Lasix secondary to TAYLOR. Repeat kidney function in AM. Will resume Bumex tomorrow if kidney function improves. Continue additional cardiac medications Status post right heart cath with no evidence of significantly elevated pressures. However, awaiting final procedure note from Dr. Melgoza. Stable from a cardiac standpoint Patient to follow up post discharge with Dr Melgoza Further recommendations pending patient course Nurse practitioner note has been reviewed by physician. Signing provider agrees with the documented findings, assessment, and plan of care documented by POULTRY INSEMINATOR as a scribe. Objective - Vital Signs Vital signs: Vital Signs Temp 97.6 F 07/15/24 11:57 Pulse 72 07/15/24 12:12 Resp 16 07/15/24 11:57 BP 110/66 07/15/24 11:57 Pulse Ox 96 07/15/24 11:57 FiO2 Intake & Output 07/14/24 07/15/24 07/15/24 18:59 06:59 18:59 Intake Total 1030 240 Output Total 3350 1700 Balance -2320 -1700 240 Weight 87.4 kg Intake: IV 70 Invasive Line 2 20 Oral 960 240 Output: Urine 3350 1700 - Labs CBC & Chem 7: 07/10/24 14:12 07/15/24 06:42 Labs: Abnormal Lab Results - Last 24 Hours (Table) 07/15/24 Range/Units 06:42 Sodium 136 L (137-145) mmol/L Carbon Dioxide 33 H (22-30) mmol/L BUN 44 H (9-20) mg/dL Creatinine 1.42 H (0.66-1.25) mg/dL Microbiology - Last 24 Hours (Table) 07/10/24 15:15 Blood Culture - Preliminary Blood
--- NOTE | 2024-07-15 15:03 | XR ---
EXAMINATION TYPE: XR chest 1V DATE OF EXAM: 07/15/2024 2:55 PM COMPARISON: CTA chest 07/13/2024, chest radiograph 07/12/2024. TECHNIQUE: XR chest 1V Frontal view of the chest. CLINICAL INDICATION:Male, 64 years old with history of pleural effusion FU; FINDINGS: Lungs/Pleura: Relatively similar right hydropneumothorax with decreased fluid within the right fissur es from prior exam. Similar bibasilar patchy airspace opacities. No left pneumothorax. Hyperinflation compatible with COPD. Pulmonary vascularity: Unremarkable. Heart/mediastinum: Cardiomediastinal silhouette is stable. Musculoskeletal: Multiple level degenerative disc disease changes seen throughout the spine. IMPRESSION: Similar small right hydropneumothorax with decreased fluid within the right fissures. Similar bibasil ar patchy airspace opacities. [facility], , 07/15/2024 3:00 PM
--- NOTE | 2024-07-15 15:14 | P.PN ---
Subjective PROCEDURES PERFORMED: Right heart catheterization, bilateral pulmonary artery angiography, ultrasound guided venous access INDICATION: Pulmonary hypertension, CHF, concern of PE on CTA CONSENT:I have discussed the risks, benefits and alternative therapies for the above-mentioned procedure and for both sedation/analgesia as well as necessary blood product administration, if indicated, as they pertain to this patient. The patient has indicated understanding and acceptance of the risks and procedures discussed. PROCEDURE: After the risks, benefits and alternatives of the above mentioned procedure explained in detail with the patient, informed consent was obtained. Patient was taken to the catheterization lab and prepped and draped in usual fashion. Ultrasound guidance was used to assess for venous access. 1% lidocaine was used to anesthetize the right brachial area. A 6-Montserratian sheath was placed in the right brachial vein using modified Seldinger technique and ultrasound guidance. A 6-Montserratian Phoenix-Kev catheter was inserted in the right atrium, right ventricle, pulmonary artery and pulmonary A wedge position and pressure measur ements and oxygen saturations were obtained. Thermodilution was performed. Next a 6-Montserratian pigtail catheter was inserted into the right pulmonary artery and the left pulmonary artery and angiograms were performed with DSA and power injection. The right brachial sheath was removed and pressure held with hemostasis achieved. The patient tolerated the procedure well. Patient was transported back to the post catheterization holding area in stable condition. Conscious Sedation: Patient was monitored under the direct supervision of myself for conscious sedation using Versed and fentanyl for a total duration of 25 minutes HEMODYNAMICS: Right atrial: 3 RV: 42/1 PA: 36/12, mean 24 PCWP: 17 Right atrial oxygen saturation: 67% PA oxygen saturation: 69% Pulse ox on room air 90% Cardiac output by Eduin: 6.7 L/m Cardiac index by Eduin: 3.0 L/m/m Cardiac output by thermodilution: 5.1 L/m Cardiac index by Eduin: 2.3 L/m/m SELECTIVE RIGHT ADND LEFT PULMONARY ARTERIOGRAPHY: There is no filling defect or stenosis of bilateral main pulmonary arteriess or any sugemental arteries FINAL IMPRESSION: 1. Borderline elevated left filling pressure and normal right-sided filling pressure 2. Borderline pulmonary hypertension with mean PA pressure 24 3. Normal cardiac output/cardiac index 4. Normal pulmonary artery angiography PLAN: Continue trial of diuresis however evaluate for other reasons for hypoxia with pulse ox 90% on room air and only borderline elevated left filling pressures and normal right-sided filling pressures Objective - Vital Signs Vital signs: Vital Signs Temp 97.6 F 07/15/24 11:57 Pulse 72 07/15/24 12:12 Resp 16 07/15/24 11:57 BP 110/66 07/15/24 11:57 Pulse Ox 96 07/15/24 11:57 FiO2 Intake & Output 07/14/24 07/15/24 07/15/24 18:59 06:59 18:59 Intake Total 1030 360 Output Total 3350 1700 Balance -2320 -1700 360 Weight 87.4 kg Intake: IV 70 Invasive Line 2 20 Oral 960 360 Output: Urine 3350 1700 - Labs CBC & Chem 7: 07/10/24 14:12 07/15/24 06:42 Labs: Abnormal Lab Results - Last 24 Hours (Table) 07/15/24 Range/Units 06:42 Sodium 136 L (137-145) mmol/L Carbon Dioxide 33 H (22-30) mmol/L BUN 44 H (9-20) mg/dL Creatinine 1.42 H (0.66-1.25) mg/dL Microbiology - Last 24 Hours (Table) 07/10/24 15:15 Blood Culture - Preliminary Blood
--- NOTE | 2024-07-15 17:50 | P.PN ---
Subjective Progress Note Date: 07/15/24 This is a pleasant 64-year-old male patient with a known history of chronic obstructive pulmonary disease, atrial fibrillation with recent cardioversion on 07/12/2024 remains on Eliquis, congestive heart failure, hypertension, hyperlipidemia, previous pleural effusion status post thoracentesis on April 29, 2024 with 2.6 L of fluid removed. Cytology was negative for malignancy. Send and here to the emergency room yesterday with complaints of increasing shortness of breath over the past 1-1/2 weeks. No significant cough or congestion. No fever or chills. No chest pain. He is maintaining O2 saturation in the 90s on 4 L/min per nasal cannula. Chest x-ray reveals bibasilar infiltrates and opaci ties. Right greater than left. White count 9.2. Hemoglobin 14.0. Platelets 292. Sodium 140. Potassium 4.5. Bicarb 22. BUN 25. Creatinine 1.0. Glucose 154. Procalcitonin negative at 0.04. Viral screen negative. proBNP 5100. Troponin negative x 1. He has been initiated on Symbicort, DuoNeb and elations, Solu-Medrol. On oral diuretics. No accurate intake and output. He is seen in consultation on the regular medical floor. He is currently sitting up at the bedside. Awake and alert in no acute distress. Maintaining O2 saturations in the 90s on 4 L/min per nasal cannula. 07/12/2024, the patient is being seen in a follow-up. His current cardiac rhythm is sinus. Anticoagulation is on hold. He has a large right-sided pleural effusion for which I performed a bedside thoracentesis and a total of 2.4 L of fluid was aspirated. The previous fluid analysis was a transudate. Awaiting follow-up chest x-ray. No angina. No palpitation. Reviewed the CAT scan of the chest and the patient had a right-sided pleural effusion in addition to chronic emphysematous changes bilaterally With upper lobe predominance. Blood work from today showed sodium of 140, potassium of 4.5, BUN 24 with a creatinine of 1.0. The patient is currently on 3 L of oxygen by nasal cannula with a pulse ox of 90%. On 07/13/2024, the patient is feeling better and less short of breath compared to yesterday. Noted the patient underwent a thoracentesis of the right lung and the pleural fluid analysis was essentially transudate. Based on the fluid chemistry, the cell count was 34, the protein 1.4 and LDH is at 74 and this is essentially consistent with a transudate. The patient's cardiac rhythm is sinus. The patient remains on IV Lasix. The patient is also on a prednisone burst taper starting with 40 mg and the patient is on DuoNeb nebulized treatments [id number]. On 3 L the pulse ox was 98% and on room air oxygen, the pulse ox is currently is at 90%. No other new complaints otherwise for now. 07/14/2024, the patient is feeling less short of breath. Reviewed the CAT scan of the chest and the patient has a small to moderate-sized right-sided pleural effusion with a tiny apical pneumothorax. Based on my review of the CTA, there is no convincing evidence of pulmonary embolism and the patient remains on anticoagulation with Eliquis. A right-sided cardiac cath was done today and the pulmonary artery pressures were not elevated and left-ventricular diastolic pressure was around 17. The patient was diuresed with IV Lasix. The patient remains in negative fluid balance of 2.6 L over the past 24 hours. Room air pulse ox is 94%. No significant JVD's. No significant swelling lower extremities. Cardiac rhythm remains sinus. 07/15/2024, the patient is being seen for a follow-up. No new complaints. Repeat chest x-ray was done today and shows COPD with a small right-sided pleural effusion. There is a very small right-sided hydropneumothorax with decrease in the fluid in the right fissures. The patient is in normal sinus rhythm. Occasional cough and sputum production. No significant chest pain. Noted the patient was producing urine output and the patient has been negative for liters over the past 24 hours. He has become prerenal and the creatinine is currently up to 1.4 with BUN of 44 in the setting of diuretics discontinued. Sodium -1.6 and calcium is at 4.1. The patient is currently on room air oxygen with a pulse ox of 96%. He is afebrile. Objective - Vital Signs Vital signs: Vital Signs Temp 97.7 F 07/15/24 08:17 Pulse 76 07/15/24 08:43 Resp 16 07/15/24 08:17 BP 107/72 07/15/24 08:17 Pulse Ox 96 07/15/24 08:17 FiO2 Intake & Output 07/14/24 07/15/24 07/15/24 18:59 06:59 18:59 Intake Total 1030 240 Output Total 3350 1700 Balance -2320 -1700 240 Weight 87.4 kg Intake: IV 70 Invasive Line 2 20 Oral 960 240 Output: Urine 3350 1700 - Exam GENERAL EXAM: Alert, pleasant 64-year-old male, on room air oxygen with a pulse ox of 96%, fairly comfortable in no apparent distress. HEAD: Normocephalic. EYES: Normal reaction of pupils, equal size. NOSE: Clear with pink turbinates. THROAT: No erythema or exudates. NECK: No masses, no JVD. CHEST: No chest wall deformity. LUNGS: Equal air entry with bibasilar crackles right greater than left. CVS: S1 and S2 normal with no audible murmur, regular rhythm. ABDOMEN: No hepatosplenomegaly, normal bowel sounds, no guarding or rigidity. SPINE: No scoliosis or deformity SKIN: No rashes CENTRAL NERVOUS SYSTEM: No focal deficits, tone is normal in all 4 extremities. EXTREMITIES: There is no peripheral edema. No clubbing, no cyanosis. Peripheral pulses are intact. - Labs CBC & Chem 7: 07/10/24 14:12 07/15/24 06:42 Labs: Abnormal Lab Results - Last 24 Hours (Table) 07/15/24 Range/Units 06:42 Sodium 136 L (137-145) mmol/L Carbon Dioxide 33 H (22-30) mmol/L BUN 44 H (9-20) mg/dL Creatinine 1.42 H (0.66-1.25) mg/dL Microbiology - Last 24 Hours (Table) 07/10/24 15:15 Blood Culture - Preliminary Blood Assessment and Plan Plan: Acute hypoxemic respiratory failure improved and the patient's pulse ox is improved and currently is in a 6% room air oxygen. Atrial fibrillation, anticoagulated with Eliquis, recent cardioversion on July 09, 2024, currently in sinus rhythm Right sided pleural effusion status post thoracentesis on April 29, 2024 with 2.6 L removed. Cytology negative for malignancy and the pleural fluid is consistent with a transudate, likely related to CHF. There is some residual small to moderate-sized right-sided pleural effusion and this should respond essentially to diuretics and the patient remains in negative fluid balance. Repeat chest x-ray shows a tiny right apical pneumothorax and marked improvement in the right-sided pleural effusion. COPD Acute on chronic dyspnea with improvement in the acute component Acute prerenal azotemia/acute kidney injury secondary aggressive diuresis. C reatinine is up to 1.4 Preserved LV function with a left ventricular ejection fraction and diastolic pressure of around 17 based on a right-sided cardiac cath. No significant pulmonary hypertension. Awaiting final report from cardiology regarding the right-sided cardiac cath. Hypertension Hyperlipidemia Chronic obstructive pulmonary disease Former smoker plan: Oxygenation has improved and the patient is on RA 02 Hold diuretics thoracentesis was completed yesterday with a total of 2.4 L of fluid was aspirated, clinically improved Follow-up chest x-ray shows improvement in aeration of the right lung base pleural fluid is consistent with a transudate, consistent with CHF Patient is currently on Eliquis Of diuretics for now Continue bronchodilators, steroids Procalcitonin negative Antibiotics discontinued
[2024-07-15 20:00] LABS: Appearance,Urine Clear (Clear); Bilirubin,Urine Negative (Negative); Blood,Urine Negative (Negative); Color,Urine Light Yellow; Glucose,Urine (UA) 4+ (Negative); Ketones,Urine Negative (Negative); Leukocyte Esterase,Urine Negative (Negative); Nitrite,Urine Negative (Negative); Protein,Urine Negative (Negative); Specific Gravity,Urine 1.017 (1.001-1.035); Urobilinogen,Urine <2.0 mg/dL (<2.0)
[2024-07-16 07:31] LABS: African American GFR (CKD) 88 (>60 ml/min/1.73 sqM); Anion Gap 6 mmol/L; Blood Urea Nitrogen 32 mg/dL (9-20); Carbon Dioxide 28 mmol/L (22-30); Chloride 100 mmol/L (98-107); Glucose 90 mg/dL (74-99); Non-African American GFR(CKD) 76 (>60 ml/min/1.73 sqM); Potassium 4.6 mmol/L (3.5-5.1); Sodium 134 mmol/L (137-145)
[2024-07-16] MEDS: BUMETANIDE 1 MG TAB PO SCH (09:16)
[2024-07-16 09:22] VITALS: RESP 16; TEMP 98
[2024-07-16 12:18] VITALS: BP 114/74
--- NOTE | 2024-07-16 12:34 | P.PN ---
Subjective HISTORY OF PRESENT ILLNESS: Patient is a 64-year-old male with past medical history of HFpEF, atrial fibrillation hypertension dyslipidemia and COPD. He is known to Dr. Melgoza. In April 2024 he had an ablation procedure for his atrial fibrillation. He had a relapse and 2 days ago he had a cardioversion procedure done with Dr. Melgoza. Over last 1 to 2 days patient reports that his shortness of breath has significantly worsened and therefore he presented to the hospital. On admission to the ER he was hypoxic and tachypneic. Chest x-ray showed moderate to large right-sided pleural effusion. Admission ECG showed sinus rhythm with PACs Sodium 141 potassium 4.5, BUN 24, creatinine 1, Pro-Sridhar 0.04, troponin negative, NT proBNP 5100, previously 1999's. 07/12 Patient seen and examined. Blood pressure 112/72, heart rate 76, pulse ox 95% on room air. Chest ultrasound revealed a right pleural effusion pocket 20.4 cm and marked for thoracentesis. Eliquis is on hold as pulmonary medicine is planning on thoracentesis. Patient is maintained on IV Lasix 40 mg twice daily. Patient feels his breathing is worse. He is eating and drinking well. It does not appear that I&O, weights are accurate. Discussed with patient recommendation s for RHC to further deliniate source of effusion. Plan to repeat CT chest 07/13 Patient is seen and examined. He states he underwent thoracentesis. Dr. Meehan performed right sided thoracentesis with removal of 2400 mL. Patient still feels a rattle in his chest but he states his breathing is better. They attempted to take him off oxygen today but he became dizzy and pulse ox was in the high 80s. Echocardiogram limited revealed EF of 55 to 60%, D-shaped septum consistent with RV pressure overload, trace MR, mild TR, RVSP 58, no pericardial effusion. The results of the echocardiogram were reviewed with the patient and his at the bedside. Discussed need to rule out causes for the pulmonary hypertension. Patient is agreeable to move forward with a CTA of the chest and right heart catheterization. Blood pressure 94/61, heart rate 90, pulse ox 98% on 3 L nasal cannula. 07/15/2024 Patient is status post right sided heart cath with Dr. Melgoza. Final report is currently not available in the computer. However, right heart cath was apparently unremarkable with normal pressures. Patient also underwent pulmonary angiogram with no evidence of pulmonary embolism. Patient remains anticoagulated with Eliquis. Patient developed acute kidney injury today with creatinine of 1.42. He is currently on IV Lasix. 07/16/2024 Patient examined this morning at the bedside. Patient currently denies chest pain or pressure. He states that he is feeling well this morning although he continues to have episodes of shortness of breath. Patient's kidney function has normalized today. Creatinine 1.03. PHYSICAL EXAM: VITAL SIGNS: Reviewed. GENERAL: Well-developed in no acute distress. NECK: Supple. No JVD or thyromegaly LUNGS: Respirations even and unlabored. Lungs diminished bilaterally. HEART: Regular rate and rhythm. S1 and S2 heard. EXTREMITIES: Normal range of motion. No clubbing or cyanosis. Peripheral pulses intact. No lower extremity edema ASSESSMENT: Acute hypoxic respiratory failure Acute on chronic heart failure with preserved EF Moderate to large right-sided pleural effusion status post thoracentesis Paroxysmal atrial fibrillation. Failed A-fib ablation twice. Recently underwent cardioversion. Currently sinus rhythm with PACs History of COPD Pulmonary embolism, ruled out Status post right heart cath with no evidence of significantly elevated pressures PLAN: Status post right heart cath with no evidence of significantly elevated pressure s. However, awaiting final procedure note from Dr. Melgoza. Resume home dose of Bumex as TAYLOR has resolved Stable from a cardiac standpoint Patient to follow up post discharge with Dr Melgoza Further recommendations pending patient course Nurse practitioner note has been reviewed by physician. Signing provider agrees with the documented findings, assessment, and plan of care documented by WILDLIFE MANAGER as a scribe. Objective - Vital Signs Vital signs: Vital Signs Temp 98 F 07/16/24 08:00 Pulse 80 07/16/24 12:00 Resp 16 07/16/24 12:00 BP 114/74 07/16/24 12:00 Pulse Ox 95 07/16/24 12:00 FiO2 Intake & Output 07/15/24 07/16/24 07/16/24 18:59 06:59 18:59 Intake Total 1230 480 Output Total 600 2800 Balance 630 -2800 480 Weight 90 kg Intake: Oral 1230 480 Output: Urine 600 2800 Other: Voiding Method Toilet Urinal # Bowel Movements 0 - Labs CBC & Chem 7: 07/10/24 14:12 07/16/24 06:24 Labs: Abnormal Lab Results - Last 24 Hours (Table) 07/15/24 07/16/24 Range/Units 19:35 06:24 Sodium 134 L (137-145) mmol/L BUN 32 H (9-20) mg/dL Urine Glucose (UA) 4+ H (Negative)
[2024-07-16 12:58] VITALS: PULSE 80
--- NOTE | 2024-07-16 13:10 | P.CARDCATH ---
Description of Procedure: PROCEDURES PERFORMED: Right heart catheterization, bilateral pulmonary artery angiography, ultrasound guided venous access INDICATION: Pulmonary hypertension, CHF, concern of PE on CTA CONSENT:I have discussed the risks, benefits and alternative therapies for the above-mentioned procedure and for both sedation/analgesia as well as necessary blood product administration, if indicated, as they pertain to this patient. The patient has indicated understanding and acceptance of the risks and procedures discussed. PROCEDURE: After the risks, benefits and alternatives of the above mentioned procedure explained in detail with the patient, informed consent was obtained. Patient was taken to the catheterization lab and prepped and draped in usual fashion. Ultrasound guidance was used to assess for venous access. 1% lidocaine was used to anesthetize the right brachial area. A 6-Chadian sheath was placed in the right brachial vein using modified Seldinger technique and ultrasound guidance. A 6-Chadian [place]-Kev catheter was inserted in the right atrium, right ventricle, pulmonary artery and pulmonary A wedge position and pressure measurements and oxygen saturations were obtained. Thermodilution was performed. Next a 6-Chadian pigtail catheter was inserted into the right pulmonary artery and the left pulmonary artery and angiograms were performed with DSA and power injection. The right brachial sheath was removed and pressure held with hemostasis achieved. The patient tolerated the procedure well. Patient was transported back to the post catheterization holding area in stable condition. Conscious Sedation: Patient was monitored under the direct supervision of myself for conscious sedation using Versed and fentanyl for a total duration of 25 minutes HEMODYNAMICS: Right atrial: 3 RV: 42/1 PA: 36/12, mean 24 PCWP: 17 Right atrial oxygen saturation: 67% PA oxygen saturation: 69% Pulse ox on room air 90% Cardiac output by Eduin: 6.7 L/m Cardiac index by Eduin: 3.0 L/m/m Cardiac output by thermodilution: 5.1 L/m Cardiac index by Eduin: 2.3 L/m/m SELECTIVE RIGHT ADND LEFT PULMONARY ARTERIOGRAPHY: There is no filling defect or stenosis of bilateral main pulmonary arteriess or any sugemental arteries FINAL IMPRESSION: 1. Borderline elevated left filling pressure and normal right-sided filling pr essure 2. Borderline pulmonary hypertension with mean PA pressure 24 3. Normal cardiac output/cardiac index 4. Normal pulmonary artery angiography
[2024-07-16 13:16] VITALS: BMI 22.9
--- NOTE | 2024-07-16 13:48 | P.PN ---
Subjective Progress Note Date: 07/16/24 This is a pleasant 64-year-old male patient with a known history of chronic obstructive pulmonary disease, atrial fibrillation with recent cardioversion on 07/12/2024 remains on Eliquis, congestive heart failure, hypertension, hyperlipidemia, previous pleural effusion status post thoracentesis on April 29, 2024 with 2.6 L of fluid removed. Cytology was negative for malignancy. Send and here to the emergency room yesterday with complaints of increasing shortness of breath over the past 1-1/2 weeks. No significant cough or congestion. No fever or chills. No chest pain. He is maintaining O2 saturation in the 90s on 4 L/min per nasal cannula. Chest x-ray reveals bibasilar infiltrates and opaci ties. Right greater than left. White count 9.2. Hemoglobin 14.0. Platelets 292. Sodium 140. Potassium 4.5. Bicarb 22. BUN 25. Creatinine 1.0. Glucose 154. Procalcitonin negative at 0.04. Viral screen negative. proBNP 5100. Troponin negative x 1. He has been initiated on Symbicort, DuoNeb and elations, Solu-Medrol. On oral diuretics. No accurate intake and output. He is seen in consultation on the regular medical floor. He is currently sitting up at the bedside. Awake and alert in no acute distress. Maintaining O2 saturations in the 90s on 4 L/min per nasal cannula. 07/12/2024, the patient is being seen in a follow-up. His current cardiac rhythm is sinus. Anticoagulation is on hold. He has a large right-sided pleural effusion for which I performed a bedside thoracentesis and a total of 2.4 L of fluid was aspirated. The previous fluid analysis was a transudate. Awaiting follow-up chest x-ray. No angina. No palpitation. Reviewed the CAT scan of the chest and the patient had a right-sided pleural effusion in addition to chronic emphysematous changes bilaterally With upper lobe predominance. Blood work from today showed sodium of 140, potassium of 4.5, BUN 24 with a creatinine of 1.0. The patient is currently on 3 L of oxygen by nasal cannula with a pulse ox of 90%. On 07/13/2024, the patient is feeling better and less short of breath compared to yesterday. Noted the patient underwent a thoracentesis of the right lung and the pleural fluid analysis was essentially transudate. Based on the fluid chemistry, the cell count was 34, the protein 1.4 and LDH is at 74 and this is essentially consistent with a transudate. The patient's cardiac rhythm is sinus. The patient remains on IV Lasix. The patient is also on a prednisone burst taper starting with 40 mg and the patient is on DuoNeb nebulized treatments [id number]. On 3 L the pulse ox was 98% and on room air oxygen, the pulse ox is currently is at 90%. No other new complaints otherwise for now. 07/14/2024, the patient is feeling less short of breath. Reviewed the CAT scan of the chest and the patient has a small to moderate-sized right-sided pleural effusion with a tiny apical pneumothorax. Based on my review of the CTA, there is no convincing evidence of pulmonary embolism and the patient remains on anticoagulation with Eliquis. A right-sided cardiac cath was done today and the pulmonary artery pressures were not elevated and left-ventricular diastolic pressure was around 17. The patient was diuresed with IV Lasix. The patient remains in negative fluid balance of 2.6 L over the past 24 hours. Room air pulse ox is 94%. No significant JVD's. No significant swelling lower extremities. Cardiac rhythm remains sinus. 07/15/2024, the patient is being seen for a follow-up. No new complaints. Repeat chest x-ray was done today and shows COPD with a small right-sided pleural effusion. There is a very small right-sided hydropneumothorax with decrease in the fluid in the right fissures. The patient is in normal sinus rhythm. Occasional cough and sputum production. No significant chest pain. Noted the patient was producing urine output and the patient has been negative for liters over the past 24 hours. He has become prerenal and the creatinine is currently up to 1.4 with BUN of 44 in the setting of diuretics discontinued. Sodium -1.6 and calcium is at 4.1. The patient is currently on room air oxygen with a pulse ox of 96%. He is afebrile. On 07/17/2024, the patient is on room air oxygen. Pulse ox is around 94 to 95%. Hemodynamically stable. Cardiac rhythm is sinus. Renal function has normalized and the creatinine is down to 1.03 with a BUN of 32. Sodium levels at 134. Potassium level is at 4.6. Remains on DuoNeb updrafts. Remains on Symbicort. Remains on a prednisone burst taper currently on 40 mg p.o. daily. He also remains on metoprolol 50 mg p.o. twice daily amiodarone 200 mg twice a day. He remains on Bumex 1 mg p.o. twice a day. Cozaar for blood pressure control. No other new complaints for now. Electrolytes are stable. UA is negative. Chest x-ray from yesterday was noted. Objective - Vital Signs Vital signs: Vital Signs Temp 98 F 07/16/24 08:00 Pulse 84 07/16/24 09:37 Resp 16 07/16/24 08:00 BP 109/71 07/16/24 08:00 Pulse Ox 91 L 07/16/24 08:00 FiO2 Intake & Output 07/15/24 07/16/24 07/16/24 18:59 06:59 18:59 Intake Total 1230 480 Output Total 600 2800 Balance 630 -2800 480 Weight 90 kg Intake: Oral 1230 480 Output: Urine 600 2800 Other: # Bowel Movements 0 - Exam GENERAL EXAM: Alert, pleasant 64-year-old male, on room air oxygen with a pulse ox of 96%, fairly comfortable in no apparent distress. HEAD: Normocephalic. EYES: Normal reaction of pupils, equal size. NOSE: Clear with pink turbinates. THROAT: No erythema or exudates. NECK: No masses, no JVD. CHEST: No chest wall deformity. LUNGS: Equal air entry with bibasilar crackles right greater than left. CVS: S1 and S2 normal with no audible murmur, regular rhythm. ABDOMEN: No hepatosplenomegaly, normal bowel sounds, no guarding or rigidity. SPINE: No scoliosis or deformity SKIN: No rashes CENTRAL NERVOUS SYSTEM: No focal deficits, tone is normal in all 4 extremities. EXTREMITIES: There is no peripheral edema. No clubbing, no cyanosis. Peripheral pulses are intact. - Labs CBC & Chem 7: 07/10/24 14:12 07/16/24 06:24 Labs: Abnormal Lab Results - Last 24 Hours (Table) 07/15/24 07/16/24 Range/Units 19:35 06:24 Sodium 134 L (137-145) mmol/L BUN 32 H (9-20) mg/dL Urine Glucose (UA) 4+ H (Negative) Assessment and Plan Plan: Acute hypoxemic respiratory failure improved and the patient's pulse ox is imp roved and currently is on room air oxygen. Atrial fibrillation, anticoagulated with Eliquis, recent cardioversion on July 09, 2024, currently in sinus rhythm, currently on metoprolol and amiodarone and anticoagulation with Xarelto. Right sided pleural effusion status post thoracentesis on April 29, 2024 with 2.6 L removed. Cytology negative for malignancy and the pleural fluid is consistent with a transudate, likely related to CHF. There is some residual small to moderate-sized right-sided pleural effusion and this should respond essentially to diuretics and the patient remains in negative fluid balance. Repeat chest x-ray shows a tiny right apical pneumothorax and marked improvement in the right-sided pleural effusion. COPD, with a component of COPD exacerbation, currently on prednisone burst taper, Symbicort and DuoNeb updrafts. Acute on chronic dyspnea with improvement in the acute component Acute prerenal azotemia/acute kidney injury secondary aggressive diuresis. Renal function improved and the creatinine is normalized Preserved LV function with a left ventricular ejection fraction and diastolic pressure of around 17 based on a right-sided cardiac cath. No significant pulmonary hypertension. Awaiting final report from cardiology regarding the right-sided cardiac cath. Hypertension Hyperlipidemia Chronic obstructive pulmonary disease Former smoker plan: Oxygenation has improved and the patient is on Restart Bumex 1 mg p.o. twice a day thoracentesis was completed yesterday with a total of 2.4 L of fluid was aspirated, clinically improved Follow-up chest x-ray shows improvement in aeration of the right lung base pleural fluid is consistent with a transudate, consistent with CHF Patient is currently on Eliquis Continue Symbicort and this can be transition to Trelegy Ellipta on outpatient basis 1 puff a day Continue bronchodilators, steroids and the patient is currently on a prednisone burst taper Procalcitonin negative Continue metoprolol and amiodarone and anticoagulation with Xarelto A oxygenation is improved and the patient's pulse ox is around 94 to 95% room air oxygen.
[2024-07-21 14:10] LABS: Albumin 3.39 g/dL (3.80-4.90); Gamma Globulin 0.86 g/dL (0.70-1.50)
--- NOTE | 2024-07-22 19:01 | P.PN ---
Subjective This is a pleasant 64-year-old male with past medical history of multiple medical problems including COPD and chronic hypoxic respiratory failure on 2 to 3 L of oxygen via nasal cannula, who quit smoking last January. Presents because of worsening dyspnea and coughing with little white-grayish phlegm for the last couple weeks getting worse over the last 2 to 3 days with no history of or chest pain Patient denies GI/ symptoms. 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 Rooney He uses 2 to 3 L of oxygen mainly at night. On admission he was tachypneic with heart rate around 30. He is afebrile. He has unremarkable CBC, BMP, liver enzymes, INR and troponin EKG showing sinus rhythm at [address]-T changes Chest x-ray showing bilateral basal opacities suspicious for atelectasis versus infiltrate however it is similar to previous chest x-ray comparison, I reviewed the last 2 chest x-ray and agree with these findings proBNP is mildly elevated at 5100 Influenza A and type B, RSV, SARS (coronavirus) are undetected Echo from 01/2024 showing ejection fraction of 50 to 55% 07/11 Patient s/p right paracentesis today. 2.6 L taken out Breathing is better Started on prednisone 40 mg Resume Eliquis tomorrow 07/12 Patient actually did not get paracentesis yesterday or during this admission. Patient pending thoracocentesis. Eliquis was placed on hold He still complains from some dyspnea 07/13 Patient s/p thoracocentesis yesterday with 2.4 L taken out, fluid studies pending Breathing better but patient still mildly tachypneic, he still has some exertional dyspnea Patient evaluated by [facility] consultant also and he is currently on IV Lasix 40 mg twice daily, echocardiogram showing ejection fraction 55 to 60% Also he is on prednisone We will resume Eliquis if okay with pulmonary service 07/14 Patient breathing improved after thoracocentesis which was thought secondary to CHF. Oxygenation is also improved However patient still mildly but significantly tachypneic which is bothering him. Cardiology team are planning for right heart cath tomorrow. Anticoagulation resumed tonight with Eliquis 07/15 patient underwent cardiac cath today no dyspnea, reports improvement he continued on Eliquis Objective - Vital Signs Vital signs: Vital Signs Temp 97.5 F L 07/15/24 16:17 Pulse 72 07/15/24 16:36 Resp 16 07/15/24 16:17 BP 98/60 07/15/24 16:17 Pulse Ox 96 07/15/24 16:17 FiO2 Intake & Output 07/14/24 07/15/24 07/15/24 18:59 06:59 18:59 Intake Total 1030 360 Output Total 3350 1700 Balance -2320 -1700 360 Weight 87.4 kg Intake: IV 70 Invasive Line 2 20 Oral 960 360 Output: Urine 3350 1700 - Exam GENERAL: The patient is alert and oriented x3, not in any acute distress. Well developed, well nourished. HEENT: Pupils are round and equally reacting to light. EOMI. No scleral icterus. No conjunctival pallor. Normocephalic, atraumatic. No pharyngeal erythema. No thyromegaly. CARDIOVASCULAR: S1 and S2 present. No murmurs, rubs, or gallops. PULMONARY: Chest is clear to auscultation, no wheezing , no crackles. ABDOMEN: Soft, nontender, nondistended, normoactive bowel sounds. No palpable organomegaly. MUSCULOSKELETAL: No joint swelling or deformity. EXTREMITIES: No cyanosis, clubbing, or pedal edema. NEUROLOGICAL: Gross neurological examination did not reveal any focal deficits. SKIN: No rashes. no petechiae. - Labs CBC & Chem 7: 07/10/24 14:12 07/16/24 06:24 Labs: Abnormal Lab Results - Last 24 Hours (Table) 07/15/24 Range/Units 06:42 Sodium 136 L (137-145) mmol/L Carbon Dioxide 33 H (22-30) mmol/L BUN 44 H (9-20) mg/dL Creatinine 1.42 H (0.66-1.25) mg/dL Assessment and Plan Assessment: Right recurrent pleural effusion s/p thoracocentesis on 07/13 Acute on chronic diastolic CHF Acute COPD exacerbation, improving. Acute on chronic hypoxic respiratory failure. Improved Bilateral basal infiltrate mostly atelectasis. Less likely pneumonia right thoracocentesis, recurrent. S/p thoracocentesis on 07/11 chronic atrial fibrillation on Eliquis Hyperlipidemia Hypertension Ex-smoker Plan: Continue continue with prednisone, total 5 days Continue with Eliquis, currently on hold for thoracocentesis Continue with IV Lasix Cardiology consult Continue with aspirin Cardiology and pulmonary consults Continue with the breathing treatment Labs and medication were reviewed.. Continue same treatment. Continue with symptomatic treatment. Resume home medication. Monitor labs and vitals. DVT and GI prophylaxis. Further recommendations as per clinical course of the patient DVT prophylaxis: Eliquis GI Prophylaxis: Pepcid Prognosis is guarded
--- NOTE | 2024-07-22 19:05 | P.DS ---
Providers Date of admission: 07/10/24 15:03 Attending physician: Fredrick Pavon MD Consults: 07/10/24 15:02 Consult Physician Routine Consulting Provider: Marty Rooney Consult Reason/Comments: dyspnea Do you want consulting provider notified?: Yes Consult Physician Routine Consulting Provider: Mark Melgoza Consult Reason/Comments: dyspnea Do you want consulting provider notified?: Yes Primary care physician: Sabrina Clinton Hospital Course: diagnosis: Right recurrent pleural effusion s/p thoracocentesis on 07/13 Acute on chronic diastolic CHF Acute COPD exacerbation, improving. Acute on chronic hypoxic respiratory failure. Improved Bilateral basal infiltrate mostly atelectasis. Less likely pneumonia right thoracocentesis, recurrent. S/p thoracocentesis on 07/11 chronic atrial fibrillation on Eliquis Hyperlipidemia Hypertension Ex-smoker Hospital course: This is a pleasant 64-year-old male with past medical history of multiple medical problems including COPD and chronic hypoxic respiratory failure on 2 to 3 L of oxygen via nasal cannula, who quit smoking last January. Presents because of worsening dyspnea and coughing with little white-grayish phlegm for the last couple weeks getting worse over the last 2 to 3 days with no history of or chest pain patient was evaluated by cardiology and pulmonary teams. He underwent right records and disease with improvement of his symptoms. Also he underwent cardiac cath of the right heart: showing borderline pulmonary hypertension with no other significant abnormality, please refer to cardiology note for more details. Patient showed interval improvement, is his dyspnea improved. He denies chest pain. No other complaints. He is eager to go home today. Patient was before discharged by pulmonary and cardiology services problems and management plan were discussed with the patient and he verbalized understanding and acceptance Patient was found stable and can be discharged home in guarded prognosis however he needs follow-up as an outpatient. Patient was instructed to follow up with PCP Eleonora within one week and patient agrees patient was instructed to follow up with Dr. Melgoza in one week. Also to follow-up with sequencing machine operator Dr. Mckinney in two weeks and he agrees Physical exam Gen: patient is a AAOx3, no distress CVS: S1-S2, RRR, no murmur Lungs: B/L CTA, no wheezing Abdomen: soft, no distention, no tenderness, positive bowel sounds Extremity: no leg edema or induration Time spent more than 35 minutes Plan - Discharge Summary Discharge Rx Participant: No New Discharge Prescriptions: New predniSONE [Deltasone] 40 mg PO DAILY 1 Days #1 tab Metoprolol Tartrate [Lopressor] 50 mg PO BID 30 Days #60 tab Omeprazole [PriLOSEC] 20 mg PO AC-BRKFST #30 cap Continue Albuterol Nebulized [Ventolin Nebulized] 2.5 mg INHALATION RT-QID PRN PRN Reason: Shortness Of Breath Albuterol Inhaler [Ventolin Hfa Inhaler] 2 puff INHALATION RT-QID PRN #1 each PRN Reason: Shortness Of Breath Fluticasone/Umeclidin/Vilanter [Trelegy Ellipta 200-62.5-25] 1 puff INHALATION RT-DAILY Bumetanide [BUMEX] 1 mg PO BID@0900,1600 30 Days #60 tab Dapagliflozin Propanediol [Farxiga] 10 mg PO DAILY #30 tab Amiodarone [Cordarone] 400 mg PO BID@0900,1600 Multivitamins, Thera [Multivitamin (formulary)] 1 tab PO DAILY Aspirin EC [Ecotrin Low Dose] 81 mg PO DAILY Spironolactone [Aldactone] 25 mg PO DAILY #30 tab Losartan [Cozaar] 12.5 mg PO DAILY 30 Days #15 tab Nitroglycerin Sl Tabs [Nitrostat] 0.4 mg SL Q5M PRN PRN Reason: Chest Pain Apixaban [Eliquis] 5 mg PO BID@0900,1600 Discontinued Diltiazem Cd [Cardizem CD] 300 mg PO DAILY #30 cap Isosorbide Mononitrate ER [Imdur] 30 mg PO DAILY #30 tab Metoprolol Tartrate [Lopressor] 50 mg PO TID #90 tab Discharge Medication List Multivitamins, Thera [Multivitamin (formulary)] 1 tab PO DAILY 10/23/21 [History] Albuterol Nebulized [Ventolin Nebulized] 2.5 mg INHALATION RT-QID PRN 12/29/23 [History] Albuterol Inhaler [Ventolin Hfa Inhaler] 2 puff INHALATION RT-QID PRN #1 each 12/31/23 [Rx] Aspirin EC [Ecotrin Low Dose] 81 mg PO DAILY 02/08/24 [History] Fluticasone/Umeclidin/Vilanter [Trelegy Ellipta 200-62.5-25] 1 puff INHALATION RT-DAILY 04/28/24 [History] Bumetanide [BUMEX] 1 mg PO BID@0900,1600 30 Days #60 tab 05/01/24 [Rx] Dapagliflozin Propanediol [Farxiga] 10 mg PO DAILY #30 tab 05/01/24 [Rx] Losartan [Cozaar] 12.5 mg PO DAILY 30 Days #15 tab 05/01/24 [Rx] Spironolactone [Aldactone] 25 mg PO DAILY #30 tab 05/01/24 [Rx] Amiodarone [Cordarone] 400 mg PO BID@0900,1600 07/10/24 [History] Apixaban [Eliquis] 5 mg PO BID@0900,1600 07/10/24 [History] Nitroglycerin Sl Tabs [Nitrostat] 0.4 mg SL Q5M PRN 07/10/24 [History] Metoprolol Tartrate [Lopressor] 50 mg PO BID 30 Days #60 tab 07/16/24 [Rx] Omeprazole [PriLOSEC] 20 mg PO AC-BRKFST #30 cap 07/16/24 [Rx] predniSONE [Deltasone] 40 mg PO DAILY 1 Days #1 tab 07/16/24 [Rx] Follow up Appointment(s)/Referral(s): Mark Melgoza DO [STAFF PHYSICIAN] - 07/23/24 3:30 pm Sabrina Clinton DO [Primary Care Provider] - 1-2 days Marty Rooney DO [Doctor of Osteopathic Medicine] - 08/04/24 9:15 am Patient Instructions/Handouts: COPD (Chronic Obstructive Pulmonary Disease) (DC) Activity/Diet/Wound Care/Special Instructions: heart healthy diet activity is restricted till you see your doctor Discharge Disposition: HOME WITH HOME HEALTH SERVICES
== END 2024-07-16 14:18 | disposition home health service (06) | DRG 286 ==
LOC: EC 13:38 → 4SSUR 15:02 → OBSVTOIN 15:03 → 4SSUR 15:28 → 3SCARD 07-13 18:09 → 3NCARDOBS 07-13 22:13
PROVIDERS: ADMIT Internal Medicine; ATTEND Internal Medicine
PROC: 0W993ZX Drainage of Right Pleural Cavity, Percutaneous Approach, Diagnostic (ICD-10-PCS; principal; 2024-07-12)
PROC: B31S1ZZ Fluoroscopy of Right Pulmonary Artery using Low Osmolar Contrast (ICD-10-PCS; 2024-07-14 10:05)
PROC: 4A023N6 Measurement of Cardiac Sampling and Pressure, Right Heart, Percutaneous Approach (ICD-10-PCS; 2024-07-14 10:05)
PROC: B31T1ZZ Fluoroscopy of Left Pulmonary Artery using Low Osmolar Contrast (ICD-10-PCS; 2024-07-14 10:05)
DX: I11.0 Hypertensive heart disease with heart failure (principal); I50.33 Acute on chronic diastolic (congestive) heart failure; J96.21 Acute and chronic respiratory failure with hypoxia; J44.1 Chronic obstructive pulmonary disease with (acute) exacerbation; J98.11 Atelectasis; J90 Pleural effusion, not elsewhere classified; J94.8 Other specified pleural conditions; N17.9 Acute kidney failure, unspecified; I49.1 Atrial premature depolarization; I48.0 Paroxysmal atrial fibrillation; I27.20 Pulmonary hypertension, unspecified; E78.5 Hyperlipidemia, unspecified; Z20.822 Contact with and (suspected) exposure to COVID-19; Z87.891 Personal history of nicotine dependence; Z79.01 Long term (current) use of anticoagulants; Z79.82 Long term (current) use of aspirin; Z79.84 Long term (current) use of oral hypoglycemic drugs; Z79.899 Other long term (current) drug therapy; Z86.16 Personal history of COVID-19; Z79.52 Long term (current) use of systemic steroids
CPT/HCPCS: 36415; 71045; 71046; 71275; 76604; 80048; 80053; 81003; 82810; 82945; 83605; 83615; 83735; 83880; 83883; 84145; 84157; 84165; 84484; 85018; 85025; 85610; 85730; 87040; 87636; 88108; 88305; 89050; 93005; 93308; 93451; 93568; 94640; 94760; 96365; 96375; 99285

== ENCOUNTER 2024-10-17 18:06 | Inpatient (IN) | payer BC, MEDICARE ==
--- NOTE | 2024-10-17 18:29 | ED ---
General Adult HPI - General Chief complaint: Shortness of Breath Stated complaint: TRAE Time Seen by Provider: 10/17/24 18:14 Source: patient Mode of arrival: wheelchair Limitations: no limitations - History of Present Illness Initial comments: Dictation was produced using [employer] dictation software. please excuse any grammatical, word or spelling errors. Chief Complaint: 64-year-old male presents to the emergency department for dyspnea History of Present Illness: Patient 64-year-old male presents with dyspnea he has history of COPD wears home O2. Patient feels like perhaps this could be a COPD exacerbation has been having shortness of breath, productive cough chills. Denies any fevers. Denies any chest pain he does complain of some mild right scapular pain that is waxing and waning. Patient takes anticoagulation medications. Denies any calf pain or calf swelling. No history of blood clots. The ROS documented in this emergency department record has been reviewed and confirmed by me. Those systems with pertinent positive or negative responses have been documented in the HPI. All other systems are other negative and/or noncontributory. - Related Data Home Medications Medication Instructions Recorded Confirmed Multivitamins, Thera [Multivitamin 1 tab PO DAILY 10/23/21 07/10/24 (formulary)] Albuterol Nebulized [Ventolin 2.5 mg INHALATION RT-QID PRN 12/29/23 07/10/24 Nebulized] Aspirin EC [Ecotrin Low Dose] 81 mg PO DAILY 02/08/24 07/10/24 Fluticasone/Umeclidin/Vilanter 1 puff INHALATION RT-DAILY 04/28/24 07/10/24 [Trelegy Ellipta 200-62.5-25] Amiodarone [Cordarone] 400 mg PO BID@0900,1600 07/10/24 07/10/24 Apixaban [Eliquis] 5 mg PO BID@0900,1600 07/10/24 07/10/24 Nitroglycerin Sl Tabs [Nitrostat] 0.4 mg SL Q5M PRN 07/10/24 07/10/24 Previous Rx's Medication Instructions Recorded Albuterol Inhaler [Ventolin Hfa 2 puff INHALATION RT-QID PRN #1 12/31/23 Inhaler] each Bumetanide [BUMEX] 1 mg PO BID@0900,1600 30 Days #60 05/01/24 tab Dapagliflozin Propanediol [Farxiga] 10 mg PO DAILY #30 tab 05/01/24 Losartan [Cozaar] 12.5 mg PO DAILY 30 Days #15 tab 05/01/24 Spironolactone [Aldactone] 25 mg PO DAILY #30 tab 05/01/24 Metoprolol Tartrate [Lopressor] 50 mg PO BID 30 Days #60 tab 07/16/24 Omeprazole [PriLOSEC] 20 mg PO AC-BRKFST #30 cap 07/16/24 predniSONE [Deltasone] 40 mg PO DAILY 1 Days #1 tab 07/16/24 Allergies Allergy/AdvReac Type Severity Reaction Status Date / Time lisinopril AdvReac CAUSED Verified 10/17/24 18:12 FATIGUE Review of Systems ROS Statement: Those systems with pertinent positive or pertinent negative responses have been documented in the HPI. ROS Other: All systems not noted in ROS Statement are negative. Past Medical History Past Medical History: Atrial Fibrillation, Heart Failure, COPD, Hyperlipidemia, Hypertension Additional Past Medical History / Comment(s): COVID 08/21 History of Any Multi-Drug Resistant Organisms: None Reported Additional Past Surgical History / Comment(s): REPAIR TENDON OF LEFT HAND (CHILDHOOD), sinus surgery , COLONOSCOPY Past Anesthesia/Blood Transfusion Reactions: No Reported Reaction Past Psychological History: No Psychological Hx Reported Smoking Status: Former smoker - Past Family History Mother Family Medical History: Cancer Additional Family Medical History / Comment(s): Passed from dementia Father Family Medical History: Congestive Heart Failure (CHF), COPD Additional Family Medical History / Comment(s): Passed from heart/lung disease General Exam - General Exam Comments Initial Comments: PHYSICAL EXAM: General Impression: Alert and oriented x3, not in acute distress HEENT: Normocephalic atraumatic, extra-ocular movements intact, pupils equal and reactive to light bilaterally, mucous membranes moist. Cardiovascular: Heart regular rate and rhythm Chest: Able to complete full sentences, no retractions, no tachypnea, no end expiratory wheezing Abdomen: abdomen soft, non-tender, non-distended, no organomegaly Musculoskeletal: Pulses present and equal in all extremities, no peripheral edema Motor: no focal deficits noted Neurological: CN II-XII grossly intact, no focal motor or sensory deficits noted Skin: Intact with no visualized rashes Psych: Normal affect and mood Limitations: no limitations Course Vital Signs 10/17/24 10/17/24 10/17/24 18:07 19:09 19:10 Temperature 99.3 F Pulse Rate 107 H 89 Respiratory 22 22 20 Rate Blood Pressure 106/72 95/61 O2 Sat by Pulse 93 L 92 L Oximetry 10/17/24 10/17/24 19:57 20:05 Temperature Pulse Rate 91 91 Respiratory Rate Blood Pressure O2 Sat by Pulse Oximetry - Reevaluation(s) Reevaluation #1: 10/17/24 20:18 Patient reevaluated at 8:18 PM after having had a breathing treatment. States that he has some scapular pain which feels like it is getting worse. X-ray showing possible pneumothorax. Does have a history of COPD with known blebs. CT ordered. EKG Findings - EKG Comments: EKG Findings:: My EKG interpretation: Ventricular rate 104, sinus tachycardia,. 167, QRS 86, QTc 424. No IL prolongation, no QTC prolongation, no ST or T-wave changes noted. Overall, this EKG is unremarkable Medical Decision Making - Medical Decision Making Was pt. sent in by a medical professional or institution (, PA, WASTEWATER TREATMENT ENGINEER, urgent care, hospital, or long-term...) When possible be specific @ -No Did you speak to anyone other than the patient for history (EMS, parent, family, police, friend...)? What history was obtained from this source @ -No Did you review nursing and triage notes (agree or disagree)? Why? @ -I reviewed and agree with nursing and triage notes Were old charts reviewed (outside hosp., previous admission, EMS record, old EKG, old radiological studies, urgent care reports/EKG's, long-term records)? Report findings @ -No old charts were reviewed Differential Diagnosis (chest pain, altered mental status, abdominal pain women, abdominal pain men, vaginal bleeding, musculoskeletal, weakness, fever, dys pnea, syncope, headache, dizziness, GI bleed, back pain, seizure, CVA, palpatations, mental health)? @ -Differential Dyspnea: Coronary syndrome, arrhythmia, tamponade, asthma, COPD, pulmonary embolism, pneumonia, pneumothorax, pulmonary effusion, anaphylaxis, diabetic ketoacidosis, flailed chest, pulmonary contusion, diaphragmatic rupture, anemia, neuromuscular, this is not meant to be an all-inclusive list. EKG interpreted by me (3pts min.). @ -See above X-rays interpreted by me (1pt min.). @ -Chest x-ray shows questionable small pneumonia CT interpreted by me (1pt min.). @ -CT chest shows hydropneumothorax. Pneumothorax component appears to be rather small. U/S interpreted by me (1pt. min.). @ -None done What testing was considered but not performed or refused? (CT, X-rays, U/S, labs)? Why? @ -None What meds were considered but not given or refused? Why? @ -None Was smoking cessation discussed for >3mins.? @ -No Were there social determinants of health that impacted care today? How? (Homelessness, low income, unemployed, alcoholism, drug addiction, transportation, low edu. Level, literacy, decrease access to med. care, nursing home, rehab)? @ -No Was there de-escalation of care discussed even if they declined (Discuss DNR or withdrawal of care, Hospice)? DNR status @ -No What co-morbidities impacted this encounter? (DM, HTN, Smoking, COPD, CAD, Cancer, CVA, ARF, Chemo, Hep., AIDS, mental health diagnosis, sleep apnea, morbid obesity)? @ -COPD, history of pleural effusion Was patient admitted / discharged? Hospital course, mention meds given and route, prescriptions, significant lab abnormalities, going to OR and other pertinent info. @ -64-year-old male with history of chronic lung disease presents to the ER for dyspnea. Patient reports that he has history of thoracenteses. Vital signs upon arrival are within acceptable limits. Patient mildly dyspneic at the bedside. Laboratory evaluation obtained. Labs within acceptable limits. Viral testing negative. X-ray shows questionable pneumonia. CT of the chest shows hydrothorax with small pneumothorax component. At this point patient stable for hospital admission with pulmonary consult. Patient likely would benefit from thoracentesis versus Pleurx catheter placement. Did you discuss the management of the patient with other professionals (professionals i.e. , PA, WASTEWATER TREATMENT ENGINEER, lab, RT, psych nurse, rn social work, u.s. representative, teacher, flight communications officer, pillowcase cleaner)? Give summary @ -Case discussed with hospitalist for admission Was critical care preformed (if so, how long)? @ -No Undiagnosed new problem with uncertain prognosis? @ -No Drug Therapy requiring intensive monitoring for toxicity (Heparin, Nitro, Insulin, Cardizem)? @ -No Were any procedures done? @ -No Diagnosis/symptom? Acute, or Chronic, or Acute on Chronic? Uncomplicated (without systemic symptoms) or Complicated (systemic symptoms)? @ -Hydropneumothorax Side effects of treatment? @ -No Exacerbation, Progression, or Severe Exacerbation? @ -No Poses a threat to life or bodily function? How? (Chest pain, [place], [place], pneumonia, PE, COPD, DKA, ARF, appy, cholecystitis, CVA, Diverticulitis, Homicidal, Suicidal, threat to staff... and all critical care pts) @ -yes - Lab Data Result diagrams: 10/17/24 18:37 10/17/24 18:37 Lab Results 10/17/24 10/17/24 10/17/24 Range/Units 18:37 18:37 18:37 WBC 8.6 (3.8-10.6) k/uL RBC 4.74 (4.30-5.90) m/uL Hgb 13.8 (13.0-17.5) gm/dL Hct 41.8 (39.0-53.0) % MCV 88.2 (80.0-100.0) fL MCH 29.2 (25.0-35.0) pg MCHC 33.1 (31.0-37.0) g/dL RDW 15.8 H (11.5-15.5) % Plt Count 268 (150-450) k/uL MPV 6.9 Neutrophils % 85 % Lymphocytes % 5 % Monocytes % 7 % Eosinophils % 0 % Basophils % 0 % Neutrophils # 7.4 (1.3-7.7) k/uL Lymphocytes # 0.4 L (1.0-4.8) k/uL Monocytes # 0.6 (0-1.0) k/uL Eosinophils # 0.0 (0-0.7) k/uL Basophils # 0.0 (0-0.2) k/uL PT 11.8 (10.0-12.5) sec INR 1.1 (<1.2) APTT 26.0 (22.0-30.0) sec Sodium 132 L (137-145) mmol/L Potassium 4.4 (3.5-5.1) mmol/L Chloride 97 L (98-107) mmol/L Carbon Dioxide 21 L (22-30) mmol/L Anion Gap 14 mmol/L BUN 32 H (9-20) mg/dL Creatinine 1.44 H (0.66-1.25) mg/dL Est GFR (CKD-EPI)AfAm 58 (>60 ml/min/1.73 sqM) Est GFR (CKD-EPI)NonAf 51 (>60 ml/min/1.73 sqM) Glucose 113 H (74-99) mg/dL Plasma Lactic Acid Dickson (0.7-2.0) mmol/L Calcium 8.8 (8.4-10.2) mg/dL Magnesium 2.2 (1.6-2.3) mg/dL Total Bilirubin 0.8 (0.2-1.3) mg/dL AST 33 (17-59) U/L ALT 20 (4-49) U/L Alkaline Phosphatase 105 (38-126) U/L Troponin I (0.000-0.034) ng/mL NT-Pro-B Natriuret Pep 6940 pg/mL Total Protein 6.9 (6.3-8.2) g/dL Albumin 3.8 (3.5-5.0) g/dL Influenza Type A (PCR) (Not Detectd) Influenza Type B (PCR) (Not Detectd) RSV (PCR) (Not Detectd) SARS-CoV-2 (PCR) (Not Detectd) 10/17/24 10/17/24 10/17/24 Range/Units 18:37 18:37 18:37 WBC (3.8-10.6) k/uL RBC (4.30-5.90) m/uL Hgb (13.0-17.5) gm/dL Hct (39.0-53.0) % MCV (80.0-100.0) fL MCH (25.0-35.0) pg MCHC (31.0-37.0) g/dL RDW (11.5-15.5) % Plt Count (150-450) k/uL MPV Neutrophils % % Lymphocytes % % Monocytes % % Eosinophils % % Basophils % % Neutrophils # (1.3-7.7) k/uL Lymphocytes # (1.0-4.8) k/uL Monocytes # (0-1.0) k/uL Eosinophils # (0-0.7) k/uL Basophils # (0-0.2) k/uL PT (10.0-12.5) sec INR (<1.2) APTT (22.0-30.0) sec Sodium (137-145) mmol/L Potassium (3.5-5.1) mmol/L Chloride (98-107) mmol/L Carbon Dioxide (22-30) mmol/L Anion Gap mmol/L BUN (9-20) mg/dL Creatinine (0.66-1.25) mg/dL Est GFR (CKD-EPI)AfAm (>60 ml/min/1.73 sqM) Est GFR (CKD-EPI)NonAf (>60 ml/min/1.73 sqM) Glucose (74-99) mg/dL Plasma Lactic Acid Dickson 1.9 (0.7-2.0) mmol/L Calcium (8.4-10.2) mg/dL Magnesium (1.6-2.3) mg/dL Total Bilirubin (0.2-1.3) mg/dL AST (17-59) U/L ALT (4-49) U/L Alkaline Phosphatase (38-126) U/L Troponin I 0.027 (0.000-0.034) ng/mL NT-Pro-B Natriuret Pep pg/mL Total Protein (6.3-8.2) g/dL Albumin (3.5-5.0) g/dL Influenza Type A (PCR) Not Detected (Not Detectd) Influenza Type B (PCR) Not Detected (Not Detectd) RSV (PCR) Not Detected (Not Detectd) SARS-CoV-2 (PCR) Not Detected (Not Detectd) Disposition Clinical Impression: Hydropneumothorax Disposition: ADMITTED IP TO THIS HOSP Condition: Fair Referrals: Sabrina Clinton DO [Primary Care Provider] - 1-2 days Decision Time: 21:05
[2024-10-17 18:54] LABS: Basophils % (A) 0 %; Eosinophils % (A) 0 %; HCT 41.8 % (39.0-53.0); HGB 13.8 gm/dL (13.0-17.5); Lymphocytes # (A) 0.4 k/uL (1.0-4.8); Lymphocytes % (A) 5 %; MCH 29.2 pg (25.0-35.0); MCHC 33.1 g/dL (31.0-37.0); MCV 88.2 fL (80.0-100.0); Mean Platelet Volume 6.9; Monocytes # (A) 0.6 k/uL (0-1.0); Monocytes % (A) 7 %; Neutrophils # (A) 7.4 k/uL (1.3-7.7); Neutrophils % (A) 85 %; Platelet Count 268 k/uL (150-450); RBC 4.74 m/uL (4.30-5.90); RDW 15.8 % (11.5-15.5); WBC 8.6 k/uL (3.8-10.6)
[2024-10-17 19:03] LABS: INR 1.1 (<1.2); Prothrombin Time 11.8 sec (10.0-12.5)
[2024-10-17 19:04] LABS: ALT 20 U/L (4-49); AST 33 U/L (17-59); African American GFR (CKD) 58 (>60 ml/min/1.73 sqM); Albumin 3.8 g/dL (3.5-5.0); Alkaline Phosphatase 105 U/L (38-126); Anion Gap 14 mmol/L; Blood Urea Nitrogen 32 mg/dL (9-20); Calcium 8.8 mg/dL (8.4-10.2); Carbon Dioxide 21 mmol/L (22-30); Chloride 97 mmol/L (98-107); Glucose 113 mg/dL (74-99); Magnesium 2.2 mg/dL (1.6-2.3); Non-African American GFR(CKD) 51 (>60 ml/min/1.73 sqM); Potassium 4.4 mmol/L (3.5-5.1); Sodium 132 mmol/L (137-145); Total Bilirubin 0.8 mg/dL (0.2-1.3); Total Protein 6.9 g/dL (6.3-8.2)
[2024-10-17] MEDS: DEXAMETHASONE SOD PHOSPHATE 10 MG/ML 1 ML VIAL IV STA (19:08)
[2024-10-17 19:12] LABS: NT-Pro-B-Type Natriuretic Pept 6940 pg/mL
--- NOTE | 2024-10-17 19:15 | XR ---
EXAMINATION TYPE: XR chest 2V DATE OF EXAM: 10/17/2024 6:54 PM COMPARISON: Chest radiographs from 07/15/2024. CLINICAL INDICATION: Male, 64 years old with history of dyspnea; TECHNIQUE: XR chest 2V Frontal and lateral views of the chest. FINDINGS: Lungs/Pleura: There is a visceral pleural line identified along the right lateral and right upper [address]. Additionally there is blunting of the costophrenic angles on the right base. Pulmonary vascularity: Unremarkable. Heart/mediastinum: Cardiomediastinal silhouette is unremarkable. Musculoskeletal: No acute osseous pathology. IMPRESSION: Small right hydropneumothorax new from 07/15/2024. There is also an elevated right diaphragm. Findings communicated to Ramin Jesus DO on 10/17/2024 7:[address] Matry Katz. [facility], , 10/17/2024 7:12 PM
[2024-10-17 19:26] LABS: Influenza A Not Detected (Not Detectd); Influenza B Not Detected (Not Detectd); RSV Not Detected (Not Detectd)
[2024-10-17] MEDS: IPRATROPIUM-ALBUTEROL 3 ML NEB INHALATION STA (19:56)
[2024-10-17] MEDS ORDERED: ONDANSETRON 4 MG/2 ML VIAL IVP PRN (20:52)
[2024-10-17] MEDS ORDERED: NALOXONE 0.4 MG/ML 1 ML VIAL IV PRN (20:52)
--- NOTE | 2024-10-17 21:18 | CT ---
EXAMINATION TYPE: CT chest wo con DATE OF EXAM: 10/17/2024 8:37 PM COMPARISON: Chest radiograph from same day. CLINICAL INDICATION: Male, 64 years old with history of abnormal xr; PHH, Pt. reports hx of COPD- wea rs O2 PRN. Pt. c/o increased SOB, cough, chills, fevers and chest discomfort x1 week. TECHNIQUE: Multiple axial images were obtained through the chest. Sagittal and coronal reformats were created for review. MIP was performed on a separate workstation. Contrast used: mL of (None if empty) Oral contrast used: (None if empty) CT DLP: 464 mGycm, Automated exposure control for dose reduction was used. FINDINGS: LUNGS/ PLEURA: There is a small right pleural fusion with a small right pneumothorax. No left pneumot horax. Trace left pleural effusion. Paraseptal emphysema changes throughout the lungs. Scattered airs pace opacities most proximal lung bases. Is consolidation changes along the anterior middle lobe near the pneumothorax. AIRWAY: Patent and unremarkable. HEART: Size within normal limits MEDIASTINUM: VASCULATURE: No aortic aneurysm. A filling defect within the pulmonary arterial vasculature to sugge st pulmonary embolus. MUSCULOSKELETAL: No acute osseous abnormalities SOFT TISSUES/LYMPH NODES: Probable sebaceous cyst in the posterior back measuring up to 22 mm series 204 image 71. LOWER NECK: No significant findings. UPPER ABDOMEN: No significant findings. IMPRESSION: 1. Right hydropneumothorax. Small right pneumothorax with small right pleural effusion. Largest pock et of air especially near the diaphragm. 2. Multifocal airspace opacity suggestive of pneumonia. 3. Trace left pleural effusion. 4. No evidence for pulmonary embolus. [facility], , 10/17/2024 9:16 PM
[2024-10-17] MEDS: SODIUM CHLORIDE 0.9% 1,000 ML IV SCH (21:31)
[2024-10-18] MEDS: methylPREDNISolone SOD SUCCI 125 MG/2 ML VIAL IV SCH (00:40)
--- NOTE | 2024-10-18 04:42 | P.CNPUL ---
History of Present Illness Consult date: 10/18/24 Requesting physician: Ramin Jesus Reason for consult: other (Hydropneumothorax) Chief complaint: Shortness of breath History of present illness: Patient is a 64-year-old male with past medical history significant for COPD, atrial fibrillation with previous cardioversion, congestive heart failure, hypertension, hyperlipidemia, recurrent right-sided pleural effusion with previous thoracentesis on 04/29/2024 and again on 07/12/2024. Fluid cytology previously negative for malignancy. Fluid was technically transudate based on lights criteria. Most recent echocardiogram from June, estimating preserved left ventricular ejection fraction of 55 to 60% as well as trace to mild mitral and tricuspid regurgitation, and an RVSP of 58. Follow-up right- sided heart catheterization demonstrating borderline elevated left filling pressures and normal right-sided filling pressures with borderline pulmonary hypertension with a mean PA pressure of 24. Following patient's most recent rig ht-sided thoracentesis in June, patient did have a follow-up chest CTA demonstrating a linear filling defect within the right middle lobe with poor visualization of the distal subsegmental branches suggestive of pulmonary embolus. No evidence of right-sided heart strain. Patient did develop a right- sided hydropneumothorax with trace right apical pneumothorax and right small pleural effusion component. He has been following up outpatient in the pulmonary office with Dr. Rooney. He also follows with his seo coordinator, Dr. Melgoza. Approximately 1 week ago patient having increasing shortness of breath, and presented to the emergency department yesterday evening. States that his seo coordinator recently transitioned him from amiodarone to flecainide. He has a cardiac event monitor on. He also continues on Eliquis. He does notice some lower extremity swelling. He also takes Bumex twice daily. Workup in the emergency department, includes a initial chest x-ray showing small right hydropneumothorax. Follow-up chest CT showing right hydropneumothorax, small right pneumothorax with small right pleural effusion. Largest component of air dependent. Multifocal airspace opacities and trace left pleural effusion. CBC: WBC count 8.6, hemoglobin 13.8, platelets 268. CMP: Sodium 132, potassium 4.4, chloride 97, serum bicarb 21, BUN 32, creatinine 1.44, glucose 113. Lactic 1.9. LFTs unremarkable. Troponin 0.027. NT proBNP elevated at 6940. Negative for influenza, RSV, COVID. He is currently being evaluated in the emergency department, room 27. He is sitting at the edge of the bed, nondistressed. Equal lung sounds. No tamponade features. Does become short of breath with minimal exertion, such as walking to the bedside chair to get his bag. He is on 3 L/min nasal cannula. Also, reporting some bilateral thoracic level back pain. Does endorse a persistent cough with clear sputum. He is wheezing and his COPD also appears active. Denies any sputum purulence, fevers or chills, anterior chest pain, hemoptysis. Current vitals: Temperature 99.3 F, heart rate 80 bpm, blood pressure 98/58 mmHg, nontachypneic, SpO2 is 93% on 4 L/min nasal cannula. Review of Systems Constitutional: Reports fatigue, Reports weakness, Denies chills, Denies fever, Denies poor appetite, Denies weight gain, Denies weight loss Ears, nose, mouth and throat: Denies epistaxis, Denies nasal congestion, Denies nasal discharge, Denies neck fullness/pressure, Denies post-nasal drip, Denies sinus pain, Denies sinus pressure, Denies sore throat, Denies voice changes Cardiovascular: Reports dyspnea on exertion, Reports leg edema, Denies chest pain, Denies irregular heart beat, Denies orthopnea, Denies palpitations, Denies paroxysmal nocturnal dyspnea, Denies syncope Respiratory: Reports as per HPI Gastrointestinal: Denies abdominal pain, Denies change in bowel habits, Denies diarrhea, Denies nausea, Denies vomiting Genitourinary: Denies dysuria Musculoskeletal: Denies limitation of motion Integumentary: Reports color changes Neurological: Denies seizures, Denies syncope Psychiatric: Denies anxiety, Denies depression Past Medical History Past Medical History: Atrial Fibrillation, Heart Failure, COPD, Hyperlipidemia, Hypertension Additional Past Medical History / Comment(s): COVID 08/21 History of Any Multi-Drug Resistant Organisms: None Reported Additional Past Surgical History / Comment(s): REPAIR TENDON OF LEFT HAND (CHILDHOOD), sinus surgery , COLONOSCOPY Past Anesthesia/Blood Transfusion Reactions: No Reported Reaction Past Psychological History: No Psychological Hx Reported Smoking Status: Former smoker - Past Family History Mother Family Medical History: Cancer Additional Family Medical History / Comment(s): Passed from dementia Father Family Medical History: Congestive Heart Failure (CHF), COPD Additional Family Medical History / Comment(s): Passed from heart/lung disease Medications and Allergies Home Medications Medication Instructions Recorded Confirmed Type Multivitamins, Thera [Multivitamin 1 tab PO DAILY 10/23/21 07/10/24 History (formulary)] Albuterol Nebulized [Ventolin 2.5 mg INHALATION RT-QID PRN 12/29/23 07/10/24 History Nebulized] Albuterol Inhaler [Ventolin Hfa 2 puff INHALATION RT-QID PRN #1 12/31/23 07/10/24 Rx Inhaler] each Aspirin EC [Ecotrin Low Dose] 81 mg PO DAILY 02/08/24 07/10/24 History Fluticasone/Umeclidin/Vilanter 1 puff INHALATION RT-DAILY 04/28/24 07/10/24 History [Trelegy Ellipta 200-62.5-25] Bumetanide [BUMEX] 1 mg PO BID@0900,1600 30 Days #60 05/01/24 07/10/24 Rx tab Dapagliflozin Propanediol [Farxiga] 10 mg PO DAILY #30 tab 05/01/24 07/10/24 Rx Losartan [Cozaar] 12.5 mg PO DAILY 30 Days #15 tab 05/01/24 07/10/24 Rx Spironolactone [Aldactone] 25 mg PO DAILY #30 tab 05/01/24 07/10/24 Rx Amiodarone [Cordarone] 400 mg PO BID@0900,1600 07/10/24 07/10/24 History Apixaban [Eliquis] 5 mg PO BID@0900,1600 07/10/24 07/10/24 History Nitroglycerin Sl Tabs [Nitrostat] 0.4 mg SL Q5M PRN 07/10/24 07/10/24 History Metoprolol Tartrate [Lopressor] 50 mg PO BID 30 Days #60 tab 07/16/24 Rx Omeprazole [PriLOSEC] 20 mg PO AC-BRKFST #30 cap 07/16/24 Rx predniSONE [Deltasone] 40 mg PO DAILY 1 Days #1 tab 07/16/24 Rx Allergies Allergy/AdvReac Type Severity Reaction Status Date / Time lisinopril AdvReac CAUSED Verified 10/17/24 18:12 FATIGUE Physical Exam Vitals: Vital Signs Temp Pulse Resp BP Pulse Ox 10/17/24 23:03 80 20 98/58 93 L 10/17/24 20:05 91 10/17/24 19:57 91 10/17/24 19:10 89 20 95/61 92 L 10/17/24 19:09 22 10/17/24 18:07 99.3 F 107 H 22 106/72 93 L Intake and Output 10/17/24 10/17/24 10/18/24 14:59 22:59 06:59 Other: Weight 95.254 kg GENERAL EXAM: Alert, 64-year-old white male, sitting at the edge of the bed, comfortable in no apparent distress. HEAD: Normocephalic and atraumatic EYES: Normal reaction of pupils, equal size. NOSE: Clear with pink turbinates. THROAT: No erythema or exudates. NECK: No masses, no JVD. No tracheal deviation. CHEST: No chest wall deformity. Equal chest expansion. No crepitus or s ubcutaneous emphysema. Cardiac event monitor on LUNGS: Equal air entry with expiratory wheezes heard bilaterally throughout with diminished right basilar lung sounds. On 3 L/min nasal cannula. No c onversational dyspnea or accessory muscle use.. CVS: S1 and S2 normal with no audible murmur, regular rhythm. No extra heart sounds ABDOMEN: No hepatosplenomegaly, active bowel sounds, no guarding or rigidity. SPINE: No scoliosis or deformity SKIN: No rashes CENTRAL NERVOUS SYSTEM: No focal deficits, tone is normal in all 4 extremities. EXTREMITIES: There is mild bilateral lower extremity pedal edema. Bilateral lower extremities are kelly, warm to palpation with peripheral pulses intact. No clubbing or peripheral cyanosis. Results - Laboratory Findings CBC and BMP: 10/17/24 18:37 10/17/24 18:37 PT/INR, D-dimer PT 11.8 sec (10.0-12.5) 10/17/24 18:37 INR 1.1 (<1.2) 10/17/24 18:37 Abnormal lab findings: Abnormal Labs 10/17/24 10/17/24 18:37 18:37 RDW 15.8 H Lymphocytes # 0.4 L Sodium 132 L Chloride 97 L Carbon Dioxide 21 L BUN 32 H Creatinine 1.44 H Glucose 113 H - Diagnostic Findings Chest x-ray: image reviewed CT scan - chest: image reviewed Assessment and Plan Assessment: Right-sided hydropneumothorax, initially noted after a right-sided thoracentesis done June,, possible trapped lung versus iatrogenic pneumothorax. Originally, estimated to be less than 10% and was monitored on outpatient basis. Chest CT done on this hospitalization redemonstrating the right-sided hydrop neumothorax with small pneumothorax, largest component of air is dependent. Moderate right-sided pleural effusion, slightly larger than previous chest CT. Trace left-sided pleural effusion. Acute COPD exacerbation Suspect acute on chronic diastolic congestive heart failure Acute hypoxemic respiratory failure, secondary to a combination above Recurrent right-sided pleural effusion status post right-sided thoracentesis on 04/29/2024 and again on 07/12/2024; fluid has been cytologically unremarkable for malignancy. Fluid was a transudate based on lights criteria, possibly secondary to CHF Atrial fibrillation, status post previous cardioversion and continues to be anticoagulated on Eliquis; currently sinus tachycardia Acute kidney injury, creatinine up to 1.44 History of hypertension History of hyperlipidemia Former tobacco smoker Plan: Patient's medications, labs, imaging reviewed Patient is currently on 3 L/min nasal cannula, continue supplemental oxygen to maintain oxygen saturation of 92% or greater No tension-like features. Case will be discussed with Dr. Rooney. Start patient on combination of bronchodilators, Symbicort inhailer, and IV Solu-Medrol Viral screen negative for influenza, RSV, COVID Continue Bumex Continue cardiac meds once verified We will continue to follow, and additional recommendations are forthcoming I have personally seen and examined the patient, performed the documentation and the assessment and plan as written. Number of minutes spent on the visit:20 This dictation was produced using [employer] dictation software please excuse grammatical errors Time with Patient: Greater than 30
[2024-10-18] MEDS: PANTOPRAZOLE 40 MG TABLET PO SCH (10:04)
[2024-10-18] MEDS: SYMBICORT 160-4.5 MCG INHALER INHALATION SCH (10:04)
[2024-10-18] MEDS: IPRATROPIUM-ALBUTEROL 3 ML NEB INHALATION SCH (10:04)
[2024-10-18] MEDS: BUMETANIDE 1 MG TAB PO SCH (10:06)
[2024-10-18 11:07] LABS: African American GFR (CKD) 85 (>60 ml/min/1.73 sqM); Anion Gap 12 mmol/L; Blood Urea Nitrogen 28 mg/dL (9-20); Calcium 8.9 mg/dL (8.4-10.2); Carbon Dioxide 23 mmol/L (22-30); Chloride 99 mmol/L (98-107); Glucose 170 mg/dL (74-99); Non-African American GFR(CKD) 73 (>60 ml/min/1.73 sqM); Potassium 4.4 mmol/L (3.5-5.1); Sodium 134 mmol/L (137-145)
[2024-10-18] MEDS ORDERED: IOPAMIDOL CONTRAST (ORAL USE) VIAL PO PRN (14:08)
--- NOTE | 2024-10-18 16:11 | CT ---
EXAMINATION TYPE: CT abdomen pelvis wo con CT DLP: 719.8 mGycm, Automated exposure control for dose reduction was used. DATE OF EXAM: 10/18/2024 3:59 PM COMPARISON: CT chest 10/17/2024, CTA chest 07/13/2024 CLINICAL INDICATION:Male, 64 years old with history of rt plural effusion; Right sided pleural effusi on. TECHNIQUE: Standard CT of the abdomen and pelvis following the administration of oral contrast. Curry ited evaluation due to lack of intravenous Coronal and sagittal reformats were performed. FINDINGS: LOWER CHEST: Partial visualization of right-sided hydropneumothorax again with surrounding atelectasi s. Centrilobular emphysema changes. Trace left pleural effusion with similar consolidative opacity wi thin the left lower lobe. Additionally there is patchy groundglass opacities within the left lower lo be. ABDOMEN LIVER: Unremarkable noncontrast appearance GALLBLADDER AND BILE DUCTS: Unremarkable noncontrast appearance PANCREAS: Unremarkable noncontrast appearance. SPLEEN: Unremarkable noncontrast appearance ADRENAL GLANDS: Unremarkable noncontrast appearance. KIDNEYS AND URETERS: No evidence of hydronephrosis or renal calculus. PELVIS BLADDER: Unremarkable REPRODUCTIVE: Prostate is enlarged in size measuring 5.2 cm in transverse dimension. ABDOMEN & PELVIS STOMACH AND BOWEL: Stomach and duodenum are unremarkable. Enteric contrast reaches the mid small meli l. No focal bowel wall thickening or surrounding inflammatory changes. The appendix is within normal limits. No evidence of bowel obstruction. PERITONEUM: No evidence of pneumoperitoneum. Trace free fluid in the rectovesicular space. VASCULATURE: Mild atherosclerotic calcifications are present throughout the abdominal aorta and its b ranches. Infrarenal fusiform abdominal aortic aneurysm measuring 4.0 x 3.6 cm (series 201, image 72). MUSCULOSKELETAL: No acute osseous abnormalities. Degenerative changes of the SI joints with right ant erior SI joint bridging. Mild multilevel degenerative disc disease and facet arthropathy. LYMPH NODES: No gross evidence for lymphadenopathy. SOFT TISSUE/ABDOMINAL WALL: Unremarkable IMPRESSION: 1. No acute intra-abdominal pelvic process within limitations of a nonintravenous contrast exam. 2. Redemonstration of partially visualized right hydropneumothorax. 3. Trace left pleural effusion with similar left lower lobe consolidation. 4. Additional left lower lobe groundglass opacities. Findings raise possibility of pneumonia. 5. Infrarenal fusiform abdominal aortic aneurysm measuring up to 4.0 cm. [facility], , 10/18/2024 4:09 PM
[2024-10-18] MEDS: FLECAINIDE 50 MG TAB PO SCH (20:43)
--- NOTE | 2024-10-18 20:44 | HP ---
HISTORY AND PHYSICAL CHIEF COMPLAINT: Shortness of breath. HISTORY OF PRESENT ILLNESS: This is a 64-year-old gentleman, who presented with a past medical history of COPD, has multiple admissions previously. The patient had complaining of shortness of breath for the last 2 days. The patient had multiple other medical issues also. The patient had recurrent right-sided pleural effusion. The patient previously had thoracocenteses performed previously. The most recent chest x-ray, which I reviewed personally showed evidence of small right hydropneumothorax. The patient is admitted for further evaluation and treatment. There is no history of any fever, rigors, or chills at this time. PAST MEDICAL HISTORY: History of atrial fibrillation, CHF, COPD. Rest of the history and rest of the chart is also reviewed. HOME MEDICATIONS: Reviewed include Aldactone. Dose and rest of medications noted. ALLERGIES: Lisinopril. FAMILY HISTORY: History of cancer, dementia. SOCIAL HISTORY: Previous history of smoking. REVIEW OF SYSTEMS: A 14-point review of systems is negative except as mentioned earlier. PHYSICAL EXAMINATION: VITAL SIGNS: Pulse is 77, blood pressure 140/74, respirations 22. HEENT: Conjunctivae normal. NECK: No JVD. CARDIOVASCULAR: S1, S2. RESPIRATIONS: Breath sounds diminished at the bases. A few scattered rhonchi and crackles. ABDOMEN: Soft. LEGS: No edema. NERVOUS SYSTEM: Nonfocal. LABORATORY DATA: Reviewed. Chest x-ray and CT scan reviewed personally. ASSESSMENT: 1. Chronic obstructive pulmonary disease acute exacerbation with right-sided hydropneumothorax. 2. History of right-sided pleural effusion and thoracocentesis. 3. History of congestive heart failure. 4. Gastroesophageal reflux disease. 5. Hypertension. 6. Atrial fibrillation. 7. History of COVID. RECOMMENDATIONS AND DISCUSSION: This is a 64-year-old gentleman presented with multiple complex medical issues, we will monitor the patient closely. Continue the current medications, continue symptomatic treatment. Otherwise, the fluid cytology has unremarkable malignancy. The patient has had fluid transudate. I would also obtain a Cardiothoracic Surgery consultation. Guarded prognosis because of multiple complex medical issues. Further recommendations to follow. See orders for further details. MMODL / IJN: [id number] /
--- NOTE | 2024-10-19 07:06 | P.GSCN ---
History of Present Illness Consult date: 10/18/24 Reason for Consult: Right hydropneumothorax, right loculated effusion Requesting physician: Kalyani Tan History of present illness: This is a 64-year-old gentleman who follows on an outpatient basis with Dr. Susana Crews for his primary care and with Dr. Marty Rooney for his pulmonary care. He has a past medical history for chronic obstructive pulmonary disease, chronic home oxygen use between 2 and half to 3 L nasal cannula, recurrent right pleural effusions with previous thoracentesis on April 29, 2024 and May 12, 2024, cytology from previous thoracentesis has been negative for malignancy, hypertension, diastolic congestive heart failure, history of pneumonia in September 2023, paroxysmal atrial fibrillation, status post cardioversion and ablation, on Eliquis for anticoagulation as an outpatient, GERD, and a remote history of nicotine dependence in which he quit smoking in January 2024. The patient presented to the emergency department here at [facility] yesterday October 17, 2024 with complaints of progressive dyspnea, back pain, a productive cough with clear sputum, and chills. The patient denies any fever, hematemesis, hemoptysis, diarrhea, constipation, chest pain, chest pre ssure, headache, palpitations, presyncope or syncope. He does endorse some swelling to his bilateral lower extremities. The patient reports that he has been having episodes of progressive dyspnea since January 2024. He states that he is on Trelegy at home and feels that the Trelegy does help his shortness of breath at times. On August 04, 2024 the patient underwent a repeat chest x-ray which showed a moderate right pleural effusion, increased significantly since prior study. A twelve-lead EKG was completed in the emergency department which showed sinus tachycardia with a heart rate of 104 bpm, and right ventricular hypertrophy. His troponin in the emergency department was 0.027. Serology studies for influenza, RSV and COVID-19 all showed not detected. Initial laboratory results showed a WBC count of 8.6, hemoglobin 13.8, hematocrit 41.8, platelets 268, PT 11.8, INR 1.1, PTT 26.0, sodium 132, potassium 4.4, chloride 97, CO2 21, BUN 32, creatinine 1.44, glucose 113, plasmic lactic acid 1.9, and proBNP was 6940. A chest x-ray was completed which impression was a small right hydropneumothorax new from July 15, 2024 with an elevated right diaphragm. Subsequently for further evaluation a CT scan of the chest was completed with the impression showing right hydropneumothorax, small right pneumothorax with small right pleural effusion, largest pocket of air especially near the diaphragm, multifocal airspace opacity suggestive of pneumonia, trace left pleural effusion, no evidence of pulmonary embolus. Due to the findings of right hydropneumothorax, small right pneumothorax with small right pleural effusion a consult was placed to Dr. Dennys Mixon from cardiothoracic surgery for further evaluation and treat recommendations. Review of Systems A review of systems was completed and negative except as mentioned in the HPI. Past Medical History Past Medical History: Atrial Fibrillation, Heart Failure, COPD, GERD/Reflux, Hypertension Additional Past Medical History / Comment(s): COVID 08/21 History of Any Multi-Drug Resistant Organisms: None Reported Additional Past Surgical History / Comment(s): REPAIR TENDON OF LEFT HAND ([facility]I LDHOOD), sinus surgery , COLONOSCOPY Past Anesthesia/Blood Transfusion Reactions: No Reported Reaction Past Psychological History: No Psychological Hx Reported Smoking Status: Former smoker (Quit January 2024) Past Alcohol Use History: None Reported Past Drug Use History: None Reported - Past Family History Mother Family Medical History: Cancer, Dementia Additional Family Medical History / Comment(s): Passed from dementia Father Family Medical History: Congestive Heart Failure (CHF), COPD Additional Family Medical History / Comment(s): Passed from heart/lung disease Medications and Allergies Home Medications Medication Instructions Recorded Confirmed Type Multivitamins, Thera [Multivitamin 1 tab PO DAILY 10/23/21 10/18/24 History (formulary)] Albuterol Inhaler [Ventolin Hfa 2 puff INHALATION RT-QID PRN #1 12/31/23 10/18/24 Rx Inhaler] each Aspirin EC [Ecotrin Low Dose] 81 mg PO DAILY 02/08/24 10/18/24 History Fluticasone/Umeclidin/Vilanter 1 puff INHALATION RT-DAILY 04/28/24 10/18/24 History [Trelegy Ellipta 200-62.5-25] Bumetanide [BUMEX] 1 mg PO BID@0900,1600 30 Days #60 05/01/24 10/18/24 Rx tab Dapagliflozin Propanediol [Farxiga] 10 mg PO DAILY #30 tab 05/01/24 10/18/24 Rx Losartan [Cozaar] 12.5 mg PO DAILY 30 Days #15 tab 05/01/24 10/18/24 Rx Spironolactone [Aldactone] 25 mg PO DAILY #30 tab 05/01/24 10/18/24 Rx Apixaban [Eliquis] 5 mg PO BID@0900,1600 07/10/24 10/18/24 History Nitroglycerin Sl Tabs [Nitrostat] 0.4 mg SL Q5M PRN 07/10/24 10/18/24 History Metoprolol Tartrate [Lopressor] 50 mg PO BID 30 Days #60 tab 07/16/24 10/18/24 Rx Omeprazole [PriLOSEC] 20 mg PO AC-BRKFST #30 cap 07/16/24 10/18/24 Rx Flecainide [Tambocor] 50 mg PO Q12HR 10/18/24 10/18/24 History Ipratropium-Albuterol Nebulize 3 ml INHALATION RT-QID PRN 10/18/24 10/18/24 History [Duoneb 0.5 mg-3 mg/3 ml Soln] Allergies Allergy/AdvReac Type Severity Reaction Status Date / Time lisinopril AdvReac CAUSED Verified 10/18/24 12:04 FATIGUE Surgical - Exam Vital Signs Temp Pulse Resp BP Pulse Ox 99.3 F 107 H 22 106/72 93 L 10/17/24 18:07 10/17/24 18:07 10/17/24 18:07 10/17/24 18:07 10/17/24 18:07 - General well developed, well nourished, no distress, no pain, chronically ill - Eyes PERRL, normal ocular movement, no pale, no icteric - ENT normal pinna, normal nares, normal mucosa, no hearing loss, no congestion, dentures - Neck Neck is supple, no lymphadenopathy. no masses, no bruits, trachea midline, no venous distension - Respiratory Lung sounds essentially clear throughout, diminished to his bilateral bases right greater than left. No wheezes, rhonchi, or crackles. Respirations are symmetrical and nonlabored. Oxygen saturations are 92% on 3 L nasal cannula. - Cardiovascular Regular rhythm and rate. S1 and S2 present, negative for S3, gallop or murmur. Bedside telemetry is showing normal sinus rhythm heart rate 82 bpm. Trace edema to his bilateral ankles and feet - Abdomen Abdomen is soft, nontender and nondistended. Active bowel sounds present all 4 abdominal quadrants. No guarding rigidity. No organomegaly appreciated. - Genitourinary Deferred - Rectum Deferred - Integumentary Skin is warm and dry. No clubbing or cyanosis is present. no rash, no growths, no abnormal pigmentation - Neurologic No focal deficits. - Musculoskeletal Moves all 4 extremities with equal strength bilateral. - Psychiatric oriented to time, oriented to person, oriented to place, speech is normal, memory intact Results - Labs 10/17/24 18:37 10/18/24 09:35 Abnormal Lab Results - Last 24 Hours (Table) 10/17/24 10/17/24 10/18/24 Range/Units 18:37 18:37 09:35 RDW 15.8 H (11.5-15.5) % Lymphocytes # 0.4 L (1.0-4.8) k/uL Sodium 132 L 134 L (137-145) mmol/L Chloride 97 L (98-107) mmol/L Carbon Dioxide 21 L (22-30) mmol/L BUN 32 H 28 H (9-20) mg/dL Creatinine 1.44 H (0.66-1.25) mg/dL Glucose 113 H 170 H (74-99) mg/dL Diabetes panel 10/17/24 10/18/24 Range/Units 18:37 09:35 Sodium 132 L 134 L (137-145) mmol/L Potassium 4.4 4.4 (3.5-5.1) mmol/L Chloride 97 L 99 (98-107) mmol/L Carbon Dioxide 21 L 23 (22-30) mmol/L BUN 32 H 28 H (9-20) mg/dL Creatinine 1.44 H 1.07 (0.66-1.25) mg/dL Glucose 113 H 170 H (74-99) mg/dL Calcium 8.8 8.9 (8.4-10.2) mg/dL AST 33 (17-59) U/L ALT 20 (4-49) U/L Alkaline Phosphatase 105 (38-126) U/L Total Protein 6.9 (6.3-8.2) g/dL Albumin 3.8 (3.5-5.0) g/dL Calcium panel 10/17/24 10/18/24 Range/Units 18:37 09:35 Calcium 8.8 8.9 (8.4-10.2) mg/dL Albumin 3.8 (3.5-5.0) g/dL Pituitary panel 10/17/24 10/18/24 Range/Units 18:37 09:35 Sodium 132 L 134 L (137-145) mmol/L Potassium 4.4 4.4 (3.5-5.1) mmol/L Chloride 97 L 99 (98-107) mmol/L Carbon Dioxide 21 L 23 (22-30) mmol/L BUN 32 H 28 H (9-20) mg/dL Creatinine 1.44 H 1.07 (0.66-1.25) mg/dL Glucose 113 H 170 H (74-99) mg/dL Calcium 8.8 8.9 (8.4-10.2) mg/dL Adrenal panel 10/17/24 10/18/24 Range/Units 18:37 09:35 Sodium 132 L 134 L (137-145) mmol/L Potassium 4.4 4.4 (3.5-5.1) mmol/L Chloride 97 L 99 (98-107) mmol/L Carbon Dioxide 21 L 23 (22-30) mmol/L BUN 32 H 28 H (9-20) mg/dL Creatinine 1.44 H 1.07 (0.66-1.25) mg/dL Glucose 113 H 170 H (74-99) mg/dL Calcium 8.8 8.9 (8.4-10.2) mg/dL Total Bilirubin 0.8 (0.2-1.3) mg/dL AST 33 (17-59) U/L ALT 20 (4-49) U/L Alkaline Phosphatase 105 (38-126) U/L Total Protein 6.9 (6.3-8.2) g/dL Albumin 3.8 (3.5-5.0) g/dL - Imaging Chest x-ray: report reviewed, image reviewed CT scan - chest: report reviewed, image reviewed Assessment and Plan Assessment: Right-sided hydropneumothorax, initially noted after a right-sided thoracentesis done June,, possible trapped lung versus iatrogenic pneumothorax Chronic obstructive pulmonary disease, on 2 to 3 L of oxygen at home Chronic diastolic congestive heart failure Acute hypoxemic respiratory failure, likely secondary to above Paroxysmal atrial fibrillation status post cardioversion and ablation, on Eliquis for anticoagulation as an outpatient Acute kidney injury, creatinine 1.44 on admission, creatinine today is 1.07 History of hypertension Remote history of tobacco dependence quit smoking in July 2024 GERD Remote history of pneumonia in September 2023 History of COVID-19 infection in July 2023 Plan: The patient was seen and examined at his bedside in the emergency department room 27. His chart and diagnostics were reviewed. His case was discussed in detail with Dr. Dennys Mixon from cardiothoracic surgery. Dr. Mixon met with the patient and 2 family members present at his bedside in the emergency department. Treatment options were discussed with the patient including right video- assisted thoracoscopic surgery with decortication and possible mechanical and chemical pleurodesis. Risks and benefits of surgery were discussed with the patient in detail and knowing and understanding the risks the patient wished to proceed with the surgical option. The patient will be scheduled for right video-assisted thoracoscopic surgery with decortication and mechanical and chemical pleurodesis for September to be performed by Dr. Mixon. Encourage continue smoking cessation. Will order incentive spirometry and encourage use 10 times every hour while awake. Medical management and other comorbidities per internal medicine and pulmonary/critical care medicine. More recommendations to follow based on patient's clinical course. Thank you Dr. Tan for this consult and will look forward to working with you in the care of this patient. I have personally seen and examined the patient, performed the documentation and the assessment and plan as written. Number of minutes spent on the visit: 30. DRE [place]
[2024-10-19] MEDS ORDERED: NON FORMULARY DRUG (Omeprazole 20 MG Capsule.Dr) PO SCH (07:30)
[2024-10-19] MEDS: SPIRONOLACTONE 25 MG TAB PO SCH (08:13)
[2024-10-19] MEDS: MULTIVITAMINS, THERA 1 EACH TAB PO SCH (08:13)
[2024-10-19] MEDS: DAPAGLIFLOZIN PROPANEDIOL 10 MG TABLET PO SCH (08:13)
--- NOTE | 2024-10-19 08:24 | XR ---
EXAMINATION TYPE: XR chest 1V portable DATE OF EXAM: 10/19/2024 CLINICAL HISTORY: Right-sided hydropneumothorax progress study. TECHNIQUE: Single AP portable upright view of the chest is obtained. COMPARISON: Chest x-ray from one day earlier FINDINGS: Stable tiny right apical pneumothorax and small right-sided pleural fluid collection infer iorly. Persistent bilateral lower lung increased opacities. Stable cardiomegaly. Osseous structures a re intact. IMPRESSION: Stable small right-sided hydropneumothorax. Stable cardiomegaly with bilateral lower lung acute infiltrates and/or atelectasis. [facility], , 10/19/2024 8:21 AM
[2024-10-19 08:56] LABS: Basophils % (A) 0 %; Eosinophils % (A) 0 %; HCT 41.5 % (39.0-53.0); HGB 13.4 gm/dL (13.0-17.5); Lymphocytes # (A) 0.2 k/uL (1.0-4.8); Lymphocytes % (A) 2 %; MCHC 32.2 g/dL (31.0-37.0); Mean Platelet Volume 7.2; Monocytes # (A) 0.4 k/uL (0-1.0); Monocytes % (A) 4 %; Neutrophils % (A) 94 %; Platelet Count 279 k/uL (150-450); RBC 4.61 m/uL (4.30-5.90); RDW 15.7 % (11.5-15.5); WBC 11.7 k/uL (3.8-10.6)
[2024-10-19 09:17] LABS: African American GFR (CKD) 88 (>60 ml/min/1.73 sqM); Anion Gap 9 mmol/L; Blood Urea Nitrogen 26 mg/dL (9-20); Calcium 8.7 mg/dL (8.4-10.2); Carbon Dioxide 27 mmol/L (22-30); Chloride 99 mmol/L (98-107); Glucose 149 mg/dL (74-99); Non-African American GFR(CKD) 76 (>60 ml/min/1.73 sqM); Potassium 3.9 mmol/L (3.5-5.1); Sodium 135 mmol/L (137-145)
[2024-10-19] MEDS: TIOTROPIUM 2.5 MCG INHALER INHALATION SCH (09:21)
--- NOTE | 2024-10-19 09:31 | P.PN ---
Subjective Progress Note Date: 10/19/24 Principal diagnosis: Right hydropneumothorax, right loculated effusion. Past medical history significant for chronic obstructive pulmonary disease, chronic home oxygen use between 2 and half to 3 L nasal cannula, recurrent right pleural effusions with previous thoracentesis on April 29, 2024 and May 12, 2024, cytology from previous thoracentesis has been negative for malignancy, hypertension, diastolic congestive heart failure, history of pneumonia in September 2023, paroxysmal atrial fibrillation, status post cardioversion and ablation, on Eliquis for anticoagulation as an outpatient, GERD, and a remote history of nicotine dependence in which he quit smoking in January 2024. Patient was seen and examined in follow-up today October 19, 2024 at his bedside in the emergency department room 27. He is currently sitting up on the stretcher, is awake, alert, oriented x 3 and is in no acute apparent distress. Denies any complaints of pain at this time, few episodes of shortness of breath, although reports he does get some relief from his breathing treatments. He also reports he is fairly uncomfortable laying on the stretcher. Oxygen saturations are 99% on 3 L nasal cannula. Chest x-ray results were reviewed. Dr. Mixon from cardiothoracic surgery met with the patient yesterday and 2 family members present at his bedside, results of the CT scan were discussed with the patient by Dr. Mixon, treatment options were discussed including right video-assisted thoracoscopic surgery with decortication and possible mechanical and chemical pleurodesis. Risks and benefits of surgery were discussed with the patient by Dr. Mixon and knowing and understanding the risks the patient wished to proceed with the surgical option. The patient is scheduled for right video-assisted thoracoscopic surgery with decortication and possible mechanical and chemical pleurodesis on September to be completed by Dr. Mixon. Objective - Vital Signs Vital signs: Vital Signs Temp 98.3 F 10/19/24 08:11 Pulse 102 H 10/19/24 08:11 Resp 22 10/19/24 08:11 BP 113/70 10/19/24 08:11 Pulse Ox 99 10/19/24 08:11 FiO2 Intake & Output 10/18/24 10/19/24 10/19/24 18:59 06:59 18:59 Output Total 750 Balance -750 Output: Urine 750 - Exam CONSTITUTIONAL: Appears comfortable, cooperative, no acute distress RESPIRATORY: Lungs sounds diminished bilaterally, right greater than left. Respirations symmetrical, nonlabored. Currently on 3 L with oxygen saturation 99%. CARDIOVASCULAR: S1, S2 present. Regular rate and rhythm, sinus rhythm on telemetry. Palpable peripheral pulses bilaterally. No edema present. No calf pain or tenderness noted. GASTROINTESTINAL: Abdomen soft, nontender, nondistended. Active bowel sounds present 4 quadrants. Tolerating diet. Positive bowel movement. GENITOURINARY: Continues to void clear, luis enrique urine. INTEGUMENTARY: Skin is warm and dry with evidence of good perfusion. NEUROLOGIC: Cranial nerves II through XII intact MUSKULOSKELETAL: Able to move all extremities, strength equal bilaterally, gait normal PSYCHIATRIC: Alert and oriented to person place and time, appropriate affect, intact judgment and insight - Allied health notes Allied health notes reviewed: nursing - Labs CBC & Chem 7: 10/19/24 08:33 10/19/24 08:33 Labs: Abnormal Lab Results - Last 24 Hours (Table) 10/18/24 10/19/24 10/19/24 Range/Units 09:35 08:33 08:33 WBC 11.7 H (3.8-10.6) k/uL RDW 15.7 H (11.5-15.5) % Neutrophils # 11.0 H (1.3-7.7) k/uL Lymphocytes # 0.2 L (1.0-4.8) k/uL Sodium 134 L 135 L (137-145) mmol/L BUN 28 H 26 H (9-20) mg/dL Glucose 170 H 149 H (74-99) mg/dL - Imaging and Cardiology Chest x-ray: report reviewed, image reviewed Assessment and Plan Assessment: Right-sided hydropneumothorax, initially noted after a right-sided thoracentesis done June,, possible trapped lung versus iatrogenic pneumothorax Chronic obstructive pulmonary disease, on 2 to 3 L of oxygen at home Chronic diastolic congestive heart failure Acute hypoxemic respiratory failure, likely secondary to above Paroxysmal atrial fibrillation status post cardioversion and ablation, on Eliquis for anticoagulation as an outpatient Acute kidney injury, creatinine 1.44 on admission, creatinine today is 1.07 History of hypertension Remote history of tobacco dependence quit smoking in July 2024 GERD Remote history of pneumonia in September 2023 History of COVID-19 infection in July 2023 Plan: The patient is scheduled for right video-assisted thoracoscopic surgery with decortication and possible mechanical and chemical pleurodesis on September to be completed by Dr. Mixon. Continue to hold Eliquis in anticipation for right video-assisted thoracoscopic surgery. Encourage use of incentive spirometry 10 times every hour while awake. Wean oxygen as tolerated. Oxygen, Solu-Medrol and bronchodilator management per pulmonary/critical care service. N.p.o. after midnight on September. Out of bed for all meals. Increase activity as tolerated. Medical management of other comorbidities per internal medicine and pulmonary/critical care service. More recommendations to follow based on patient's clinical course. Time with Patient: Less than 30
--- NOTE | 2024-10-19 11:15 | P.CRDCN ---
History of Present Illness History of present illness: HISTORY OF PRESENT ILLNESS: This is a 64-year-old male with a past medical history significant for hypertension, hyperlipidemia, atrial fibrillation, pleural effusion, nicotine dependence, COPD, cardioversion, and ablations. Patient follows in the office with Dr. Melgoza. We have been asked to see the patient in consultation for CHF. Patient examined at the bedside in the emergency room. Patient presented to the hospital with a chief complaint of shortness of breath. Patient denies any chest pain or pressure. Patient does have a history of right-sided pleural effusions with previous thoracentesis. Patient underwent CT of the chest revealing right hydropneumothorax. Small right pneumothorax with small right pleural effusion. Largest pocket of air especially near the diaphragm. He has been evaluated by CT surgery and is scheduled for VATS procedure on October 21, 2024. The patient was recently seen in the office by Dr. Melgoza last month. He was taken off of amiodarone and started on flecainide. Patient was also given an event monitor at that time which he states he is due to return. DIAGNOSTICS: - EKG reveals sinus tachycardia with no signs of acute ischemia. - Chest xray small right hydropneumothorax. Elevated right diaphragm. - Laboratory data: - Current home cardiac medications include losartan 12.5 mg daily, metoprolol tartrate 50 mg twice a day, Eliquis 5 mg twice a day, Bumex 1 mg twice a day, aspirin 81 mg daily, Farxiga 10 mg daily, flecainide 50 mg twice a day, Aldactone 25 mg daily - Most recent echocardiogram obtained in June 2024 revealed ejection fraction 55 to 60% with trace MR and mild TR - Cardiac catheterization history: January 2024 revealing normal coronary arteries REVIEW OF SYSTEMS: At the time of my exam: CONSTITUTIONAL: Denies fever or chills. HEENT: Denies blurred vision, vision changes, or eye pain. Denies hemoptysis CARDIOVASCULAR: Denies chest pain. Denies orthopnea. Denies PND. Denies palpitations RESPIRATORY: Denies shortness of breath. GASTROINTESTINAL: Denies abdominal pain. Denies nausea or vomiting. HEMATOLOGIC: Denies bleeding disorders. GENITOURINARY: Denies any blood in urine. SKIN: Denies pruitis. Denies rash. PHYSICAL EXAM: VITAL SIGNS: Reviewed. GENERAL: Well-developed in no acute distress. HEENT: Head is normocephalic. Pupils are equal, round. Sclerae anicteric. Mucous membranes of the mouth are moist. Neck supple. No JVD or thyromegaly LUNGS: Respirations even and unlabored. Lungs diminished, right more than left HEART: Mildly tachycardic. Regular rate and rhythm. S1 and S2 heard. ABDOMEN: Soft. Nondistended. Nontender. EXTREMITIES: Normal range of motion. No clubbing or cyanosis. Peripheral pulses intact. No lower extremity edema NEUROLOGIC: Awake and alert. Oriented x 3. ASSESSMENT: Shortness of breath Right sided hydropneumothorax History of right-sided pleural effusions with previous thoracentesis Acute on chronic heart failure with preserved EF Acute COPD exacerbation Acute on chronic hypoxic respiratory failure, on home oxygen Paroxysmal atrial fibrillation, on Eliquis outpatient History of cardioversion History of ablation, 04/2024 Normal coronary arteries, per cath in January 2024 Hypertension Hyperlipidemia Former nicotine dependence PLAN: No need to repeat echocardiogram as this was performed in June 2024 Resume home cardiac medications Eliquis remains on hold CT surgery following. Patient scheduled for right VATS on 10/21/2023 Further recommendations pending patient course Nurse practitioner note has been reviewed by physician. Signing provider agrees with the documented findings, assessment, and plan of care documented by PUBLIC HEALTH NUTRITIONIST as a scribe. Past Medical History Past Medical History: Atrial Fibrillation, Heart Failure, COPD, GERD/Reflux, Hypertension Additional Past Medical History / Comment(s): COVID 08/21 History of Any Multi-Drug Resistant Organisms: None Reported Additional Past Surgical History / Comment(s): REPAIR TENDON OF LEFT HAND (CHILDHOOD), sinus surgery , COLONOSCOPY Past Anesthesia/Blood Transfusion Reactions: No Reported Reaction Past Psychological History: No Psychological Hx Reported Smoking Status: Former smoker (Quit January 2024) Past Alcohol Use History: None Reported Past Drug Use History: None Reported - Past Family History Mother Family Medical History: Cancer, Dementia Additional Family Medical History / Comment(s): Passed from dementia Father Family Medical History: Congestive Heart Failure (CHF), COPD Additional Family Medical History / Comment(s): Passed from heart/lung disease Medications and Allergies Home Medications Medication Instructions Recorded Confirmed Type Multivitamins, Thera [Multivitamin 1 tab PO DAILY 10/23/21 10/18/24 History (formulary)] Albuterol Inhaler [Ventolin Hfa 2 puff INHALATION RT-QID PRN #1 12/31/23 10/18/24 Rx Inhaler] each Aspirin EC [Ecotrin Low Dose] 81 mg PO DAILY 02/08/24 10/18/24 History Fluticasone/Umeclidin/Vilanter 1 puff INHALATION RT-DAILY 04/28/24 10/18/24 History [Trelegy Ellipta 200-62.5-25] Bumetanide [BUMEX] 1 mg PO BID@0900,1600 30 Days #60 05/01/24 10/18/24 Rx tab Dapagliflozin Propanediol [Farxiga] 10 mg PO DAILY #30 tab 05/01/24 10/18/24 Rx Losartan [Cozaar] 12.5 mg PO DAILY 30 Days #15 tab 05/01/24 10/18/24 Rx Spironolactone [Aldactone] 25 mg PO DAILY #30 tab 05/01/24 10/18/24 Rx Apixaban [Eliquis] 5 mg PO BID@0900,1600 07/10/24 10/18/24 History Nitroglycerin Sl Tabs [Nitrostat] 0.4 mg SL Q5M PRN 07/10/24 10/18/24 History Metoprolol Tartrate [Lopressor] 50 mg PO BID 30 Days #60 tab 07/16/24 10/18/24 Rx Omeprazole [PriLOSEC] 20 mg PO AC-BRKFST #30 cap 07/16/24 10/18/24 Rx Flecainide [Tambocor] 50 mg PO Q12HR 10/18/24 10/18/24 History Ipratropium-Albuterol Nebulize 3 ml INHALATION RT-QID PRN 10/18/24 10/18/24 History [Duoneb 0.5 mg-3 mg/3 ml Soln] Allergies Allergy/AdvReac Type Severity Reaction Status Date / Time lisinopril AdvReac CAUSED Verified 10/18/24 12:04 FATIGUE Physical Exam Vitals: Vital Signs Temp Pulse Resp BP Pulse Ox 10/19/24 08:11 98.3 F 102 H 22 113/70 99 10/19/24 07:46 103 H 18 10/19/24 07:37 96 10/19/24 07:35 101 H 20 10/19/24 06:39 87 18 104/75 96 10/19/24 02:24 99.3 F 90 22 116/75 94 L 10/18/24 20:45 108 H 24 107/61 93 L 10/18/24 20:09 87 10/18/24 19:58 93 10/18/24 16:30 98 10/18/24 16:26 87 18 124/86 97 10/18/24 16:20 86 10/18/24 13:12 80 10/18/24 13:01 84 10/18/24 11:35 77 22 114/74 92 L Intake and Output 10/18/24 10/19/24 10/19/24 22:59 06:59 14:59 Output Total 750 Balance -750 Output: Urine 750 Results 10/19/24 08:33 10/19/24 08:33 CBC 10/19/24 Range/Units 08:33 WBC 11.7 H (3.8-10.6) k/uL RBC 4.61 (4.30-5.90) m/uL Hgb 13.4 (13.0-17.5) gm/dL Hct 41.5 (39.0-53.0) % Plt Count 279 (150-450) k/uL Comprehensive Metabolic Panel 10/18/24 10/19/24 Range/Units 09:35 08:33 Sodium 134 L 135 L (137-145) mmol/L Potassium 4.4 3.9 (3.5-5.1) mmol/L Chloride 99 99 (98-107) mmol/L Carbon Dioxide 23 27 (22-30) mmol/L BUN 28 H 26 H (9-20) mg/dL Creatinine 1.07 1.03 (0.66-1.25) mg/dL Glucose 170 H 149 H (74-99) mg/dL Calcium 8.9 8.7 (8.4-10.2) mg/dL Current Medications Generic Name Dose Route Start Last Admin Trade Name Freq PRN Reason Stop Dose Admin Albuterol Sulfate 2.5 mg 10/20/24 08:00 Albuterol Nebulized 2.5 Mg/3 Ml INHALATION RT-QID SERJIO Albuterol/Ipratropium 3 ml 10/18/24 08:00 10/19/24 07:34 Ipratropium-Albuterol 3 Ml Neb INHALATION 10/19/24 23:59 3 ml RT-QID SERJIO Administration Budesonide/Formoterol Fumarate 2 puff 10/18/24 08:00 10/19/24 07:35 Symbicort 160-4.5 Mcg Inhaler INHALATION 2 puff RT-BID SERJIO Administration Bumetanide 1 mg 10/18/24 09:00 10/19/24 08:13 Bumetanide 1 Mg Tab PO 1 mg BID@0900,1600 SERJIO Administration Dapagliflozin 10 mg 10/19/24 09:00 10/19/24 08:13 Dapagliflozin Propanediol 10 Mg Tablet PO 10 mg DAILY SERJIO Administration Flecainide Acetate 50 mg 10/18/24 21:00 10/19/24 08:13 Flecainide 50 Mg Tab PO 50 mg Q12HR SERJIO Administration Sodium Chloride 1,000 mls @ 20 mls/hr 10/17/24 21:00 10/18/24 20:44 Saline 0.9% IV 20 mls/hr .Q24H SERJIO Administration Cefazolin Sodium 2 gm/ Sodium 50 mls @ 100 mls/hr 10/21/24 08:00 Chloride IVPB 10/21/24 08:29 ONCE ONE Protocol Iopamidol 30 ml 10/18/24 14:08 Iopamidol Contrast (Oral Use) Vial PO 10/19/24 14:[address] Scan Methylprednisolone Sodium Succinate 60 mg 10/18/24 00:00 10/19/24 07:08 Methylprednisolone Sod Succi 125 Mg/2 Ml Vial IV 60 mg Q6HR SERJIO Administration Multivitamins 1 each 10/19/24 09:00 10/19/24 08:13 Multivitamins, Thera 1 Each Tab PO 1 each DAILY SERJIO Administration Naloxone HCl 0.2 mg 10/17/24 20:52 Naloxone 0.4 Mg/Ml 1 Ml Vial IV Q2M PRN Opioid Reversal Ondansetron HCl 4 mg 10/17/24 20:52 Ondansetron 4 Mg/2 Ml Vial IVP Q8HR PRN Nausea And Vomiting Pantoprazole Sodium 40 mg 10/18/24 07:30 10/19/24 08:13 Pantoprazole 40 Mg Tablet PO 40 mg AC-BRKFST SERJIO Administration Spironolactone 25 mg 10/19/24 09:00 10/19/24 08:13 Spironolactone 25 Mg Tab PO 25 mg DAILY SERJIO Administration Tiotropium [place] 2 puff 10/19/24 08:00 10/19/24 09:21 Tiotropium 2.5 Mcg Inhaler INHALATION Not Given RT-DAILY SERJIO Intake and Output 10/18/24 10/19/24 10/19/24 22:59 06:59 14:59 Output Total 750 Balance -750 Output: Urine 750 10/19/24 08:33 10/19/24 08:33
[2024-10-19] MEDS: ALBUTEROL NEBULIZED 2.5 MG/3 ML INHALATION PRN (11:51)
--- NOTE | 2024-10-19 14:34 | P.PN ---
Subjective Progress Note Date: 10/19/24 Principal diagnosis: Shortness of breath. Patient is a 64-year-old male with past medical history significant for COPD, atrial fibrillation with previous cardioversion, congestive heart failure, hypertension, hyperlipidemia, recurrent right-sided pleural effusion with previous thoracentesis on 04/29/2024 and again on 07/12/2024. Fluid cytology previously negative for malignancy. Fluid was technically transudate based on lights criteria. Most recent echocardiogram from June, estimating preserved left ventricular ejection fraction of 55 to 60% as well as trace to mild mitral and tricuspid regurgitation, and an RVSP of 58. Follow-up right- sided heart catheterization demonstrating borderline elevated left filling pressures and normal right-sided filling pressures with borderline pulmonary hypertension with a mean PA pressure of 24. Following patient's most recent right-sided thoracentesis in June, patient did have a follow-up chest CTA demonstrating a linear filling defect within the right middle lobe with poor visualization of the distal subsegmental branches suggestive of pulmonary embolus. No evidence of right-sided heart strain. Patient did develop a right- sided hydropneumothorax with trace right apical pneumothorax and right small pleural effusion component. He has been following up outpatient in the pulmonary office with Dr. Rooney. He also follows with his firmware architect, Dr. Melgoza. Approximately 1 week ago patient having increasing shortness of breath, and presented to the emergency department yesterday evening. States that his firmware architect recently transitioned him from amiodarone to flecainide. He has a cardiac event monitor on. He also continues on Eliquis. He does notice some lower extremity swelling. He also takes Bumex twice daily. Workup in the emergency department, includes a initial chest x-ray showing small right hydropneumothorax. Follow-up chest CT showing right hydropneumothorax, small right pneumothorax with small right pleural effusion. Largest component of air dependent. Multifocal airspace opacities and trace left pleural effusion. CBC: WBC count 8.6, hemoglobin 13.8, platelets 268. CMP: Sodium 132, potassium 4.4, chloride 97, serum bicarb 21, BUN 32, creatinine 1.44, glucose 113. Lactic 1.9. LFTs unremarkable. Troponin 0.027. NT proBNP elevated at 6940. Negative for influenza, RSV, COVID. He is currently being evaluated in the emergency department, room 27. He is sitting at the edge of the bed, nondistressed. Equal lung sounds. No tamponade features. Does become short of breath with minimal exertion, such as walking to the bedside chair to get his bag. He is on 3 L/min nasal cannula. Also, reporting some bilateral thoracic level back pain. Does endorse a persistent cough with clear sputum. He is wheezing and his COPD also appears active. Denies any sputum purulence, fevers or chills, anterior chest pain, hemoptysis. Current vitals: Temperature 99.3 F, heart rate 80 bpm, blood pressure 98/58 mmHg, nontachypneic, SpO2 is 93% on 4 L/min nasal cannula. Progress note dated October 19, 2024. 64-year-old male well-known to me. The patient is seen today in the emergency department, room 27. He was seen yesterday in consultation. The patient is scheduled to have a right sided video-assisted thoracoscopic decortication of the right lung, with chemical, and mechanical pleurodesis currently, the patient is on 3 L of oxygen. He is receiving saline at 20 cc an hour. He was seen by cardiothoracic surgery yesterday and agreed to have the procedure done. We appreciate their input. Current labs include a white count 11.7, hemoglobin 13.4, hematocrit 41.5, and a platelet count of 279,000. Sodium 135, potassium 3.9, chlorides 99, CO2 27, BUN 26, creatinine 1.03. Glucose was 149. Chest x- ray from today shows a stable small right-sided hydropneumothorax. Objective - Vital Signs Vital signs: Vital Signs Temp 98.3 F 10/19/24 08:11 Pulse 103 H 10/19/24 14:00 Resp 20 10/19/24 14:00 BP 110/73 10/19/24 14:00 Pulse Ox 94 L 10/19/24 14:00 FiO2 Intake & Output 10/18/24 10/19/24 10/19/24 18:59 06:59 18:59 Output Total 750 800 Balance -750 -800 Output: Urine 750 800 Other: # Voids 3 - Exam No acute distress, oriented 3. Mildly short of breath. Currently on 3 L. HEENT examination is grossly unremarkable. Mucous membranes are moist. No oral lesions. Neck supple. Full range of motion. No adenopathy thyromegaly or neck vein distention. Cardiovascular examination reveals regular rhythm rate. S1-S2 normal. No S3 or S4. No discernible murmur noted. Lungs reveal bilateral scattered rhonchi and wheezes. Breath sounds are equal but diminished throughout. No crackles are appreciated. Abdomen soft bowel sounds are heard. No masses or tenderness. Extremities are intact. No cyanosis clubbing or edema. Skin is without rash or lesion. Neurologic examination is brief but nonfocal. - Labs CBC & Chem 7: 10/19/24 08:33 10/19/24 08:33 Labs: Abnormal Lab Results - Last 24 Hours (Table) 10/19/24 10/19/24 Range/Units 08:33 08:33 WBC 11.7 H (3.8-10.6) k/uL RDW 15.7 H (11.5-15.5) % Neutrophils # 11.0 H (1.3-7.7) k/uL Lymphocytes # 0.2 L (1.0-4.8) k/uL Sodium 135 L (137-145) mmol/L BUN 26 H (9-20) mg/dL Glucose 149 H (74-99) mg/dL Assessment and Plan Assessment: Right-sided hydropneumothorax, initially noted after a right-sided thoracentesis done June,, possible trapped lung versus iatrogenic pneumothorax. Originally, estimated to be less than 10% and was monitored on outpatient basis. Chest CT done on this hospitalization redemonstrating the right-sided hydropneumothorax with small pneumothorax, largest component of air is dependent. Moderate right-sided pleural effusion, slightly larger than previous chest CT. Trace left-sided pleural effusion. Acute COPD exacerbation. Suspect acute on chronic diastolic congestive heart failure. Acute hypoxemic respiratory failure, secondary to a combination above. Recurrent right-sided pleural effusion status post right-sided thoracentesis on 04/29/2024 and again on 07/12/2024; fluid has been cytologically unremarkable for malignancy. Fluid was a transudate based on Lights criteria, possibly se condary to CHF. Atrial fibrillation, status post previous cardioversion and continues to be anticoagulated on Eliquis; currently sinus tachycardia. Acute kidney injury, creatinine up to 1.44. History of hypertension. History of hyperlipidemia. Former tobacco smoker. Plan: Plan dated October 19, 2024. The patient is seen today in the emergency department, room 27. The patient was seen by cardiothoracic surgery yesterday, October 18, and was offered a video- assisted thoracoscopic decortication of the right lung, with chemical and mechanical pleurodesis. The patient did agree. He is currently on 3 L of oxygen. He is getting saline at 20 cc an hour. Labs, x-rays, and all medications are reviewed. The patient will eventually get up to the general medical floor. We will continue to follow. Prognosis is guarded. Time with Patient: Less than 30
--- NOTE | 2024-10-19 23:39 | P.CONS ---
History of Present Illness - Reason for Consult Consult date: 10/19/24 Pneumonia Requesting physician: Raúl Rhodes - Chief Complaint Shortness of breath and cough x few days - History of Present Illness Patient is a 64-year-old male with a past medical history significant for atrial fibrillation heart failure hypertension reflux and recurrent right- sided pleural effusion status post thoracocentesis on 04/29/2024 as well as 07/12/2024 with a negative culture on 04/29/2024 no cultures on 07/12/2024 and status post recent right-sided thoracocentesis patient has developed right-sided hydro pneumothorax that is being followed in the outpatient setting by his retail loss prevention specialist patient now presenting back to the hospital 2 days ago for ev aluation of increasing shortness of breath that apparently has been getting worse for the last few days patient also complaining of right-sided chest pain moderate intensity especially taking a deep breath and cough is also complaining of cough productive but mostly whitish no hemoptysis patient denies high-grade fever on presentation to the hospital he did have a low-grade fever of 99.3 F patient has been tachycardic off-and-on he is not hypotensive mildly hypoxic currently on 3 L nasal cannula oxygen patient did have a white count of 8.6 on admission which is up to 11.7 BUN and creatinine has been mildly elevated though trending down procalcitonin 0.41 influenza RSV COVID testing has been negative no culture done this admission patient did have a CT of the chest small right effusion with small right pneumothorax scattered airspace opacities proximal lung space and evidence of PE patient did have a abdominal pelvis CT no acute intra-abdominal pelvic process patient has been eval by pulmonary and CT surgery and is planning for VATS procedure on October 21 infectious disease was co nsulted today regarding pneumonia and need for antibiotic therapy Review of Systems Positive point and negatives has been mentioned in the HPI, complete review of systems was performed and all other systems are negative Past Medical History Past Medical History: Atrial Fibrillation, Heart Failure, COPD, GERD/Reflux, Hypertension Additional Past Medical History / Comment(s): COVID 08/21 History of Any Multi-Drug Resistant Organisms: None Reported Additional Past Surgical History / Comment(s): REPAIR TENDON OF LEFT HAND (CHILDHOOD), sinus surgery , COLONOSCOPY Past Anesthesia/Blood Transfusion Reactions: No Reported Reaction Past Psychological History: No Psychological Hx Reported Smoking Status: Former smoker (Quit January 2024) Past Alcohol Use History: None Reported Past Drug Use History: None Reported - Past Family History Mother Family Medical History: Cancer, Dementia Additional Family Medical History / Comment(s): Passed from dementia Father Family Medical History: Congestive Heart Failure (CHF), COPD Additional Family Medical History / Comment(s): Passed from heart/lung disease Medications and Allergies Home Medications Medication Instructions Recorded Confirmed Type Multivitamins, Thera [Multivitamin 1 tab PO DAILY 10/23/21 10/18/24 History (formulary)] Albuterol Inhaler [Ventolin Hfa 2 puff INHALATION RT-QID PRN #1 12/31/23 10/18/24 Rx Inhaler] each Aspirin EC [Ecotrin Low Dose] 81 mg PO DAILY 02/08/24 10/18/24 History Fluticasone/Umeclidin/Vilanter 1 puff INHALATION RT-DAILY 04/28/24 10/18/24 History [Trelegy Ellipta 200-62.5-25] Bumetanide [BUMEX] 1 mg PO BID@0900,1600 30 Days #60 05/01/24 10/18/24 Rx tab Dapagliflozin Propanediol [Farxiga] 10 mg PO DAILY #30 tab 05/01/24 10/18/24 Rx Losartan [Cozaar] 12.5 mg PO DAILY 30 Days #15 tab 05/01/24 10/18/24 Rx Spironolactone [Aldactone] 25 mg PO DAILY #30 tab 05/01/24 10/18/24 Rx Apixaban [Eliquis] 5 mg PO BID@0900,1600 07/10/24 10/18/24 History Nitroglycerin Sl Tabs [Nitrostat] 0.4 mg SL Q5M PRN 07/10/24 10/18/24 History Metoprolol Tartrate [Lopressor] 50 mg PO BID 30 Days #60 tab 07/16/24 10/18/24 Rx Omeprazole [PriLOSEC] 20 mg PO AC-BRKFST #30 cap 07/16/24 10/18/24 Rx Flecainide [Tambocor] 50 mg PO Q12HR 10/18/24 10/18/24 History Ipratropium-Albuterol Nebulize 3 ml INHALATION RT-QID PRN 10/18/24 10/18/24 History [Duoneb 0.5 mg-3 mg/3 ml Soln] Allergies Allergy/AdvReac Type Severity Reaction Status Date / Time lisinopril AdvReac CAUSED Verified 10/18/24 12:04 FATIGUE Physical Exam Vitals: Vital Signs Temp Pulse Resp BP Pulse Ox 10/19/24 14:00 103 H 20 110/73 94 L 10/19/24 13:32 95 10/19/24 13:00 105 H 38 H 92 L 10/19/24 12:57 94 L 10/19/24 12:01 97 22 10/19/24 12:00 27 H 10/19/24 11:52 96 22 10/19/24 11:00 91 28 H 105/75 10/19/24 10:00 89 25 H 114/75 10/19/24 09:00 96 29 H 10/19/24 08:11 98.3 F 102 H 22 113/70 99 10/19/24 08:00 90 30 H 118/70 10/19/24 07:46 103 H 18 10/19/24 07:37 96 10/19/24 07:35 101 H 20 10/19/24 07:00 94 25 H 104/75 91 L 10/19/24 06:39 87 18 104/75 96 10/19/24 02:24 99.3 F 90 22 116/75 94 L 10/18/24 20:45 108 H 24 107/61 93 L 10/18/24 20:09 87 10/18/24 19:58 93 10/18/24 16:30 98 10/18/24 16:26 87 18 124/86 97 10/18/24 16:20 86 Intake and Output 10/18/24 10/19/24 10/19/24 22:59 06:59 14:59 Output Total 750 800 Balance -750 -800 Output: Urine 750 800 Other: # Voids 3 GENERAL DESCRIPTION: Elderly male lying in bed, no distress. No tachypnea or accessory muscle of respiration use. HEENT: Shows Pallor , no scleral icterus. Oral mucous membrane is dry. No pharyngeal erythema or thrush NECK: Trachea central, no thyromegaly. LUNGS: Unlabored breathing. Coarse breath sound at the right base HEART: S1, S2, regular rate and rhythm. No loud murmur ABDOMEN: Soft, no tenderness , guarding or rigidity, no organomegaly EXTREMITIES: No edema of feet. SKIN: No rash, no masses palpable. NEUROLOGICAL: The patient is awake, alert, oriented x3, mood and affect normal. Results CBC & Chem 7: 10/19/24 08:33 10/19/24 08:33 Labs: Abnormal Lab Results - Last 24 Hours (Table) 10/19/24 10/19/24 Range/Units 08:33 08:33 WBC 11.7 H (3.8-10.6) k/uL RDW 15.7 H (11.5-15.5) % Neutrophils # 11.0 H (1.3-7.7) k/uL Lymphocytes # 0.2 L (1.0-4.8) k/uL Sodium 135 L (137-145) mmol/L BUN 26 H (9-20) mg/dL Glucose 149 H (74-99) mg/dL Assessment and Plan (1) Leukocytosis Current Visit: Yes Status: Acute Code(s): D72.829 - ELEVATED WHITE BLOOD CELL COUNT, UNSPECIFIED SNOMED Code(s): 863751293 (2) Pneumonia Current Visit: Yes Status: Acute Code(s): J18.9 - PNEUMONIA, UNSPECIFIED ORGANISM SNOMED Code(s): 069805168 Plan: 1patient presented to hospital with increasing shortness of breath patient also have a cough however is bringing up mostly white sputum no hemoptysis did have a significant family seen on the CT of the chest concerning for right-sided hydropneumothorax patient is not running any fever white count is mildly elevated today but was normal on admission could be related to steroids underlying bacterial pneumonia not entirely excluded but patient did have normal procalcitonin 2-hopefully pleural fluid will be sent for culture at the time of VATS procedure on and is also being followed 3-for now the patient will monitor closely off antibiotic if the patient spiked any fever or any worsening white count appropriate cultures before starting any empiric antibiotics Question concern answered We will follow on clinical condition and cultures to further adjust medication if needed Thank you for this consultation we will follow the patient along with you Dictation was produced using [employer] software. please excuse any grammatical, word or spelling errors. Time with Patient: Greater than 30
--- NOTE | 2024-10-20 02:47 | PN ---
PROGRESS NOTE DATE OF SERVICE: 10/19/2024 HISTORY OF PRESENT ILLNESS: This is a 64-year-old gentleman, who was admitted with right-sided recurrent hydropneumothorax, also had shortness of breath. The other surgery is planning VATS with possible decortication and possible set up mechanic coating machines and chemical pleurodesis. The patient also has suspicious pneumonia, ground-glass opacities in the left side also. There is no history of fever, rigors, or chills at this time. PAST MEDICAL HISTORY: Reviewed. REVIEW OF SYSTEMS: A 14-point review of systems negative. CURRENT MEDICATIONS: Reviewed. PHYSICAL EXAMINATION: VITAL SIGNS: Pulse 103, blood pressure 110/70, respirations 23. HEENT: Conjunctivae normal. NECK: No JVD. CARDIOVASCULAR: S1, S2. RESPIRATIONS: Breath sounds diminished at the bases. Few scattered rhonchi and crackles. ABDOMEN: Soft. LEGS: No edema. NERVOUS SYSTEM: Nonfocal. LABORATORY DATA: WBC 7.7. ASSESSMENT: 1. Right-sided hydropneumothorax with failure of outpatient treatment. 2. Chronic obstructive pulmonary disease, acute exacerbation. 3. Rule out left-sided ground-glass type of interstitial pneumonia. 4. History of congestive heart failure. 5. Gastroesophageal reflux disease. 6. Hypertension. 7. Atrial fibrillation. 8. History of COVID. RECOMMENDATIONS AND DISCUSSION: I recommend to continue current medications and symptomatic treatment. The patient previously had thoracocentesis. I would recommend to follow closely with Cardiothoracic Surgery for possible VATS and pleurodesis. Otherwise, I would also recommend procal, Infectious Disease evaluation, obtain cultures. Continue to monitor. Prognosis guarded. Further recommendations to follow. See orders for further details. MMODL / IJN: [id number] /
[2024-10-20] MEDS: METOPROLOL TARTRATE 50 MG TAB PO SCH (02:55)
[2024-10-20 06:54] LABS: Anisocytosis Slight; Basophils % (A) 0 %; Eosinophils % (A) 0 %; HCT 37.7 % (39.0-53.0); HGB 12.3 gm/dL (13.0-17.5); Lymphocytes # (A) 0.3 k/uL (1.0-4.8); Lymphocytes % (A) 2 %; MCH 29.1 pg (25.0-35.0); MCHC 32.7 g/dL (31.0-37.0); MCV 88.9 fL (80.0-100.0); Mean Platelet Volume 7.7; Monocytes # (A) 0.4 k/uL (0-1.0); Monocytes % (A) 3 %; Neutrophils # (A) 11.6 k/uL (1.3-7.7); Neutrophils % (A) 93 %; Platelet Count 258 k/uL (150-450); RBC 4.25 m/uL (4.30-5.90); RDW 16.1 % (11.5-15.5); WBC 12.4 k/uL (3.8-10.6)
[2024-10-20 07:09] LABS: ALT 22 U/L (4-49); AST 39 U/L (17-59); African American GFR (CKD) >90 (>60 ml/min/1.73 sqM); Albumin 3.1 g/dL (3.5-5.0); Alkaline Phosphatase 87 U/L (38-126); Anion Gap 7 mmol/L; Blood Urea Nitrogen 27 mg/dL (9-20); Calcium 8.2 mg/dL (8.4-10.2); Carbon Dioxide 30 mmol/L (22-30); Chloride 97 mmol/L (98-107); Glucose 120 mg/dL (74-99); Non-African American GFR(CKD) 79 (>60 ml/min/1.73 sqM); Potassium 4.8 mmol/L (3.5-5.1); Sodium 134 mmol/L (137-145); Total Bilirubin 0.7 mg/dL (0.2-1.3); Total Protein 5.8 g/dL (6.3-8.2)
[2024-10-20 07:24] LABS: INR 0.9 (<1.2); Partial Thromboplastin Time 22.8 sec (22.0-30.0); Prothrombin Time 10.6 sec (10.0-12.5)
[2024-10-20] MEDS: ALBUTEROL NEBULIZED 2.5 MG/3 ML INHALATION SCH (07:34)
--- NOTE | 2024-10-20 08:01 | XR ---
EXAMINATION TYPE: XR chest 1V portable DATE OF EXAM: 10/20/2024 CLINICAL HISTORY: Right-sided hydropneumothorax progress study. TECHNIQUE: Single AP portable upright view of the chest is obtained. COMPARISON: Chest x-ray from one day earlier and older studies. FINDINGS: Stable small to tiny right-sided hydropneumothorax. Persistent bilateral lower lung increa sed opacities. Cardiac silhouette size is upper limits of normal. Osseous structures are intact. IMPRESSION: Stable small to tiny right-sided hydropneumothorax. Stable cardiomegaly with bilateral lo wer lung acute infiltrates and/or atelectasis. [facility], , 10/20/2024 7:59 AM
--- NOTE | 2024-10-20 08:53 | P.PN ---
Subjective Progress Note Date: 10/20/24 Principal diagnosis: Right hydropneumothorax, right loculated effusion. Previous medical history of chronic obstructive pulmonary disease, chronic home oxygen use between 2.5 to 3 L nasal cannula, recurrent right pleural effusions with previous thoracentesis on April 29, 2024 and May 12, 2024, cytology from previous thoracentesis has been negative for malignancy, hypertension, chronic heart failure with preserved ejection fraction, history of pneumonia in September 2023, paroxysmal atrial fibrillation status post cardioversion and ablation on Eliquis for anticoagulation as an outpatient, GERD, and previous tobacco dependence with cessation in January 2024. The patient was seen and examined this morning sitting up in bed on the cardiac stepdown unit in no acute distress. Currently in rapid atrial fibrillation, hemodynamically stable, remains on 3 L nasal cannula. He is scheduled for right video-assisted thoracoscopy with decortication, possible mechanical and chemical pleurodesis tomorrow with Dr. Mixon. Patient has no new questions about surgery at this time. Objective - Vital Signs Vital signs: Vital Signs Temp 98.6 F 10/20/24 08:10 Pulse 120 H 10/20/24 08:10 Resp 18 10/20/24 08:10 BP 90/59 10/20/24 08:10 Pulse Ox 93 L 10/20/24 08:10 FiO2 Intake & Output 10/19/24 10/20/24 10/20/24 18:59 06:59 18:59 Intake Total 180 397 440 Output Total 800 Balance -620 397 440 Weight 95.254 kg 95.6 kg Intake: IV 160 Sodium Chloride 0.9% 1, 160 000 ml @ 20 mls/hr IV . Q24H [facility] Rx#:[id number] Oral 180 237 440 Output: Urine 800 Other: Voiding Method Urinal Urinal # Voids 3 - Exam CONSTITUTIONAL: Appears comfortable, cooperative, no acute distress RESPIRATORY: Lungs sounds diminished bilaterally with faint expiratory wheezes heard in the bases. Respirations even, nonlabored. Currently on 3 L nasal cannula with oxygen saturation 93%. Able to achieve 1500 mL on incentive spirometry. Strong cough. CARDIOVASCULAR: S1, S2 present. Irregular rate and rhythm, atrial fibrillation on telemetry. Palpable peripheral pulses bilaterally. No edema present GASTROINTESTINAL: Abdomen soft, nontender, nondistended. Active bowel sounds present 4 quadrants. Tolerating diet GENITOURINARY: Continues to void INTEGUMENTARY: Skin is warm and dry NEUROLOGIC: Cranial nerves II through XII intact MUSKULOSKELETAL: Able to move all extremities, strength equal bilaterally, gait normal PSYCHIATRIC: Alert and oriented to person place and time, appropriate affect, intact judgment and insight - Allied health notes Allied health notes reviewed: nursing - Labs CBC & Chem 7: 10/20/24 05:53 10/20/24 05:53 Labs: Abnormal Lab Results - Last 24 Hours (Table) 10/19/24 10/19/24 10/20/24 Range/Units 08:33 08:33 05:53 WBC 11.7 H 12.4 H (3.8-10.6) k/uL RBC 4.25 L (4.30-5.90) m/uL Hgb 12.3 L (13.0-17.5) gm/dL Hct 37.7 L (39.0-53.0) % RDW 15.7 H 16.1 H (11.5-15.5) % Neutrophils # 11.0 H 11.6 H (1.3-7.7) k/uL Lymphocytes # 0.2 L 0.3 L (1.0-4.8) k/uL Sodium 135 L (137-145) mmol/L Chloride (98-107) mmol/L BUN 26 H (9-20) mg/dL Glucose 149 H (74-99) mg/dL Calcium (8.4-10.2) mg/dL Total Protein (6.3-8.2) g/dL Albumin (3.5-5.0) g/dL 10/20/24 Range/Units 05:53 WBC (3.8-10.6) k/uL RBC (4.30-5.90) m/uL Hgb (13.0-17.5) gm/dL Hct (39.0-53.0) % RDW (11.5-15.5) % Neutrophils # (1.3-7.7) k/uL Lymphocytes # (1.0-4.8) k/uL Sodium 134 L (137-145) mmol/L Chloride 97 L (98-107) mmol/L BUN 27 H (9-20) mg/dL Glucose 120 H (74-99) mg/dL Calcium 8.2 L (8.4-10.2) mg/dL Total Protein 5.8 L (6.3-8.2) g/dL Albumin 3.1 L (3.5-5.0) g/dL - Imaging and Cardiology Chest x-ray: report reviewed, image reviewed Assessment and Plan Assessment: Right hydropneumothorax, initially noted after a right-sided thoracentesis done June,, possible trapped lung versus iatrogenic pneumothorax Acute hypoxemic respiratory failure, likely secondary to above Acute kidney injury, present on admission History of chronic obstructive pulmonary disease on home oxygen use between 2.5 to 3 L nasal cannula Recurrent right pleural effusions with previous thoracentesis on April 29, 2024 and May 12, 2024, cytology from previous thoracentesis has been negative for malignancy Hypertension Chronic heart failure with preserved ejection fraction Pneumonia in September 2023, COVID-19 in July 2023 Paroxysmal atrial fibrillation status post cardioversion and ablation on Eliquis for anticoagulation as an outpatient GERD Previous tobacco dependence with cessation in January 2024. Plan: Scheduled for right video-assisted thoracoscopic surgery with decortication, possible mechanical and chemical pleurodesis on , October 21, 2024 to be completed by Dr. Mixon. N.p.o. after midnight Continue to hold Eliquis in anticipation for right VATS Wean oxygen as tolerated, encourage use of incentive spirometry 10 times every hour while awake. Steroid and bronchodilator management per pulmonology Out of bed for all meals. Increase activity as tolerated. Medical management of other comorbidities per internal medicine and pulmonary/critical care service. More recommendations to follow based on patient's clinical course.
--- NOTE | 2024-10-20 09:33 | P.PN ---
Subjective HISTORY OF PRESENT ILLNESS: This is a 64-year-old male with a past medical history significant for hypertension, hyperlipidemia, atrial fibrillation, pleural effusion, nicotine dependence, COPD, cardioversion, and ablations. Patient follows in the office with Dr. Melgoza. We have been asked to see the patient in consultation for CHF. Patient examined at the bedside in the emergency room. Patient presented to the hospital with a chief complaint of shortness of breath. Patient denies any chest pain or pressure. Patient does have a history of right-sided pleural effusions with previous thoracentesis. Patient underwent CT of the chest r evealing right hydropneumothorax. Small right pneumothorax with small right pleural effusion. Largest pocket of air especially near the diaphragm. He has been evaluated by CT surgery and is scheduled for VATS procedure on October 21, 2024. The patient was recently seen in the office by Dr. Melgoza last month. He was taken off of amiodarone and started on flecainide. Patient was also given an event monitor at that time which he states he is due to return. DIAGNOSTICS: - EKG reveals sinus tachycardia with no signs of acute ischemia. - Chest xray small right hydropneumothorax. Elevated right diaphragm. - Laboratory data: - Current home cardiac medications include losartan 12.5 mg daily, metoprolol tartrate 50 mg twice a day, Eliquis 5 mg twice a day, Bumex 1 mg twice a day, aspirin 81 mg daily, Farxiga 10 mg daily, flecainide 50 mg twice a day, Aldactone 25 mg daily - Most recent echocardiogram obtained in June 2024 revealed ejection fraction 55 to 60% with trace MR and mild TR - Cardiac catheterization history: January 2024 revealing normal coronary arteries 10/20/2024 Patient examined this morning at the bedside. Patient states he is feeling a little bit worse today. He reports shortness of breath. He denies any chest pain or pressure. Patient did go into A-fib with RVR. He remains in atrial fibrillation this morning with heart rate in the 120s. Blood pressures are soft with a systolic in the 90s. PHYSICAL EXAM: VITAL SIGNS: Reviewed. GENERAL: Well-developed in no acute distress. HEENT: Head is normocephalic. Pupils are equal, round. Sclerae anicteric. Mucous membranes of the mouth are moist. Neck supple. No JVD or thyromegaly LUNGS: Respirations even and unlabored. Lungs diminished, right more than left HEART: Tachycardic. Irregular rate and rhythm. S1 and S2 heard. ABDOMEN: Soft. Nondistended. Nontender. EXTREMITIES: Normal range of motion. No clubbing or cyanosis. Peripheral pulses intact. No lower extremity edema NEUROLOGIC: Awake and alert. Oriented x 3. ASSESSMENT: Shortness of breath Right sided hydropneumothorax History of right-sided pleural effusions with previous thoracentesis Acute on chronic heart failure with preserved EF Acute COPD exacerbation Acute on chronic hypoxic respiratory failure, on home oxygen Paroxysmal atrial fibrillation, on Eliquis outpatient History of cardioversion History of ablation, 04/2024 Normal coronary arteries, per cath in January 2024 Hypertension Hyperlipidemia Former nicotine dependence PLAN: No need to repeat echocardiogram as this was performed in June 2024 Continue current cardiac medications Given additional dose of metoprolol tartrate 25 mg and an additional flecainide 50 mg now Continue telemetry monitoring [facility] remains on hold CT surgery following. Patient scheduled for right VATS on 10/21/2023 Further recommendations pending patient course Nurse practitioner note has been reviewed by physician. Signing provider agrees with the documented findings, assessment, and plan of care documented by PRACTICE DIRECTOR as a scribe. Objective - Vital Signs Vital signs: Vital Signs Temp 98.6 F 10/20/24 08:10 Pulse 120 H 10/20/24 08:10 Resp 18 10/20/24 08:10 BP 90/59 10/20/24 08:10 Pulse Ox 93 L 10/20/24 08:10 FiO2 Intake & Output 10/19/24 10/20/24 10/20/24 18:59 06:59 18:59 Intake Total 180 397 440 Output Total 800 Balance -620 397 440 Weight 95.254 kg 95.6 kg Intake: IV 160 Sodium Chloride 0.9% 1, 160 000 ml @ 20 mls/hr IV . Q24H [facility] Rx#:[id number] Oral 180 237 440 Output: Urine 800 Other: Voiding Method Urinal Urinal # Voids 3 - Labs CBC & Chem 7: 10/20/24 05:53 10/20/24 05:53 Labs: Abnormal Lab Results - Last 24 Hours (Table) 10/20/24 10/20/24 Range/Units 05:53 05:53 WBC 12.4 H (3.8-10.6) k/uL RBC 4.25 L (4.30-5.90) m/uL Hgb 12.3 L (13.0-17.5) gm/dL Hct 37.7 L (39.0-53.0) % RDW 16.1 H (11.5-15.5) % Neutrophils # 11.6 H (1.3-7.7) k/uL Lymphocytes # 0.3 L (1.0-4.8) k/uL Sodium 134 L (137-145) mmol/L Chloride 97 L (98-107) mmol/L BUN 27 H (9-20) mg/dL Glucose 120 H (74-99) mg/dL Calcium 8.2 L (8.4-10.2) mg/dL Total Protein 5.8 L (6.3-8.2) g/dL Albumin 3.1 L (3.5-5.0) g/dL
[2024-10-20] MEDS: METOPROLOL TARTRATE 25 MG TAB PO STA (11:04)
[2024-10-20] MEDS: FLECAINIDE 50 MG TAB PO STA (11:04)
--- NOTE | 2024-10-20 12:53 | P.PN ---
Subjective Progress Note Date: 10/20/24 Principal diagnosis: Shortness of breath. Patient is a 64-year-old male with past medical history significant for COPD, atrial fibrillation with previous cardioversion, congestive heart failure, hypertension, hyperlipidemia, recurrent right-sided pleural effusion with previous thoracentesis on 04/29/2024 and again on 07/12/2024. Fluid cytology previously negative for malignancy. Fluid was technically transudate based on lights criteria. Most recent echocardiogram from June, estimating preserved left ventricular ejection fraction of 55 to 60% as well as trace to mild mitral and tricuspid regurgitation, and an RVSP of 58. Follow-up right- sided heart catheterization demonstrating borderline elevated left filling pressures and normal right-sided filling pressures with borderline pulmonary hypertension with a mean PA pressure of 24. Following patient's most recent right-sided thoracentesis in June, patient did have a follow-up chest CTA demonstrating a linear filling defect within the right middle lobe with poor visualization of the distal subsegmental branches suggestive of pulmonary embolus. No evidence of right-sided heart strain. Patient did develop a right- sided hydropneumothorax with trace right apical pneumothorax and right small pleural effusion component. He has been following up outpatient in the pulmonary office with Dr. Rooney. He also follows with his nurses supervisor, Dr. Melgoza. Approximately 1 week ago patient having increasing shortness of breath, and presented to the emergency department yesterday evening. States that his nurses supervisor recently transitioned him from amiodarone to flecainide. He has a cardiac event monitor on. He also continues on Eliquis. He does notice some lower extremity swelling. He also takes Bumex twice daily. Workup in the emergency department, includes a initial chest x-ray showing small right hydropneumothorax. Follow-up chest CT showing right hydropneumothorax, small right pneumothorax with small right pleural effusion. Largest component of air dependent. Multifocal airspace opacities and trace left pleural effusion. CBC: WBC count 8.6, hemoglobin 13.8, platelets 268. CMP: Sodium 132, potassium 4.4, chloride 97, serum bicarb 21, BUN 32, creatinine 1.44, glucose 113. Lactic 1.9. LFTs unremarkable. Troponin 0.027. NT proBNP elevated at 6940. Negative for influenza, RSV, COVID. He is currently being evaluated in the emergency department, room 27. He is sitting at the edge of the bed, nondistressed. Equal lung sounds. No tamponade features. Does become short of breath with minimal exertion, such as walking to the bedside chair to get his bag. He is on 3 L/min nasal cannula. Also, reporting some bilateral thoracic level back pain. Does endorse a persistent cough with clear sputum. He is wheezing and his COPD also appears active. Denies any sputum purulence, fevers or chills, anterior chest pain, hemoptysis. Current vitals: Temperature 99.3 F, heart rate 80 bpm, blood pressure 98/58 mmHg, nontachypneic, SpO2 is 93% on 4 L/min nasal cannula. Progress note dated October 19, 2024. 64-year-old male well-known to me. The patient is seen today in the emergency department, room 27. He was seen yesterday in consultation. The patient is scheduled to have a right sided video-assisted thoracoscopic decortication of the right lung, with chemical, and mechanical pleurodesis currently, the patient is on 3 L of oxygen. He is receiving saline at 20 cc an hour. He was seen by cardiothoracic surgery yesterday and agreed to have the procedure done. We appreciate their input. Current labs include a white count 11.7, hemoglobin 13.4, hematocrit 41.5, and a platelet count of 279,000. Sodium 135, potassium 3.9, chlorides 99, CO2 27, BUN 26, creatinine 1.03. Glucose was 149. Chest x- ray from today shows a stable small right-sided hydropneumothorax. Progress note dated October 20, 2024. 64-year-old male seen today in room 354. Currently, the patient is resting comfortably in bed. He is on oxygen by nasal cannula at 3 L. He is not re ceiving any IV fluids. The patient is scheduled to go to the operating room tomorrow, for a video-assisted thoracoscopic decortication of the lung, with mechanical and chemical pleurodesis. Current labs include a white count 12.4, hemoglobin 12.3, hematocrit 37.7, and a platelet count is normal. Coagulation studies were normal. Sodium 134, potassium 4.8, chloride 97, CO2 30, BUN 27, creatinine 1. The patient's procalcitonin level is normal at 0.24. Chest x-ray today is largely unchanged. Objective - Vital Signs Vital signs: Vital Signs Temp 99.3 F 10/20/24 11:17 Pulse 55 L 10/20/24 11:17 Resp 18 10/20/24 11:17 BP 124/82 10/20/24 11:17 Pulse Ox 96 10/20/24 11:17 FiO2 Intake & Output 10/19/24 10/20/24 10/20/24 18:59 06:59 18:59 Intake Total 392 390 4440 Output Total 800 Balance -945 000 0885 Weight 95.254 kg 95.6 kg Intake: IV 160 Sodium Chloride 0.9% 1, 160 000 ml @ 20 mls/hr IV . Q24H [facility] Rx#:[id number] Oral 509 [id number] Output: Urine 800 Other: Voiding Method Urinal Urinal # Voids 3 - Exam No acute distress, oriented 3. Mildly short of breath. Currently on 3 L. HEENT examination is grossly unremarkable. Mucous membranes are moist. No oral lesions. Neck supple. Full range of motion. No adenopathy thyromegaly or neck vein distention. Cardiovascular examination reveals regular rhythm rate. S1-S2 normal. No S3 or S4. No discernible murmur noted. Lungs reveal bilateral scattered rhonchi and wheezes. Breath sounds are equal but diminished throughout. No crackles are appreciated. Abdomen soft bowel sounds are heard. No masses or tenderness. Extremities are intact. No cyanosis clubbing or edema. Skin is without rash or lesion. Neurologic examination is brief but nonfocal. - Labs CBC & Chem 7: 10/20/24 05:53 10/20/24 05:53 Labs: Abnormal Lab Results - Last 24 Hours (Table) 10/20/24 10/20/24 Range/Units 05:53 05:53 WBC 12.4 H (3.8-10.6) k/uL RBC 4.25 L (4.30-5.90) m/uL Hgb 12.3 L (13.0-17.5) gm/dL Hct 37.7 L (39.0-53.0) % RDW 16.1 H (11.5-15.5) % Neutrophils # 11.6 H (1.3-7.7) k/uL Lymphocytes # 0.3 L (1.0-4.8) k/uL Sodium 134 L (137-145) mmol/L Chloride 97 L (98-107) mmol/L BUN 27 H (9-20) mg/dL Glucose 120 H (74-99) mg/dL Calcium 8.2 L (8.4-10.2) mg/dL Total Protein 5.8 L (6.3-8.2) g/dL Albumin 3.1 L (3.5-5.0) g/dL Assessment and Plan Assessment: Right-sided hydropneumothorax, initially noted after a right-sided thoracentesis done June,, possible trapped lung versus iatrogenic pneumothorax. Originally, estimated to be less than 10% and was monitored on outpatient basis. Chest CT done on this hospitalization redemonstrating the right-sided hydropneumothorax with small pneumothorax, largest component of air is dependent. Moderate right-sided pleural effusion, slightly larger than previous chest CT. Trace left-sided pleural effusion. Acute COPD exacerbation. Suspect acute on chronic diastolic congestive heart failure. Acute hypoxemic respiratory failure, secondary to a combination above. Recurrent right-sided pleural effusion status post right-sided thoracentesis on 04/29/2024 and again on 07/12/2024; fluid has been cytologically unremarkable for malignancy. Fluid was a transudate based on Lights criteria, possibly secondary to CHF. Atrial fibrillation, status post previous cardioversion and continues to be anticoagulated on Eliquis; currently sinus tachycardia. Acute kidney injury, creatinine up to 1.44. History of hypertension. History of hyperlipidemia. Former tobacco smoker. Plan: Plan dated October 19, 2024. The patient is seen today in the emergency department, room 27. The patient was seen by cardiothoracic surgery yesterday, October 18, and was offered a video- assisted thoracoscopic decortication of the right lung, with chemical and mechanical pleurodesis. The patient did agree. He is currently on 3 L of oxygen. He is getting saline at 20 cc an hour. Labs, x-rays, and all me dications are reviewed. The patient will eventually get up to the general medical floor. We will continue to follow. Prognosis is guarded. Plan dated October 20, 2024. The patient is seen today in room 354. He is resting comfortably in bed. He is on 3 L of oxygen. No IV fluids. Labs, x-rays, and all medications are reviewed. From the pulmonary standpoint, he is stable. Cardiology restarted some of his cardiac medications. We will continue to follow the patient, make recommendations along the way. The patient is scheduled for a video-assisted thoracoscopic decortication of the right lung, with chemical and mechanical pleurodesis. That is scheduled for tomorrow. Time with Patient: Less than 30
[2024-10-20] MEDS: ACETAMINOPHEN TAB 325 MG TAB PO PRN (20:20)
--- NOTE | 2024-10-21 02:20 | PN ---
PROGRESS NOTE DATE OF SERVICE: 10/20/2024 SUBJECTIVE: This is a 64-year-old gentleman, who was admitted with right-sided recurrent hydropneumothorax, is being worked up for possible VATS procedure. The patient is also being evaluated for possible pneumonia too. The ProCal is normal. The patient is on IV steroids. We will obtain a sputum culture. PAST MEDICAL HISTORY: Reviewed. REVIEW OF SYSTEMS: A 14-point review of systems is negative except as mentioned earlier. CURRENT MEDICATIONS: Reviewed. PHYSICAL EXAMINATION: VITAL SIGNS: Pulse is 55, blood pressure 124/82, respirations 18. CHEST: A few scattered rhonchi and crackles. ABDOMEN: Soft. NERVOUS SYSTEM: Nonfocal. LABORATORY DATA: WBC 12.4. ASSESSMENT: 1. Right-sided hydropneumothorax with failure of outpatient treatment. 2. Chronic obstructive pulmonary disease acute exacerbation. 3. Possible bibasilar pneumonia. 4. Rule out left-sided ground-glass type of interstitial pneumonia. 5. History of congestive heart failure. 6. History of gastroesophageal reflux disease. 7. Hypertension. 8. Atrial fibrillation. 9. History of COVID. RECOMMENDATIONS: Recommend to continue current medications and continue symptomatic treatment. Otherwise, viral titers are negative. Procalcitonin negative. I would recommend sputum culture and blood cultures also. Continue to monitor. Closely follow with multiple consultants. Prognosis guarded. Further recommendations to follow. MMODL / IJN: [id number] /
[2024-10-21] MEDS ORDERED: LIDOCAINE 1% (10MG/ML) FOR IV START INTRADERMA PRN (06:11)
[2024-10-21 06:29] LABS: Basophils % (A) 0 %; Eosinophils % (A) 0 %; HCT 40.1 % (39.0-53.0); HGB 12.6 gm/dL (13.0-17.5); Hypochromasia Slight; Lymphocytes # (A) 0.3 k/uL (1.0-4.8); Lymphocytes % (A) 3 %; MCH 28.5 pg (25.0-35.0); MCHC 31.4 g/dL (31.0-37.0); MCV 90.9 fL (80.0-100.0); Mean Platelet Volume 7.2; Monocytes # (A) 0.3 k/uL (0-1.0); Monocytes % (A) 3 %; Neutrophils # (A) 8.9 k/uL (1.3-7.7); Neutrophils % (A) 93 %; Platelet Count 257 k/uL (150-450); RBC 4.41 m/uL (4.30-5.90); RDW 15.7 % (11.5-15.5); WBC 9.6 k/uL (3.8-10.6)
[2024-10-21 06:44] LABS: Glucose,Whole Blood 117 mg/dL (70-110)
[2024-10-21] MEDS: IV FLUID CONTINUATION 1,000 ML IV ONE ×3 (06:45→11:28)
[2024-10-21 06:52] LABS: African American GFR (CKD) 89 (>60 ml/min/1.73 sqM); Anion Gap 9 mmol/L; Blood Urea Nitrogen 31 mg/dL (9-20); Calcium 8.4 mg/dL (8.4-10.2); Carbon Dioxide 31 mmol/L (22-30); Chloride 94 mmol/L (98-107); Glucose 112 mg/dL (74-99); Non-African American GFR(CKD) 77 (>60 ml/min/1.73 sqM); Potassium 4.4 mmol/L (3.5-5.1); Sodium 134 mmol/L (137-145)
[2024-10-21] MEDS ORDERED: HYDROmorphone 0.5 MG/0.5 ML SYRINGE IVP PRN (07:00)
[2024-10-21] MEDS ORDERED: fentaNYL (PF) 50 MCG/ML 2 ML AMP IVP PRN (07:00)
[2024-10-21] MEDS: MIDAZOLAM 2 MG/2 ML VIAL IV PRN (07:07)
[2024-10-21] MEDS ORDERED: PROPOFOL 10 MG/ML 20 ML VIAL IV ONE (08:07)
[2024-10-21] MEDS ORDERED: fentaNYL (PF) 50 MCG/ML 2 ML AMP ONE (08:07)
[2024-10-21] MEDS ORDERED: SUCCINYLCHOLINE CHLORIDE 200 MG/10 ML VIAL IV ONE (08:07)
[2024-10-21] MEDS ORDERED: LIDOCAINE 1% INJ 10MG/ML (20 ML MDV) ONE (08:07)
[2024-10-21] MEDS ORDERED: GLYCOPYRROLATE 0.2 MG/ML 2 ML VIAL ONE (08:07)
[2024-10-21] MEDS ORDERED: NEOSTIGMINE 1 MG/ML 10 ML VIAL ONE (08:07)
[2024-10-21] MEDS ORDERED: ROCURONIUM 10 MG/ML (5 ML VIAL) IV ONE (08:07)
[2024-10-21] MEDS ORDERED: SUGAMMADEX SODIUM 100 MG/ML SYR IV ONE (08:07)
[2024-10-21] MEDS ORDERED: PHENYLEPHRINE 10 MG/ML VIAL ONE (08:07)
[2024-10-21] MEDS ORDERED: ePHEDrine 50 MG/ML 1 ML VIAL ONE (08:07)
--- NOTE | 2024-10-21 08:20 | P.PN ---
Subjective Progress Note Date: 10/20/24 Principal diagnosis: Reason for follow-up is abnormal CT question of pneumonia Patient is a 64-year-old male with a past medical history significant for atrial fibrillation heart failure hypertension reflux and recurrent right- sided pleural effusion status post multiple thoracocentesis, presented to hospital with increasing shortness of breath CT of the chest did shows right- sided effusion with the pneumothorax and scattered airspace disease with concern for possible pneumonia prompting this consultation. On today's evaluation that is 10/20/2024,the patient denies any fever or any chills, patient mention issues with the A-fib last night and also complaining of shortness of breath patient denies having any chest pain denies any worsening cough or sputum production currently on 3 L nasal cannula oxygen no nausea vomiting abdominal pain or diarrhea. Patient white count is slightly up to 12.4, creatinine is 1.0 repeat procalcitonin 0.24 blood and sputum culture currently pending Objective - Vital Signs Vital signs: Vital Signs Temp 99.3 F 10/20/24 11:17 Pulse 55 L 10/20/24 11:17 Resp 18 10/20/24 11:17 BP 124/82 10/20/24 11:17 Pulse Ox 96 10/20/24 11:17 FiO2 Intake & Output 10/19/24 10/20/24 10/20/24 18:59 06:59 18:59 Intake Total 180 397 920 Output Total 800 Balance -620 397 920 Weight 95.254 kg 95.6 kg Intake: IV 160 Sodium Chloride 0.9% 1, 160 000 ml @ 20 mls/hr IV . Q24H [facility] Rx#:[id number] Oral 180 237 920 Output: Urine 800 Other: Voiding Method Urinal Urinal # Voids 3 - Exam GENERAL DESCRIPTION: An elderly male lying in bed in no distress RESPIRATORY SYSTEM: Unlabored breathing , decreased breath sounds at bases HEART: S1 S2 regular rate and rhythm , ABDOMEN: Soft , no tenderness EXTREMITIES: No edema feet - Labs CBC & Chem 7: 10/21/24 05:30 10/21/24 05:30 Labs: Abnormal Lab Results - Last 24 Hours (Table) 10/20/24 10/20/24 Range/Units 05:53 05:53 WBC 12.4 H (3.8-10.6) k/uL RBC 4.25 L (4.30-5.90) m/uL Hgb 12.3 L (13.0-17.5) gm/dL Hct 37.7 L (39.0-53.0) % RDW 16.1 H (11.5-15.5) % Neutrophils # 11.6 H (1.3-7.7) k/uL Lymphocytes # 0.3 L (1.0-4.8) k/uL Sodium 134 L (137-145) mmol/L Chloride 97 L (98-107) mmol/L BUN 27 H (9-20) mg/dL Glucose 120 H (74-99) mg/dL Calcium 8.2 L (8.4-10.2) mg/dL Total Protein 5.8 L (6.3-8.2) g/dL Albumin 3.1 L (3.5-5.0) g/dL Assessment and Plan (1) Leukocytosis Current Visit: Yes Status: Acute Code(s): D72.829 - ELEVATED WHITE BLOOD CELL COUNT, UNSPECIFIED SNOMED Code(s): 437035310 (2) Pneumonia Current Visit: Yes Status: Acute Code(s): J18.9 - PNEUMONIA, UNSPECIFIED ORGANISM SNOMED Code(s): 821999182 Plan: 1patient presented to hospital with increasing shortness of breath patient also have a cough however is bringing up mostly white sputum no hemoptysis did have a significant family seen on the CT of the chest concerning for right-sided hydropneumothorax patient is not running any fever white count is mildly elevate d today but was normal on admission could be related to steroids underlying bacterial pneumonia not entirely excluded but patient did have normal procalcitonin 2-patient is currently waiting for VATS procedure on and cultures done at the time of procedure would be followed to see a need for antibiotic therapy for now monitor closely off antibiotic Dictation was produced using Pansieve dictation software. please excuse any grammatical, word or spelling errors. Time with Patient: Less than 30
[2024-10-21] MEDS: BUPIVACAINE (PF) 0.25% 30 ML VIAL SQ ONE ×2 (09:09)
[2024-10-21] MEDS: LIDOCAINE 1%-EPI 1:100,000 20 ML VIAL SQ ONE ×2 (09:09)
[2024-10-21] MEDS: TALC POWDER 30 GM AERO.POWD MISCELLANE ONE (09:44)
[2024-10-21] MEDS: FUROSEMIDE 10 MG/ML 4 ML VIAL IV STA (11:13)
--- NOTE | 2024-10-21 11:20 | XR ---
EXAMINATION TYPE: XR chest 1V portable DATE OF EXAM: 10/21/2024 CLINICAL HISTORY: Post VATS TECHNIQUE: Single AP portable upright view of the chest is obtained. COMPARISON: Chest x-ray from one day earlier FINDINGS: There is new right-sided chest tube without visualized recent pneumothorax. There is new s ubcutaneous emphysema lateral right lower thorax. Increasing left lower lung opacity is present. Impr marco aeration right lung base with new right midlung opacity. Background chronic parenchymal changes. Cardiac silhouette size remains within normal limits. Osseous structures are intact. IMPRESSION: New right-sided chest tube without visualized pneumothorax. Improved right basilar opacit y or pleural fluid collection. New right midlung opacity could reflect atelectasis. Slightly more pro minent left lower lung acute infiltrate and/or atelectasis. [facility], , 10/21/2024 11:17 AM
[2024-10-21] MEDS: LACTATED RINGERS 1,000 ML IV SCH (11:33)
[2024-10-21] MEDS: IPRATROPIUM-ALBUTEROL 3 ML NEB INHALATION ONE (11:59)
--- NOTE | 2024-10-21 12:08 | P.PN ---
Subjective Progress Note Date: 10/21/24 Principal diagnosis: Shortness of breath. Patient is a 64-year-old male with past medical history significant for COPD, atrial fibrillation with previous cardioversion, congestive heart failure, hypertension, hyperlipidemia, recurrent right-sided pleural effusion with previous thoracentesis on 04/29/2024 and again on 07/12/2024. Fluid cytology previously negative for malignancy. Fluid was technically transudate based on lights criteria. Most recent echocardiogram from June, estimating preserved left ventricular ejection fraction of 55 to 60% as well as trace to mild mitral and tricuspid regurgitation, and an RVSP of 58. Follow-up right- sided heart catheterization demonstrating borderline elevated left filling pressures and normal right-sided filling pressures with borderline pulmonary hypertension with a mean PA pressure of 24. Following patient's most recent right-sided thoracentesis in June, patient did have a follow-up chest CTA demonstrating a linear filling defect within the right middle lobe with poor visualization of the distal subsegmental branches suggestive of pulmonary embolus. No evidence of right-sided heart strain. Patient did develop a right- sided hydropneumothorax with trace right apical pneumothorax and right small pleural effusion component. He has been following up outpatient in the pulmonary office with Dr. Rooney. He also follows with his lumber bearer, Dr. Melgoza. Approximately 1 week ago patient having increasing shortness of breath, and presented to the emergency department yesterday evening. States that his lumber bearer recently transitioned him from amiodarone to flecainide. He has a cardiac event monitor on. He also continues on Eliquis. He does notice some lower extremity swelling. He also takes Bumex twice daily. Workup in the emergency department, includes a initial chest x-ray showing small right hydropneumothorax. Follow-up chest CT showing right hydropneumothorax, small right pneumothorax with small right pleural effusion. Largest component of air dependent. Multifocal airspace opacities and trace left pleural effusion. CBC: WBC count 8.6, hemoglobin 13.8, platelets 268. CMP: Sodium 132, potassium 4.4, chloride 97, serum bicarb 21, BUN 32, creatinine 1.44, glucose 113. Lactic 1.9. LFTs unremarkable. Troponin 0.027. NT proBNP elevated at 6940. Negative for influenza, RSV, COVID. He is currently being evaluated in the emergency department, room 27. He is sitting at the edge of the bed, nondistressed. Equal lung sounds. No tamponade features. Does become short of breath with minimal exertion, such as walking to the bedside chair to get his bag. He is on 3 L/min nasal cannula. Also, reporting some bilateral thoracic level back pain. Does endorse a persistent cough with clear sputum. He is wheezing and his COPD also appears active. Denies any sputum purulence, fevers or chills, anterior chest pain, hemoptysis. Current vitals: Temperature 99.3 F, heart rate 80 bpm, blood pressure 98/58 mmHg, nontachypneic, SpO2 is 93% on 4 L/min nasal cannula. Progress note dated October 19, 2024. 64-year-old male well-known to me. The patient is seen today in the emergency department, room 27. He was seen yesterday in consultation. The patient is scheduled to have a right sided video-assisted thoracoscopic decortication of the right lung, with chemical, and mechanical pleurodesis currently, the patient is on 3 L of oxygen. He is receiving saline at 20 cc an hour. He was seen by cardiothoracic surgery yesterday and agreed to have the procedure done. We appreciate their input. Current labs include a white count 11.7, hemoglobin 13.4, hematocrit 41.5, and a platelet count of 279,000. Sodium 135, potassium 3.9, chlorides 99, CO2 27, BUN 26, creatinine 1.03. Glucose was 149. Chest x- ray from today shows a stable small right-sided hydropneumothorax. Progress note dated October 20, 2024. 64-year-old male seen today in room 354. Currently, the patient is resting comfortably in bed. He is on oxygen by nasal cannula at 3 L. He is not re ceiving any IV fluids. The patient is scheduled to go to the operating room tomorrow, for a video-assisted thoracoscopic decortication of the lung, with mechanical and chemical pleurodesis. Current labs include a white count 12.4, hemoglobin 12.3, hematocrit 37.7, and a platelet count is normal. Coagulation studies were normal. Sodium 134, potassium 4.8, chloride 97, CO2 30, BUN 27, creatinine 1. The patient's procalcitonin level is normal at 0.24. Chest x-ray today is largely unchanged. Progress note dated October 21, 2024. 64-year-old male seen in room 354. The patient continues on O2 at 3 L. Saturations are 95%. No IV fluids. The patient is scheduled for a video- assisted thoracoscopic decortication of the right lung, with chemical and mechanical pleurodesis. The patient is stable at this time. Labs today include a white count 9.6, hemoglobin 12.6, hematocrit 40.1, and a platelet count of 257,000. Sodium 134, potassium 4.4, chlorides 94, CO2 31, BUN 31, creatinine 1.02. Glucose is 117. Calcium is 8.4. Procalcitonin level is normal x 2. Objective - Vital Signs Vital signs: Vital Signs Temp 97.6 F 10/21/24 10:45 Pulse 70 10/21/24 12:00 Resp 20 10/21/24 12:00 BP 121/62 10/21/24 12:00 Pulse Ox 97 10/21/24 12:00 FiO2 40 10/21/24 11:46 Intake & Output 10/20/24 10/21/24 10/21/24 18:59 06:59 18:59 Intake Total 5907 683 3331 Output Total 200 325 Balance 1360 -100 1625 Weight 95.9 kg Intake: IV 100 1950 Oral 1360 Output: Urine 200 300 Estimated Blood Loss 25 Other: Voiding Method Urinal Urinal # Voids 1 - Exam No acute distress, oriented 3. Mildly short of breath. Currently on 3 L. HEENT examination is grossly unremarkable. Mucous membranes are moist. No oral lesions. Neck supple. Full range of motion. No adenopathy thyromegaly or neck vein distention. Cardiovascular examination reveals regular rhythm rate. S1-S2 normal. No S3 or S4. No discernible murmur noted. Lungs reveal bilateral scattered rhonchi and wheezes. Breath sounds are equal but diminished throughout. No crackles are appreciated. Abdomen soft bowel sounds are heard. No masses or tenderness. Extremities are intact. No cyanosis clubbing or edema. Skin is without rash or lesion. Neurologic examination is brief but nonfocal. - Labs CBC & Chem 7: 10/21/24 05:30 10/21/24 05:30 Labs: Abnormal Lab Results - Last 24 Hours (Table) 10/21/24 10/21/24 10/21/24 Range/Units 05:30 05:30 06:41 Hgb 12.6 L (13.0-17.5) gm/dL RDW 15.7 H (11.5-15.5) % Neutrophils # 8.9 H (1.3-7.7) k/uL Lymphocytes # 0.3 L (1.0-4.8) k/uL Sodium 134 L (137-145) mmol/L Chloride 94 L (98-107) mmol/L Carbon Dioxide 31 H (22-30) mmol/L BUN 31 H (9-20) mg/dL Glucose 112 H (74-99) mg/dL POC Glucose (mg/dL) 117 H (70-110) mg/dL Microbiology - Last 24 Hours (Table) 10/20/24 07:48 Gram Stain - Preliminary Sputum 10/19/24 14:32 Blood Culture - Preliminary Blood Assessment and Plan Assessment: Right-sided hydropneumothorax, initially noted after a right-sided thoracentesis done June,, possible trapped lung versus iatrogenic pneumothorax. Originally, estimated to be less than 10% and was monitored on outpatient basis. Chest CT done on this hospitalization redemonstrating the right-sided hydropneumothorax with small pneumothorax, largest component of air is dependent. Moderate right-sided pleural effusion, slightly larger than previous chest CT. Trace left-sided pleural effusion. Acute COPD exacerbation. Suspect acute on chronic diastolic congestive heart failure. Acute hypoxemic respiratory failure, secondary to a combination above. Recurrent right-sided pleural effusion status post right-sided thoracentesis on 04/29/2024 and again on 07/12/2024; fluid has been cytologically unremarkable for malignancy. Fluid was a transudate based on Lights criteria, possibly secondary to CHF. Atrial fibrillation, status post previous cardioversion and continues to be anticoagulated on Eliquis; currently sinus tachycardia. Acute kidney injury, creatinine up to 1.44. History of hypertension. History of hyperlipidemia. Former tobacco smoker. Plan: Plan dated October 19, 2024. The patient is seen today in the emergency department, room 27. The patient was seen by cardiothoracic surgery yesterday, October 18, and was offered a video- assisted thoracoscopic decortication of the right lung, with chemical and mechanical pleurodesis. The patient did agree. He is currently on 3 L of oxygen. He is getting saline at 20 cc an hour. Labs, x-rays, and all medications are reviewed. The patient will eventually get up to the general medical floor. We will continue to follow. Prognosis is guarded. Plan dated October 20, 2024. The patient is seen today in room 354. He is resting comfortably in bed. He is on 3 L of oxygen. No IV fluids. Labs, x-rays, and all medications are reviewed. From the pulmonary standpoint, he is stable. Cardiology restarted some of his cardiac medications. We will continue to follow the patient, make recommendations along the way. The patient is scheduled for a video-assisted thoracoscopic decortication of the right lung, with chemical and mechanical pleurodesis. That is scheduled for tomorrow. Plan dated October 21, 2024. The patient is seen today in room 354. The patient is scheduled for a video- assisted thoracoscopic decortication of the right lung, with chemical and mechanical pleurodesis. Clinically, the patient stable. He continues on oxygen at 3 L. Saturations are in the mid 90s. Labs, x-rays, and all medications are reviewed. We will continue to follow the patient. Prognosis is guarded. Time with Patient: Less than 30
--- NOTE | 2024-10-21 12:30 | P.OP ---
Date of Procedure: 10/21/24 Preoperative Diagnosis: Right sided recurrent pleural effusion with hydropneumothorax and bullous disease Postoperative Diagnosis: Same Procedure(s) Performed: Right thoracoscopy with bullectomy Mechanical and chemical pleurodesis 1 level intercostal nerve block Implants: None Anesthesia: RAFFI, local Surgeon: Dennys Mixon Estimated Blood Loss (ml): 5 Pathology: none sent Condition: stable Disposition: PACU Indications for Procedure: Recurrent right pleural effusion with hydropneumothorax and apical bullae Operative Findings: 1. Thickened pleura with identifiable bullae on the right upper lobe 2. Good coating of sterile talc on the entire pleural surface. Description of Procedure: After consent was obtained, the patient was brought to the operating room where he underwent general by dual-lumen endotracheal tube anesthesia. He was then positioned in left lateral decubitus position and the table was flexed to open up the rib spaces. Once he was fixed in position, he was prepped and draped in sterile fashion and premarked with a sterile marker. After an appropriate timeout was observed whereby the patient, the procedure, the side, the site, the films up in the room and OR personnel as well as antibiotic delivery were all confirmed, we proceeded with injection of local anesthetic at the first site. We performed an intercostal nerve block with the local anesthetic prior to making a 5 mm incision and bluntly accessing the pleural cavity. Once the cavity was accessed, we placed a 5 mm trocar sheath insufflated to 7 cm of water pressure CO2 and placed the camera to verify intrathoracic anatomy and location. We then used that camera to watch the introduction of 2 more counterincisions 1 anterior and 1 posterior within the same rib space. We then evaluated the lung and located 2 areas of bullae corresponding with the CT scan and were able to use multiple firings of the green stapling loads with staple line reinforcement to remove those bullous areas and passed them for permanent specimen. Once that was accomplished, we used a Bovie scratch pad and a Govind clamp to thoroughly abrade the parietal pleura which was notably thickened. The patient had some thickening of his visceral pleura as well from the chronic nature of his recurrent pleural effusion. We were then able to instill 6 g of sterile talcum powder using a red rubber catheter and dry Asepto to completely coat the inside of the pleural cavity. Once that was accomplished, we placed a 28 Swedish chest tube anteriorly and apically. We then fixed that chest tube in place with a 0 Ethibond suture and watched the lung reinflate. Once the lung was reinflated, we went ahead and remove the camera and sheath and closed all the incisions deep with a 2-0 Vicryl suture and the skin with a 4-0 Monocryl suture. The patient was then transferred to PACU in stable condition after repositioning and extubating. Discussion regarding findings and postop care were discussed with the family.
--- NOTE | 2024-10-21 12:38 | P.ANPRN ---
Procedure Note - Anesthesia - Invasive Line Left Arterial Line Time Out Performed: Yes Date of Procedure: 10/21/24 Time of Procedure: 07:06 Location of Patient: PreOp Preparation: Sterile Prep, Sterile Dressing Arterial Line Location: Radial Ultrasound Used: No Purpose - Visualization and Identification of Vasculature: No Image Stored and Saved: No Narrative: Invasive line placement per sterile protocol utilized.
[2024-10-21] MEDS: traMADol 50 MG TAB PO PRN (13:41)
[2024-10-21] MEDS: ACETAMINOPHEN IV (For NPO) 1,000 MG in EMPTY BAG 1 BAG IVPB SCH (18:33)
[2024-10-22 06:34] LABS: Basophils % (A) 0 %; Eosinophils % (A) 0 %; HCT 41.1 % (39.0-53.0); HGB 13.1 gm/dL (13.0-17.5); Hypochromasia Slight; Lymphocytes # (A) 0.2 k/uL (1.0-4.8); Lymphocytes % (A) 2 %; MCH 28.8 pg (25.0-35.0); MCHC 31.8 g/dL (31.0-37.0); MCV 90.6 fL (80.0-100.0); Mean Platelet Volume 7.4; Monocytes # (A) 0.3 k/uL (0-1.0); Monocytes % (A) 3 %; Neutrophils # (A) 7.3 k/uL (1.3-7.7); Neutrophils % (A) 93 %; Platelet Count 250 k/uL (150-450); RBC 4.53 m/uL (4.30-5.90); RDW 15.6 % (11.5-15.5); WBC 7.8 k/uL (3.8-10.6)
[2024-10-22 07:17] LABS: African American GFR (CKD) 71 (>60 ml/min/1.73 sqM); Anion Gap 7 mmol/L; Blood Urea Nitrogen 37 mg/dL (9-20); Calcium 8.2 mg/dL (8.4-10.2); Carbon Dioxide 34 mmol/L (22-30); Chloride 91 mmol/L (98-107); Glucose 151 mg/dL (74-99); Magnesium 2.5 mg/dL (1.6-2.3); Non-African American GFR(CKD) 61 (>60 ml/min/1.73 sqM); Potassium 4.6 mmol/L (3.5-5.1); Sodium 132 mmol/L (137-145)
--- NOTE | 2024-10-22 08:02 | XR ---
EXAMINATION TYPE: XR chest 1V portable DATE OF EXAM: 10/22/2024 CLINICAL HISTORY: Post VATS TECHNIQUE: Single AP portable upright view of the chest is obtained. COMPARISON: Chest x-ray from one day earlier FINDINGS: There is persistent right-sided chest tube directed apically. There is persistent subcutan eous emphysema lateral right lower thorax. Continued increasing left mid to lower lung opacity is pre sent. Multifocal opacities in the right lung are more prominent. Background chronic parenchymal torres es. Probable stable tiny right apical pneumothorax. Cardiac silhouette size remains limits of normal. Osseous structures are intact. IMPRESSION: New right-sided chest tube with likely tiny right apical pneumothorax. Worsening multifoc al right and left mid to lower lung acute infiltrates and/or atelectasis. [facility], , 10/22/2024 8:00 AM
--- NOTE | 2024-10-22 09:08 | P.PN ---
Subjective Progress Note Date: 10/22/24 Principal diagnosis: Right-sided recurrent pleural effusion with hydropneumothorax and bullous disease. Previous medical history of chronic obstructive pulmonary disease, chronic home oxygen use between 2.5 to 3 L nasal cannula, recurrent right pleural effusions with previous thoracentesis on April 29, 2024 and May 12, 2024, cytology from previous thoracentesis has been negative for malignancy, hypertension, chronic heart failure with preserved ejection fraction, history of pneumonia in September 2023, paroxysmal atrial fibrillation status post cardioversion and ablation on Eliquis for anticoagulation as an outpatient, GERD, and previous tobacco dependence with cessation in January 2024. POD #1 right thoracoscopy with bullectomy, mechanical and chemical pleurodesis, 1 level intercostal nerve block The patient was seen and examined this morning sitting up in recliner on the cardiac stepdown unit in no acute distress. Currently in sinus tach, hemodynamically stable, currently on 6 L high flow nasal cannula with oxygen saturation in the low to mid 90s. He is able to achieve 2000 mL on his incentive spirometry. Right pleural chest tube present to continuous wall suction, small airleak present with coughing. States pain is mostly controlled on current medication regimen. Discussed with Dr. Mixon. No other new concerns. Objective - Vital Signs Vital signs: Vital Signs Temp 98.9 F 10/22/24 08:28 Pulse 89 10/22/24 08:28 Resp 20 10/22/24 08:28 BP 128/71 10/22/24 08:28 Pulse Ox 93 L 10/22/24 08:28 FiO2 40 10/21/24 11:46 Intake & Output 10/21/24 10/22/24 10/22/24 18:59 06:59 18:59 Intake Total 1950 240 Output Total 0088 82 1200 Balance -578 -82 -960 Weight 97 kg Intake: IV 1950 Oral 240 Output: Chest Tube Drainage 118 82 Chest Tube Right Lateral 118 82 Chest Drainage 85 Chest 85 Urine 2300 1200 Estimated Blood Loss 25 Other: Voiding Method Indwelling Catheter Indwelling Catheter # Voids 1 - Exam CONSTITUTIONAL: Appears comfortable, cooperative, no acute distress RESPIRATORY: Lungs sounds diminished bilaterally. Respirations even, nonlabored. Currently on 6 L high flow nasal cannula with oxygen saturation 93%. Able to achieve 2000 mL on incentive spirometry. Strong cough. CARDIOVASCULAR: S1, S2 present. Regular rate and rhythm, sinus tach on telemetry. Palpable peripheral pulses bilaterally. No edema present GASTROINTESTINAL: Abdomen soft, nontender, nondistended. Active bowel sounds present 4 quadrants. Tolerating diet GENITOURINARY: Platt discontinued this morning, patient has already voided, o utput 1200 mL in the last 24 hours INTEGUMENTARY: Skin is warm and dry with evidence of good perfusion NEUROLOGIC: Cranial nerves II through XII intact MUSKULOSKELETAL: Able to move all extremities, strength equal bilaterally PSYCHIATRIC: Alert and oriented to person place and time, appropriate affect, intact judgment and insight INVASIVE LINES AND TUBES: Right pleural chest tube present to continuous wall suction, small intermittent airleak present with coughing, 70 mL serosanguineous drainage overnight, 250 mL since surgery - Allied health notes Allied health notes reviewed: nursing - Labs CBC & Chem 7: 10/22/24 05:28 10/22/24 05:28 Labs: Abnormal Lab Results - Last 24 Hours (Table) 10/22/24 10/22/24 Range/Units 05:28 05:28 RDW 15.6 H (11.5-15.5) % Lymphocytes # 0.2 L (1.0-4.8) k/uL Sodium 132 L (137-145) mmol/L Chloride 91 L (98-107) mmol/L Carbon Dioxide 34 H (22-30) mmol/L BUN 37 H (9-20) mg/dL Glucose 151 H (74-99) mg/dL Calcium 8.2 L (8.4-10.2) mg/dL Magnesium 2.5 H (1.6-2.3) mg/dL Microbiology - Last 24 Hours (Table) 10/19/24 14:32 Blood Culture - Preliminary Blood 10/20/24 07:48 Gram Stain - Preliminary Sputum Sputum Culture - Preliminary - Imaging and Cardiology Chest x-ray: report reviewed, image reviewed Assessment and Plan Assessment: Right-sided recurrent pleural effusion with hydropneumothorax and bullous disease, status post right thoracoscopy with bullectomy, mechanical and chemical pleurodesis, 1 level intercostal nerve block Acute hypoxemic respiratory failure, likely secondary to above Acute kidney injury, present on admission History of chronic obstructive pulmonary disease on home oxygen use between 2.5 to 3 L nasal cannula Recurrent right pleural effusions with previous thoracentesis on April 29, 2024 and May 12, 2024, cytology from previous thoracentesis has been negative for malignancy Hypertension Chronic heart failure with preserved ejection fraction Pneumonia in September 2023, COVID-19 in July 2023 Paroxysmal atrial fibrillation status post cardioversion and ablation on Eliquis for anticoagulation as an outpatient GERD Previous tobacco dependence with cessation in January 2024. Plan: Continue right sided pleural chest tube to continuous wall suction for another 24 hours, monitor for airleak resolution Continue to hold Eliquis Wean oxygen as tolerated, encourage use of incentive spirometry 10 times every hour while awake. Steroid and bronchodilator management per pulmonology Out of bed for all meals. Increase activity as tolerated. Pain control per current medication regimen Medical management of other comorbidities per internal medicine and pulmonary/critical care service. More recommendations to follow based on patient's clinical course.
[2024-10-22] MEDS ORDERED: MAGNESIUM HYDROXIDE 2,400 MG/30 ML CUP PO PRN (09:09)
[2024-10-22] MEDS ORDERED: bisacodyL 10 MG SUPP RECTAL PRN (09:09)
[2024-10-22] MEDS: SENNOSIDES-DOCUSATE SODIUM 1 EACH TAB PO SCH (09:35)
--- NOTE | 2024-10-22 10:06 | P.PN ---
Subjective Progress Note Date: 10/22/24 This is a very pleasant 64-year-old male being followed by CT surgery along with pulmonary admitted with right side recurrent hydropneumothorax is being scheduled for VATS procedure. Patient continues on steroids and also cultures are pending at this time. Patient remains on oxygen and denies worsening shortness of breath. Patient is afebrile with no reports of chest pain or palpitations. Patient has been tolerating diet and patient is currently n.p.o. as patient is scheduled to undergo surgical intervention. Will await official report Review of systems: Constitutional: No reports of fatigue, fever, or chills Cardiovascular: No reports of chest pain or palpitations Respiratory: No reports of worsening shortness of breath or cough GI: No reports of nausea, no reports of of vomiting, : No reports of dysuria or retention Neurovascular: reports of generalized weakness with exertional dyspnea All medications have been reviewed PHYSICAL EXAMINATION: GENERAL: The patient is alert and oriented x4, Well developed, well nourished. Elderly appearing HEENT: Pupils are round and equally reacting to light. EOMI. no scleral icterus. No conjunctival pallor. Normocephalic, atraumatic. No pharyngeal erythema. No thyromegaly. CARDIOVASCULAR: S1 and S2 muffled PULMONARY: diminished breath sounds bilaterally worse on the right with no wheezing or rhonchi noted. ABDOMEN: soft. Nontender on exam. non-distended, normoactive bowel sounds. No palpable organomegaly. MUSCULOSKELETAL: No joint swelling or deformity. EXTREMITIES: No cyanosis, clubbing, or pedal edema. NEUROLOGICAL: Gross neurological examination did not reveal any focal deficits. Diffuse weakness SKIN: No rashes. Assessment: Right side hydropneumothorax with failure of outpatient treatment Chronic obstructive pulmonary disease, acute exacerbation Possible bibasilar pneumonia Rule out left side groundglass type of interstitial pneumonia History of CHF, not in exacerbation GERD Hypertension Atrial fibrillation History of COVID previously GI prophylaxis DVT prophylaxis Full code Plan: Patient being followed by CT surgery along with pulmonary as scheduled to undergo thorascopic on the right with bullectomy and pleurodesis. Patient is currently n.p.o. and will await report Continue with supplemental oxygen and titrate as tolerated Continue with DuoNeb treatments along with steroids Encourage increase activity as tolerated Continue with pain management Follow-up on repeat labs Due to multiple complex medical issues, overall prognosis is guarded The impression and plan of care has been dictated by Yolie Art, nurse practitioner as directed. Dr. Carmelo MD I have performed a history and examination and MDM of this patient, discussed the same with the dictator, and agree with the dictator's assessment and plan as written ,documented as a scribe. Based on total visit time, I have performed more than 50% of the visit. Any additional findings or plans will be noted. Objective - Vital Signs Vital signs: Vital Signs Temp 98.9 F 10/22/24 08:28 Pulse 100 10/22/24 09:24 Resp 20 10/22/24 08:28 BP 128/71 10/22/24 08:28 Pulse Ox 94 L 10/22/24 09:08 FiO2 40 10/21/24 11:46 Intake & Output 10/21/24 10/22/24 10/22/24 18:59 06:59 18:59 Intake Total 1950 240 Output Total 2528 82 1200 Balance -578 -82 -960 Weight 97 kg Intake: IV 1950 Oral 240 Output: Chest Tube Drainage 118 82 Chest Tube Right Lateral 118 82 Chest Drainage 85 Chest 85 Urine 2300 1200 Estimated Blood Loss 25 Other: Voiding Method Indwelling Catheter Indwelling Catheter # Voids 1 - Labs CBC & Chem 7: 10/22/24 05:28 10/22/24 05:28 Labs: Abnormal Lab Results - Last 24 Hours (Table) 10/22/24 10/22/24 Range/Units 05:28 05:28 RDW 15.6 H (11.5-15.5) % Lymphocytes # 0.2 L (1.0-4.8) k/uL Sodium 132 L (137-145) mmol/L Chloride 91 L (98-107) mmol/L Carbon Dioxide 34 H (22-30) mmol/L BUN 37 H (9-20) mg/dL Glucose 151 H (74-99) mg/dL Calcium 8.2 L (8.4-10.2) mg/dL Magnesium 2.5 H (1.6-2.3) mg/dL Microbiology - Last 24 Hours (Table) 10/19/24 14:32 Blood Culture - Preliminary Blood 10/20/24 07:48 Gram Stain - Preliminary Sputum Sputum Culture - Preliminary
[2024-10-22 11:26] VITALS: BMI 24.7
--- NOTE | 2024-10-22 11:46 | P.PN ---
Subjective HISTORY OF PRESENT ILLNESS: This is a 64-year-old male with a past medical history significant for hypertension, hyperlipidemia, atrial fibrillation, pleural effusion, nicotine dependence, COPD, cardioversion, and ablations. Patient follows in the office with Dr. Melgoza. We have been asked to see the patient in consultation for CHF. Patient examined at the bedside in the emergency room. Patient presented to the hospital with a chief complaint of shortness of breath. Patient denies any chest pain or pressure. Patient does have a history of right-sided pleural effusions with previous thoracentesis. Patient underwent CT of the chest r evealing right hydropneumothorax. Small right pneumothorax with small right pleural effusion. Largest pocket of air especially near the diaphragm. He has been evaluated by CT surgery and is scheduled for VATS procedure on October 21, 2024. The patient was recently seen in the office by Dr. Melgoza last month. He was taken off of amiodarone and started on flecainide. Patient was also given an event monitor at that time which he states he is due to return. DIAGNOSTICS: - EKG reveals sinus tachycardia with no signs of acute ischemia. - Chest xray small right hydropneumothorax. Elevated right diaphragm. - Laboratory data: - Current home cardiac medications include losartan 12.5 mg daily, metoprolol tartrate 50 mg twice a day, Eliquis 5 mg twice a day, Bumex 1 mg twice a day, aspirin 81 mg daily, Farxiga 10 mg daily, flecainide 50 mg twice a day, Aldactone 25 mg daily - Most recent echocardiogram obtained in June 2024 revealed ejection fraction 55 to 60% with trace MR and mild TR - Cardiac catheterization history: January 2024 revealing normal coronary arteries 10/20/2024 Patient examined this morning at the bedside. Patient states he is feeling a little bit worse today. He reports shortness of breath. He denies any chest pain or pressure. Patient did go into A-fib with RVR. He remains in atrial fibrillation this morning with heart rate in the 120s. Blood pressures are soft with a systolic in the 90s. 10/22/2024 Patient examined this morning at the bedside. Patient is sitting up in the chair. He reports shortness of breath this morning. He is coughing frequently. Chest tube remains intact. CT surgery is following. PHYSICAL EXAM: VITAL SIGNS: Reviewed. GENERAL: Well-developed in no acute distress. HEENT: Head is normocephalic. Pupils are equal, round. Sclerae anicteric. Mucous membranes of the mouth are moist. Neck supple. No JVD or thyromegaly LUNGS: Respirations even and unlabored. Lungs diminished HEART: Regular rate and rhythm. S1 and S2 heard. ABDOMEN: Soft. Nondistended. Nontender. EXTREMITIES: Normal range of motion. No clubbing or cyanosis. Peripheral pulses intact. No lower extremity edema NEUROLOGIC: Awake and alert. Oriented x 3. ASSESSMENT: Shortness of breath Right sided hydropneumothorax status post right VATS History of right-sided pleural effusions with previous thoracentesis Acute on chronic heart failure with preserved EF Acute COPD exacerbation Acute on chronic hypoxic respiratory failure, on home oxygen Paroxysmal atrial fibrillation, on Eliquis outpatient History of cardioversion History of ablation, 04/2024 Normal coronary arteries, per cath in January 2024 Hypertension Hyperlipidemia Former nicotine dependence PLAN: Continue current cardiac medications Continue telemetry monitoring Eliquis remains on hold. Resume when okay with CT surgery Further recommendations pending patient course Nurse practitioner note has been reviewed by physician. Signing provider agrees with the documented findings, assessment, and plan of care documented by VALIDATION ARCHITECT as a scribe. Objective - Vital Signs Vital signs: Vital Signs Temp 101 F H 10/22/24 11:20 Pulse 105 H 10/22/24 11:20 Resp 23 10/22/24 11:20 BP 105/68 10/22/24 11:20 Pulse Ox 87 L 10/22/24 11:20 FiO2 40 10/21/24 11:46 Intake & Output 10/21/24 10/22/24 10/22/24 18:59 06:59 18:59 Intake Total 1950 240 Output Total 2528 82 1200 Balance -578 -82 -960 Weight 97 kg 97 kg Intake: IV 1950 Oral 240 Output: Chest Tube Drainage 118 82 Chest Tube Right Lateral 118 82 Chest Drainage 85 Chest 85 Urine 2300 1200 Estimated Blood Loss 25 Other: Voiding Method Indwelling Catheter Indwelling Catheter # Voids 1 - Labs CBC & Chem 7: 10/22/24 05:28 10/22/24 05:28 Labs: Abnormal Lab Results - Last 24 Hours (Table) 10/22/24 10/22/24 Range/Units 05:28 05:28 RDW 15.6 H (11.5-15.5) % Lymphocytes # 0.2 L (1.0-4.8) k/uL Sodium 132 L (137-145) mmol/L Chloride 91 L (98-107) mmol/L Carbon Dioxide 34 H (22-30) mmol/L BUN 37 H (9-20) mg/dL Glucose 151 H (74-99) mg/dL Calcium 8.2 L (8.4-10.2) mg/dL Magnesium 2.5 H (1.6-2.3) mg/dL Microbiology - Last 24 Hours (Table) 10/20/24 07:48 Gram Stain - Final Sputum Sputum Culture - Final 10/19/24 14:32 Blood Culture - Preliminary Blood
--- NOTE | 2024-10-22 13:18 | P.PN ---
Subjective Progress Note Date: 10/22/24 Principal diagnosis: Shortness of breath. Patient is a 64-year-old male with past medical history significant for COPD, atrial fibrillation with previous cardioversion, congestive heart failure, hypertension, hyperlipidemia, recurrent right-sided pleural effusion with previous thoracentesis on 04/29/2024 and again on 07/12/2024. Fluid cytology previously negative for malignancy. Fluid was technically transudate based on lights criteria. Most recent echocardiogram from June, estimating preserved left ventricular ejection fraction of 55 to 60% as well as trace to mild mitral and tricuspid regurgitation, and an RVSP of 58. Follow-up right- sided heart catheterization demonstrating borderline elevated left filling pressures and normal right-sided filling pressures with borderline pulmonary hypertension with a mean PA pressure of 24. Following patient's most recent right-sided thoracentesis in June, patient did have a follow-up chest CTA demonstrating a linear filling defect within the right middle lobe with poor visualization of the distal subsegmental branches suggestive of pulmonary embolus. No evidence of right-sided heart strain. Patient did develop a right- sided hydropneumothorax with trace right apical pneumothorax and right small pleural effusion component. He has been following up outpatient in the pulmonary office with Dr. Rooney. He also follows with his sr. vendor management associate, Dr. Melgoza. Approximately 1 week ago patient having increasing shortness of breath, and presented to the emergency department yesterday evening. States that his sr. vendor management associate recently transitioned him from amiodarone to flecainide. He has a cardiac event monitor on. He also continues on Eliquis. He does notice some lower extremity swelling. He also takes Bumex twice daily. Workup in the emergency department, includes a initial chest x-ray showing small right hydropneumothorax. Follow-up chest CT showing right hydropneumothorax, small right pneumothorax with small right pleural effusion. Largest component of air dependent. Multifocal airspace opacities and trace left pleural effusion. CBC: WBC count 8.6, hemoglobin 13.8, platelets 268. CMP: Sodium 132, potassium 4.4, chloride 97, serum bicarb 21, BUN 32, creatinine 1.44, glucose 113. Lactic 1.9. LFTs unremarkable. Troponin 0.027. NT proBNP elevated at 6940. Negative for influenza, RSV, COVID. He is currently being evaluated in the emergency department, room 27. He is sitting at the edge of the bed, nondistressed. Equal lung sounds. No tamponade features. Does become short of breath with minimal exertion, such as walking to the bedside chair to get his bag. He is on 3 L/min nasal cannula. Also, reporting some bilateral thoracic level back pain. Does endorse a persistent cough with clear sputum. He is wheezing and his COPD also appears active. Denies any sputum purulence, fevers or chills, anterior chest pain, hemoptysis. Current vitals: Temperature 99.3 F, heart rate 80 bpm, blood pressure 98/58 mmHg, nontachypneic, SpO2 is 93% on 4 L/min nasal cannula. Progress note dated October 19, 2024. 64-year-old male well-known to me. The patient is seen today in the emergency department, room 27. He was seen yesterday in consultation. The patient is scheduled to have a right sided video-assisted thoracoscopic decortication of the right lung, with chemical, and mechanical pleurodesis currently, the patient is on 3 L of oxygen. He is receiving saline at 20 cc an hour. He was seen by cardiothoracic surgery yesterday and agreed to have the procedure done. We appreciate their input. Current labs include a white count 11.7, hemoglobin 13.4, hematocrit 41.5, and a platelet count of 279,000. Sodium 135, potassium 3.9, chlorides 99, CO2 27, BUN 26, creatinine 1.03. Glucose was 149. Chest x- ray from today shows a stable small right-sided hydropneumothorax. Progress note dated October 20, 2024. 64-year-old male seen today in room 354. Currently, the patient is resting comfortably in bed. He is on oxygen by nasal cannula at 3 L. He is not re ceiving any IV fluids. The patient is scheduled to go to the operating room tomorrow, for a video-assisted thoracoscopic decortication of the lung, with mechanical and chemical pleurodesis. Current labs include a white count 12.4, hemoglobin 12.3, hematocrit 37.7, and a platelet count is normal. Coagulation studies were normal. Sodium 134, potassium 4.8, chloride 97, CO2 30, BUN 27, creatinine 1. The patient's procalcitonin level is normal at 0.24. Chest x-ray today is largely unchanged. Progress note dated October 21, 2024. 64-year-old male seen in room 354. The patient continues on O2 at 3 L. Saturations are 95%. No IV fluids. The patient is scheduled for a video- assisted thoracoscopic decortication of the right lung, with chemical and mechanical pleurodesis. The patient is stable at this time. Labs today include a white count 9.6, hemoglobin 12.6, hematocrit 40.1, and a platelet count of 257,000. Sodium 134, potassium 4.4, chlorides 94, CO2 31, BUN 31, creatinine 1.02. Glucose is 117. Calcium is 8.4. Procalcitonin level is normal x 2. Progress note dated October 22, 2024. 65-year-old male who is postop day #1, status post video-assisted thoracoscopic decortication of the right lung, with chemical and mechanical pleurodesis. The patient is seen today in room 354. He is on 12 L high flow nasal cannula. He is getting saline at 20 cc an hour. An incentive spirometer is at the bedside. White count 7.8, hemoglobin 13.1, hematocrit 41.1, platelet count 250,000. Sodium 132, potassium 4.6, chloride 91, CO2 34, BUN 37, creatinine 1.24. Calcium 8.2. Magnesium 2.5. Chest x-ray shows a right sided chest tube, with a tiny right apical pneumothorax. Infiltrates are noted. Objective - Vital Signs Vital signs: Vital Signs Temp 97.7 F 10/22/24 12:15 Pulse 90 10/22/24 12:15 Resp 23 10/22/24 11:20 BP 105/68 10/22/24 11:20 Pulse Ox 87 L 10/22/24 11:20 FiO2 40 10/21/24 11:46 Intake & Output 10/21/24 10/22/24 10/22/24 18:59 06:59 18:59 Intake Total 1950 240 Output Total 2528 82 1340 Balance - Weight 97 kg 97 kg Intake: IV 1950 Oral 240 Output: Chest Tube Drainage 118 82 140 Chest Tube Right Lateral 118 82 140 Chest Drainage 85 Chest 85 Urine 2300 1200 Estimated Blood Loss 25 Other: Voiding Method Indwelling Catheter Indwelling Catheter # Voids 1 - Exam No acute distress, oriented 3. Mildly short of breath. Currently on 12 L high flow oxygen. HEENT examination is grossly unremarkable. Mucous membranes are moist. No oral lesions. Neck supple. Full range of motion. No adenopathy thyromegaly or neck vein distention. Cardiovascular examination reveals regular rhythm rate. S1-S2 normal. No S3 or S4. No discernible murmur noted. Lungs reveal bilateral scattered rhonchi and wheezes. Breath sounds are equal but diminished throughout. No crackles are appreciated. Abdomen soft bowel sounds are heard. No masses or tenderness. Extremities are intact. No cyanosis clubbing or edema. Skin is without rash or lesion. Neurologic examination is brief but nonfocal. - Labs CBC & Chem 7: 10/22/24 05:28 10/22/24 05:28 Labs: Abnormal Lab Results - Last 24 Hours (Table) 10/22/24 10/22/24 Range/Units 05:28 05:28 RDW 15.6 H (11.5-15.5) % Lymphocytes # 0.2 L (1.0-4.8) k/uL Sodium 132 L (137-145) mmol/L Chloride 91 L (98-107) mmol/L Carbon Dioxide 34 H (22-30) mmol/L BUN 37 H (9-20) mg/dL Glucose 151 H (74-99) mg/dL Calcium 8.2 L (8.4-10.2) mg/dL Magnesium 2.5 H (1.6-2.3) mg/dL Microbiology - Last 24 Hours (Table) 10/20/24 07:48 Gram Stain - Final Sputum Sputum Culture - Final 10/19/24 14:32 Blood Culture - Preliminary Blood Assessment and Plan Assessment: Right-sided hydropneumothorax, initially noted after a right-sided thoracentesis done June,, possible trapped lung versus iatrogenic pneumothorax. Originally, estimated to be less than 10% and was monitored on outpatient basis. Chest CT done on this hospitalization redemonstrating the right-sided hydropneumothorax with small pneumothorax, largest component of air is dependent. Moderate right-sided pleural effusion, slightly larger than previous chest CT. Trace left-sided pleural effusion. S/P POD #1, video-assisted thoracoscopic right lung decortication, with chemical/mechanical pleurodesis. Acute COPD exacerbation. Suspect acute on chronic diastolic congestive heart failure. Acute hypoxemic respiratory failure, secondary to a combination above. Recurrent right-sided pleural effusion status post right-sided thoracentesis on 04/29/2024 and again on 07/12/2024; fluid has been cytologically unremarkable for malignancy. Fluid was a transudate based on Lights criteria, possibly secondary to CHF. Atrial fibrillation, status post previous cardioversion and continues to be anticoagulated on Eliquis; currently sinus tachycardia. Acute kidney injury, creatinine up to 1.44. History of hypertension. History of hyperlipidemia. Former tobacco smoker. Plan: Plan dated October 19, 2024. The patient is seen today in the emergency department, room 27. The patient was seen by cardiothoracic surgery yesterday, October 18, and was offered a video- assisted thoracoscopic decortication of the right lung, with chemical and mechanical pleurodesis. The patient did agree. He is currently on 3 L of oxygen. He is getting saline at 20 cc an hour. Labs, x-rays, and all medications are reviewed. The patient will eventually get up to the general medical floor. We will continue to follow. Prognosis is guarded. Plan dated October 20, 2024. The patient is seen today in room 354. He is resting comfortably in bed. He is on 3 L of oxygen. No IV fluids. Labs, x-rays, and all medications are reviewed. From the pulmonary standpoint, he is stable. Cardiology restarted some of his cardiac medications. We will continue to follow the patient, make recommendations along the way. The patient is scheduled for a video-assisted thoracoscopic decortication of the right lung, with chemical and mechanical pleurodesis. That is scheduled for tomorrow. Plan dated October 21, 2024. The patient is seen today in room 354. The patient is scheduled for a video- assisted thoracoscopic decortication of the right lung, with chemical and mechanical pleurodesis. Clinically, the patient stable. He continues on oxygen at 3 L. Saturations are in the mid 90s. Labs, x-rays, and all medications are reviewed. We will continue to follow the patient. Prognosis is guarded. Plan dated October 22, 2024. The patient is seen today in room 354. He is on 12 L high flow nasal O2. The patient has a right sided chest tube in place. Chest x-ray has been reviewed. Labs, x-rays, medications are reviewed. We encouraged the patient to deep breathe, cough, clear secretions, and use his incentive spirometer, every hour while awake. We will continue to follow. Prognosis is guarded. Time with Patient: Less than 30
--- NOTE | 2024-10-22 14:47 | P.PN ---
Subjective Progress Note Date: 10/21/24 Principal diagnosis: Reason for follow-up is abnormal CT question of pneumonia Patient is a 64-year-old male with a past medical history significant for atrial fibrillation heart failure hypertension reflux and recurrent right- sided pleural effusion status post multiple thoracocentesis, presented to hospital with increasing shortness of breath CT of the chest did shows right- sided effusion with the pneumothorax and scattered airspace disease with concern for possible pneumonia prompting this consultation. Patient is status post right thoracotomy with bullectomy mechanical and chemical pleurodesis no culture procedure completed on 10/21/2024. On today's evaluation that is 10/21/2024,the patient did spike a fever of 102.5 F last night the patient is afebrile this morning patient pain to the right suggest his current control postprocedure patient denies having any nausea vomiting no abdominal pain no diarrhea Objective - Vital Signs Vital signs: Vital Signs Temp 97.6 F 10/21/24 15:20 Pulse 92 10/21/24 15:20 Resp 18 10/21/24 15:20 BP 116/70 10/21/24 15:20 Pulse Ox 95 10/21/24 15:20 FiO2 4L 10/21/24 15:20 - Exam GENERAL DESCRIPTION: An elderly male lying in bed in no distress RESPIRATORY SYSTEM: Unlabored breathing , decreased breath sounds at bases HEART: S1 S2 regular rate and rhythm , ABDOMEN: Soft , no tenderness EXTREMITIES: No edema feet - Labs CBC & Chem 7: 10/22/24 05:28 10/22/24 05:28 Labs: Abnormal Lab Results - Last 24 Hours (Table) 10/22/24 10/22/24 Range/Units 05:28 05:28 RDW 15.6 H (11.5-15.5) % Lymphocytes # 0.2 L (1.0-4.8) k/uL Sodium 132 L (137-145) mmol/L Chloride 91 L (98-107) mmol/L Carbon Dioxide 34 H (22-30) mmol/L BUN 37 H (9-20) mg/dL Glucose 151 H (74-99) mg/dL Calcium 8.2 L (8.4-10.2) mg/dL Magnesium 2.5 H (1.6-2.3) mg/dL Microbiology - Last 24 Hours (Table) 10/20/24 07:48 Gram Stain - Final Sputum Sputum Culture - Final 10/19/24 14:32 Blood Culture - Preliminary Blood Assessment and Plan (1) Leukocytosis Current Visit: Yes Status: Acute Code(s): D72.829 - ELEVATED WHITE BLOOD CELL COUNT, UNSPECIFIED SNOMED Code(s): 786932272 (2) Pneumonia Current Visit: Yes Status: Acute Code(s): J18.9 - PNEUMONIA, UNSPECIFIED ORGANISM SNOMED Code(s): 276778670 Plan: 1patient presented to hospital with increasing shortness of breath patient also have a cough however is bringing up mostly white sputum no hemoptysis did have a significant family seen on the CT of the chest concerning for right-sided hydropneumothorax patient is not running any fever white count is mildly elevated today but was normal on admission could be related to steroids underlying bacterial pneumonia not entirely excluded but patient did have normal procalcitonin 2-patient is status post right thoracotomy bullectomy mechanical and chemical pleurodesis unfortunately no culture has been done patient did spike a fever culture has been obtained if any further fever may need to be started on empiric antibiotic while waiting for the culture to finalize Dictation was produced using [employer] dictation software. please excuse any grammatical, word or spelling errors. Time with Patient: Less than 30
[2024-10-22] MEDS ORDERED: VANCOMYCIN IV PER PHARMACY 1 EACH MISC MISCELLANE PRN (14:50)
--- NOTE | 2024-10-22 14:50 | P.PN ---
Subjective Progress Note Date: 10/22/24 Principal diagnosis: Reason for follow-up is abnormal CT question of pneumonia Patient is a 64-year-old male with a past medical history significant for atrial fibrillation heart failure hypertension reflux and recurrent right- sided pleural effusion status post multiple thoracocentesis, presented to hospital with increasing shortness of breath CT of the chest did shows right- sided effusion with the pneumothorax and scattered airspace disease with concern for possible pneumonia prompting this consultation. Patient is status post right thoracotomy with bullectomy mechanical and chemical pleurodesis no culture procedure completed on 10/21/2024. On today's evaluation that is 10/22/2024, the patient did spike another fever of 101 F this morning has been complaining of shortness of breath is currently on 6 L nasal cannula oxygen denies any worsening chest pain he could have a cough no significant sputum production no abdominal pain no diarrhea. Patient white count 7.8, creatinine is 1.24 Objective - Vital Signs Vital signs: Vital Signs Temp 97.7 F 10/22/24 12:15 Pulse 90 10/22/24 12:15 Resp 23 10/22/24 11:20 BP 105/68 10/22/24 11:20 Pulse Ox 87 L 10/22/24 11:20 FiO2 40 10/21/24 11:46 Intake & Output 10/21/24 10/22/24 10/22/24 18:59 06:59 18:59 Intake Total 1950 462 Output Total 2528 82 1340 Balance -578 -82 -878 Weight 97 kg 97 kg Intake: IV 1950 Oral 462 Output: Chest Tube Drainage 118 82 140 Chest Tube Right Lateral 118 82 140 Chest Drainage 85 Chest 85 Urine 2300 1200 Estimated Blood Loss 25 Other: Voiding Method Indwelling Catheter Indwelling Catheter # Voids 1 - Exam GENERAL DESCRIPTION: An elderly male lying in bed in no distress RESPIRATORY SYSTEM: Unlabored breathing , coarse breath sounds bilaterally HEART: S1 S2 regular rate and rhythm , ABDOMEN: Soft , no tenderness EXTREMITIES: No edema feet - Labs CBC & Chem 7: 10/22/24 05:28 10/22/24 05:28 Labs: Abnormal Lab Results - Last 24 Hours (Table) 10/22/24 10/22/24 Range/Units 05:28 05:28 RDW 15.6 H (11.5-15.5) % Lymphocytes # 0.2 L (1.0-4.8) k/uL Sodium 132 L (137-145) mmol/L Chloride 91 L (98-107) mmol/L Carbon Dioxide 34 H (22-30) mmol/L BUN 37 H (9-20) mg/dL Glucose 151 H (74-99) mg/dL Calcium 8.2 L (8.4-10.2) mg/dL Magnesium 2.5 H (1.6-2.3) mg/dL Microbiology - Last 24 Hours (Table) 10/20/24 07:48 Gram Stain - Final Sputum Sputum Culture - Final 10/19/24 14:32 Blood Culture - Preliminary Blood Assessment and Plan (1) Leukocytosis Current Visit: Yes Status: Acute Code(s): D72.829 - ELEVATED WHITE BLOOD CELL COUNT, UNSPECIFIED SNOMED Code(s): 084548391 (2) Pneumonia Current Visit: Yes Status: Acute Code(s): J18.9 - PNEUMONIA, UNSPECIFIED ORGANISM SNOMED Code(s): 211737478 Plan: 1patient presented to hospital with increasing shortness of breath patient also have a cough however is bringing up mostly white sputum no hemoptysis did have a significant family seen on the CT of the chest concerning for right-sided hydropneumothorax patient is not running any fever white count is mildly elevated today but was normal on admission could be related to steroids underlying bacterial pneumonia not entirely excluded but patient did have normal procalcitonin 2-patient is status post right thoracotomy bullectomy mechanical and chemical pleurodesis unfortunately no culture has been done 3the patient is spiking fever the last 2 to 3 days which is slightly concerning blood culture have been obtained we will try to obtain a sputum repeat his inflammatory markers empirically add cefepime and vancomycin while waiting for the repeat cultures to be completed Dictation was produced using [employer] dictation software. please excuse any grammatical, word or spelling errors. Time with Patient: Less than 30
[2024-10-22] MEDS: CEFEPIME 2 GM in SODIUM CHLORIDE 0.9% 100 ML IVPB SCH (15:36)
[2024-10-22] MEDS ORDERED: HYDROmorphone 0.5 MG/0.5 ML SYRINGE IVP PRN (15:40)
[2024-10-22] MEDS ORDERED: HYDROcodone/APAP 5-325MG 1 EACH TAB PO PRN (15:40)
[2024-10-22] MEDS: VANCOMYCIN 2,000 MG in SODIUM CHLORIDE 0.9% 500 ML 500 ML IVPB ONE (17:14)
[2024-10-22 19:28] LABS: Glucose,Whole Blood 169 mg/dL (70-110)
[2024-10-22 19:40] LABS: ABG Base Excess 3.7 mmol/L; ABG HCO3 28 mmol/L (21-25); ABG Oxygen Saturation 86.1 % (94-97); ABG PCO2 40 mmHg (35-45); ABG PH 7.46 (7.35-7.45); ABG TCO2 29 mmol/L (19-24); Allen Test Performed? Yes
[2024-10-22 19:43] LABS: ABG PO2 51 mmHg (83-108)
[2024-10-22 20:10] LABS: Glucose,Whole Blood 138 mg/dL (70-110)
[2024-10-22] MEDS ORDERED: HYDROmorphone 1 MG/ML 1 ML SYRINGE IVP PRN (20:53)
[2024-10-22] MEDS: CISATRACURIUM 2 MG/ML 5 ML VIAL IV ONE (21:40)
[2024-10-22 21:55] LABS: ABG Base Excess 1.4 mmol/L; ABG HCO3 31 mmol/L (21-25); ABG Oxygen Saturation 89.7 % (94-97); ABG PCO2 70 mmHg (35-45); ABG PH 7.25 (7.35-7.45); ABG PO2 70 mmHg (83-108); ABG TCO2 33 mmol/L (19-24); Allen Test Performed? Yes
[2024-10-22] MEDS: CHLORHEXIDINE GLUCONATE 15 ML CUP MUCOUS MEM SCH (22:05)
--- NOTE | 2024-10-22 22:12 | XR ---
EXAMINATION TYPE: XR chest 1V portable DATE OF EXAM: 10/22/2024 9:32 PM COMPARISON: None. CLINICAL INDICATION: Male, 64 years old with history of Tube placement, TECHNIQUE: XR chest 1V portable view(s) obtained. FINDINGS: The heart size is normal. The pulmonary vasculature is normal. Patchy consolidations are at the bilateral lung bases. Correlate for pneumonia Loculated pneumothorax at the right costophrenic angle. Right-sided chest tube is in position. Endotracheal tube tip is 6.7 cm above the neva. Nasogastric tube transverses the field of view. IMPRESSION: 1. Loculated pneumothorax right lung base. Chest tube is present. 2. Additional lines and catheters discussed above. 3. Extensive patchy infiltrates in the mid and lower lung pitts bilaterally. [facility], Workstation: [facility], 10/22/2024 10:09 PM
--- NOTE | 2024-10-22 23:19 | XR ---
EXAMINATION TYPE: XR chest 1V portable DATE OF EXAM: 10/22/2024 7:50 PM COMPARISON: 10/22/2024 CLINICAL INDICATION: Male, 64 years old with history of TRAE, TECHNIQUE: XR chest 1V portable view(s) obtained. FINDINGS: The heart size is normal. The pulmonary vasculature is normal. The lungs are clear. Right-sided chest tube is present. Loculated pneumothorax at the right costophrenic angle. Bibasilar infiltrates are present. IMPRESSION: 1. Loculated right pneumothorax. Right chest tube present 2. Bibasilar infiltrates. Correlate for pneumonia [facility], Workstation: [facility], 10/22/2024 11:17 PM
[2024-10-22 23:22] LABS: Appearance,Urine Cloudy (Clear); Bacteria,Urine Rare /hpf; Bilirubin,Urine Negative (Negative); Blood,Urine Small (Negative); Budding Yeast,Urine Rare /hpf; Color,Urine Light Yellow; Glucose,Urine (UA) 4+ (Negative); Granular Casts,Urine 7 /lpf (0); Hyaline Casts,Urine 9 /lpf (0-2); Ketones,Urine Negative (Negative); Leukocyte Esterase,Urine Negative (Negative); Mucus,Urine Rare /hpf; Nitrite,Urine Negative (Negative); PH, Urine 5.5 (5.0-8.0); Protein,Urine 1+ (Negative); RBC,Urine 4 /hpf (0-5); Specific Gravity,Urine 1.018 (1.001-1.035); Urobilinogen,Urine <2.0 mg/dL (<2.0); WBC,Urine 2 /hpf (0-5)
[2024-10-23 00:33] LABS: Basophils % (A) 0 %; Eosinophils % (A) 0 %; Lymphocytes # (A) 0.2 k/uL (1.0-4.8); Lymphocytes % (A) 2 %; MCH 30.3 pg (25.0-35.0); MCHC 33.3 g/dL (31.0-37.0); MCV 90.9 fL (80.0-100.0); Mean Platelet Volume 8.1; Monocytes # (A) 0.3 k/uL (0-1.0); Monocytes % (A) 4 %; Neutrophils # (A) 8.3 k/uL (1.3-7.7); Neutrophils % (A) 93 %; Platelet Count 249 k/uL (150-450); RBC 4.62 m/uL (4.30-5.90); RDW 15.8 % (11.5-15.5); WBC 8.9 k/uL (3.8-10.6)
[2024-10-23 00:49] LABS: African American GFR (CKD) 74 (>60 ml/min/1.73 sqM); Anion Gap 7 mmol/L; Blood Urea Nitrogen 38 mg/dL (9-20); Calcium 7.6 mg/dL (8.4-10.2); Carbon Dioxide 28 mmol/L (22-30); Chloride 94 mmol/L (98-107); Glucose 174 mg/dL (74-99); Magnesium 2.4 mg/dL (1.6-2.3); Non-African American GFR(CKD) 64 (>60 ml/min/1.73 sqM); Potassium 5.3 mmol/L (3.5-5.1); Sodium 129 mmol/L (137-145)
--- NOTE | 2024-10-23 00:53 | XR ---
EXAM: XR Chest, 1 View CLINICAL HISTORY: ITS.REASON XR Reason: OG placement TECHNIQUE: Frontal view of the chest. COMPARISON: October 22, 2024. FINDINGS: Lungs: Extensive bilateral airspace consolidations, consistent with severe bilateral pneumonia. Mild sparing of the LEFT lung apex. Pleural space: Unremarkable. No pneumothorax. Heart: Unremarkable. No cardiomegaly. Mediastinum: Unremarkable. Normal mediastinal contour. Bones/joints: Unremarkable. No acute fracture. Tubes, lines and devices: Feeding tube terminates in the stomach. Endotracheal tube terminates in the trachea. IMPRESSION: Extensive bilateral airspace consolidations, consistent with severe bilateral pneumonia.
[2024-10-23] MEDS: CISATRACURIUM 200 MG in SODIUM CHLORIDE 0.9% 180 ML IV SCH (01:31)
[2024-10-23] MEDS: SODIUM CHLORIDE 0.9% 1,000 ML IV SCH (01:33)
[2024-10-23] MEDS: INSULIN REGULAR 100 UNIT/ML VIAL (IV) IV ONE ×2 (02:02→21:15)
[2024-10-23] MEDS: CALCIUM GLUCONATE IN NACL 1 GM in SALINE 1 100ML.BAG IVPB ONE ×2 (02:02→21:29)
[2024-10-23] MEDS: SODIUM CHLORIDE 0.9% 1,000 ML IV ONE ×2 (02:09→02:55)
[2024-10-23] MEDS: DEXTROSE 50% SYRINGE 50 ML IVP ONE ×2 (02:10→21:16)
[2024-10-23 03:11] LABS: Glucose,Whole Blood 147 mg/dL (70-110)
[2024-10-23] MEDS: NOREPINEPHRINE 4 MG in SODIUM CHLORIDE 0.9% 250 ML IV SCH (04:03)
[2024-10-23 04:57] LABS: Basophils % (A) 0 %; Eosinophils % (A) 0 %; HCT 40.5 % (39.0-53.0); HGB 12.5 gm/dL (13.0-17.5); Hypochromasia Moderate; Lymphocytes # (A) 0.4 k/uL (1.0-4.8); Lymphocytes % (A) 4 %; MCH 28.7 pg (25.0-35.0); MCV 92.5 fL (80.0-100.0); Mean Platelet Volume 7.6; Monocytes # (A) 0.3 k/uL (0-1.0); Monocytes % (A) 3 %; Neutrophils # (A) 8.6 k/uL (1.3-7.7); Neutrophils % (A) 91 %; Platelet Count 213 k/uL (150-450); RBC 4.38 m/uL (4.30-5.90); RDW 15.8 % (11.5-15.5); WBC 9.5 k/uL (3.8-10.6)
[2024-10-23 05:03] LABS: Allen Test Performed? Yes
[2024-10-23 05:04] LABS: ABG Base Excess -3.5 mmol/L; ABG HCO3 27 mmol/L (21-25); ABG PCO2 75 mmHg (35-45); ABG PH 7.16 (7.35-7.45); ABG PO2 52 mmHg (83-108); ABG TCO2 29 mmol/L (19-24)
[2024-10-23] MEDS: VANCOMYCIN 1,500 MG in SODIUM CHLORIDE 0.9% 500 ML 500 ML IVPB SCH (05:06)
[2024-10-23 05:34] LABS: African American GFR (CKD) 68 (>60 ml/min/1.73 sqM); Anion Gap 9 mmol/L; Blood Urea Nitrogen 43 mg/dL (9-20); Calcium 7.5 mg/dL (8.4-10.2); Carbon Dioxide 25 mmol/L (22-30); Chloride 98 mmol/L (98-107); Glucose 132 mg/dL (74-99); Non-African American GFR(CKD) 58 (>60 ml/min/1.73 sqM); Potassium 4.7 mmol/L (3.5-5.1); Sodium 132 mmol/L (137-145)
--- NOTE | 2024-10-23 07:04 | XR ---
EXAMINATION TYPE: XR chest 1V portable DATE OF EXAM: 10/23/2024 COMPARISON: 10/22/2024 CLINICAL INDICATION: Male, 64 years old with history of Tube placement; TECHNIQUE: Single frontal view of the chest is obtained. FINDINGS: ET tube is 6.6 cm above the neva. There is an NG tube within the stomach. There is no lupe nge in the right chest tube. There is no change in the small loculated pneumothorax in the right lung base. There are marked consolidative opacities in both lungs unchanged compared to the prior study. There is a tiny left pleural effusion.. IMPRESSION: 1. ET tube 6.6 cm above the neva. NG tube within the stomach. 2. No change in the right chest tube and small right loculated pleural effusion in the right lung bas e. 3. no change in the diffuse lung opacification [facility], , 10/23/2024 7:01 AM
--- NOTE | 2024-10-23 08:33 | P.PN ---
Subjective Progress Note Date: 10/23/24 Principal diagnosis: Right-sided recurrent pleural effusion with hydropneumothorax and bullous disease. Previous medical history of chronic obstructive pulmonary disease, chronic home oxygen use between 2.5 to 3 L nasal cannula, recurrent right pleural effusions with previous thoracentesis on April 29, 2024 and May 12, 2024, cytology from previous thoracentesis has been negative for malignancy, hypertension, chronic heart failure with preserved ejection fraction, history of pneumonia in September 2023, paroxysmal atrial fibrillation status post cardioversion and ablation on Eliquis for anticoagulation as an outpatient, GERD, and previous tobacco dependence with cessation in January 2024. POD #2 right thoracoscopy with bullectomy, mechanical and chemical pleurodesis, 1 level intercostal nerve block The patient was seen and examined this morning laying in bed in the intensive care unit. Apparently last night and a team was called due to hypoxia and respiratory failure. The patient was intubated and brought to the intensive care unit. Remains sedated and paralyzed on mechanical ventilation. Despite FiO2 100% and PEEP of 8 patient's oxygen saturation has maintained in the 80s. He did spike a fever of 102 F last night. Remains in sinus rhythm in the 60s, blood pressure marginal on IV Levophed. Remains on cefepime and vancomycin as well as IV Solu-Medrol. Last blood gas 7.16/75/52/27/77%/-3.5. Chest x-ray reviewed revealing diffuse lung opacities. Seen this morning with Dr. Colvin. Patient has poor prognosis. Objective - Vital Signs Vital signs: Vital Signs Temp 98.7 F 10/23/24 01:30 Pulse 64 10/23/24 07:00 Resp 28 H 10/23/24 07:00 BP 89/50 10/23/24 07:00 Pulse Ox 83 L 10/23/24 07:00 FiO2 100 10/23/24 04:00 Intake & Output 10/22/24 10/23/24 10/23/24 18:59 06:59 18:59 Intake Total 684 929.086 75 Output Total 7060 610 35 Balance -1366 319.086 40 Weight 97 kg 97 kg Intake: IV 100 Sodium Chloride 0.9% 1, 100 000 ml @ 20 mls/hr IV . Q24H [facility] Rx#:[id number] Intake, IV Titration 829.086 75 Amount Calcium Gluconate in NaCl 100 1 gm In Saline 1 100ml. bag @ 400 mls/hr IVPB ONCE ONE Rx#:[id number] Norepinephrine 4 mg In 110.810 Sodium Chloride 0.9% 250 ml @ 0.03 MCG/KG/MIN 11. 087 mls/hr IV .[id number] [facility] Rx#:[id number] Sodium Chloride 0.9% 1, 375 75 000 ml @ 75 mls/hr IV . [id number] [facility] Rx#:[id number] propofoL 1,000 mg In 243.276 Empty Bag 1 bag @ 15 MCG/ KG/MIN 8.73 mls/hr IV . [id number] [facility] Rx#:[id number] Oral 684 Output: Chest Tube Drainage 250 40 0 Chest Tube Right Lateral 250 40 0 Chest Urine 1800 570 35 Other: Voiding Method Indwelling Catheter # Voids 1 - Exam CONSTITUTIONAL: Remains on mechanical ventilation, sedated with propofol, paralyzed with Nimbex RESPIRATORY: Lungs sounds coarse bilaterally. Respirations tachypneic. Currently assist-control mode, FiO2 100%, PEEP 8, tidal volume 450, respiratory rate 28. 8.0 ET tube present, 26 at the lip CARDIOVASCULAR: S1, S2 present. Regular rate and rhythm, sinus rhythm on telemetry. Palpable peripheral pulses bilaterally. Generalized edema present. SCDs present. GASTROINTESTINAL: Abdomen soft, nontender, nondistended. Active bowel sounds present 4 quadrants. OG tube present to low intermittent suction with minimal output GENITOURINARY: Platt present draining clear, yellow urine, output 2370 mL in the last 24 hours INTEGUMENTARY: Skin is warm and dry NEUROLOGIC: Unable to be assessed, patient remains on paralytic, [id number] being used INVASIVE LINES AND TUBES: Right pleural chest tube present to continuous wall suction, no output overnight, 250 mL serous drainage in the last 24 hours, no ai r leak present - Allied health notes Allied health notes reviewed: nursing - Labs CBC & Chem 7: 10/23/24 04:42 10/23/24 04:42 Labs: Abnormal Lab Results - Last 24 Hours (Table) 10/22/24 10/22/24 10/22/24 Range/Units 14:56 19:27 19:36 Hgb (13.0-17.5) gm/dL RDW (11.5-15.5) % Neutrophils # (1.3-7.7) k/uL Lymphocytes # (1.0-4.8) k/uL ABG pH 7.46 H (7.35-7.45) ABG pCO2 (35-45) mmHg ABG pO2 51 L* (83-108) mmHg ABG HCO3 28 H (21-25) mmol/L ABG Total CO2 29 H (19-24) mmol/L ABG O2 Saturation 86.1 L (94-97) % Sodium (137-145) mmol/L Potassium (3.5-5.1) mmol/L Chloride (98-107) mmol/L BUN (9-20) mg/dL Creatinine (0.66-1.25) mg/dL Glucose (74-99) mg/dL POC Glucose (mg/dL) 169 H (70-110) mg/dL Calcium (8.4-10.2) mg/dL Magnesium (1.6-2.3) mg/dL C-Reactive Protein 20.4 H (<1.0) mg/dL Urine Protein (Negative) Urine Glucose (UA) (Negative) Urine Blood (Negative) Urine Bacteria (None) /hpf Hyaline Casts (0-2) /lpf Urine Mucus (None) /hpf Urine Yeast (Budding) (None) /hpf 10/22/24 10/22/24 10/22/24 Range/Units 20:08 21:52 22:47 Hgb (13.0-17.5) gm/dL RDW (11.5-15.5) % Neutrophils # (1.3-7.7) k/uL Lymphocytes # (1.0-4.8) k/uL ABG pH 7.25 L (7.35-7.45) ABG pCO2 70 H (35-45) mmHg ABG pO2 70 L (83-108) mmHg ABG HCO3 31 H (21-25) mmol/L ABG Total CO2 33 H (19-24) mmol/L ABG O2 Saturation 89.7 L (94-97) % Sodium (137-145) mmol/L Potassium (3.5-5.1) mmol/L Chloride (98-107) mmol/L BUN (9-20) mg/dL Creatinine (0.66-1.25) mg/dL Glucose (74-99) mg/dL POC Glucose (mg/dL) 138 H (70-110) mg/dL Calcium (8.4-10.2) mg/dL Magnesium (1.6-2.3) mg/dL C-Reactive Protein (<1.0) mg/dL Urine Protein 1+ H (Negative) Urine Glucose (UA) 4+ H (Negative) Urine Blood Small H (Negative) Urine Bacteria Rare H (None) /hpf Hyaline Casts 9 H (0-2) /lpf Urine Mucus Rare H (None) /hpf Urine Yeast (Budding) Rare H (None) /hpf 10/22/24 10/22/24 10/23/24 Range/Units 23:29 23:29 03:08 Hgb (13.0-17.5) gm/dL RDW 15.8 H (11.5-15.5) % Neutrophils # 8.3 H (1.3-7.7) k/uL Lymphocytes # 0.2 L (1.0-4.8) k/uL ABG pH (7.35-7.45) ABG pCO2 (35-45) mmHg ABG pO2 (83-108) mmHg ABG HCO3 (21-25) mmol/L ABG Total CO2 (19-24) mmol/L ABG O2 Saturation (94-97) % Sodium 129 L (137-145) mmol/L Potassium 5.3 H (3.5-5.1) mmol/L Chloride 94 L (98-107) mmol/L BUN 38 H (9-20) mg/dL Creatinine (0.66-1.25) mg/dL Glucose 174 H (74-99) mg/dL POC Glucose (mg/dL) 147 H (70-110) mg/dL Calcium 7.6 L (8.4-10.2) mg/dL Magnesium 2.4 H (1.6-2.3) mg/dL C-Reactive Protein (<1.0) mg/dL Urine Protein (Negative) Urine Glucose (UA) (Negative) Urine Blood (Negative) Urine Bacteria (None) /hpf Hyaline Casts (0-2) /lpf Urine Mucus (None) /hpf Urine Yeast (Budding) (None) /hpf 10/23/24 10/23/24 10/23/24 Range/Units 04:42 04:42 04:59 Hgb 12.5 L (13.0-17.5) gm/dL RDW 15.8 H (11.5-15.5) % Neutrophils # 8.6 H (1.3-7.7) k/uL Lymphocytes # 0.4 L (1.0-4.8) k/uL ABG pH 7.16 L* (7.35-7.45) ABG pCO2 75 H* (35-45) mmHg ABG pO2 52 L* (83-108) mmHg ABG HCO3 27 H (21-25) mmol/L ABG Total CO2 29 H (19-24) mmol/L ABG O2 Saturation 77.0 L (94-97) % Sodium 132 L (137-145) mmol/L Potassium (3.5-5.1) mmol/L Chloride (98-107) mmol/L BUN 43 H (9-20) mg/dL Creatinine 1.28 H (0.66-1.25) mg/dL Glucose 132 H (74-99) mg/dL POC Glucose (mg/dL) (70-110) mg/dL Calcium 7.5 L (8.4-10.2) mg/dL Magnesium (1.6-2.3) mg/dL C-Reactive Protein (<1.0) mg/dL Urine Protein (Negative) Urine Glucose (UA) (Negative) Urine Blood (Negative) Urine Bacteria (None) /hpf Hyaline Casts (0-2) /lpf Urine Mucus (None) /hpf Urine Yeast (Budding) (None) /hpf Microbiology - Last 24 Hours (Table) 10/19/24 14:32 Blood Culture - Preliminary Blood 10/20/24 07:48 Gram Stain - Final Sputum Sputum Culture - Final - Imaging and Cardiology Chest x-ray: report reviewed, image reviewed Assessment and Plan Assessment: Right-sided recurrent pleural effusion with hydropneumothorax and bullous disease, status post right thoracoscopy with bullectomy, mechanical and chemical pleurodesis, 1 level intercostal nerve block Acute hypoxemic respiratory failure, requiring intubation Acute kidney injury, present on admission Bilateral pneumonia History of chronic obstructive pulmonary disease on home oxygen use between 2.5 to 3 L nasal cannula Recurrent right pleural effusions with previous thoracentesis on April 29, 2024 and May 12, 2024, cytology from previous thoracentesis has been negative for malignancy Hypertension Chronic heart failure with preserved ejection fraction Pneumonia in September 2023, COVID-19 in July 2023 Paroxysmal atrial fibrillation status post cardioversion and ablation on Eliquis for anticoagulation as an outpatient GERD Previous tobacco dependence with cessation in January 2024. 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
[2024-10-23] MEDS: VASOPRESSIN 60 UNIT in SODIUM CHLORIDE 0.9% 150 ML IV SCH (09:16)
--- NOTE | 2024-10-23 09:52 | P.PN ---
Subjective Progress Note Date: 10/22/24 This is a very pleasant 64-year-old male being followed by CT surgery along with pulmonary admitted with right side recurrent hydropneumothorax is being scheduled for VATS procedure. Patient continues on steroids and also cultures are pending at this time. Patient remains on oxygen and denies worsening shortness of breath. Patient is afebrile with no reports of chest pain or palpitations. Patient has been tolerating diet and patient is currently n.p.o. as patient is scheduled to undergo surgical intervention. Will await official report 10/22/2024 Patient is seen in follow-up this morning continues with chest tube and reports to having extreme difficulty with shortness of breath and not feeling well today. Patient increased oxygen demands and desats quickly per nursing staff taking increasing amount of time to recover. Multiple consultations including CT surgery and pulmonary following. Recommend follow-up chest x-ray and supplemental oxygen as needed. Wean FiO2 as tolerated. Patient reporting significant amount of pain as well and will adjust pain medications. Limit narcotics if patient's mentation deteriorates or if more somnolent. Follow-up on repeat labs. Review of systems: Constitutional: reports of fatigue, no fever, or chills Cardiovascular: No reports of chest pain or palpitations Respiratory: reports of worsening shortness of breath and extreme dyspnea with minimal exertion GI: No reports of nausea, no reports of vomiting, tolerating diet although not much of an appetite : No reports of dysuria or retention Neurovascular: reports of generalized weakness with exertional dyspnea All medications have been reviewed PHYSICAL EXAMINATION: GENERAL: The patient is alert and oriented x4, Well developed, well nourished. Elderly appearing, ill-appearing, acute respiratory distress with increasing oxygen demands noted HEENT: Pupils are round and equally reacting to light. EOMI. no scleral icterus. No conjunctival pallor. Normocephalic, atraumatic. No pharyngeal erythema. No thyromegaly. CARDIOVASCULAR: S1 and S2 muffled PULMONARY: diminished breath sounds bilaterally worse on the right with coarse rhonchi and faint crackles at the bases noted. Right drainage tube noted ABDOMEN: soft. Nontender on exam. non-distended, normoactive bowel sounds. No palpable organomegaly. MUSCULOSKELETAL: No joint swelling or deformity. EXTREMITIES: No cyanosis, clubbing, or pedal edema. NEUROLOGICAL: Gross neurological examination did not reveal any focal deficits. Diffuse weakness SKIN: No rashes. Assessment: Right side hydropneumothorax with failure of outpatient treatment, status post right side thoracoscopy with bullectomy with mechanical and chemical pleurodesis Acute on chronic hypoxic respiratory failure multifactorial secondary to above as well as COPD exacerbation with respiratory failure requiring mechanical ventilation overnight 10/22/2024 Chronic obstructive pulmonary disease, acute exacerbation Possible bibasilar pneumonia Rule out left side groundglass type of interstitial pneumonia History of CHF, not in exacerbation GERD Hypertension Atrial fibrillation History of COVID previously GI prophylaxis DVT prophylaxis Full code Plan: Patient being followed by CT surgery along with pulmonary and underwent right thoracoscopy with bullectomy and pleurodesis. Patient evaluated and having increasing respiratory demands and desats quickly, currently on high flow oxygen. Apparently last night patient had increasing respiratory distress requiring mechanical ventilation and is currently in the ICU. Infectious disease following and patient is maintained on antibiotics. Patient did spike a fever and recommend cultures and further workup Continue with DuoNeb treatments along with steroids Patient was having some pain on the right side and will adjust medications accordingly Follow-up on repeat labs, replace electrolytes per protocol Due to multiple complex medical issues, overall prognosis is extremely poor and guarded The impression and plan of care has been dictated by Yolie Art, nurse prac titioner as directed. Dr. Carmelo MD I have performed a history and examination and MDM of this patient, discussed the same with the dictator, and agree with the dictator's assessment and plan as written ,documented as a scribe. Based on total visit time, I have performed more than 50% of the visit. Any additional findings or plans will be noted. Objective - Vital Signs Vital signs: Vital Signs Temp 97.7 F 10/22/24 12:15 Pulse 90 10/22/24 12:15 Resp 23 10/22/24 11:20 BP 105/68 10/22/24 11:20 Pulse Ox 87 L 10/22/24 11:20 FiO2 40 10/21/24 11:46 Intake & Output 10/21/24 10/22/24 10/22/24 18:59 06:59 18:59 Intake Total 1950 462 Output Total 4638 82 1340 Balance -578 -82 -878 Weight 97 kg 97 kg Intake: IV 1950 Oral 462 Output: Chest Tube Drainage 118 82 140 Chest Tube Right Lateral 118 82 140 Chest Drainage 85 Chest 85 Urine 2300 1200 Estimated Blood Loss 25 Other: Voiding Method Indwelling Catheter Indwelling Catheter # Voids 1 - Labs CBC & Chem 7: 10/23/24 04:42 10/23/24 04:42 Labs: Abnormal Lab Results - Last 24 Hours (Table) 10/22/24 10/22/24 Range/Units 05:28 05:28 RDW 15.6 H (11.5-15.5) % Lymphocytes # 0.2 L (1.0-4.8) k/uL Sodium 132 L (137-145) mmol/L Chloride 91 L (98-107) mmol/L Carbon Dioxide 34 H (22-30) mmol/L BUN 37 H (9-20) mg/dL Glucose 151 H (74-99) mg/dL Calcium 8.2 L (8.4-10.2) mg/dL Magnesium 2.5 H (1.6-2.3) mg/dL Microbiology - Last 24 Hours (Table) 10/20/24 07:48 Gram Stain - Final Sputum Sputum Culture - Final 10/19/24 14:32 Blood Culture - Preliminary Blood
--- NOTE | 2024-10-23 10:44 | P.PN ---
Subjective Progress Note Date: 10/23/24 Principal diagnosis: Shortness of breath. Patient is a 64-year-old male with past medical history significant for COPD, atrial fibrillation with previous cardioversion, congestive heart failure, hypertension, hyperlipidemia, recurrent right-sided pleural effusion with previous thoracentesis on 04/29/2024 and again on 07/12/2024. Fluid cytology previously negative for malignancy. Fluid was technically transudate based on lights criteria. Most recent echocardiogram from June, estimating preserved left ventricular ejection fraction of 55 to 60% as well as trace to mild mitral and tricuspid regurgitation, and an RVSP of 58. Follow-up right- sided heart catheterization demonstrating borderline elevated left filling pressures and normal right-sided filling pressures with borderline pulmonary hypertension with a mean PA pressure of 24. Following patient's most recent right-sided thoracentesis in June, patient did have a follow-up chest CTA demonstrating a linear filling defect within the right middle lobe with poor visualization of the distal subsegmental branches suggestive of pulmonary embolus. No evidence of right-sided heart strain. Patient did develop a right- sided hydropneumothorax with trace right apical pneumothorax and right small pleural effusion component. He has been following up outpatient in the pulmonary office with Dr. Rooney. 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 Approximately 1 week ago patient having increasing shortness of breath, and presented to the emergency department yesterday evening. States that his power plant operations manager recently transitioned him from amiodarone to flecainide. He has a cardiac event monitor on. He also continues on Eliquis. He does notice some lower extremity swelling. He also takes Bumex twice daily. Workup in the emergency department, includes a initial chest x-ray showing small right hydropneumothorax. Follow-up chest CT showing right hydropneumothorax, small right pneumothorax with small right pleural effusion. Largest component of air dependent. Multifocal airspace opacities and trace left pleural effusion. CBC: WBC count 8.6, hemoglobin 13.8, platelets 268. CMP: Sodium 132, potassium 4.4, chloride 97, serum bicarb 21, BUN 32, creatinine 1.44, glucose 113. Lactic 1.9. LFTs unremarkable. Troponin 0.027. NT proBNP elevated at 6940. Negative for influenza, RSV, COVID. He is currently being evaluated in the emergency department, room 27. He is sitting at the edge of the bed, nondistressed. Equal lung sounds. No tamponade features. Does become short of breath with minimal exertion, such as walking to the bedside chair to get his bag. He is on 3 L/min nasal cannula. Also, reporting some bilateral thoracic level back pain. Does endorse a persistent cough with clear sputum. He is wheezing and his COPD also appears active. Denies any sputum purulence, fevers or chills, anterior chest pain, hemoptysis. Current vitals: Temperature 99.3 F, heart rate 80 bpm, blood pressure 98/58 mmHg, nontachypneic, SpO2 is 93% on 4 L/min nasal cannula. Progress note dated October 19, 2024. 64-year-old male well-known to me. The patient is seen today in the emergency department, room 27. He was seen yesterday in consultation. The patient is scheduled to have a right sided video-assisted thoracoscopic decortication of the right lung, with chemical, and mechanical pleurodesis currently, the patient is on 3 L of oxygen. He is receiving saline at 20 cc an hour. He was seen by cardiothoracic surgery yesterday and agreed to have the procedure done. We appreciate their input. Current labs include a white count 11.7, hemoglobin 13.4, hematocrit 41.5, and a platelet count of 279,000. Sodium 135, potassium 3.9, chlorides 99, CO2 27, BUN 26, creatinine 1.03. Glucose was 149. Chest x- ray from today shows a stable small right-sided hydropneumothorax. Progress note dated October 20, 2024. 64-year-old male seen today in room 354. Currently, the patient is resting comfortably in bed. He is on oxygen by nasal cannula at 3 L. He is not re ceiving any IV fluids. The patient is scheduled to go to the operating room tomorrow, for a video-assisted thoracoscopic decortication of the lung, with mechanical and chemical pleurodesis. Current labs include a white count 12.4, hemoglobin 12.3, hematocrit 37.7, and a platelet count is normal. Coagulation studies were normal. Sodium 134, potassium 4.8, chloride 97, CO2 30, BUN 27, creatinine 1. The patient's procalcitonin level is normal at 0.24. Chest x-ray today is largely unchanged. Progress note dated October 21, 2024. 64-year-old male seen in room 354. The patient continues on O2 at 3 L. Saturations are 95%. No IV fluids. The patient is scheduled for a video- assisted thoracoscopic decortication of the right lung, with chemical and mechanical pleurodesis. The patient is stable at this time. Labs today include a white count 9.6, hemoglobin 12.6, hematocrit 40.1, and a platelet count of 257,000. Sodium 134, potassium 4.4, chlorides 94, CO2 31, BUN 31, creatinine 1.02. Glucose is 117. Calcium is 8.4. Procalcitonin level is normal x 2. Progress note dated October 22, 2024. 65-year-old male who is postop day #1, status post video-assisted thoracoscopic decortication of the right lung, with chemical and mechanical pleurodesis. The patient is seen today in room 354. He is on 12 L high flow nasal cannula. He is getting saline at 20 cc an hour. An incentive spirometer is at the bedside. White count 7.8, hemoglobin 13.1, hematocrit 41.1, platelet count 250,000. Sodium 132, potassium 4.6, chloride 91, CO2 34, BUN 37, creatinine 1.24. Calcium 8.2. Magnesium 2.5. Chest x-ray shows a right sided chest tube, with a tiny right apical pneumothorax. Infiltrates are noted. Progress note dated October 23, 2024. 64-year-old male who is postoperative day #2, status post video-assisted thoracoscopic decortication of the right lung, with chemical and mechanical pleurodesis, for a chronic right-sided hydropneumothorax. Unfortunately, the patient developed respiratory distress last night, and was transferred down to the intensive care unit. Initially, the patient was placed on BiPAP, but did not tolerate that, and required intubation and mechanical ventilation. He is seen today in room 259. He is on volume assist-control, rate 28, tidal volume 450, FiO2 100%, PEEP of 8. Blood gases on a rate of 24, and the PEEP of 5, show pO2 of 52, pCO2 75, and a pH of 7.16. The patient is getting saline at 75 cc an hour, norepinephrine at 17.4 mcg per per minute, Nimbex at 1.0 microgram per kilogram per minute, and propofol at 50 mcg/kg/min. The patient is having [id number] monitoring. In addition, the patient continues on cefepime and vancomycin. The PEEP was increased to 8, will be increased even further, to improve his saturations. Current laboratory data includes a white count 9.5, hemoglobin 12.5, hematocrit 40.5, and a platelet count of 213,000. Repeat blood gases have been ordered. Sodium 132, potassium 4.7, chloride 98, CO2 25, BUN 43, creatinine 1.28. Glucose is 132. Calcium is 7.5. A right radial arterial line was placed, and a left subclavian triple-lumen catheter was also placed. Chest x-ray shows diffuse bilateral airspace consolidation consistent with pneumonia. Objective - Vital Signs Vital signs: Vital Signs Temp 98.0 F 10/23/24 08:00 Pulse 70 10/23/24 10:00 Resp 28 H 10/23/24 10:00 BP 114/75 10/23/24 10:00 Pulse Ox 92 L 10/23/24 10:00 FiO2 100 10/23/24 08:38 Intake & Output 10/22/24 10/23/24 10/23/24 18:59 06:59 18:59 Intake Total 684 929.086 592.785 Output Total 2050 610 105 Balance -1366 319.086 487.785 Weight 97 kg 97 kg Intake: IV 100 225 Sodium Chloride 0.9% 1, 100 000 ml @ 20 mls/hr IV . Q24H SERJIO Rx#:[id number] Sodium Chloride 0.9% 1, 225 000 ml @ 75 mls/hr IV . [id number] SERJIO Rx#:[id number] Intake, IV Titration 829.086 317.785 Amount Calcium Gluconate in NaCl 100 1 gm In Saline 1 100ml. bag @ 400 mls/hr IVPB ONCE ONE Rx#:[id number] Norepinephrine 4 mg In 110.810 146.270 Sodium Chloride 0.9% 250 ml @ 0.03 MCG/KG/MIN 11. 087 mls/hr IV .[id number] SERJIO Rx#:[id number] Sodium Chloride 0.9% 1, 375 75 000 ml @ 75 mls/hr IV . [id number] SERJIO Rx#:[id number] propofoL 1,000 mg In 243.276 96.515 Empty Bag 1 bag @ 15 MCG/ KG/MIN 8.73 mls/hr IV . [id number] SERJIO Rx#:[id number] Oral 684 Tube Feeding 20 Other 30 Output: Chest Tube Drainage 250 40 0 Chest Tube Right Lateral 250 40 0 Chest Urine 1800 570 105 Other: Voiding Method Indwelling Catheter # Voids 1 ABP, PAP, CO, CI - Last Documented Arterial Blood Pressure 114/68 - Exam No acute distress, sedated, and orally intubated, in no acute distress. HEENT examination is grossly unremarkable. Neck supple. Full range of motion. No adenopathy thyromegaly or neck vein distention. Cardiovascular examination reveals regular rhythm rate. S1-S2 normal. No S3 or S4. No discernible murmur noted. Heart sounds are distant. Lungs reveal bilateral scattered rhonchi and wheezes. Breath sounds are equal but diminished throughout. No crackles are appreciated. Abdomen soft, without bowel sounds. Extremities are intact. No cyanosis clubbing or edema. Skin is without rash or lesion. Neurologic examination cannot be adequately assessed at this time. - Labs CBC & Chem 7: 10/23/24 04:42 10/23/24 04:42 Labs: Abnormal Lab Results - Last 24 Hours (Table) 10/22/24 10/22/24 10/22/24 Range/Units 14:56 19:27 19:36 Hgb (13.0-17.5) gm/dL RDW (11.5-15.5) % Neutrophils # (1.3-7.7) k/uL Lymphocytes # (1.0-4.8) k/uL ABG pH 7.46 H (7.35-7.45) ABG pCO2 (35-45) mmHg ABG pO2 51 L* (83-108) mmHg ABG HCO3 28 H (21-25) mmol/L ABG Total CO2 29 H (19-24) mmol/L ABG O2 Saturation 86.1 L (94-97) % Sodium (137-145) mmol/L Potassium (3.5-5.1) mmol/L Chloride (98-107) mmol/L BUN (9-20) mg/dL Creatinine (0.66-1.25) mg/dL Glucose (74-99) mg/dL POC Glucose (mg/dL) 169 H (70-110) mg/dL Calcium (8.4-10.2) mg/dL Magnesium (1.6-2.3) mg/dL C-Reactive Protein 20.4 H (<1.0) mg/dL Urine Protein (Negative) Urine Glucose (UA) (Negative) Urine Blood (Negative) Urine Bacteria (None) /hpf Hyaline Casts (0-2) /lpf Urine Mucus (None) /hpf Urine Yeast (Budding) (None) /hpf 10/22/24 10/22/24 10/22/24 Range/Units 20:08 21:52 22:47 Hgb (13.0-17.5) gm/dL RDW (11.5-15.5) % Neutrophils # (1.3-7.7) k/uL Lymphocytes # (1.0-4.8) k/uL ABG pH 7.25 L (7.35-7.45) ABG pCO2 70 H (35-45) mmHg ABG pO2 70 L (83-108) mmHg ABG HCO3 31 H (21-25) mmol/L ABG Total CO2 33 H (19-24) mmol/L ABG O2 Saturation 89.7 L (94-97) % Sodium (137-145) mmol/L Potassium (3.5-5.1) mmol/L Chloride (98-107) mmol/L BUN (9-20) mg/dL Creatinine (0.66-1.25) mg/dL Glucose (74-99) mg/dL POC Glucose (mg/dL) 138 H (70-110) mg/dL Calcium (8.4-10.2) mg/dL Magnesium (1.6-2.3) mg/dL C-Reactive Protein (<1.0) mg/dL Urine Protein 1+ H (Negative) Urine Glucose (UA) 4+ H (Negative) Urine Blood Small H (Negative) Urine Bacteria Rare H (None) /hpf Hyaline Casts 9 H (0-2) /lpf Urine Mucus Rare H (None) /hpf Urine Yeast (Budding) Rare H (None) /hpf 10/22/24 10/22/24 10/23/24 Range/Units 23:29 23:29 03:08 Hgb (13.0-17.5) gm/dL RDW 15.8 H (11.5-15.5) % Neutrophils # 8.3 H (1.3-7.7) k/uL Lymphocytes # 0.2 L (1.0-4.8) k/uL ABG pH (7.35-7.45) ABG pCO2 (35-45) mmHg ABG pO2 (83-108) mmHg ABG HCO3 (21-25) mmol/L ABG Total CO2 (19-24) mmol/L ABG O2 Saturation (94-97) % Sodium 129 L (137-145) mmol/L Potassium 5.3 H (3.5-5.1) mmol/L Chloride 94 L (98-107) mmol/L BUN 38 H (9-20) mg/dL Creatinine (0.66-1.25) mg/dL Glucose 174 H (74-99) mg/dL POC Glucose (mg/dL) 147 H (70-110) mg/dL Calcium 7.6 L (8.4-10.2) mg/dL Magnesium 2.4 H (1.6-2.3) mg/dL C-Reactive Protein (<1.0) mg/dL Urine Protein (Negative) Urine Glucose (UA) (Negative) Urine Blood (Negative) Urine Bacteria (None) /hpf Hyaline Casts (0-2) /lpf Urine Mucus (None) /hpf Urine Yeast (Budding) (None) /hpf 10/23/24 10/23/24 10/23/24 Range/Units 04:42 04:42 04:59 Hgb 12.5 L (13.0-17.5) gm/dL RDW 15.8 H (11.5-15.5) % Neutrophils # 8.6 H (1.3-7.7) k/uL Lymphocytes # 0.4 L (1.0-4.8) k/uL ABG pH 7.16 L* (7.35-7.45) ABG pCO2 75 H* (35-45) mmHg ABG pO2 52 L* (83-108) mmHg ABG HCO3 27 H (21-25) mmol/L ABG Total CO2 29 H (19-24) mmol/L ABG O2 Saturation 77.0 L (94-97) % Sodium 132 L (137-145) mmol/L Potassium (3.5-5.1) mmol/L Chloride (98-107) mmol/L BUN 43 H (9-20) mg/dL Creatinine 1.28 H (0.66-1.25) mg/dL Glucose 132 H (74-99) mg/dL POC Glucose (mg/dL) (70-110) mg/dL Calcium 7.5 L (8.4-10.2) mg/dL Magnesium (1.6-2.3) mg/dL C-Reactive Protein (<1.0) mg/dL Urine Protein (Negative) Urine Glucose (UA) (Negative) Urine Blood (Negative) Urine Bacteria (None) /hpf Hyaline Casts (0-2) /lpf Urine Mucus (None) /hpf Urine Yeast (Budding) (None) /hpf Microbiology - Last 24 Hours (Table) 10/19/24 14:32 Blood Culture - Preliminary Blood 10/20/24 07:48 Gram Stain - Final Sputum Sputum Culture - Final Assessment and Plan Assessment: Right-sided hydropneumothorax, initially noted after a right-sided thoracentesis done June,, possible trapped lung versus iatrogenic pneumothorax. Originally, estimated to be less than 10% and was monitored on outpatient basis. Chest CT done on this hospitalization redemonstrating the right-sided hydropneumothorax with small pneumothorax, largest component of air is dependent. Moderate right-sided pleural effusion, slightly larger than previous chest CT. Acute hypoxemic respiratory failure, requiring intubation and mechanical venti lation, October 22, 2024. S/P POD #2, video-assisted thoracoscopic right lung decortication, with c hemical/mechanical pleurodesis. Acute COPD exacerbation, complicated by bilateral pneumonia. Suspect acute on chronic diastolic congestive heart failure. Acute hypoxemic respiratory failure. Recurrent right-sided pleural effusion status post right-sided thoracentesis. Atrial fibrillation. Acute kidney injury. History of hypertension. History of hyperlipidemia. Former tobacco smoker. Plan: Plan dated October 19, 2024. The patient is seen today in the emergency department, room 27. The patient was seen by cardiothoracic surgery yesterday, October 18, and was offered a video- assisted thoracoscopic decortication of the right lung, with chemical and mechanical pleurodesis. The patient did agree. He is currently on 3 L of oxygen. He is getting saline at 20 cc an hour. Labs, x-rays, and all medications are reviewed. The patient will eventually get up to the general medical floor. We will continue to follow. Prognosis is guarded. Plan dated October 20, 2024. The patient is seen today in room 354. He is resting comfortably in bed. He is on 3 L of oxygen. No IV fluids. Labs, x-rays, and all medications are reviewed. From the pulmonary standpoint, he is stable. Cardiology restarted some of his cardiac medications. We will continue to follow the patient, make recommendations along the way. The patient is scheduled for a video-assisted thoracoscopic decortication of the right lung, with chemical and mechanical pleurodesis. That is scheduled for tomorrow. Plan dated October 21, 2024. The patient is seen today in room 354. The patient is scheduled for a video- assisted thoracoscopic decortication of the right lung, with chemical and mechanical pleurodesis. Clinically, the patient stable. He continues on oxygen at 3 L. Saturations are in the mid 90s. Labs, x-rays, and all medications are reviewed. We will continue to follow the patient. Prognosis is guarded. Plan dated October 22, 2024. The patient is seen today in room 354. He is on 12 L high flow nasal O2. The patient has a right sided chest tube in place. Chest x-ray has been reviewed. Labs, x-rays, medications are reviewed. We encouraged the patient to deep breathe, cough, clear secretions, and use his incentive spirometer, every hour w hile awake. We will continue to follow. Prognosis is guarded. Plan dated October 23, 2024. The patient developed acute hypoxemic respiratory failure last night, and was transferred down to the intensive care unit, where he was trialed on BiPAP initially. Despite that, his respiratory rates were in the 40s, and VIDEO GAME DESIGNER was called, and he was electively intubated. This morning, placed a right radial art line, and left subclavian triple-lumen catheter. The patient was seen by cardiothoracic surgery. He continues on vancomycin and cefepime. The patient's prognosis remains very poor. His PEEP will be increased, until we get adequate saturations. His rate was already increased from 24 to 28 breaths/min. A repeat blood gases pending. The patient continues on propofol, Nimbex, and norepinephrine. Time with Patient: Greater than 30
--- NOTE | 2024-10-23 10:48 | XR ---
EXAMINATION TYPE: XR chest 1V confirm line [facility] DATE OF EXAM: 10/23/2024 COMPARISON: 10/23/2023 CLINICAL INDICATION: Male, 64 years old with history of CVC placement; TECHNIQUE: Single frontal view of the chest is obtained. FINDINGS: The ET tube is 2.4 cm. There is a central venous catheter tip in the SVC/RA junction. There is a right sided chest tube and there is a persistent small loculated pneumothorax in the right lung base. There is no change in the diffuse scattered opacities in both lungs. IMPRESSION: 1. Central venous catheter tip in the SVC/RA junction. 2. ET tube 2.4 cm above the neva. 3. Stable small right lung base loculated pneumothorax. 4. No change in the acute cardiopulmonary disease. [facility], Workstation: [id number] 10/23/2024 10:45 AM
[2024-10-23 10:51] LABS: ABG HCO3 24 mmol/L (21-25); ABG Oxygen Saturation 84.7 % (94-97); ABG TCO2 27 mmol/L (19-24)
[2024-10-23 10:53] LABS: ABG PH 7.14 (7.35-7.45)
[2024-10-23 10:54] LABS: ABG PCO2 72 mmHg (35-45); ABG PO2 59 mmHg (83-108); Allen Test Performed? no
[2024-10-23] MEDS: IPRATROPIUM-ALBUTEROL 3 ML NEB INHALATION SCH (12:03)
[2024-10-23] MEDS: NOREPINEPHRINE 8 MG in SODIUM CHLORIDE 0.9% 250 ML IV SCH (15:00)
[2024-10-23] MEDS: ANIDULAFUNGIN 200 MG in SODIUM CHLORIDE 0.9% 200 ML IVPB ONE (16:04)
--- NOTE | 2024-10-23 16:22 | US ---
EXAMINATION TYPE: US venous doppler duplex LE BI DATE OF EXAM: 10/23/2024 2:01 PM COMPARISON: NONE CLINICAL INDICATION: Male, 64 years old with history of nonpalpable pulse to bilateral feet; In bed x 1 week; Currently comatose; Patients family denies any signs, symptoms, or relevant history , Pain TECHNIQUE: The lower extremity deep venous system is examined utilizing real time linear array sonog aramis with graded compression, color doppler sonography, and spectral doppler. SIDE PERFORMED: Bilateral FINDINGS: VESSELS IMAGED: Common Femoral Vein Deep Femoral Vein Greater Saphenous Vein * Femoral Vein Popliteal Vein Small Saphenous Vein * Proximal Calf Veins (* superficial vessels) Right Leg: Negative for DVT, Color Doppler imaging shows patency of the vessels. Spectral waveforms are within normal limits. Left Leg: Negative for DVT, Color Doppler imaging shows patency of the vessels. Spectral waveforms a re within normal limits. IMPRESSION: No ultrasound evidence for deep venous thrombosis. [facility], , 10/23/2024 4:20 PM
--- NOTE | 2024-10-23 16:45 | PCN ---
PROCEDURE NOTE PROCEDURE: Right radial arterial line. PREOPERATIVE DIAGNOSES: Frequent blood draws and blood gas monitoring. POSTOPERATIVE DIAGNOSES: Frequent blood draws and blood gas monitoring. ARTERIAL LINE PLACEMENT: Indications: Hemodynamic monitoring. A time-out was completed verifying correct patient, procedure, site, positioning, and implant(s) or special equipment if applicable. Moise's test was performed to ensure adequate perfusion. The patient's right/left wrist or right/left groin was prepped and draped in sterile fashion. 1% Lidocaine was used to anesthetize the area. An 18G Arrow arterial line was introduced into the right radial artery. The catheter was threaded over the guide wire and the needle was removed with appropriate pulsatile blood return. Blood loss was minimal. The catheter was then sutured in place to the skin and a sterile dressing applied. Perfusion to the extremity distal to the point of catheter insertion was checked and found to be adequate. The patient tolerated the procedure well and there were no complications. There was informed consent and universal timeout. The patient's procedure was done in room 259. OPERATORS: Dr. Rooney, Dr. Tan, Dr. Weinstein, and Dr. Duckworth. The right radial art line was used. The right radial arterial site was used. There was good waveform and blood pressure reading. The patient tolerated the procedure well. There was no immediate complication. The catheter was sutured in place. Sterile dressing applied by the nurse. MMLAURENL / BONIFACION: [id number] /
--- NOTE | 2024-10-23 16:48 | PCN ---
PROCEDURE NOTE PROCEDURE: Left subclavian triple-lumen catheter. PREOPERATIVE DIAGNOSIS: Administration of fluids and pressors. POSTOPERATIVE DIAGNOSIS: Administration of fluids and pressors. OPERATORS: 1. Dr. Rooney. 2. Dr. Tan. 3. Dr. Duckworth. There was informed consent and universal timeout. The patient's procedure was done in room 259. TRIPLE LUMEN CATHETER PLACEMENT: Indication: Hemodynamic monitoring/Intravenous access. A time-out was completed verifying correct patient, procedure, site, positioning, and implant(s) or special equipment if applicable. The patient was placed in a dependent position appropriate for triple lumen catheter placement based on the vein to be cannulated. The patient's left shoulder or left neck or left groin was prepped and draped in sterile fashion. 1% Lidocaine was used to anesthetize the surrounding skin area. A triple lumen 9F Cordis catheter was introduced into the left subclavian vein using Seldinger technique. The catheter was threaded smoothly over the guide wire and appropriate blood return was obtained. Each lumen of the catheter was evacuated of air and flushed with sterile saline. The catheter was then sutured in place to the skin and a sterile dressing applied. Perfusion to the extremity distal to the point of catheter insertion was checked and found to be adequate. There was no immediate complication. The patient tolerated the procedure well. There was good blood return from all 3 ports. The catheter was sutured in place. Sterile dressing was applied by the nurse. Chest x-ray was ordered. The tip of the catheter was seen at the junction of superior vena cava and right atrium. MMODL / IJN: [id number] /
[2024-10-23 17:32] LABS: Glucose,Whole Blood 186 mg/dL (70-110)
[2024-10-23] MEDS ORDERED: DEXTROSE 50% SYRINGE 50 ML IVP PRN ×2 (18:06)
[2024-10-23 18:15] LABS: African American GFR (CKD) 40 (>60 ml/min/1.73 sqM); Anion Gap 11 mmol/L; Blood Urea Nitrogen 54 mg/dL (9-20); Calcium 7.9 mg/dL (8.4-10.2); Carbon Dioxide 22 mmol/L (22-30); Chloride 98 mmol/L (98-107); Glucose 195 mg/dL (74-99); Non-African American GFR(CKD) 34 (>60 ml/min/1.73 sqM); Potassium 5.9 mmol/L (3.5-5.1); Sodium 131 mmol/L (137-145)
[2024-10-23] MEDS: INSULIN ASPART (NovoLOG) 100 UNIT/ML VIAL SQ SCH (18:48)
[2024-10-23] MEDS: HYDROCORTISONE SUCCINATE 100 MG/2 ML VIAL IV SCH (18:57)
[2024-10-23] MEDS: SODIUM ZIRCONIUM CYCLOSILICATE 10 GM PACKET PO ONE (19:53)
[2024-10-23] MEDS ORDERED: INSULIN ASPART (NovoLOG) 100 UNIT/ML VIAL SQ SCH (21:00)
[2024-10-23] MEDS: FORMOTEROL FUMARATE 20 MCG/2 ML NEBU INHALATION SCH (21:03)
[2024-10-23] MEDS: BUDESONIDE 1 MG/2 ML NEBU INHALATION SCH (21:03)
[2024-10-23 21:10] LABS: African American GFR (CKD) 36 (>60 ml/min/1.73 sqM); Anion Gap 11 mmol/L; Blood Urea Nitrogen 57 mg/dL (9-20); Calcium 7.8 mg/dL (8.4-10.2); Carbon Dioxide 21 mmol/L (22-30); Chloride 100 mmol/L (98-107); Glucose 190 mg/dL (74-99); Non-African American GFR(CKD) 31 (>60 ml/min/1.73 sqM); Sodium 132 mmol/L (137-145)
[2024-10-23] MEDS: SODIUM BICARB 8.4% 50 ML SYR (1 MEQ/ML) IV STA (21:12)
--- NOTE | 2024-10-23 21:30 | PN ---
PROGRESS NOTE SUBJECTIVE: Mirian is a 64-year-old gentleman who underwent a VATS procedure day before yesterday, was doing fairly well, developed progressively worsening respiratory failure, and had to be intubated and is currently on the vent and in ICU. He is intubated, vented, and sedated. PHYSICAL EXAMINATION: VITAL SIGNS: Heart rate is 70 beats per minute, blood pressure is 114/75, respiratory rate is 18. CHEST: Reveals diminished air entry at the bases. HEART: Reveals first and second heart sounds. No gallop. ABDOMEN: Soft. EXTREMITIES: Did not reveal any edema. Peripheral pulses are palpable. LABS: Show a hemoglobin of 12.5, platelet count is 213. Potassium is 4.7, BUN is 43, creatinine is 1.2. ASSESSMENT: 1. Respiratory failure. 2. Paroxysmal atrial fibrillation. 3. Hypertension. 4. Right-sided pleural effusion, status post VATS procedure. 5. Vent-requiring respiratory failure. PLAN: From cardiac standpoint, I will continue him on his current medications. MMODL / IJN: [id number] /
[2024-10-23 22:35] LABS: HCT 43.7 % (39.0-53.0); HGB 13.6 gm/dL (13.0-17.5); Hypochromasia Marked; MCH 29.5 pg (25.0-35.0); MCHC 31.1 g/dL (31.0-37.0); MCV 94.8 fL (80.0-100.0); Mean Platelet Volume 8.6; Platelet Count 222 k/uL (150-450); RBC 4.61 m/uL (4.30-5.90); RDW 15.8 % (11.5-15.5); WBC 13.5 k/uL (3.8-10.6)
[2024-10-23] MEDS: HEPARIN SOD,PORK IN 0.45% NACL 25,000 UNIT in 0.45% NACL 1 250ML.BAG IV SCH (22:42)
[2024-10-23] MEDS: HEPARIN SODIUM 1,000 UN/ML (10ML VL) IV ONE (22:43)
[2024-10-23 22:48] LABS: Prothrombin Time 11.5 sec (10.0-12.5)
[2024-10-23 22:55] LABS: Partial Thromboplastin Time 21.5 sec (22.0-30.0)
[2024-10-23 23:14] LABS: Glucose,Whole Blood 193 mg/dL (70-110)
[2024-10-23 23:40] LABS: Band Neutrophils % 11 %; Lymphocytes # (M) 0.14 k/uL (1.0-4.8); Metamyelocytes # (M) 0.41 k/uL (0); Metamyelocytes % 3 %; Monocytes # (M) 0.14 k/uL (0-1.0); Myelocytes # (M) 0.14 k/uL (0); Myelocytes % 1 %; Neutrophils % (M) 83 %; Nucleated Red Blood Cells 0 /100 WBC (0-0); Total Cells Counted 100
[2024-10-23 23:51] LABS: African American GFR (CKD) 33 (>60 ml/min/1.73 sqM); Anion Gap 15 mmol/L; Blood Urea Nitrogen 59 mg/dL (9-20); Calcium 7.9 mg/dL (8.4-10.2); Carbon Dioxide 19 mmol/L (22-30); Chloride 99 mmol/L (98-107); Glucose 202 mg/dL (74-99); Non-African American GFR(CKD) 29 (>60 ml/min/1.73 sqM); Potassium 5.4 mmol/L (3.5-5.1); Sodium 133 mmol/L (137-145)
[2024-10-24 04:19] LABS: Glucose,Whole Blood 156 mg/dL (70-110)
[2024-10-24 04:31] LABS: HCT 45.1 % (39.0-53.0); HGB 13.6 gm/dL (13.0-17.5); Hypochromasia Marked; MCH 28.7 pg (25.0-35.0); MCHC 30.2 g/dL (31.0-37.0); Mean Platelet Volume 8.5; Platelet Count 224 k/uL (150-450); RBC 4.75 m/uL (4.30-5.90); RDW 15.9 % (11.5-15.5); WBC 16.1 k/uL (3.8-10.6)
[2024-10-24 04:47] LABS: African American GFR (CKD) 26 (>60 ml/min/1.73 sqM); Anion Gap 15 mmol/L; Blood Urea Nitrogen 62 mg/dL (9-20); Calcium 7.8 mg/dL (8.4-10.2); Carbon Dioxide 19 mmol/L (22-30); Chloride 99 mmol/L (98-107); Glucose 174 mg/dL (74-99); Non-African American GFR(CKD) 22 (>60 ml/min/1.73 sqM); Potassium 5.8 mmol/L (3.5-5.1); Sodium 133 mmol/L (137-145)
[2024-10-24 05:24] LABS: Glucose,Whole Blood 168 mg/dL (70-110)
[2024-10-24 05:24] LABS: ABG Base Excess -10.9 mmol/L; ABG HCO3 21 mmol/L (21-25); ABG Oxygen Saturation 82.1 % (94-97); ABG PH 7.06 (7.35-7.45); ABG TCO2 23 mmol/L (19-24)
[2024-10-24 05:25] LABS: ABG PCO2 74 mmHg (35-45); ABG PO2 53 mmHg (83-108); Allen Test Performed? No
[2024-10-24] MEDS: HEPARIN SODIUM 1,000 UN/ML (10ML VL) IV PRN (05:48)
[2024-10-24 06:08] VITALS: RESP 32
--- NOTE | 2024-10-24 06:56 | XR ---
EXAMINATION TYPE: XR chest 1V portable DATE OF EXAM: 10/24/2024 COMPARISON: 10/23/2024 CLINICAL INDICATION: Male, 64 years old with history of Tube placement; TECHNIQUE: Single frontal view of the chest is obtained. FINDINGS: The ET tube is 5.7 cm above the neva. There is an NG tube within the stomach. The right chest tube tip is in the right lung apex unchanged in position. There is a stable small rig ht hydropneumothorax. Left central venous catheter tip is in the SVC/RA junction. The scattered partially consolidative airspace opacities are stable compared to the prior study. IMPRESSION: 1. ET tube 6.8 cm above the neva. NG tube is in stomach. 2. No change in the right chest tube position and the small right hydropneumothorax. 3. Marked cardiopulmonary process unchanged compared to the prior study. [facility] , 10/24/2024 6:54 AM
[2024-10-24 07:05] LABS: Band Neutrophils % 11 %; Lymphocytes # (M) 0.48 k/uL (1.0-4.8); Monocytes # (M) 0.81 k/uL (0-1.0); Neutrophils % (M) 81 %; Nucleated Red Blood Cells 0 /100 WBC (0-0); Total Cells Counted 100
--- NOTE | 2024-10-24 08:16 | P.PN ---
Subjective Progress Note Date: 10/24/24 Principal diagnosis: Right-sided recurrent pleural effusion with hydropneumothorax and bullous disease. Previous medical history of chronic obstructive pulmonary disease, chronic home oxygen use between 2.5 to 3 L nasal cannula, recurrent right pleural effusions with previous thoracentesis on April 29, 2024 and May 12, 2024, cytology from previous thoracentesis has been negative for malignancy, hypertension, chronic heart failure with preserved ejection fraction, history of pneumonia in September 2023, paroxysmal atrial fibrillation status post cardioversion and ablation on Eliquis for anticoagulation as an outpatient, GERD, and previous tobacco dependence with cessation in January 2024. POD #3 right thoracoscopy with bullectomy, mechanical and chemical pleurodesis, 1 level intercostal nerve block The patient was seen and examined this morning laying in bed in the intensive care unit. He continues to go downhill. Currently maxed on pressors, still unable to oxygenate higher than mid 80s and 100% FiO2 and 10 of PEEP. Both legs mottled all the way up to his thighs. ABGs not improving. Patient has very poor prognosis. Chest x-ray reviewed revealing diffuse lung opacities. Right pleural chest tube remains, no output in the last 24 hours. Family has been up dated. Objective - Vital Signs Vital signs: Vital Signs Temp 99.9 F H 10/24/24 05:00 Pulse 110 H 10/24/24 07:30 Resp 32 H 10/24/24 07:30 BP 115/64 10/24/24 07:30 Pulse Ox 85 L 10/24/24 07:30 FiO2 100 10/24/24 05:00 Intake & Output 10/23/24 10/24/24 10/24/24 18:59 06:59 18:59 Intake Total 2060.456 2779.769 75 Output Total 265 160 15 Balance 3623.215 5595.769 60 Weight 108.2 kg Intake: IV 825 980 75 Sodium Chloride 0.9% 1, 80 000 ml @ 20 mls/hr IV . Q24H [facility] Rx#:[id number] Sodium Chloride 0.9% 1, 825 900 75 000 ml @ 75 mls/hr IV . [id number] [facility] Rx#:[id number] Intake, IV Titration 8275.583 3503.769 Amount Anidulafungin 100 mg In 100 Sodium Chloride 0.9% 100 ml @ 84 mls/hr IVPB Q24H [facility] Rx#:[id number] Calcium Gluconate in NaCl 100 1 gm In Saline 1 100ml. bag @ 100 mls/hr IVPB ONCE ONE Rx#:[id number] Cefepime 2 gm In Sodium 100 100 Chloride 0.9% 100 ml @ 25 mls/hr IVPB Q8H [facility] Rx#: [id number] Cisatracurium 200 mg In 149.38 Sodium Chloride 0.9% 180 ml @ 1 MCG/KG/MIN 5.82 mls/hr IV .Q24H [facility] Rx#: [id number] Heparin Sod,Pork in 0.45% 71 NaCl 25,000 unit In 0.45 % NaCl 1 250ml.bag @ 10. 309 UNITS/KG/HR 10 mls/hr IV .Q24H [facility] Rx#: [id number] Norepinephrine 4 mg In 302.968 Sodium Chloride 0.9% 250 ml @ 0.03 MCG/KG/MIN 11. 087 mls/hr IV .[id number] [facility] Rx#:[id number] Norepinephrine 8 mg In 97.445 1039.249 Sodium Chloride 0.9% 250 ml @ 0.03 MCG/KG/MIN 5. 631 mls/hr IV .Q24H [facility] Rx#:[id number] Sodium Chloride 0.9% 1, 75 000 ml @ 75 mls/hr IV . [id number] [facility] Rx#:[id number] Vasopressin 60 unit In 43.528 48.45 Sodium Chloride 0.9% 150 ml @ 0.03 UNITS/MIN 4.59 mls/hr IV .Q24H [facility] Rx#: [id number] propofoL 1,000 mg In 296.515 271.690 Empty Bag 1 bag @ 15 MCG/ KG/MIN 8.73 mls/hr IV . [id number] [facility] Rx#:[id number] Tube Feeding 130 20 Other 90 Output: Chest Tube Drainage 0 0 0 Chest Tube Right Lateral 0 0 0 Chest Urine 265 160 15 Other: Voiding Method Indwelling Catheter Indwelling Catheter ABP, PAP, CO, CI - Last Documented Arterial Blood Pressure 90/57 - Exam CONSTITUTIONAL: Remains on mechanical ventilation, sedated with propofol, paralyzed with Nimbex RESPIRATORY: Lungs sounds coarse bilaterally. Respirations tachypneic. Currently assist-control mode, FiO2 100%, PEEP 10, tidal volume 450, respiratory rate 32. 8.0 ET tube present, 26 at the lip CARDIOVASCULAR: S1, S2 present. Regular rate and rhythm, sinus tach on telemetry. Generalized edema present. SCDs present. GASTROINTESTINAL: Abdomen soft, nontender, nondistended. Hypoactive bowel sounds present 4 quadrants. OG tube present to low intermittent suction with minimal output GENITOURINARY: Platt present draining clear, yellow urine, output 425 mL in the last 24 hours INTEGUMENTARY: Skin is warm and dry NEUROLOGIC: Unable to be assessed, patient remains on paralytic, [id number] being used INVASIVE LINES AND TUBES: Right pleural chest tube present to continuous wall suction, no output in the last 24 hours, no air leak present - Allied health notes Allied health notes reviewed: nursing - Labs CBC & Chem 7: 10/24/24 04:19 10/24/24 04:19 Labs: Abnormal Lab Results - Last 24 Hours (Table) 10/23/24 10/23/24 10/23/24 Range/Units 10:47 17:30 17:30 WBC (3.8-10.6) k/uL MCHC (31.0-37.0) g/dL RDW (11.5-15.5) % Neutrophils # (Manual) (1.3-7.7) k/uL Lymphocytes # (Manual) (1.0-4.8) k/uL Metamyelocytes # (Man) (0) k/uL Myelocytes # (Manual) (0) k/uL APTT (22.0-30.0) sec ABG pH 7.14 L* (7.35-7.45) ABG pCO2 72 H* (35-45) mmHg ABG pO2 59 L* (83-108) mmHg ABG Total CO2 27 H (19-24) mmol/L ABG O2 Saturation 84.7 L (94-97) % Sodium 131 L (137-145) mmol/L Potassium 5.9 H (3.5-5.1) mmol/L Carbon Dioxide (22-30) mmol/L BUN 54 H (9-20) mg/dL Creatinine 1.98 H (0.66-1.25) mg/dL Glucose 195 H (74-99) mg/dL POC Glucose (mg/dL) 186 H (70-110) mg/dL Calcium 7.9 L (8.4-10.2) mg/dL Troponin I (0.000-0.034) ng/mL 10/23/24 10/23/24 10/23/24 Range/Units 20:50 20:50 21:00 WBC 13.5 H (3.8-10.6) k/uL MCHC (31.0-37.0) g/dL RDW 15.8 H (11.5-15.5) % Neutrophils # (Manual) 12.60 H (1.3-7.7) k/uL Lymphocytes # (Manual) 0.14 L (1.0-4.8) k/uL Metamyelocytes # (Man) 0.41 H (0) k/uL Myelocytes # (Manual) 0.14 H (0) k/uL APTT (22.0-30.0) sec ABG pH (7.35-7.45) ABG pCO2 (35-45) mmHg ABG pO2 (83-108) mmHg ABG Total CO2 (19-24) mmol/L ABG O2 Saturation (94-97) % Sodium 132 L (137-145) mmol/L Potassium 6.0 H (3.5-5.1) mmol/L Carbon Dioxide 21 L (22-30) mmol/L BUN 57 H (9-20) mg/dL Creatinine 2.15 H (0.66-1.25) mg/dL Glucose 190 H (74-99) mg/dL POC Glucose (mg/dL) (70-110) mg/dL Calcium 7.8 L (8.4-10.2) mg/dL Troponin I 0.391 H* (0.000-0.034) ng/mL 10/23/24 10/23/24 10/23/24 Range/Units 21:56 23:12 23:13 WBC (3.8-10.6) k/uL MCHC (31.0-37.0) g/dL RDW (11.5-15.5) % Neutrophils # (Manual) (1.3-7.7) k/uL Lymphocytes # (Manual) (1.0-4.8) k/uL Metamyelocytes # (Man) (0) k/uL Myelocytes # (Manual) (0) k/uL APTT 21.5 L (22.0-30.0) sec ABG pH (7.35-7.45) ABG pCO2 (35-45) mmHg ABG pO2 (83-108) mmHg ABG Total CO2 (19-24) mmol/L ABG O2 Saturation (94-97) % Sodium 133 L (137-145) mmol/L Potassium 5.4 H (3.5-5.1) mmol/L Carbon Dioxide 19 L (22-30) mmol/L BUN 59 H (9-20) mg/dL Creatinine 2.29 H (0.66-1.25) mg/dL Glucose 202 H (74-99) mg/dL POC Glucose (mg/dL) 193 H (70-110) mg/dL Calcium 7.9 L (8.4-10.2) mg/dL Troponin I (0.000-0.034) ng/mL 10/24/24 10/24/24 10/24/24 Range/Units 04:18 04:19 04:19 WBC 16.1 H (3.8-10.6) k/uL MCHC 30.2 L (31.0-37.0) g/dL RDW 15.9 H (11.5-15.5) % Neutrophils # (Manual) 14.80 H (1.3-7.7) k/uL Lymphocytes # (Manual) 0.48 L (1.0-4.8) k/uL Metamyelocytes # (Man) (0) k/uL Myelocytes # (Manual) (0) k/uL APTT (22.0-30.0) sec ABG pH (7.35-7.45) ABG pCO2 (35-45) mmHg ABG pO2 (83-108) mmHg ABG Total CO2 (19-24) mmol/L ABG O2 Saturation (94-97) % Sodium 133 L (137-145) mmol/L Potassium 5.8 H (3.5-5.1) mmol/L Carbon Dioxide 19 L (22-30) mmol/L BUN 62 H (9-20) mg/dL Creatinine 2.82 H (0.66-1.25) mg/dL Glucose 174 H (74-99) mg/dL POC Glucose (mg/dL) 156 H (70-110) mg/dL Calcium 7.8 L (8.4-10.2) mg/dL Troponin I (0.000-0.034) ng/mL 10/24/24 10/24/24 10/24/24 Range/Units 04:19 05:19 05:21 WBC (3.8-10.6) k/uL MCHC (31.0-37.0) g/dL RDW (11.5-15.5) % Neutrophils # (Manual) (1.3-7.7) k/uL Lymphocytes # (Manual) (1.0-4.8) k/uL Metamyelocytes # (Man) (0) k/uL Myelocytes # (Manual) (0) k/uL APTT 37.4 H (22.0-30.0) sec ABG pH 7.06 L* (7.35-7.45) ABG pCO2 74 H* (35-45) mmHg ABG pO2 53 L* (83-108) mmHg ABG Total CO2 (19-24) mmol/L ABG O2 Saturation 82.1 L (94-97) % Sodium (137-145) mmol/L Potassium (3.5-5.1) mmol/L Carbon Dioxide (22-30) mmol/L BUN (9-20) mg/dL Creatinine (0.66-1.25) mg/dL Glucose (74-99) mg/dL POC Glucose (mg/dL) (70-110) mg/dL Calcium (8.4-10.2) mg/dL Troponin I 0.715 H* (0.000-0.034) ng/mL 10/24/24 Range/Units 05:23 WBC (3.8-10.6) k/uL MCHC (31.0-37.0) g/dL RDW (11.5-15.5) % Neutrophils # (Manual) (1.3-7.7) k/uL Lymphocytes # (Manual) (1.0-4.8) k/uL Metamyelocytes # (Man) (0) k/uL Myelocytes # (Manual) (0) k/uL APTT (22.0-30.0) sec ABG pH (7.35-7.45) ABG pCO2 (35-45) mmHg ABG pO2 (83-108) mmHg ABG Total CO2 (19-24) mmol/L ABG O2 Saturation (94-97) % Sodium (137-145) mmol/L Potassium (3.5-5.1) mmol/L Carbon Dioxide (22-30) mmol/L BUN (9-20) mg/dL Creatinine (0.66-1.25) mg/dL Glucose (74-99) mg/dL POC Glucose (mg/dL) 168 H (70-110) mg/dL Calcium (8.4-10.2) mg/dL Troponin I (0.000-0.034) ng/mL - Imaging and Cardiology Chest x-ray: report reviewed, image reviewed Assessment and Plan Assessment: Right-sided recurrent pleural effusion with hydropneumothorax and bullous disease, status post right thoracoscopy with bullectomy, mechanical and chemical pleurodesis, 1 level intercostal nerve block Acute hypoxemic respiratory failure, requiring intubation Acute kidney injury, present on admission Bilateral pneumonia History of chronic obstructive pulmonary disease on home oxygen use between 2.5 to 3 L nasal cannula Recurrent right pleural effusions with previous thoracentesis on April 29, 2024 and May 12, 2024, cytology from previous thoracentesis has been negative for malignancy Hypertension Chronic heart failure with preserved ejection fraction Pneumonia in September 2023, COVID-19 in July 2023 Paroxysmal atrial fibrillation status post cardioversion and ablation on Eliquis for anticoagulation as an outpatient GERD Previous tobacco dependence with cessation in January 2024. Plan: Continue right sided pleural chest tube to continuous wall suction Ventilator management per shoveler Wean pressors as able Continue antibiotics Continue to hold Eliquis Medical management of other comorbidities per internal medicine and pulmonary/critical care service Patient has very poor prognosis, would be appropriate to make comfort care More recommendations to follow based on patient's clinical course.
[2024-10-24] MEDS: SODIUM ZIRCONIUM CYCLOSILICATE 10 GM PACKET PO SCH (08:35)
[2024-10-24 09:21] VITALS: TEMP 99.2
--- NOTE | 2024-10-24 10:00 | P.PN ---
Subjective Progress Note Date: 10/23/24 Principal diagnosis: Reason for follow-up is abnormal CT question of pneumonia Patient is a 64-year-old male with a past medical history significant for atrial fibrillation heart failure hypertension reflux and recurrent right- sided pleural effusion status post multiple thoracocentesis, presented to hospital with increasing shortness of breath CT of the chest did shows right- sided effusion with the pneumothorax and scattered airspace disease with concern for possible pneumonia prompting this consultation. Patient is status post right thoracotomy with bullectomy mechanical and chemical pleurodesis no culture procedure completed on 10/21/2024. On today's evaluation that is 10/23/2024, patient did have worsening of his respiratory status requiring intubation and transferred to the ICU patient did have a temperature of 102 F last night the patient is afebrile this morning patient is currently on 100% FiO2 requiring pressor support no other changes reported by nursing staff. Patient white count is 13.5 creatinine is 1.28 blood and sputum cultures currently pending Objective - Vital Signs Vital signs: Vital Signs Temp 98.0 F 10/23/24 08:00 Pulse 72 10/23/24 12:14 Resp 32 H 10/23/24 11:15 BP 102/60 10/23/24 11:15 Pulse Ox 92 L 10/23/24 11:15 FiO2 100 10/23/24 12:05 Intake & Output 10/22/24 10/23/24 10/23/24 18:59 06:59 18:59 Intake Total 684 929.086 834.483 Output Total 2050 610 130 Balance -1366 319.086 704.483 Weight 97 kg 97 kg Intake: IV 100 300 Sodium Chloride 0.9% 1, 100 000 ml @ 20 mls/hr IV . Q24H [facility] Rx#:[id number] Sodium Chloride 0.9% 1, 300 000 ml @ 75 mls/hr IV . [id number] [facility] Rx#:[id number] Intake, IV Titration 829.086 474.483 Amount Calcium Gluconate in NaCl 100 1 gm In Saline 1 100ml. bag @ 400 mls/hr IVPB ONCE ONE Rx#:[id number] Norepinephrine 4 mg In 110.810 302.968 Sodium Chloride 0.9% 250 ml @ 0.03 MCG/KG/MIN 11. 087 mls/hr IV .[id number] [facility] Rx#:[id number] Sodium Chloride 0.9% 1, 375 75 000 ml @ 75 mls/hr IV . [id number] [facility] Rx#:[id number] propofoL 1,000 mg In 243.276 96.515 Empty Bag 1 bag @ 15 MCG/ KG/MIN 8.73 mls/hr IV . [id number] [facility] Rx#:[id number] Oral 684 Tube Feeding 30 Other 30 Output: Chest Tube Drainage 250 40 10 Chest Tube Right Lateral 250 40 10 Chest Urine 1800 570 120 Other: Voiding Method Indwelling Catheter Indwelling Catheter # Voids 1 ABP, PAP, CO, CI - Last Documented Arterial Blood Pressure 95/56 - Exam GENERAL DESCRIPTION: An elderly male intubated on the vent RESPIRATORY SYSTEM: Unlabored breathing , decreased breath sounds at bases HEART: S1 S2 regular rate and rhythm , ABDOMEN: Soft , no tenderness EXTREMITIES: No edema feet - Labs CBC & Chem 7: 10/24/24 04:19 10/24/24 04:19 Labs: Abnormal Lab Results - Last 24 Hours (Table) 10/22/24 10/22/24 10/22/24 Range/Units 14:56 19:27 19:36 Hgb (13.0-17.5) gm/dL RDW (11.5-15.5) % Neutrophils # (1.3-7.7) k/uL Lymphocytes # (1.0-4.8) k/uL ABG pH 7.46 H (7.35-7.45) ABG pCO2 (35-45) mmHg ABG pO2 51 L* (83-108) mmHg ABG HCO3 28 H (21-25) mmol/L ABG Total CO2 29 H (19-24) mmol/L ABG O2 Saturation 86.1 L (94-97) % Sodium (137-145) mmol/L Potassium (3.5-5.1) mmol/L Chloride (98-107) mmol/L BUN (9-20) mg/dL Creatinine (0.66-1.25) mg/dL Glucose (74-99) mg/dL POC Glucose (mg/dL) 169 H (70-110) mg/dL Calcium (8.4-10.2) mg/dL Magnesium (1.6-2.3) mg/dL C-Reactive Protein 20.4 H (<1.0) mg/dL Urine Protein (Negative) Urine Glucose (UA) (Negative) Urine Blood (Negative) Urine Bacteria (None) /hpf Hyaline Casts (0-2) /lpf Urine Mucus (None) /hpf Urine Yeast (Budding) (None) /hpf 10/22/24 10/22/24 10/22/24 Range/Units 20:08 21:52 22:47 Hgb (13.0-17.5) gm/dL RDW (11.5-15.5) % Neutrophils # (1.3-7.7) k/uL Lymphocytes # (1.0-4.8) k/uL ABG pH 7.25 L (7.35-7.45) ABG pCO2 70 H (35-45) mmHg ABG pO2 70 L (83-108) mmHg ABG HCO3 31 H (21-25) mmol/L ABG Total CO2 33 H (19-24) mmol/L ABG O2 Saturation 89.7 L (94-97) % Sodium (137-145) mmol/L Potassium (3.5-5.1) mmol/L Chloride (98-107) mmol/L BUN (9-20) mg/dL Creatinine (0.66-1.25) mg/dL Glucose (74-99) mg/dL POC Glucose (mg/dL) 138 H (70-110) mg/dL Calcium (8.4-10.2) mg/dL Magnesium (1.6-2.3) mg/dL C-Reactive Protein (<1.0) mg/dL Urine Protein 1+ H (Negative) Urine Glucose (UA) 4+ H (Negative) Urine Blood Small H (Negative) Urine Bacteria Rare H (None) /hpf Hyaline Casts 9 H (0-2) /lpf Urine Mucus Rare H (None) /hpf Urine Yeast (Budding) Rare H (None) /hpf 10/22/24 10/22/24 10/23/24 Range/Units 23:29 23:29 03:08 Hgb (13.0-17.5) gm/dL RDW 15.8 H (11.5-15.5) % Neutrophils # 8.3 H (1.3-7.7) k/uL Lymphocytes # 0.2 L (1.0-4.8) k/uL ABG pH (7.35-7.45) ABG pCO2 (35-45) mmHg ABG pO2 (83-108) mmHg ABG HCO3 (21-25) mmol/L ABG Total CO2 (19-24) mmol/L ABG O2 Saturation (94-97) % Sodium 129 L (137-145) mmol/L Potassium 5.3 H (3.5-5.1) mmol/L Chloride 94 L (98-107) mmol/L BUN 38 H (9-20) mg/dL Creatinine (0.66-1.25) mg/dL Glucose 174 H (74-99) mg/dL POC Glucose (mg/dL) 147 H (70-110) mg/dL Calcium 7.6 L (8.4-10.2) mg/dL Magnesium 2.4 H (1.6-2.3) mg/dL C-Reactive Protein (<1.0) mg/dL Urine Protein (Negative) Urine Glucose (UA) (Negative) Urine Blood (Negative) Urine Bacteria (None) /hpf Hyaline Casts (0-2) /lpf Urine Mucus (None) /hpf Urine Yeast (Budding) (None) /hpf 10/23/24 10/23/24 10/23/24 Range/Units 04:42 04:42 04:59 Hgb 12.5 L (13.0-17.5) gm/dL RDW 15.8 H (11.5-15.5) % Neutrophils # 8.6 H (1.3-7.7) k/uL Lymphocytes # 0.4 L (1.0-4.8) k/uL ABG pH 7.16 L* (7.35-7.45) ABG pCO2 75 H* (35-45) mmHg ABG pO2 52 L* (83-108) mmHg ABG HCO3 27 H (21-25) mmol/L ABG Total CO2 29 H (19-24) mmol/L ABG O2 Saturation 77.0 L (94-97) % Sodium 132 L (137-145) mmol/L Potassium (3.5-5.1) mmol/L Chloride (98-107) mmol/L BUN 43 H (9-20) mg/dL Creatinine 1.28 H (0.66-1.25) mg/dL Glucose 132 H (74-99) mg/dL POC Glucose (mg/dL) (70-110) mg/dL Calcium 7.5 L (8.4-10.2) mg/dL Magnesium (1.6-2.3) mg/dL C-Reactive Protein (<1.0) mg/dL Urine Protein (Negative) Urine Glucose (UA) (Negative) Urine Blood (Negative) Urine Bacteria (None) /hpf Hyaline Casts (0-2) /lpf Urine Mucus (None) /hpf Urine Yeast (Budding) (None) /hpf 10/23/24 Range/Units 10:47 Hgb (13.0-17.5) gm/dL RDW (11.5-15.5) % Neutrophils # (1.3-7.7) k/uL Lymphocytes # (1.0-4.8) k/uL ABG pH 7.14 L* (7.35-7.45) ABG pCO2 72 H* (35-45) mmHg ABG pO2 59 L* (83-108) mmHg ABG HCO3 (21-25) mmol/L ABG Total CO2 27 H (19-24) mmol/L ABG O2 Saturation 84.7 L (94-97) % Sodium (137-145) mmol/L Potassium (3.5-5.1) mmol/L Chloride (98-107) mmol/L BUN (9-20) mg/dL Creatinine (0.66-1.25) mg/dL Glucose (74-99) mg/dL POC Glucose (mg/dL) (70-110) mg/dL Calcium (8.4-10.2) mg/dL Magnesium (1.6-2.3) mg/dL C-Reactive Protein (<1.0) mg/dL Urine Protein (Negative) Urine Glucose (UA) (Negative) Urine Blood (Negative) Urine Bacteria (None) /hpf Hyaline Casts (0-2) /lpf Urine Mucus (None) /hpf Urine Yeast (Budding) (None) /hpf Microbiology - Last 24 Hours (Table) 10/19/24 14:32 Blood Culture - Preliminary Blood 10/20/24 07:48 Gram Stain - Final Sputum Sputum Culture - Final Assessment and Plan (1) Leukocytosis Current Visit: Yes Status: Acute Code(s): D72.829 - ELEVATED WHITE BLOOD CELL COUNT, UNSPECIFIED SNOMED Code(s): 581290893 (2) Pneumonia Current Visit: Yes Status: Acute Code(s): J18.9 - PNEUMONIA, UNSPECIFIED ORGANISM SNOMED Code(s): 109129856 Plan: 1patient presented to hospital with increasing shortness of breath, patient is status post right thoracotomy bullectomy mechanical and chemical pleurodesis with subsequent worsening of his respiratory status requiring intubation and admission to the ICU has been running a fever concerning for pneumonia 2patient is broadly covered with vancomycin and cefepime to continue while waiting for the culture to finalize Family at the bedside questions answered Dictation was produced using [employer] dictation software. please excuse any grammatical, word or spelling errors. Time with Patient: Less than 30
--- NOTE | 2024-10-24 10:21 | P.NPCON ---
History of Present Illness - Reason for Consult Consult date: 10/24/24 acute renal failure - Chief Complaint Shortness of Breath - History of Present Illness Patient is a 64 yo male presented to hospital on 10/17/24 for shortness of breath. CT of the chest did shows right-sided effusion with the pneumothorax and scattered airspace disease with concern for possible pneumonia prompting this consultation. Patient is status post right thoracotomy with bullectomy mechani amy and chemical pleurodesis no culture procedure completed on 10/21/2024. Over last 24 hours patient has decompensated and trasnferred to ICU and was intubated. He has been difficult to oxygenated and developed shock currently maxed out of pressors. He was also noted to have fevers and likely septic shock. Patient intubated and unable ot provide history which was obtained from chart. Vitals Reviewed GENERAL: An elderly male intubated on the vent RESPIRATORY SYSTEM: Ventilator, decreased breath sounds HEART: S1 S2 regular rate and rhythm ABDOMEN: Soft , non-distended EXTREMITIES: No edema Review of Systems ROS unobtainable: due to endotracheal tube Past Medical History Past Medical History: Atrial Fibrillation, Heart Failure, COPD, GERD/Reflux, Hypertension Additional Past Medical History / Comment(s): COVID 08/21 History of Any Multi-Drug Resistant Organisms: None Reported Additional Past Surgical History / Comment(s): REPAIR TENDON OF LEFT HAND (CHILDHOOD), sinus surgery , COLONOSCOPY Past Anesthesia/Blood Transfusion Reactions: No Reported Reaction Past Psychological History: No Psychological Hx Reported Smoking Status: Former smoker (Quit January 2024) Past Alcohol Use History: None Reported Past Drug Use History: None Reported - Past Family History Mother Family Medical History: Cancer, Dementia Additional Family Medical History / Comment(s): Passed from dementia Father Family Medical History: Congestive Heart Failure (CHF), COPD Additional Family Medical History / Comment(s): Passed from heart/lung disease Medications and Allergies Home Medications Medication Instructions Recorded Confirmed Type Multivitamins, Thera [Multivitamin 1 tab PO DAILY 10/23/21 10/18/24 History (formulary)] Albuterol Inhaler [Ventolin Hfa 2 puff INHALATION RT-QID PRN #1 12/31/23 10/18/24 Rx Inhaler] each Aspirin EC [Ecotrin Low Dose] 81 mg PO DAILY 02/08/24 10/18/24 History Fluticasone/Umeclidin/Vilanter 1 puff INHALATION RT-DAILY 04/28/24 10/18/24 History [Trelegy Ellipta 200-62.5-25] Bumetanide [BUMEX] 1 mg PO BID@0900,1600 30 Days #60 05/01/24 10/18/24 Rx tab Dapagliflozin Propanediol [Farxiga] 10 mg PO DAILY #30 tab 05/01/24 10/18/24 Rx Losartan [Cozaar] 12.5 mg PO DAILY 30 Days #15 tab 05/01/24 10/18/24 Rx Spironolactone [Aldactone] 25 mg PO DAILY #30 tab 05/01/24 10/18/24 Rx Apixaban [Eliquis] 5 mg PO BID@0900,1600 07/10/24 10/18/24 History Nitroglycerin Sl Tabs [Nitrostat] 0.4 mg SL Q5M PRN 07/10/24 10/18/24 History Metoprolol Tartrate [Lopressor] 50 mg PO BID 30 Days #60 tab 07/16/24 10/18/24 Rx Omeprazole [PriLOSEC] 20 mg PO AC-BRKFST #30 cap 07/16/24 10/18/24 Rx Flecainide [Tambocor] 50 mg PO Q12HR 10/18/24 10/18/24 History Ipratropium-Albuterol Nebulize 3 ml INHALATION RT-QID PRN 10/18/24 10/18/24 History [Duoneb 0.5 mg-3 mg/3 ml Soln] Allergies Allergy/AdvReac Type Severity Reaction Status Date / Time lisinopril AdvReac CAUSED Verified 10/21/24 06:16 FATIGUE Physical Exam Vitals: Vital Signs Temp Pulse Resp BP Pulse Ox FiO2 10/24/24 09:15 120 H 32 H 112/66 84 L 10/24/24 09:00 120 H 32 H 110/66 84 L 10/24/24 08:45 121 H 32 H 109/69 84 L 10/24/24 08:37 120 H 10/24/24 08:30 114 H 32 H 108/64 85 L 10/24/24 08:27 110 H 10/24/24 08:26 110 H 10/24/24 08:15 109 H 32 H 109/66 85 L 10/24/24 08:13 110 H 100 10/24/24 08:00 99.2 F 110 H 32 H 111/64 85 L 100 10/24/24 07:45 110 H 32 H 107/63 85 L 10/24/24 07:30 110 H 32 H 115/64 85 L 10/24/24 07:15 112 H 32 H 112/69 86 L 10/24/24 07:00 111 H 32 H 114/66 86 L 10/24/24 06:45 112 H 32 H 114/69 86 L 10/24/24 06:30 111 H 32 H 112/69 86 L 10/24/24 06:15 111 H 32 H 99/59 85 L 10/24/24 06:00 112 H 32 H 107/70 85 L 10/24/24 05:45 112 H 32 H 112/68 84 L 10/24/24 05:30 113 H 32 H 109/79 85 L 10/24/24 05:15 115 H 33 H 114/72 85 L 10/24/24 05:00 99.9 F H 116 H 33 H 113/71 85 L 100 10/24/24 04:45 117 H 33 H 111/76 85 L 10/24/24 04:30 118 H 32 H 110/74 85 L 10/24/24 04:15 120 H 32 H 111/64 85 L 10/24/24 04:00 117 H 32 H 111/68 85 L 100 10/24/24 03:45 108 H 32 H 111/71 87 L 10/24/24 03:41 108 H 10/24/24 03:35 106 H 100 10/24/24 03:30 105 H 32 H 114/73 87 L 10/24/24 03:15 105 H 33 H 118/72 87 L 10/24/24 03:00 104 H 32 H 117/71 88 L 10/24/24 02:45 105 H 0 L 115/70 88 L 10/24/24 02:30 103 H 34 H 121/74 88 L 10/24/24 02:15 104 H 34 H 119/71 88 L 10/24/24 02:00 104 H 34 H 123/67 88 L 10/24/24 01:45 104 H 34 H 115/74 88 L 10/24/24 01:30 101 H 34 H 123/64 88 L 10/24/24 01:15 101 H 34 H 117/70 88 L 10/24/24 01:00 101 H 32 H 123/68 88 L 10/24/24 00:45 103 H 32 H 121/70 89 L 10/24/24 00:30 100 31 H 115/63 89 L 10/24/24 00:15 99 33 H 116/67 89 L 10/24/24 00:00 99.9 F H 100 33 H 123/73 89 L 100 10/23/24 23:45 101 H 33 H 119/71 89 L 10/23/24 23:38 100 10/23/24 23:30 99 31 H 121/70 90 L 10/23/24 23:15 100 32 H 114/66 90 L 10/23/24 23:00 100 F H 99 33 H 117/71 90 L 10/23/24 22:45 99 31 H 117/74 90 L 10/23/24 22:30 99 33 H 112/67 90 L 10/23/24 22:15 101 H 33 H 114/69 91 L 10/23/24 22:00 101 H 32 H 114/69 91 L 10/23/24 21:45 102 H 32 H 117/68 92 L 10/23/24 21:30 101 H 32 H 128/77 91 L 10/23/24 21:15 91 32 H 114/69 93 L 10/23/24 21:06 100 10/23/24 21:00 91 32 H 107/65 91 L 10/23/24 20:45 91 32 H 107/65 93 L 10/23/24 20:30 89 32 H 107/65 91 L 10/23/24 20:15 87 32 H 107/65 91 L 10/23/24 20:00 99.5 F 87 32 H 106/63 91 L 100 10/23/24 19:45 85 32 H 106/63 92 L 10/23/24 19:30 86 32 H 106/63 91 L 10/23/24 19:15 85 32 H 106/63 91 L 10/23/24 19:00 84 32 H 104/61 91 L 10/23/24 18:45 84 32 H 91 L 10/23/24 18:30 83 32 H 91 L 10/23/24 18:15 82 2 L 104/61 91 L 10/23/24 18:00 82 32 H 91 L 10/23/24 17:45 82 32 H 102/57 91 L 10/23/24 17:30 81 32 H 91 L 10/23/24 17:15 81 32 H 102/57 91 L 10/23/24 17:00 80 32 H 91 L 10/23/24 16:45 77 33 H 90 L 10/23/24 16:30 78 32 H 91 L 10/23/24 16:15 79 32 H 94/54 90 L 10/23/24 16:00 98.6 F 76 32 H 92 L 100 10/23/24 15:49 76 10/23/24 15:45 76 32 H 90 L 10/23/24 15:39 100 10/23/24 15:38 78 10/23/24 15:30 75 32 H 90 L 10/23/24 15:15 80 32 H 90/61 91 L 10/23/24 15:00 75 32 H 90 L 10/23/24 14:45 80 32 H 93 L 10/23/24 14:30 77 32 H 85/59 91 L 10/23/24 14:15 77 32 H 85/59 91 L 10/23/24 14:00 73 32 H 92 L 10/23/24 13:45 77 32 H 92 L 10/23/24 13:30 75 32 H 92 L 10/23/24 13:15 75 32 H 90/60 92 L 10/23/24 13:00 76 32 H 92 L 10/23/24 12:45 73 32 H 92 L 10/23/24 12:30 74 32 H 91 L 10/23/24 12:15 72 32 H 96/59 90 L 10/23/24 12:14 72 10/23/24 12:05 100 10/23/24 12:04 72 10/23/24 12:00 98.0 F 72 32 H 90 L 100 10/23/24 11:45 73 32 H 90 L 10/23/24 11:30 70 32 H 92 L 10/23/24 11:15 70 32 H 102/60 92 L 10/23/24 11:00 70 28 H 114/73 91 L 10/23/24 10:45 70 28 H 91 L 10/23/24 10:30 68 28 H 90 L 10/23/24 10:15 73 28 H 91 L Intake and Output 10/23/24 10/24/24 10/24/24 22:59 06:59 14:59 Intake Total 2994.244 2410.506 626.191 Output Total 130 110 45 Balance 4915.095 5729.506 581.191 Intake: IV 660 620 309 Sodium Chloride 0.9% 1, 60 20 000 ml @ 20 mls/hr IV . Q24H [facility] Rx#:[id number] Sodium Chloride 0.9% 1, 600 600 300 000 ml @ 75 mls/hr IV . [id number] [facility] Rx#:[id number] a-line 9 Intake, IV Titration 538.031 2528.506 317.191 Amount Anidulafungin 100 mg In 100 Sodium Chloride 0.9% 100 ml @ 84 mls/hr IVPB Q24H [facility] Rx#:[id number] Calcium Gluconate in NaCl 100 1 gm In Saline 1 100ml. bag @ 100 mls/hr IVPB ONCE ONE Rx#:[id number] Cefepime 2 gm In Sodium 100 100 Chloride 0.9% 100 ml @ 25 mls/hr IVPB Q8H [facility] Rx#: [id number] Cisatracurium 200 mg In 149.38 Sodium Chloride 0.9% 180 ml @ 1 MCG/KG/MIN 5.82 mls/hr IV .Q24H [facility] Rx#: [id number] Heparin Sod,Pork in 0.45% 71 NaCl 25,000 unit In 0.45 % NaCl 1 250ml.bag @ 10. 309 UNITS/KG/HR 10 mls/hr IV .Q24H [facility] Rx#: [id number] Norepinephrine 8 mg In 445.743 690.951 250.261 Sodium Chloride 0.9% 250 ml @ 0.03 MCG/KG/MIN 5. 631 mls/hr IV .Q24H [facility] Rx#:[id number] Vasopressin 60 unit In 43.528 48.45 Sodium Chloride 0.9% 150 ml @ 0.03 UNITS/MIN 4.59 mls/hr IV .Q24H [facility] Rx#: [id number] propofoL 1,000 mg In 181.965 189.725 66.93 Empty Bag 1 bag @ 15 MCG/ KG/MIN 8.73 mls/hr IV . [id number] [facility] Rx#:[id number] Tube Feeding 90 Other 30 Output: Chest Tube Drainage 0 0 Chest Tube Right Lateral 0 0 Chest Urine 130 110 45 Other: Voiding Method Indwelling Catheter Indwelling Catheter Indwelling Catheter Weight 108.2 kg ABP, PAP, CO, CI - Last 8 Hours Arterial Blood Pressure 88/56 Arterial Blood Pressure 87/55 Arterial Blood Pressure 90/56 Arterial Blood Pressure 86/55 Arterial Blood Pressure 84/55 Arterial Blood Pressure 87/56 Arterial Blood Pressure 88/56 Arterial Blood Pressure 90/57 Arterial Blood Pressure 85/58 Arterial Blood Pressure 94/58 Arterial Blood Pressure 98/61 Arterial Blood Pressure 100/61 Arterial Blood Pressure 100/61 Arterial Blood Pressure 87/56 Arterial Blood Pressure 94/58 Arterial Blood Pressure 102/62 Arterial Blood Pressure 93/60 Arterial Blood Pressure 95/60 Arterial Blood Pressure 96/61 Arterial Blood Pressure 96/61 Arterial Blood Pressure 98/61 Arterial Blood Pressure 91/57 Arterial Blood Pressure 101/61 Arterial Blood Pressure 97/60 Arterial Blood Pressure 100/61 Arterial Blood Pressure 101/61 Arterial Blood Pressure 101/62 Arterial Blood Pressure 92/60 Arterial Blood Pressure 93/60 Results - Lab Results Most recent lab results ABG pH 7.06 (7.35-7.45) L* 10/24/24 05:19 ABG pCO2 74 mmHg (35-45) H* 10/24/24 05:19 ABG pO2 53 mmHg (83-108) L* 10/24/24 05:19 ABG HCO3 21 mmol/L (21-25) 10/24/24 05:19 ABG O2 Saturation 82.1 % (94-97) L 10/24/24 05:19 Calcium 7.8 mg/dL (8.4-10.2) L 10/24/24 04:19 Magnesium 2.4 mg/dL (1.6-2.3) H 10/22/24 23:29 10/24/24 04:19 10/24/24 04:19 Assessment and Plan Assessment: 1. Oliguric TAYLOR due to ATN from septic shock. Creatinine 1.0, worsening to 2.8 today. Urine output 10 cc/hr. 2. Septic shock currently maxed out on levophed and vasopressin 3. AVDRF- unable to oxygenate 4. Right pneumothorax s/p right thoracotomy with bullectomy 10/21/24. 5. AGMA with respiratory acidosis due to TAYLOR and septic shock poor ventilation. 6. Hyperkalmeia related to TAYLOR and acidosis Plan: Patient now DNR Too hemodynamically unstable to consider HD at this time Recommend comfort measures Can continue Lokelma 10g BID for now Family to has discussion with ICU team this morning Prognosis grave
--- NOTE | 2024-10-24 10:45 | PN ---
PROGRESS NOTE DATE OF SERVICE: 10/23/2024 SUBJECTIVE: This is a 64-year-old gentleman admitted with right hydropneumothorax, had a VATS procedure with chemical and mechanical pleurodesis. The patient developed respiratory distress and was transferred to ICU and was on mechanical ventilation at this time. Most recent chest x-ray, which I reviewed today showed bilateral lesions. PAST MEDICAL HISTORY: Reviewed. REVIEW OF SYSTEMS: Could not be taken. The patient is currently sedated. PHYSICAL EXAMINATION: VITAL SIGNS: Pulse 77, blood pressure 85/59, respirations 18. HEENT: Conjunctivae normal. CARDIOVASCULAR: S1, S2. RESPIRATIONS: Bilateral scattered rhonchi and crackles. ABDOMEN: Soft. NERVOUS SYSTEM: Nonfocal. LABORATORY DATA: Noted. ASSESSMENT: 1. Right-sided hydropneumothorax, status post VATS and as well as mechanical and chemical pleurodesis. 2. Acute on chronic hypoxic respiratory failure as well as chronic obstructive pulmonary disease acute exacerbation. 3. Possible bilateral pneumonia. 4. Rule out left-sided ground-glass type of interstitial pneumonia. 5. History of congestive heart failure. 6. Hypertension, atrial fibrillation. 7. History of COVID previously. RECOMMENDATIONS AND DISCUSSION: Recommend to continue current medications and continue symptomatic treatment. Otherwise, monitor closely and the patient definitely has some residual effects of the COVID, but active pneumonia needs to be ruled out and guarded prognosis. Further recommendations to follow. Procalcitonin is consistently negative. I would recommend cultures. Urine has some yeast. Fungal superinfection is also concerned. Further recommendations to follow. MMODL / IJN: [id number] /
[2024-10-24] MEDS ORDERED: ATROPINE OPHTH SOLN 1% 5ML BTL SUBLINGUAL PRN (10:52)
--- NOTE | 2024-10-24 10:55 | P.PN ---
Subjective Progress Note Date: 10/24/24 Principal diagnosis: Shortness of breath. Patient is a 64-year-old male with past medical history significant for COPD, atrial fibrillation with previous cardioversion, congestive heart failure, hypertension, hyperlipidemia, recurrent right-sided pleural effusion with previous thoracentesis on 04/29/2024 and again on 07/12/2024. Fluid cytology previously negative for malignancy. Fluid was technically transudate based on lights criteria. Most recent echocardiogram from June, estimating preserved left ventricular ejection fraction of 55 to 60% as well as trace to mild mitral and tricuspid regurgitation, and an RVSP of 58. Follow-up right- sided heart catheterization demonstrating borderline elevated left filling pressures and normal right-sided filling pressures with borderline pulmonary hypertension with a mean PA pressure of 24. Following patient's most recent right-sided thoracentesis in June, patient did have a follow-up chest CTA demonstrating a linear filling defect within the right middle lobe with poor visualization of the distal subsegmental branches suggestive of pulmonary embolus. No evidence of right-sided heart strain. Patient did develop a right- sided hydropneumothorax with trace right apical pneumothorax and right small pleural effusion component. He has been following up outpatient in the pulmonary office with Dr. Rooney. He also follows with his j2ee developer, Dr. Melgoza. Approximately 1 week ago patient having increasing shortness of breath, and presented to the emergency department yesterday evening. States that his j2ee developer recently transitioned him from amiodarone to flecainide. He has a cardiac event monitor on. He also continues on Eliquis. He does notice some lower extremity swelling. He also takes Bumex twice daily. Workup in the emergency department, includes a initial chest x-ray showing small right hydropneumothorax. Follow-up chest CT showing right hydropneumothorax, small right pneumothorax with small right pleural effusion. Largest component of air dependent. Multifocal airspace opacities and trace left pleural effusion. CBC: WBC count 8.6, hemoglobin 13.8, platelets 268. CMP: Sodium 132, potassium 4.4, chloride 97, serum bicarb 21, BUN 32, creatinine 1.44, glucose 113. Lactic 1.9. LFTs unremarkable. Troponin 0.027. NT proBNP elevated at 6940. Negative for influenza, RSV, COVID. He is currently being evaluated in the emergency department, room 27. He is sitting at the edge of the bed, nondistressed. Equal lung sounds. No tamponade features. Does become short of breath with minimal exertion, such as walking to the bedside chair to get his bag. He is on 3 L/min nasal cannula. Also, reporting some bilateral thoracic level back pain. Does endorse a persistent cough with clear sputum. He is wheezing and his COPD also appears active. Denies any sputum purulence, fevers or chills, anterior chest pain, hemoptysis. Current vitals: Temperature 99.3 F, heart rate 80 bpm, blood pressure 98/58 mmHg, nontachypneic, SpO2 is 93% on 4 L/min nasal cannula. Progress note dated October 19, 2024. 64-year-old male well-known to me. The patient is seen today in the emergency department, room 27. He was seen yesterday in consultation. The patient is scheduled to have a right sided video-assisted thoracoscopic decortication of the right lung, with chemical, and mechanical pleurodesis currently, the patient is on 3 L of oxygen. He is receiving saline at 20 cc an hour. He was seen by cardiothoracic surgery yesterday and agreed to have the procedure done. We appreciate their input. Current labs include a white count 11.7, hemoglobin 13.4, hematocrit 41.5, and a platelet count of 279,000. Sodium 135, potassium 3.9, chlorides 99, CO2 27, BUN 26, creatinine 1.03. Glucose was 149. Chest x- ray from today shows a stable small right-sided hydropneumothorax. Progress note dated October 20, 2024. 64-year-old male seen today in room 354. Currently, the patient is resting comfortably in bed. He is on oxygen by nasal cannula at 3 L. He is not re ceiving any IV fluids. The patient is scheduled to go to the operating room tomorrow, for a video-assisted thoracoscopic decortication of the lung, with mechanical and chemical pleurodesis. Current labs include a white count 12.4, hemoglobin 12.3, hematocrit 37.7, and a platelet count is normal. Coagulation studies were normal. Sodium 134, potassium 4.8, chloride 97, CO2 30, BUN 27, creatinine 1. The patient's procalcitonin level is normal at 0.24. Chest x-ray today is largely unchanged. Progress note dated October 21, 2024. 64-year-old male seen in room 354. The patient continues on O2 at 3 L. Saturations are 95%. No IV fluids. The patient is scheduled for a video- assisted thoracoscopic decortication of the right lung, with chemical and mechanical pleurodesis. The patient is stable at this time. Labs today include a white count 9.6, hemoglobin 12.6, hematocrit 40.1, and a platelet count of 257,000. Sodium 134, potassium 4.4, chlorides 94, CO2 31, BUN 31, creatinine 1.02. Glucose is 117. Calcium is 8.4. Procalcitonin level is normal x 2. Progress note dated October 22, 2024. 65-year-old male who is postop day #1, status post video-assisted thoracoscopic decortication of the right lung, with chemical and mechanical pleurodesis. The patient is seen today in room 354. He is on 12 L high flow nasal cannula. He is getting saline at 20 cc an hour. An incentive spirometer is at the bedside. White count 7.8, hemoglobin 13.1, hematocrit 41.1, platelet count 250,000. Sodium 132, potassium 4.6, chloride 91, CO2 34, BUN 37, creatinine 1.24. Calcium 8.2. Magnesium 2.5. Chest x-ray shows a right sided chest tube, with a tiny right apical pneumothorax. Infiltrates are noted. Progress note dated October 23, 2024. 64-year-old male who is postoperative day #2, status post video-assisted thoracoscopic decortication of the right lung, with chemical and mechanical pleurodesis, for a chronic right-sided hydropneumothorax. Unfortunately, the patient developed respiratory distress last night, and was transferred down to the intensive care unit. Initially, the patient was placed on BiPAP, but did not tolerate that, and required intubation and mechanical ventilation. He is seen today in room 259. He is on volume assist-control, rate 28, tidal volume 450, FiO2 100%, PEEP of 8. Blood gases on a rate of 24, and the PEEP of 5, show pO2 of 52, pCO2 75, and a pH of 7.16. The patient is getting saline at 75 cc an hour, norepinephrine at 17.4 mcg per per minute, Nimbex at 1.0 microgram per kilogram per minute, and propofol at 50 mcg/kg/min. The patient is having [id number] monitoring. In addition, the patient continues on cefepime and vancomycin. The PEEP was increased to 8, will be increased even further, to improve his saturations. Current laboratory data includes a white count 9.5, hemoglobin 12.5, hematocrit 40.5, and a platelet count of 213,000. Repeat blood gases have been ordered. Sodium 132, potassium 4.7, chloride 98, CO2 25, BUN 43, creatinine 1.28. Glucose is 132. Calcium is 7.5. A right radial arterial line was placed, and a left subclavian triple-lumen catheter was also placed. Chest x-ray shows diffuse bilateral airspace consolidation consistent with pneumonia. Progress note dated October 24, 2024. 64-year-old male postop day #3, status post video-assisted thoracoscopic decortication of the right lung, with chemical and mechanical pleurodesis. This was done for chronic right sided hydropneumothorax. The patient did develop respiratory failure, requiring intubation and mechanical ventilation. Unfortu nately, through the day and night yesterday, the situation has worsened. He is currently on volume assist-control, rate 32, tidal volume 450, 100%, PEEP of 10. Blood gases show pO2 of 53, pCO2 of 74, pH is 7.06. The patient is on norepinephrine at 54 mcg/min, Nimbex at 1 mcg/kg/min, and vasopressin at 0.04 units/min. The patient is also getting saline at 75 cc an hour, and heparin via weight-based protocol. In addition, the patient is a vital AF at 20 cc an hour, and is on cefepime, vancomycin, and Eraxis. Lower extremity Dopplers were negative. White count of 16.1, hemoglobin 13.6, hematocrit 45.1, platelet count normal. PTT is 37.4. Sodium 133, potassium 5.8, chlorides 99, CO2 19, anion gap 15, BUN 62, creatinine 2.82. Glucose is 168. Troponin was 0.71 5. Cultures are negative. Chest x-ray shows bilateral infiltrates. There is a small right hydropneumothorax. Objective - Vital Signs Vital signs: Vital Signs Temp 99.2 F 10/24/24 08:00 Pulse 118 H 10/24/24 10:00 Resp 32 H 10/24/24 10:00 BP 112/64 10/24/24 10:00 Pulse Ox 83 L 10/24/24 10:00 FiO2 100 10/24/24 08:13 Intake & Output 10/23/24 10/24/24 10/24/24 18:59 06:59 18:59 Intake Total 2060.456 2779.769 626.191 Output Total 265 160 45 Balance 0607.133 6232.769 581.191 Weight 108.2 kg Intake: IV 825 980 309 Sodium Chloride 0.9% 1, 80 000 ml @ 20 mls/hr IV . Q24H [facility] Rx#:[id number] Sodium Chloride 0.9% 1, 825 900 300 000 ml @ 75 mls/hr IV . [id number] [facility] Rx#:[id number] a-line 9 Intake, IV Titration 6799.891 3415.769 317.191 Amount Anidulafungin 100 mg In 100 Sodium Chloride 0.9% 100 ml @ 84 mls/hr IVPB Q24H [facility] Rx#:[id number] Calcium Gluconate in NaCl 100 1 gm In Saline 1 100ml. bag @ 100 mls/hr IVPB ONCE ONE Rx#:[id number] Cefepime 2 gm In Sodium 100 100 Chloride 0.9% 100 ml @ 25 mls/hr IVPB Q8H [facility] Rx#: [id number] Cisatracurium 200 mg In 149.38 Sodium Chloride 0.9% 180 ml @ 1 MCG/KG/MIN 5.82 mls/hr IV .Q24H [facility] Rx#: [id number] Heparin Sod,Pork in 0.45% 71 NaCl 25,000 unit In 0.45 % NaCl 1 250ml.bag @ 10. 309 UNITS/KG/HR 10 mls/hr IV .Q24H [facility] Rx#: [id number] Norepinephrine 4 mg In 302.968 Sodium Chloride 0.9% 250 ml @ 0.03 MCG/KG/MIN 11. 087 mls/hr IV .[id number] [facility] Rx#:[id number] Norepinephrine 8 mg In 97.445 1039.249 250.261 Sodium Chloride 0.9% 250 ml @ 0.03 MCG/KG/MIN 5. 631 mls/hr IV .Q24H [facility] Rx#:[id number] Sodium Chloride 0.9% 1, 75 000 ml @ 75 mls/hr IV . [id number] [facility] Rx#:[id number] Vasopressin 60 unit In 43.528 48.45 Sodium Chloride 0.9% 150 ml @ 0.03 UNITS/MIN 4.59 mls/hr IV .Q24H [facility] Rx#: [id number] propofoL 1,000 mg In 296.515 271.690 66.93 Empty Bag 1 bag @ 15 MCG/ KG/MIN 8.73 mls/hr IV . [id number] [facility] Rx#:[id number] Tube Feeding 130 20 Other 90 Output: Chest Tube Drainage 0 0 0 Chest Tube Right Lateral 0 0 0 Chest Urine 265 160 45 Other: Voiding Method Indwelling Catheter Indwelling Catheter Indwelling Catheter ABP, PAP, CO, CI - Last Documented Arterial Blood Pressure 88/56 - Exam No acute distress, sedated, paralyzed, and orally intubated, in no acute distress. HEENT examination is grossly unremarkable. Neck supple. Full range of motion. No adenopathy thyromegaly or neck vein distention. Cardiovascular examination reveals regular rhythm rate. S1-S2 normal. No S3 or S4. No discernible murmur noted. Heart sounds are distant. Lungs reveal bilateral scattered rhonchi and wheezes. Breath sounds are equal but diminished throughout. No crackles are appreciated. Abdomen soft, without bowel sounds. Extremities are intact. No cyanosis clubbing or edema. Skin is without rash or lesion. Neurologic examination cannot be adequately assessed at this time. - Labs CBC & Chem 7: 10/24/24 04:19 10/24/24 04:19 Labs: Abnormal Lab Results - Last 24 Hours (Table) 10/23/24 10/23/24 10/23/24 Range/Units 10:47 17:30 17:30 WBC (3.8-10.6) k/uL MCHC (31.0-37.0) g/dL RDW (11.5-15.5) % Neutrophils # (Manual) (1.3-7.7) k/uL Lymphocytes # (Manual) (1.0-4.8) k/uL Metamyelocytes # (Man) (0) k/uL Myelocytes # (Manual) (0) k/uL APTT (22.0-30.0) sec ABG pH 7.14 L* (7.35-7.45) ABG pCO2 72 H* (35-45) mmHg ABG pO2 59 L* (83-108) mmHg ABG Total CO2 27 H (19-24) mmol/L ABG O2 Saturation 84.7 L (94-97) % Sodium 131 L (137-145) mmol/L Potassium 5.9 H (3.5-5.1) mmol/L Carbon Dioxide (22-30) mmol/L BUN 54 H (9-20) mg/dL Creatinine 1.98 H (0.66-1.25) mg/dL Glucose 195 H (74-99) mg/dL POC Glucose (mg/dL) 186 H (70-110) mg/dL Calcium 7.9 L (8.4-10.2) mg/dL Troponin I (0.000-0.034) ng/mL Cortisol (3.1-22.4) UG/DL 10/23/24 10/23/24 10/23/24 Range/Units 17:30 20:50 20:50 WBC (3.8-10.6) k/uL MCHC (31.0-37.0) g/dL RDW (11.5-15.5) % Neutrophils # (Manual) (1.3-7.7) k/uL Lymphocytes # (Manual) (1.0-4.8) k/uL Metamyelocytes # (Man) (0) k/uL Myelocytes # (Manual) (0) k/uL APTT (22.0-30.0) sec ABG pH (7.35-7.45) ABG pCO2 (35-45) mmHg ABG pO2 (83-108) mmHg ABG Total CO2 (19-24) mmol/L ABG O2 Saturation (94-97) % Sodium 132 L (137-145) mmol/L Potassium 6.0 H (3.5-5.1) mmol/L Carbon Dioxide 21 L (22-30) mmol/L BUN 57 H (9-20) mg/dL Creatinine 2.15 H (0.66-1.25) mg/dL Glucose 190 H (74-99) mg/dL POC Glucose (mg/dL) (70-110) mg/dL Calcium 7.8 L (8.4-10.2) mg/dL Troponin I 0.391 H* (0.000-0.034) ng/mL Cortisol 38.9 H (3.1-22.4) UG/DL 10/23/24 10/23/24 10/23/24 Range/Units 21:00 21:56 23:12 WBC 13.5 H (3.8-10.6) k/uL MCHC (31.0-37.0) g/dL RDW 15.8 H (11.5-15.5) % Neutrophils # (Manual) 12.60 H (1.3-7.7) k/uL Lymphocytes # (Manual) 0.14 L (1.0-4.8) k/uL Metamyelocytes # (Man) 0.41 H (0) k/uL Myelocytes # (Manual) 0.14 H (0) k/uL APTT 21.5 L (22.0-30.0) sec ABG pH (7.35-7.45) ABG pCO2 (35-45) mmHg ABG pO2 (83-108) mmHg ABG Total CO2 (19-24) mmol/L ABG O2 Saturation (94-97) % Sodium (137-145) mmol/L Potassium (3.5-5.1) mmol/L Carbon Dioxide (22-30) mmol/L BUN (9-20) mg/dL Creatinine (0.66-1.25) mg/dL Glucose (74-99) mg/dL POC Glucose (mg/dL) 193 H (70-110) mg/dL Calcium (8.4-10.2) mg/dL Troponin I (0.000-0.034) ng/mL Cortisol (3.1-22.4) UG/DL 10/23/24 10/24/24 10/24/24 Range/Units 23:13 04:18 04:19 WBC (3.8-10.6) k/uL MCHC (31.0-37.0) g/dL RDW (11.5-15.5) % Neutrophils # (Manual) (1.3-7.7) k/uL Lymphocytes # (Manual) (1.0-4.8) k/uL Metamyelocytes # (Man) (0) k/uL Myelocytes # (Manual) (0) k/uL APTT (22.0-30.0) sec ABG pH (7.35-7.45) ABG pCO2 (35-45) mmHg ABG pO2 (83-108) mmHg ABG Total CO2 (19-24) mmol/L ABG O2 Saturation (94-97) % Sodium 133 L 133 L (137-145) mmol/L Potassium 5.4 H 5.8 H (3.5-5.1) mmol/L Carbon Dioxide 19 L 19 L (22-30) mmol/L BUN 59 H 62 H (9-20) mg/dL Creatinine 2.29 H 2.82 H (0.66-1.25) mg/dL Glucose 202 H 174 H (74-99) mg/dL POC Glucose (mg/dL) 156 H (70-110) mg/dL Calcium 7.9 L 7.8 L (8.4-10.2) mg/dL Troponin I (0.000-0.034) ng/mL Cortisol (3.1-22.4) UG/DL 10/24/24 10/24/24 10/24/24 Range/Units 04:19 04:19 05:19 WBC 16.1 H (3.8-10.6) k/uL MCHC 30.2 L (31.0-37.0) g/dL RDW 15.9 H (11.5-15.5) % Neutrophils # (Manual) 14.80 H (1.3-7.7) k/uL Lymphocytes # (Manual) 0.48 L (1.0-4.8) k/uL Metamyelocytes # (Man) (0) k/uL Myelocytes # (Manual) (0) k/uL APTT 37.4 H (22.0-30.0) sec ABG pH 7.06 L* (7.35-7.45) ABG pCO2 74 H* (35-45) mmHg ABG pO2 53 L* (83-108) mmHg ABG Total CO2 (19-24) mmol/L ABG O2 Saturation 82.1 L (94-97) % Sodium (137-145) mmol/L Potassium (3.5-5.1) mmol/L Carbon Dioxide (22-30) mmol/L BUN (9-20) mg/dL Creatinine (0.66-1.25) mg/dL Glucose (74-99) mg/dL POC Glucose (mg/dL) (70-110) mg/dL Calcium (8.4-10.2) mg/dL Troponin I (0.000-0.034) ng/mL Cortisol (3.1-22.4) UG/DL 10/24/24 10/24/24 Range/Units 05:21 05:23 WBC (3.8-10.6) k/uL MCHC (31.0-37.0) g/dL RDW (11.5-15.5) % Neutrophils # (Manual) (1.3-7.7) k/uL Lymphocytes # (Manual) (1.0-4.8) k/uL Metamyelocytes # (Man) (0) k/uL Myelocytes # (Manual) (0) k/uL APTT (22.0-30.0) sec ABG pH (7.35-7.45) ABG pCO2 (35-45) mmHg ABG pO2 (83-108) mmHg ABG Total CO2 (19-24) mmol/L ABG O2 Saturation (94-97) % Sodium (137-145) mmol/L Potassium (3.5-5.1) mmol/L Carbon Dioxide (22-30) mmol/L BUN (9-20) mg/dL Creatinine (0.66-1.25) mg/dL Glucose (74-99) mg/dL POC Glucose (mg/dL) 168 H (70-110) mg/dL Calcium (8.4-10.2) mg/dL Troponin I 0.715 H* (0.000-0.034) ng/mL Cortisol (3.1-22.4) UG/DL Microbiology - Last 24 Hours (Table) 10/23/24 01:40 Gram Stain - Preliminary Sputum Assessment and Plan Assessment: Right-sided hydropneumothorax, initially noted after a right-sided thoracentesis done June,, possible trapped lung versus iatrogenic pneumothorax. Originally, estimated to be less than 10% and was monitored on outpatient basis. Chest CT done on this hospitalization redemonstrating the right-sided hydropneumothorax with small pneumothorax, largest component of air is dependent. Moderate right-sided pleural effusion, slightly larger than previous chest CT. Acute hypoxemic respiratory failure, requiring intubation and mechanical ventilation, October 22, 2024. S/P POD #3, video-assisted thoracoscopic right lung decortication, with chemical/mechanical pleurodesis. Acute COPD exacerbation, complicated by bilateral pneumonia. Suspect acute on chronic diastolic congestive heart failure. Acute hypoxemic respiratory failure. Recurrent right-sided pleural effusion status post right-sided thoracentesis. Atrial fibrillation. Acute kidney injury. History of hypertension. History of hyperlipidemia. Former tobacco smoker. Plan: Plan dated October 19, 2024. The patient is seen today in the emergency department, room 27. The patient was seen by cardiothoracic surgery yesterday, October 18, and was offered a video- assisted thoracoscopic decortication of the right lung, with chemical and mechanical pleurodesis. The patient did agree. He is currently on 3 L of oxygen. He is getting saline at 20 cc an hour. Labs, x-rays, and all medications are reviewed. The patient will eventually get up to the general medical floor. We will continue to follow. Prognosis is guarded. Plan dated October 20, 2024. The patient is seen today in room 354. He is resting comfortably in bed. He is on 3 L of oxygen. No IV fluids. Labs, x-rays, and all medications are reviewed. From the pulmonary standpoint, he is stable. Cardiology restarted some of his cardiac medications. We will continue to follow the patient, make recommendations along the way. The patient is scheduled for a video-assisted thoracoscopic decortication of the right lung, with chemical and mechanical pleurodesis. That is scheduled for tomorrow. Plan dated October 21, 2024. The patient is seen today in room 354. The patient is scheduled for a video- assisted thoracoscopic decortication of the right lung, with chemical and mecha nical pleurodesis. Clinically, the patient stable. He continues on oxygen at 3 L. Saturations are in the mid 90s. Labs, x-rays, and all medications are reviewed. We will continue to follow the patient. Prognosis is guarded. Plan dated October 22, 2024. The patient is seen today in room 354. He is on 12 L high flow nasal O2. The patient has a right sided chest tube in place. Chest x-ray has been reviewed. Labs, x-rays, medications are reviewed. We encouraged the patient to deep breat he, cough, clear secretions, and use his incentive spirometer, every hour while awake. We will continue to follow. Prognosis is guarded. Plan dated October 23, 2024. The patient developed acute hypoxemic respiratory failure last night, and was transferred down to the intensive care unit, where he was trialed on BiPAP initially. Despite that, his respiratory rates were in the 40s, and BLUEPRINT BLOCKER was called, and he was electively intubated. This morning, placed a right radial art line, and left subclavian triple-lumen catheter. The patient was seen by cardiothoracic surgery. He continues on vancomycin and cefepime. The patient's prognosis remains very poor. His PEEP will be increased, until we get adequate saturations. His rate was already increased from 24 to 28 breaths/min. A repeat blood gases pending. The patient continues on propofol, Nimbex, and norepinephrine. Plan dated October 24, 2024. Unfortunately, the patient's respiratory status has continued to decline. He is very hemodynamically unstable, and requiring maximal amounts of both norepinephrine and vasopressin. Despite that, his blood pressure is borderline. His saturations are in the low 80s. He is on 100% and 10 of PEEP. Attempted increasing the PEEP last night, because additional respiratory and hemodynamic instability. I had a long conversation with the family out in the lobby area, including his , kids, and sister. The patient is now a DO NOT RESUSCITATE patient, and they are agreeable to comfort care. I told the especially that member was not going to survive this illness, and we will only prolong in the moment of his , by providing him with medications and mechanical ventilation. She was very accepting of this, and is agreeable to withdrawal of life support. I explained the process to her. She understands. Additional recommendations and suggestions are forthcoming. Time with Patient: Greater than 30
[2024-10-24 11:54] VITALS: BP 104/67; PULSE 121
[2024-10-24] MEDS: MORPHINE SULFATE 4 MG/ML SYRINGE IV PRN (12:22)
[2024-10-24] MEDS: LORazepam 2 MG/ML INJ IV PRN (12:22)
[2024-10-24] MEDS ORDERED: ANIDULAFUNGIN 100 MG in SODIUM CHLORIDE 0.9% 100 ML IVPB SCH (16:00)
--- NOTE | 2024-10-24 21:27 | PN ---
PROGRESS NOTE SUBJECTIVE: Mirian is a 64-year-old gentleman, who has history of hypertension, dyslipidemia, recurrent pleural effusions, atrial fibrillation, status post prior ablation, who is admitted to hospital with right-sided hydropneumothorax. He was evaluated by CT Surgery and underwent VATS procedure on October 21. On , the patient developed progressively worsening respiratory distress and had to be intubated and admitted to ICU. Last night, the nurse called me stating that his oxygenation has gotten worse. He was hypotensive and there were some EKG changes. His troponin was 0.3 and the subsequent troponin was 0.7. EKG showed atrial fibrillation with nonspecific ST-T wave changes and EKG this morning showed new ST-T wave changes in the inferior leads. I started him back on IV heparin. I do not believe the patient has acute coronary syndrome and his current respiratory failure, and hypotension are primarily related to the underlying lung issues. This morning, the patient is intubated on the vent and has difficulty oxygenating with a pulse ox of 83% on an FiO2 of 100% on maximum dose of Levophed. He is still hypotensive with blood pressures in the 80s and they are in the process of changing him to comfort care. OBJECTIVE: VITAL SIGNS: Heart rate is 118 beats per minute, blood pressure is 112/60, O2 saturation is 83%. LABORATORY DATA: Labs show that his hemoglobin is 13.6, platelet count is 224. He is in renal failure with a BUN of 62, creatinine of 2.8, and a potassium of 5.8. ASSESSMENT: 1. Vent-requiring respiratory failure. 2. Paroxysmal atrial fibrillation. 3. Abnormal EKG. 4. Hypotension. PLAN: The patient's prognosis is poor. Continue him on his current medications. We are going to follow him on an as needed basis at this time. MMODL / IJN: [id number] /
--- NOTE | 2024-10-24 21:57 | DS ---
DISCHARGE SUMMARY The preliminary cause of is right-sided hydropneumothorax, status post VATS procedure and acute on chronic hypoxic respiratory failure. Other diagnoses are, 1. Chronic obstructive pulmonary disease acute exacerbation. 2. Possible bibasilar pneumonia. 3. Harleen albicans from the sputum. 4. History of congestive heart failure. 5. Hypertension. 6. Atrial fibrillation. 7. Multiple complex medical issues. 8. History of recent COVID-19. HISTORY OF PRESENT ILLNESS: This is a 64-year-old gentleman with a past medical history of multiple medical problems including hydropneumothorax. The patient had a previous thoracocenteses. The patient had VATS procedure subsequently, acute hypoxic respiratory failure. The patient was treated with multiple medications including antibiotics and antifungals. Please refer to Dr. Rooney, Dr. Mott, and Cardiothoracic notes for further evaluation. The patient was monitored in ICU, but the patient took a turn for the worse and Dr. Rooney had a detailed discussion with family and the patient was transitioned to comfort measures. Once again, please refer to Dr. Rooney's note for further information. The prognosis was extremely guarded throughout the hospital stay. MMODL / IJN: [id number] /
[2024-10-25] MEDS ORDERED: VANCOMYCIN TROUGH DUE 1 EACH MISC MISCELLANE ONE (05:00)
[2024-10-25] MEDS ORDERED: VANCOMYCIN 1,500 MG in SODIUM CHLORIDE 0.9% 500 ML 500 ML IVPB SCH (06:00)
== END 2024-10-24 13:15 | disposition expired | DRG 163 ==
LOC: EC 18:06 → 3SCARD 20:58 → 2SICU 10-22 19:57
PROVIDERS: ADMIT Hospitalist; ATTEND Hospitalist
PROC: 3E0L4GC Introduction of Other Therapeutic Substance into Pleural Cavity, Percutaneous Endoscopic Approach (ICD-10-PCS; principal; 2024-10-21 08:00)
PROC: 0W9940Z Drainage of Right Pleural Cavity with Drainage Device, Percutaneous Endoscopic Approach (ICD-10-PCS; principal; 2024-10-21 08:00)
PROC: 0BQC4ZZ Repair Right Upper Lung Lobe, Percutaneous Endoscopic Approach (ICD-10-PCS; principal; 2024-10-21 08:00)
PROC: 0BH17EZ Insertion of Endotracheal Airway into Trachea, Via Natural or Artificial Opening (ICD-10-PCS; 2024-10-22)
PROC: 5A1945Z Respiratory Ventilation, 24-96 Consecutive Hours (ICD-10-PCS; 2024-10-22)
PROC: 0D9670Z Drainage of Stomach with Drainage Device, Via Natural or Artificial Opening (ICD-10-PCS; 2024-10-22)
PROC: 3E0G76Z Introduction of Nutritional Substance into Upper GI, Via Natural or Artificial Opening (ICD-10-PCS; 2024-10-22)
PROC: 5A09357 Assistance with Respiratory Ventilation, Less than 24 Consecutive Hours, Continuous Positive Airway Pressure (ICD-10-PCS; 2024-10-22)
PROC: 4A133B1 Monitoring of Arterial Pressure, Peripheral, Percutaneous Approach (ICD-10-PCS; 2024-10-23)
PROC: 03HY32Z Insertion of Monitoring Device into Upper Artery, Percutaneous Approach (ICD-10-PCS; 2024-10-23)
PROC: 4A133J1 Monitoring of Arterial Pulse, Peripheral, Percutaneous Approach (ICD-10-PCS; 2024-10-23)
PROC: 05H633Z Insertion of Infusion Device into Left Subclavian Vein, Percutaneous Approach (ICD-10-PCS; 2024-10-23)
PROC: 3E043XZ Introduction of Vasopressor into Central Vein, Percutaneous Approach (ICD-10-PCS; 2024-10-23)
DX: J94.8 Other specified pleural conditions (principal); A41.9 Sepsis, unspecified organism; R65.21 Severe sepsis with septic shock; N17.0 Acute kidney failure with tubular necrosis; B37.1 Pulmonary candidiasis; J96.21 Acute and chronic respiratory failure with hypoxia; J18.9 Pneumonia, unspecified organism; I50.33 Acute on chronic diastolic (congestive) heart failure; E87.4 Mixed disorder of acid-base balance; J93.9 Pneumothorax, unspecified; I27.20 Pulmonary hypertension, unspecified; J44.0 Chronic obstructive pulmonary disease with (acute) lower respiratory infection; J44.1 Chronic obstructive pulmonary disease with (acute) exacerbation; I11.0 Hypertensive heart disease with heart failure; Z51.5 Encounter for palliative care; Z66 Do not resuscitate; I48.0 Paroxysmal atrial fibrillation; K21.9 Gastro-esophageal reflux disease without esophagitis; E78.5 Hyperlipidemia, unspecified; Z99.81 Dependence on supplemental oxygen; Z79.01 Long term (current) use of anticoagulants; Z79.82 Long term (current) use of aspirin; Z79.84 Long term (current) use of oral hypoglycemic drugs; Z79.51 Long term (current) use of inhaled steroids; Z79.899 Other long term (current) drug therapy; Z86.16 Personal history of COVID-19; Z87.891 Personal history of nicotine dependence; Z87.01 Personal history of pneumonia (recurrent); Z88.8 Allergy status to other drugs, medicaments and biological substances
CPT/HCPCS: 36415; 36600; 71045; 71046; 71250; 74176; 80048; 80053; 81001; 82533; 82805; 83605; 83735; 83880; 84145; 84484; 85025; 85610; 85730; 86140; 86850; 86900; 86901; 87040; 87070; 87205; 87636; 88309; 93005; 93970; 94002; 94003; 94640; 94660; 94760; 96361; 96374; 96375; 96376; 99285